=== PATIENT | female | born 1955 | race Caucasian/White ===

== ENCOUNTER → 2020-04-07 08:19 | Outpatient (CLI) | payer OTHER, SELFPAY ==
--- NOTE | 2020-04-07 | IMM_PTH ---
PATIENT: HALEY KEATING LOC: [facility] U#:[id number] AGE/SX: 70/F ROOM: RE04/07/[address]: Dr. Kim Olvera MD : 1955 BED: DIS: SPEC #: [id number] RECD: 04/08/20 13:09 STATUS: MARGARITA REQ #: [id number] AUDRA: 04/07/20 00:[address]: Kim Olvera DEPT: IMMUNOHISTOCHEMISTRY RECD BY: Marianne Suárez ENTERED: 04/08/20 13:10 SP TYPE: IMMUNO OTHR DR: Dr. Dago Driver MD Tissues: Right breast, NOS Procedures: CALPONIN-1 (add) CK5-6 (add) CK8 (add) CANTOR-2 (add) E-CAD (add) HER2 TRACY (add) KI-67 (add) P53 (add) LA (add) P40 (add) ER (initial) PHYSICIAN & INSTITUTION [place] [phone] SPECIMEN INFORMATION: Tissue Source: Right breast, stereotactic core biopsy Clinical Info: Right breast calcifications superior lateral quadrant middle depth Specimen Number: [id number] #1 CPT code: 79700, 08420 x7, 49735 x3 METHODOLOGY: Deparaffinized sections of prefer/formalin-fixed tissue or PAP/DQ stained slides are incubated with monoclonal/polyclonal antibodies/oligonucleotide probes. Localization is made via biotin free immunoperoxidase method. Appropriate controls are performed and reacted as expected. Results on target cell population are indicated in the following table: RESULTS: ANTIBODY / CLONE RESULT Block 1 P53 (DO-7) positive, 2% Ki-67 (30-9) positive, low CK8 (84tasrF37) positive CK5-6 (D5 & 1684) positive Calponin-1 (TZ375I) positive P40 (BC28) positive E-Cad (ECH-6) positive CANTOR-2 (SP21) positive MORPHOMETRIC ANALYSIS ER (clone 6F11) positive, >95%, strong intensity LA (clone 16/1E2) negative, 0% Her-2Neu (clone CB11) negative, 0 The prognostic test for HER2 is performed on formalin-fixed paraffin embedded tissue. A 3+ (positive) staining pattern is defined as intense, homogeneous, complete, circumferential membranous staining in >10% of contiguous tumor cells. A similar weak (2+) staining pattern is interpreted as equivocal. HERIBERTO follow-up testing is recommended for all equivocal cases. Positivity/negativity for ER/LA is reported if > or < 1% of the tumor cells are immuno- reactive, respectively. The ASCO/CAP criteria is used for scoring. Reference: Journal of Clinical Oncology, 2013; 31:7249-3419 & 2010; 16:0039-3512. Duration of fixation: 9.5 Hrs; Sample Adequate: Yes. These assays have not been validated on decalcified tissues. Results should be interpreted with caution given the likelihood of false negativity on decalcified specimens. These tests were developed and their performance characteristics determined by [facility]. They may not have been cleared or approved by the U.S. Food and Drug Administration. The FDA has determined that such clearance or approval is not necessary. The above immunohistochemical/dualISH markers are ordered and reviewed by the Pathologist. 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 Case has been reviewed in consultation with Dr. mUaña who concurs with the above diagnosis. IDC:MCKAY AM:clara 04/09/20
--- NOTE | 2020-04-07 10:10 | BRBX_PTH ---
PATIENT: HALEY KEATING LOC: [facility] U#:[id number] AGE/SX: 70/F ROOM: RE04/07/[address]: Dr. Kim Olvera MD : 1955 BED: DIS: SPEC #: [id number] RECD: 04/07/20 10:51 STATUS: MARGARITA REQ #: [id number] AUDRA: 04/07/20 10:[address]: Kim Olvera DEPT: SURGICAL PATHOLOGY RECD BY: Nohemy Barker ENTERED: 04/07/20 11:09 SP TYPE: BREAST BX OTHR DR: Dr. Dago Driver MD Tissues: Right breast, NOS Procedures: Surgery Specimen Level IV HEADER OPERATION: Right breast stereotactic biopsy PRE-OP DIAGNOSIS: Right breast calcifications superior lateral quadrant middle depth TISSUE SUBMITTED: Right breast core tissue ISCHEMIC TIME: 1 minute FIXATION TIME: 9.5 hours MICROSCOPIC DIAGNOSIS Right breast, superior lateral quadrant, stereotactic needle core biopsy: Ductal carcinoma in situ, nuclear grade 3 with associated microcalcifications, cribriform. Atypical intraductal hyperplasia, multifocal. AM:clara 04/08/20 COMMENT ER/NM/Tph5mjf studies are being performed on sections of tumor and the results from this study will be reported separately ([id number]). Case has been reviewed in consultation with Dr. Umaña who concurs with the above diagnosis. IDC:MCKAY MICROSCOPIC DESCRIPTION Slides are reviewed. GROSS DESCRIPTION Received is one container labeled with the patient's name and not further designated. The specimen consists of multiple elongated fragments of ta-yellow fibroadipose tissue that in aggregate measure 5 x 3 x 0.3 cm. The entire specimen is submitted in two cassettes. / MCKAY:clara 04/07/20 TC:0 CPT: 27185
--- NOTE | 2020-04-07 10:31 | PCM.OPRPT ---
Report of Operation Date of Procedure: 04/07/20 Pre-Operative Diagnosis: abnormal calcifications of right breast mammograms Post-Operative Diagnosis: same Surgery/Procedure Performed:: right breast stereotactic biopsy Description of Surgical Findings:: abnormal calcification in the upper outer quadrant of right breast Type of Anesthesia:: Local - 1% xylocaine Specimen's removed: right breast tissue Estimated Blood Loss (mL): < 1 ml Fluids Replaced: none Description of Procedure: After informed consent was given, the patient was brought into the breast biopsy suite. Appropriate time out protocol was followed. She was then placed in the prone position on the stereotactic biopsy table. The patient?s right breast was then placed in the opening at the head of the table. A methods analyst data processing compression mammogram was then obtained in the CC view. The suspicious radiological lesion was then identified. Stereo pictures of the lesion were then taken for XYZ coordinates. The Mammotome biopsy stylus was then positioned where it would be entering into the patient?s breast. The skin at this site was then cleansed with a surgical skin preparation. The skin and subcutaneous tissues at this site were then infiltrated with 1% xylocaine. A small skin incision was made with an 11 blade scalpel. The biopsy stylus was then positioned into the patient?s breast at the proper coordinates of depth. Using the Mammotome vacuum-assist device, several core samples of breast tissue were obtained. A specimen mammogram was the obtained. I reviewed it. The abnormal calcifications were within the specimen. A hemostatic marker clip was then placed into the biopsy cavity and a methods analyst data processing film revealed that it was properly deployed. The patient was then placed in the supine position and pressure was applied to the breast until no active bleeding was noted. Steristrips were applied to reapproximate the skin. A unilateral mammogram in the CC and MLO view were then taken which revealed that the marker clip was in the same area as the previous suspicious lesion. The patient tolerated the procedure well and was discharged from the breast biopsy suite in good condition. - Complications none noted
== END ==
PROVIDERS: PCP Family Medicine; Referring Provider Surgery; Visit Provider Surgery
DX: R92.1 Mammographic calcification found on diagnostic imaging of breast (principal); F41.9 Anxiety disorder, unspecified; Z80.3 Family history of malignant neoplasm of breast
CPT/HCPCS: 19081; 88305; 88341; 88342; J7050

== ENCOUNTER 2020-05-01 09:51 | Day surgery (SDC) | payer OTHER, SELFPAY ==
[2020-05-01] VITALS (7 sets, daily range): BP systolic 128–154; BP diastolic 73–87; PULSE 69–95; RESP 16; TEMP 36.1–37.2; O2SAT 94–98; BMI 21.7
--- NOTE | 2020-05-01 10:30 | BI_ITS ---
SURGICAL BREAST SPECIMEN RADIOGRAPH CLINICAL: Document presence of tissue clip marker in biopsy specimen. FINDINGS: Specimen shows presence of tissue clip marker. Electronically Signed: Salvador Min, at 14:03 EDT , Service support , BI/Breast Biopsy Specimen
[2020-05-01] MEDS: Lactated Ringers 1,000 ML 100 ML IV ×3 (10:55→16:16)
--- NOTE | 2020-05-01 11:13 | HP.PCM_ITS ---
History and Physical Date of Admission: 05/01/20 HISTORY AND PHYSICAL ? Renetta Resendiz 1955 ? ? REFERRING PHYSICIAN: David Rodriguez, DO ? CHIEF COMPLAINT: No chief complaint on file. ? HPI: The patient is a 64 year old female with newly diagnosed right breast DCIS. She is s/p right breast stereotactic biopsy done on 04/08/2020 MICROSCOPIC DIAGNOSIS Right breast, superior lateral quadrant, stereotactic needle core biopsy: Ductal carcinoma in situ, nuclear grade 3 with as sociated microcalcifications, cribriform. Atypical intraductal hyperplasia, multifocal. RESULTS: P53 (DO-7) positive, 2% Ki-67 (30-9) positive, low CK8 (12nzahO82) positive CK5-6 (D5 & 1684) positive Calponin-1 (VT205B) positive P40 (BC28) positive E-Cad (ECH-6) positive CANTOR-2 (SP21) positive MORPHOMETRIC ANALYSIS ER (clone 6F11) positive, >95%, strong intensity VT (clone 16/1E2) negative, 0% Her-2Neu (clone CB11) negative, 0 ? She states that her mother had breast cancer and sister had breast cancer, no ovarian cancer in family known. She notes slight bruising from the biopsy site. Some soreness in the area. Denies fevers. ? ? PAST MEDICAL HISTORY Diagnosis Date ? NONE ? ? Shingles outbreak 11/2015 ? PAST SURGICAL HISTORY Procedure Laterality Date ? LIGATE FALLOPIAN TUBE ? ? ? NOSE SURGERY HX ? 1986 ? PAST SURGICAL HISTORY OF ? ? ? shave biopsy on left forearm in 06/1997, ? PAST SURGICAL HISTORY OF ? ? ? Moh's on right upper lip in 1996. ? PAST SURGICAL HISTORY OF ? ? ? shave biopsy for bcc on left bridge nose in 2002. ? ? Current Outpatient Medications Medication Sig ? black cohosh root (REMIFEMIN MENOPAUSE ORAL) Take by mouth. ? estradiol (ESTRACE) 0.01 % (0.1 mg/gram) vaginal cream Use 1gram nightly x 2 weeks then use 1/2gram 2-3 times weekly for maintenance (Patient not taking: Reported on 03/31/2020 ? triamcinolone acetonide (NASACORT NASAL) Use in the nose. ? ? ALLERGIES: Bandaids [Other]; Polysporin [Bacitracin-Polymyxin B]; Vicodin [H ydrocodone-Acetaminophen] ? PERSONAL HISTORY: Social History ? Tobacco Use ? Smoking status: Never Smoker ? Smokeless tobacco: Never Used Substance Use Topics ? Alcohol use: Yes ? ? Comment: seldom ? Drug use: No ? FAMILY HISTORY Problem Relation Age of Onset ? Allergies Father ? ? Arthritis Father ? ? Diabetes Father ? ? Heart Father ? ? By-pass ? Lipids Father ? ? Breast Cancer Mother 56 ? Breast Cancer Sister 60 ? Diabetes Sister ? ? Hypertension Sister ? ? Breast Cancer Paternal Grandmother ? ? Asthma Daughter ? ? ? Nursing Notes: Estelita Byrnes LPN REVIEW OF SYSTEMS: ?General:???The patient denies fatigue, denies weight loss, NOTES weight gain, denies feeling hot, and denies feelings of cold. ?Eyes: ?The patient denies glaucoma, denies eye injury/surgery, wears glasse s or contacts. ?Ear/Nose/Throat: ?The patient denies allergies, NOTES hayfever, denies ear infections, and denies bloody noses. ?Cardiovascular: ?The patient denies chest pain, denies heart disease, denies high blood pressure,denies cardiac stent, denies prior heart attack, denies irregular heart beat, denies high cholesterol, ?denies poor circulation, denies heart failure, other cardiac issues, denies claudication, denies cold feet, denies peripheral arterial stent. ?Respiratory: ?The patient denies tuberculosis, denies pneumonia, denies frequent cough, denies pulmonary embolism, denies shortness of breath, and denies coughing up blood. ?Gastrointestinal: ?The patient denies difficulty swallowing, denies acid reflux, denies ulcers, denies vomiting, denies jaundice/hepatitis, denies gallbladder problems, denies black or tarry stools, denies hemorrhoids, denies bleeding from rectum, denies diverticulitis, denies constipation, denies diarrhea, denies loss of stool control, and denies hernias. ?Kidney/Bladder: ?The patient denies kidney stones, denies urine infections, and denies bloody urine. ?Skin: ?The patient NOTES a history of skin cancer, denies bleeding/changing moles, and denies a history of skin rash. ?Neurologic: ?The patient denies a history of epilepsy/convulsions, denies headaches, denies head/spinal injuries, and denies stroke/TIA. ?Psychiatric: ?The patient denies psychiatric medications, denies depression, and denies voices, denies substance abuse. ?Endocrine: ?The patient denies thyroid disorders, denies diabetes, and denies hormonal problems. ?Hematologic: ?The patient denies a history of bruising, denies bleeding, and denies anemia, denies blood clots. ?Infections: ?The patient NOTES a history of measles and mumps, denies rheumatic fever, and denies sexually transmitted diseases. ?Musculoskeletal: ?The patient denies back pain/injury, denies back problems, denies sciatica, NOTES right knee pain, NOTES arthritis, or denies gout. ?Obstetrical: menarche onset at age 14, B3 P3, first at age 21, breast feeding 6 weeks, BCP use initially at age 23, for < 1y, menopause? When was patient's last Mammogram screening? 02/2020 ?Last Colonoscopy: ?None Estelita Byrnes LPN ? ? PHYSICAL EXAMINATION: General: ?The patient is 64 year old female, well nourished, well hydrated in no acute distress. ?The patient is oriented to time, place, and person. VITALS:?Blood pressure 142/68, pulse 100, temperature 36.7 ?C (98.1 ?F), temperature source Temporal, resp. rate 12, height 167.6 cm (5' 6), weight 60.8 kg (134 lb), SpO2 97 %.?Body mass index is 21.63 kg/m?.? Head ??Normocephalic. EOM intact with sclera clear and no icterus noted. Mouth with mucus membranes moist. Neck - supple with no jugular venous distention noted. Trachea is midline. No carotid bruits noted. No thyroid enlargement or thyroid nodules detected. No masses noted. Chest/breast ??no asymmetry of breasts noted, no suspicious skin lesions noted, no nipple discharge and both nipples everted, no breast masses noted Lungs ??clear to auscultation. Normal breath sounds. No rales/rhonchi/wheezing noted. No labored breathing noted, such as retractions. No cough heard. Heart ??normal S1 and S2 auscultated. No rubs/clicks/murmurs noted. Regular rate. Abdomen ??soft and benign. Normal bowel sounds No abdominal bruits noted. Extremities ??no calf tenderness noted. No pitting edema noted. Skin ??normal skin integrity. Lymph ??no cervical adenopathy detected, no supraclavicular adenopathy detected, no axillary adenopathy detected Neurological ??gait normal, no focal deficits noted Psych ??calm and appropriate ?. ? IMPRESSION: newly diagnosed right breast DCIS ? PLAN: I have discussed the above with the patient and her who is present with her. I have offered right breast lumpectomy via wire localization (the other alternative is breast mastectomy of which patient is not interested in). This is to be followed by radiation therapy and hormonal therapy. I have explained the procedure to the patient. I have counseled the patient as to the risks of the procedure, including but not limited to: infection, bleeding, injury to any blood vessels/nerves, scar tissue, cosmetic deformity, further surgery if margins are not clear, wound infections, complications of anesthesia, etc. ? the patient understands. The patient wishes for procedure to be done at [facility]. ? The patient was offered a surgery/procedure. The provider and patient have discussed in detail the risk of exposure to and/or potential harm posed by the COVID-19 virus with having a surgery/procedure at this time versus the risk of? delaying the surgery/procedure. It is not possible to know either the risk of delaying the surgery or procedure or chance of getting an infection with perfect accuracy, but a joint decision was made between the patient and the provider ?to proceed at this time with the scheduled surgery/procedure. She will require COV ID testing prior to procedure. ? The patient wishes to proceed. ? ? I have answered all questions to the patient?s satisfaction and the patient has no further questions. I have personally contacted [facility] surgical department to arrange this procedure to be done on May 01. . Diagnoses: (D05.11) Ductal carcinoma in situ (DCIS) of right breast (primary encounter diagnosis) Return to Clinic: The patient is instructed to follow-up with me after the procedure.
--- NOTE | 2020-05-01 13:00 | BREAST_PTH ---
PATIENT: HALEY KEATING [place] [facility] [place][id number] AGE/SX: 64/F ROOM: RE05/01/[address]: Dr. Kim Olvera MD : 1955 BED: DIS: 05/01/2020 SPEC #: [id number] RECD: 05/01/20 15:44 STATUS: MARGARITA REQ #: [id number] AUDRA: 05/01/20 13:[address]: Kim Olvera DEPT: SURGICAL PATHOLOGY RECD BY: Florencio De La Torre ENTERED: 05/04/20 07:20 SP TYPE: BREAST OTHR DR: Dr. Dago Driver MD Tissues: A - Right breast, NOS B - Right breast, NOS Procedures: Surgery Specimen Level IV Surgery Specimen Level V HEADER OPERATION: Right breast lumpectomy via NL PRE-OP DIAGNOSIS: Right breast DCIS TISSUE SUBMITTED: A - Right breast, short suture - superior border, long suture - lateral, two long sutures - posterior border, B - Scar biopsy right breast MICROSCOPIC DIAGNOSIS A. Right breast, lumpectomy: Ductal carcinoma in situ. See cancer checklist below. B. Right breast scar, biopsy: Skin and underlying soft tissue with cicatrix. No evidence of malignancy. AM:clara 05/06/20 COMMENT DUCTAL CARCINOMA IN SITU SUMMARY: Procedure - lumpectomy Specimen - partial breast Laterality - right breast Size (extent of DCIS): Estimated size (extent) - 7.5 x 2 mm Number of blocks - 3 of 12 block Architectural pattern - cribriform and papillary Nuclear grade - 3/3 Necrosis - focally present Margins - uninvolved by in situ carcinoma. Distance from closest margin - 11 mm from inferior margin Regional lymph nodes - not submitted Microcalcifications - present in carcinoma and non-neoplastic tissue. Additional Pathologic Findings - florid intraductal hyperplasia with multifocal atypical intraductal hyperplasia, adenosis, fibrocystic change, vessel wall microcalcifications & changes of previous biopsy. Ancillary Studies from previous specimen ([id number] / [id number]): ER - positive, >95%, strong intensity WI - negative, 0% Her2 ruth ([facility]) - negative, 0 Pathologic Staging: pTis(DCIS) Nx Mx The above summary is in compliance with [employer] [place] [employer] (CAP) Cancer Protocols Checklist and [place] Joint Committee on Cancer (AJCC), Staging Manual, 8th Ed. Reference is made to the patient's right breast, superior lateral quadrant, needle core biopsy in which ductal carcinoma in situ, nuclear grade 3 was identified ([id number]). Case has been reviewed in consultation with Dr. Umaña who concurs with the above diagnosis. IDC:SJ MICROSCOPIC DESCRIPTION Slides are reviewed. GROSS DESCRIPTION A - Received fresh labeled with the patient's name is a specimen designated right breast. The specimen consists of a right breast containing suture and metallic wire. The specimen consists of an irregular fragment of ta-yellow fibrofatty tissue measuring 5.5 x 3 x 2.6 cm and weighing 23 gm. The specimen is inked as follows: anterior - yellow, posterior - black, superior - blue, inferior - green, medial - red and lateral - orange. The specimen is serially sectioned along its narrow axis. Serial sections reveal a blood-filled biopsy cavity measuring 1 x 0.6 cm. The biopsy cavity is located 0.8 cm from its closest (inferior) margin of excision. No mass lesion is grossly identified. The uninvolved breast parenchyma is yellow with focal fibrous streaks. The specimen is submitted in its entirety in 12 cassettes. Cassettes 25 represent the biopsy cavity with surrounding soft tissue. B - Received in fixative is one container labeled with the patient's name and designated scar biopsy right breast. The specimen consists of one irregular fragment of light ta soft tissue that measures 0.2 x 0.1 x <0.1 cm. The specimen is totally submitted in one cassette. / AM:clara 05/04/20 TC:0 CPT: 83218, 02833
--- NOTE | 2020-05-01 13:02 | PCM.DC.BS ---
Discharge Diet: No Restrictions Discharge Activity: Return to Normal Activity, May not drive while taking narcotic pain medications. Call your doctor if your incision/area has: Continuous Slow Oozing, Foul Smelling Discharge Call your doctor if you observe: Fever of 101 or Higher Additional Instructions: Recommended pain control regimen - May take 600 mg ibuprofen (Motrin) and then in 3-4 hours, may take 650 mg acetaminophen (Tylenol), then in 3-4 hours may take 600 mg ibuprofen, then in 3-4 hours may take 650 mg acetaminophen and so on for 2-3 days May take narcotic pain medication for pain that is not controlled by above and at night for comfort through the night Leave dressings in place May get dressing wet in shower - do not scrub in the area and pat dry Do not soak - no tub baths/swimming Wear supportive bra during the day Ice packs to the area may help with comfort Allergies/Adverse Reactions: Allergies acetaminophen [From Vicodin] Allergy (Verified 05/01/20 10:49) Rash hydrocodone [From Vicodin] Allergy (Verified 05/01/20 10:49) Rash latex Allergy (Verified 05/01/20 10:49) Rash Medications to take at Discharge Mometasone Furoate [Nasonex] 1 spray NASAL DAILY 04/22/20 Multivitamin with Minerals [Multiple Vitamin] 1 ea PO DAILY 04/22/20 Vit C/E/Zn/Coppr/Lutein/Zeaxan [Preservision Areds 2 Softgel] 1 ea PO DAILY 04/22/20 Oxycodone [Oxyir] 5 mg PO Q12H PRN PRN 3 Days #6 tab 05/01/20 The following prescriptions were given: Oxycodone [Oxyir] 5 mg PO Q12H PRN PRN 3 Days #6 tab PRN Reason: Pain Score 6-10/10 Transmission Status: Received by [id number] Primary Care Physician: Dago Driver MD [Primary Care Provider] - Please Follow Up With: Kim Olvera MD - call When: to be seen on 05/11/2020 at 10:10 am for follow up
[2020-05-01] MEDS: Cefazolin 2 GM in 0.9% Normal Saline 100 ML IV (13:20)
[2020-05-01] MEDS: Bupiv/Epi 0.25% 30 ML Vial (13:23)
--- NOTE | 2020-05-01 14:46 | OP.PCM_ITS ---
Report of Operation Date of Procedure: 05/01/20 Pre-Operative Diagnosis: right breast DCIS Post-Operative Diagnosis: same Surgery/Procedure Performed:: right breast lumpectomy via wire localization Description of Surgical Findings:: right breast tissue of upper outer quadrant of breast Type of Anesthesia:: General Anesthesiologist: Jesus Jamison Specimen's removed: right breast tissue, right breast skin scar from biopsy Estimated Blood Loss (mL): < 10 ml Fluids Replaced: 1200 ML RL Description of Procedure: After informed consent was given, the patient was brought into the Breast Stereotactic Radiology suite. Appropriate time out protocol was followed. The patient was then placed in the prone position on the [place] stereotactic table. The patient?s right breast was placed in the opening at the head of the table. A advisory services associate compression mammogram was then obtained in the CC view. The marker clip that was previously placed was identified. Stereo pictures of the lesion were then taken for XYZ coordinates. The Kopans needle was then positioned where it would be entering into the patient?s breast. The skin at this site was then cleansed with a surgical skin preparation. The skin and subcutaneous tissues at this site were then infiltrated with 1% xylocaine. The Kopans needle was then positioned into the patient?s breast at the proper coordinates of depth. A advisory services associate film was obtained which revealed the wire in proper position. The patient was then placed in the supine position and the wire was taped into place. A unilateral mammogram in the CC and MLO view were then taken for use in the OR. The patient tolerated this portion of the procedure well and was brought to the AC awaiting surgery in the OR. The patient was then brought to the Operating Room. Appropriate time out protocol was followed. The patient was then placed on the operating table in the supine position. A wire had already been placed in the stereotactic biopsy room in the radiology department as described above. The right breast with the wire in placed was then prepped with a sterile surgical skin preparation and sterile surgical drapes were placed. The skin and subcutaneous tissues at the site of the breast lesion was then infiltrated with 1% xylocaine with epinephrine. A transverse curvilinear skin incision was then made in the upper outer quadrant of the right breast at the wire entrance site with a 15 blade scalpel and carried down through to the subcutaneous tissues. Hemostasis was controlled with electrocautery. The wire was then palpated out within the breast tissue. The breast tissue surrounding the wire was then carefully palpated out and from the surrounding tissues using electrocautery. Hemostasis was controlled with electrocautery. The breast tissue was then marked at the margins with suture. The breast tissue, was then forwarded to the radiology department. A specimen mammogram was obtained. I reviewed the radiograph, the marker clip was within the specimen and therefore I made the decision that the excision of the breast tissue was adequate - in real time. The breast tissue was then forwarded to pathology for analysis. The pathologist was unavailable. The tissue was placed in formalin for future analysis. The wound cavity was carefully examined. No further suspicious tissue was palpated or visualized. Hemostasis was carefully controlled with electrocautery. The subdermal tissues were then approximated with vicryl suture. The incision was then reapproximated close using running monocryl suture. Cavilon and steristrips were then placed to reinforce the skin closure. Sponge, needle, and instrument count were verified and correct at the time of skin closure. A sterile dressing was then applied. The patient was then brought to the Recovery Room in stable condition. - Complications complications - none noted - Admit VTE Documentation VTE Present on Admission: Yes VTE Mechan Device Prophylaxis: SCD's
== END 2020-05-01 17:45 | disposition home or self-care (01) ==
LOC: SDC 09:51 → AC 09:52
PROVIDERS: Anesthesiology; PCP Family Medicine; Referring Provider Surgery; Visit Provider Surgery
PROC: (CPT 19301; principal; 2020-05-01 12:45)
DX: D05.11 Intraductal carcinoma in situ of right breast (principal); Z11.59 Encounter for screening for other viral diseases; Z80.3 Family history of malignant neoplasm of breast
CPT/HCPCS: 00400; 19301; 19281; 76098; 87635; 88305; 88307; 94799; J7120; J2405; U0003

== ENCOUNTER 2020-11-05 11:53 | Day surgery (SDC) | payer OTHER, SELFPAY ==
[2020-05-01 10:50] VITALS: BMI 21.7
--- NOTE | 2020-11-02 17:42 | PCM.HP.BLA ---
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 Pt had EMB in office which was benign but based on ultrasound images Hysteroscopy, D&C were recommended. She is scheduled for Hysteroscopy D&C, for PMB, Thickened endoemtrium and personal use of tamoxfien on 10/29/20. Procedure discussed along with risks, benefits and complications. Other alternatives discussed for management. Consent form signed? Yes. PAST MEDICAL HISTORY PAST MEDICAL HISTORY Diagnosis Date ? 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 NONE ? Shingles outbreak 11/2015 PAST SURGICAL HISTORY PAST SURGICAL HISTORY Procedure Laterality Date ? BREAST BIOPSY W/STEREOTACTIC GUIDANCE Right 04/07/2020 ? BREAST LUMPECTOMY HX Right 05/01/2020 ? LIGATE FALLOPIAN TUBE ? NOSE SURGERY HX 1986 ? PAST SURGICAL HISTORY OF shave biopsy on left forearm in 06/1997, ? PAST SURGICAL HISTORY OF Moh's on right upper lip in 1996. ? PAST SURGICAL HISTORY OF shave biopsy for bcc on left bridge nose in 2002. CURRENT MEDICATIONS Current Outpatient Medications Medication Sig Dispense Refill ? calcium-vits M4-F-L1-minerals 166.75 mg- 166.75 unit cap Take by mouth. ? cholecalciferol, vitamin D3, (VITAMIN D3 ORAL) Take 25 mcg by mouth once daily. ? Multivitamin capsule Take 1 capsule by mouth once daily. ? loratadine (CLARITIN ORAL) Take by mouth. ? vit A/vit C/vit E/zinc/copper (ICAPS AREDS ORAL) Take by mouth. ? triamcinolone acetonide (NASACORT NASAL) Use in the nose. ? ibuprofen (MOTRIN) 600 mg tablet Take 1 tablet by mouth every 6 hours as needed. 30 tablet 0 ? tamoxifen (NOLVADEX) 20 mg tablet Take 1 tablet (20 mg) by mouth once daily. 30 tablet 5 ? black cohosh root (REMIFEMIN MENOPAUSE ORAL) Take by mouth. ? estradiol (ESTRACE) 0.01 % (0.1 mg/gram) vaginal cream Use 1gram nightly x 2 weeks then use 1/2gram 2-3 times weekly for maintenance (Patient not taking: Reported on 03/31/2020 ) 42 g 0 No current facility-administered medications for this visit. ALLERGIES: Bandaids [Other], Polysporin [Bacitracin-Polymyxin B], and Vicodin [Hydrocodone-Acetaminophen] PERSONAL HISTORY: SOCIAL HISTORY Social History Tobacco Use ? Smoking status: Never Smoker ? Smokeless tobacco: Never Used Substance Use Topics ? Alcohol use: Yes Comment: seldom ? Drug use: No FAMILY HISTORY: FAMILY HISTORYExpand by Default FAMILY HISTORY Problem Relation Age of Onset ? Allergies Father ? Arthritis Father ? Diabetes Father ? Heart Father By-pass ? Lipids Father ? Breast Cancer Mother 56 age 60 ? Breast Cancer Sister 57 ? Diabetes Sister ? Hypertension Sister ? Cancer Paternal Grandmother Breast? age 50s-60s ? Asthma Daughter ? Breast Cancer Maternal Aunt 51 in 60s ? Breast Cancer Maternal Aunt 76 in 90s ? Breast Cancer Maternal Aunt 81 in 90s ? Breast Cancer Maternal cousin 58 REVIEW OF SYMPTOMS: negative except as noted above PHYSICAL EXAMINATION: VITALS: Blood pressure 120/70, height 5' 5.35 (1.66 m), weight 135 lb (61.2 kg). GENERAL: The patient is well nourished, well hydrated in no acute distress. , The patient is oriented to time, place, and person. NECK:full range of motion Neuro: alert and oriented x 3 IMPRESSION: 65yo with PMB, EM thickening, tamoxifen use PLAN: Hysteroscopy, D&C Pt has been counseled on risks/benefits and alternatives of surgery including but not limited to anesthesia, bleeding, infection, uterine perforation with subsequent injury to pelvic structures including bowel, bladder, ureters and vessels. Pt wishes to proceed with surgery at this time. Post op motrin given Pt reports stopped tamoxifen 3 weeks ago I have reviewed and updated past medical and surgical history, medications and allergies Deonna Brewer MD Office Visit on 10/27/2020 Note shared with patient
[2020-11-04 11:00] LABS: Hematocrit 42.1 % (37-47); Hemoglobin 13.4 g/dL (12.0-15.0); Mean Corp Hgb Conc 31.8 g/dL (32-36); Mean Corpuscular Hgb 29.7 pg (27.0-32.0); Mean Corpuscular Volume 93.3 fL (81-99); Mean Platelet Vol. 11.6 fl (6.2-12.0); Platelet Count 197 K/mm3 (150-450); RBC Distribution Width CV 12.6 % (11.6-14.6); Red Blood Count 4.51 M/mm3 (4.2-5.4); White Blood Count 4.2 K/mm3 (4.4-11.0)
--- NOTE | 2020-11-05 | EMB_PTH ---
PATIENT: HALEY KEATING LOC: [facility] [place] U#:[id number] AGE/SX: 65/F ROOM: RE11/05/[address]: Dr. Deonna Mallory, MDDOB: 1955 BED: DIS: 11/05/2020 SPEC #: [id number] RECD: 11/06/20 06:55 STATUS: MARGARITA NISSA #: [id number] AUDRA: 11/05/20 00:[address]: Deonna Mallory DEPT: SURGICAL PATHOLOGY RECD BY: Win Louis ENTERED: 11/06/20 09:16 SP TYPE: ENDOM BX/C UGO DR: Dr. Dago Driver MD Tissues: Endometrium, NOS Procedures: Surgery Specimen Level IV HEADER OPERATION: Hysteroscopy, D & C PRE-OP DIAGNOSIS: PMB, thickened endometrium TISSUE SUBMITTED: Endometrial curettings MICROSCOPIC DIAGNOSIS Endometrium, curettings: Strips of benign superficial glandular tissue. Rare strips of benign superficial squamous mucosa. AM:clara 11/09/2020 MICROSCOPIC DESCRIPTION Slides are reviewed. GROSS DESCRIPTION Received in fixative is one container labeled with the patient's name and designated endometrial curettings. The specimen consists of multiple fragments of hemorrhagic soft tissue that in aggregate measure 2.5 x 1 x 0.1 cm. The specimen is totally submitted in one cassette. / SJ:clara 11/06/20 TC:5 CPT: 99439
[2020-11-05 12:37] VITALS: BP 136/76; PULSE 78; RESP 14; TEMP 36.9; O2SAT 98; BMI 21.6
[2020-11-05] MEDS: Lactated Ringers 1,000 ML 150 ML IV (12:45)
--- NOTE | 2020-11-05 12:54 | DCINST_ITS ---
Discharge Diet: No Restrictions Discharge Activity: Return to Normal Activity, May Shower, May Take a Tub Bath - in 2 weeks. Call your doctor if you observe: Fever of 101 or Higher, Using more than one pad per hour Allergies/Adverse Reactions: Allergies hydrocodone [From Vicodin] Allergy (Verified 11/05/20 12:36) Rash latex Allergy (Verified 11/05/20 12:36) Rash bacitracin [From Polysporin] Adverse Reaction (Verified 11/05/20 12:36) Other inflamation polymyxin B [From Polysporin] Adverse Reaction (Verified 11/05/20 12:36) Other inflamation Medications to take at Discharge Mometasone Furoate [Nasonex] 1 spray NASAL DAILY PRN PRN 04/22/20 Multivitamin with Minerals [Multiple Vitamin] 1 ea PO DAILY 04/22/20 Vit C/E/Zn/Coppr/Lutein/Zeaxan [Preservision Areds 2 Softgel] 1 ea PO DAILY 04/22/20 Calcium Carbonate 650 mg PO DAILY 10/29/20 Cholecalciferol (Vitamin D3) [Vitamin D3] 4,000 unit PO DAILY 10/29/20 Multivit-Min/Ascorbic/Herb 124 [Airborne Effervescent Pwd Pack] 1 ea PO DAILY 10/29/20 Primary Care Physician: Dago Driver MD [Primary Care Provider] - Test Results: Test results from this visit will be discussed in further detail at your follow- up appointment, if applicable. Please Follow Up With: Deonna Mallory MD When: 2 weeks
--- NOTE | 2020-11-05 12:59 | OP.PCM_ITS ---
Report of Operation Date of Procedure: 11/05/20 - start: 131 end time:1317 Pre-Operative Diagnosis: PMB, thickened Endometrium, h/o Tamoxifen use Post-Operative Diagnosis: same Surgery/Procedure Performed:: Hysteroscopy, D&C Description of Surgical Findings:: atrophic appearing endometrium. no masses. Type of Anesthesia:: MAC Special Medications: none Specimen's removed: Endometrial curettings Drains: none Estimated Blood Loss (mL): 5cc Fluids Replaced: 500 Description of Procedure: informed consent was obtained the patient was taken the operating room she was placed in supine position. She was given anesthesia. She was then placed in the [facility] where she was prepped and draped in the normal sterile fashion. At this time the weighted speculum was placed in the posterior fornix of vagina. Single-tooth tenaculum was used to gently grasp the anterior lip the cervix. At this time the uterine cavity was sounded to approximately 7 cm. Gentle dilatation was performed once adequate dilatation of the cervix was achieved the hysteroscope using normal saline as a distention medium was placed. Tubal ostia visualized, lining appears atrophic. This time hysteroscopy was complete. Sharp curettage performed to obtain endometrial curettings . amall amount of tissue expelled. Tissue will be sent to pathology for evaluation. Tenaculum removed. Good hemostasis. Instrument, lap count correct x 2. Vaginal Sweep was negative. Grafts/Implants Used: none - Complications none - Admit VTE Documentation VTE Present on Admission: Yes VTE Mechan Device Prophylaxis: SCD's VTE Pharm Prophylaxis ordered?: No
[2020-11-05 13:27] VITALS: BP 105/82; BP 136/76; PULSE 68; RESP 16; TEMP 36.6; O2SAT 95
[2020-11-05 13:30] VITALS: BP 120/77; BP 136/76; PULSE 69; RESP 16; O2SAT 97
[2020-11-05 13:35] VITALS: BP 127/78; BP 135/72; BP 136/76; PULSE 64; PULSE 72; RESP 16; RESP 18; TEMP 36.3; O2SAT 100; O2SAT 97
[2020-11-05 13:40] VITALS: BP 122/84; BP 136/76; PULSE 62; RESP 16; TEMP 37.2; O2SAT 97
[2020-11-05 14:16] VITALS: BP 136/76
== END 2020-11-05 14:27 | disposition home or self-care (01) ==
LOC: SDC 11:53 → AC 11:53
PROVIDERS: PCP Family Medicine; Referring Provider Obstetrics & Gynecology; Visit Provider Obstetrics & Gynecology
PROC: 0UDB8ZZ Extraction of Endometrium, Via Natural or Artificial Opening Endoscopic (ICD-10-PCS; CPT 58558; principal; 2020-11-05 13:20)
DX: N95.0 Postmenopausal bleeding (principal); R93.89 Abnormal findings on diagnostic imaging of other specified body structures; Z20.828 Contact with and (suspected) exposure to other viral communicable diseases; Z85.3 Personal history of malignant neoplasm of breast; Z79.899 Other long term (current) drug therapy
CPT/HCPCS: 00952; 58558; 36415; 85027; 87426; 88305; C9803; J7120; J2405

== ENCOUNTER 2022-12-22 12:13 | Day surgery (SDC) | payer MEDICARE, SELFPAY ==
--- NOTE | 2022-12-22 | COLBX_PTH ---
PATIENT: HALEY KEATING LOC: [place] U#:[id number] AGE/SX: 67/F ROOM: RE12/22/[address]: Dr. Fredis Jarvis MD : 1955 BED: DIS: 12/22/2022 SPEC #: [id number] RECD: 12/22/22 14:31 STATUS: MARGARITA AZAR #: [id number] AUDRA: 12/22/22 00:[address]: Fredis Jarvis DEPT: SURGICAL PATHOLOGY RECD BY: Win Louis ENTERED: 12/23/22 10:08 SP TYPE: COLON BX OTHR DR: Dr. Sasha Phan MD Tissues: A - Cecum, NOS B - COLON BIOPSY C - Sigmoid colon biopsy D - Rectum, NOS Procedures: Surgery Specimen Level IV HEADER OPERATION: Colonoscopy (MAC) with biopsies PRE-OP DIAGNOSIS: Blood in stool, constipation TISSUE SUBMITTED: A ? Cecal polyp biopsy, B ? Splenic flexure polyp biopsy, C ? Proximal sigmoid polyp biopsy, D ? Left rectal wall mass biopsy MICROSCOPIC DIAGNOSIS A. Cecal polyp, biopsy: Fragments of benign colonic mucosa. See comment. B. Colonic polyp at splenic flexure, biopsy: Tubular adenoma. C. Proximal sigmoid colon polyp, biopsy: Tubular adenoma. D. Left renal wall mass, biopsy: Invasive well differentiated adenocarcinoma. See comment. AM:clara 12/26/2022 COMMENT A. Neither hyperplastic nor adenomatous change is identified. Clinical correlation is suggested. D. Immunohistochemistry ([id number]) supports the above diagnosis. MICROSCOPIC DESCRIPTION Slides are reviewed. GROSS DESCRIPTION A - Received in fixative is one container labeled with the patient's name and designated cecal polyp biopsy. The specimen consists of one irregular fragment of light ta soft tissue that measures 0.5 x 0.5 x 0.1 cm. The specimen is totally submitted in one cassette. B - Received in fixative is one container labeled with the patient's name and designated splenic flexure polyp. The specimen consists of multiple irregular fragments of light ta soft tissue that in aggregate measure 1.5 x 0.3 x 0.1 cm. The specimen is totally submitted in one cassette. C - Received in fixative is one container labeled with the patient's name and designated sigmoid polyp. The specimen consists of one irregular fragment of light ta soft tissue that measures 0.5 x 0.3 x 0.1 cm. The specimen is totally submitted in one cassette. D - Received in fixative is one container labeled with the patient's name and designated rectal wall. The specimen consists of multiple irregular fragments of light ta soft tissue that in aggregate measure 2.5 x 2.0 x 0.2 cm. The specimen is totally submitted in one cassette. / AM:clara 12/23/2022 TC:0 CPT: 83220 x4
--- NOTE | 2022-12-22 | IMM_PTH ---
PATIENT: HALEY KEATING LOC: [place] U#:[id number] AGE/SX: 67/F ROOM: RE12/22/[address]: Dr. Fredis Jarvis MD : 1955 BED: DIS: 12/22/2022 SPEC #: [id number] RECD: 12/26/22 13:37 STATUS: MARGARITA REQ #: [id number] AUDRA: 12/22/22 00:[address]: Fredis Jarvis DEPT: IMMUNOHISTOCHEMISTRY RECD BY: Marianne Suárez ENTERED: 12/26/22 13:38 SP TYPE: IMMUNO OTHR DR: Dr. Sasha Phan MD Tissues: D - Rectum, NOS Procedures: MSH2 (add) MLH-1 (add) MSH6 (add) Anti-PMS2 (add) CANTOR-2 (add) HER2 TRACY (add) P53 (add) KI-67 (initial) PHYSICIAN & INSTITUTION [place] [id number] SPECIMEN INFORMATION: Tissue Source: D ? Left rectal wall mass Clinical Info: Left rectal wall mass Specimen Number: [id number] CPT code: 14253, 39501 x7 METHODOLOGY: Deparaffinized sections of prefer/formalin-fixed tissue or PAP/DQ stained slides are incubated with monoclonal/polyclonal antibodies/oligonucleotide probes. Localization is made via biotin free immunoperoxidase method. Appropriate controls are performed and reacted as expected. Results on target cell population are indicated in the following table: RESULTS: ANTIBODY / CLONE RESULT Block D Her-2neu (CB11) negative CANTOR-2 (SP21) positive MLH-1 (M1) positive MSH2 (25D12) positive MSH6 (44) positive PMS2 (MUH3858) positive Ki-67 (30-9) positive P53 (DO-7) positive (Missense mutation pattern) These tests were developed and their performance characteristics determined by [facility]. They may not have been cleared or approved by the U.S. Food and Drug Administration. The FDA has determined that such clearance or approval is not necessary. The above immunohistochemical/dualISH markers are ordered and reviewed by the Pathologist. INTERPRETATION: D. Left rectal wall mass, biopsy: Invasive adenocarcinoma. Result of Microsatellite Instability Study: Negative (no loss of mismatch protein; no microsatellite instability detected). AM:clara 12/27/2022
--- NOTE | 2022-12-22 | COLBX_PTH ---
PATIENT: HALEY KEATING LOC: [place] U#:[id number] AGE/SX: 67/F ROOM: RE12/22/[address]: Dr. Fredis Jarvis MD : 1955 BED: DIS: 12/22/2022 SPEC #: [id number] RECD: 12/22/22 14:31 STATUS: MARGARITA AZAR #: [id number] AUDRA: 12/22/22 00:[address]: Fredis Jarvis DEPT: SURGICAL PATHOLOGY RECD BY: Win Louis ENTERED: 12/23/22 10:08 SP TYPE: COLON BX OTHR DR: Dr. Sasha Phan MD Tissues: A - Cecum, NOS B - COLON BIOPSY C - Sigmoid colon biopsy D - Rectum, NOS Procedures: Surgery Specimen Level IV HEADER OPERATION: Colonoscopy (MAC) with biopsies PRE-OP DIAGNOSIS: Blood in stool, constipation TISSUE SUBMITTED: A ? Cecal polyp biopsy, B ? Splenic flexure polyp biopsy, C ? Proximal sigmoid polyp biopsy, D ? Left rectal wall mass biopsy MICROSCOPIC DIAGNOSIS A. Cecal polyp, biopsy: Fragments of benign colonic mucosa. See comment. B. Colonic polyp at splenic flexure, biopsy: Tubular adenoma. C. Proximal sigmoid colon polyp, biopsy: Tubular adenoma. D. Left rectal wall mass, biopsy: Invasive well differentiated adenocarcinoma. See comment. AM:clara 12/26/2022 COMMENT A. Neither hyperplastic nor adenomatous change is identified. Clinical correlation is suggested. D. Immunohistochemistry ([id number]) supports the above diagnosis. MICROSCOPIC DESCRIPTION Slides are reviewed. GROSS DESCRIPTION A - Received in fixative is one container labeled with the patient's name and designated cecal polyp biopsy. The specimen consists of one irregular fragment of light ta soft tissue that measures 0.5 x 0.5 x 0.1 cm. The specimen is totally submitted in one cassette. B - Received in fixative is one container labeled with the patient's name and designated splenic flexure polyp. The specimen consists of multiple irregular fragments of light ta soft tissue that in aggregate measure 1.5 x 0.3 x 0.1 cm. The specimen is totally submitted in one cassette. C - Received in fixative is one container labeled with the patient's name and designated sigmoid polyp. The specimen consists of one irregular fragment of light ta soft tissue that measures 0.5 x 0.3 x 0.1 cm. The specimen is totally submitted in one cassette. D - Received in fixative is one container labeled with the patient's name and designated rectal wall. The specimen consists of multiple irregular fragments of light ta soft tissue that in aggregate measure 2.5 x 2.0 x 0.2 cm. The specimen is totally submitted in one cassette. / AM:clara 12/23/2022 TC:0 CPT: 69589 x4
--- NOTE | 2022-12-22 12:26 | PCM.HP.BLA ---
History and Physical Date of Admission: 12/22/22 Visit Reasons:?Hemorrhoid/Blood in stool Chief Complaint: hemorrhoid/blood in stool Is patient in pain?: No Allergies hydrocodone [From Vicodin] Allergy (Verified 12/12/22 13:35) Rashlatex Allergy (Verified 12/12/22 13:35) Rashbacitracin [From Polysporin] Adverse Reaction (Verified 12/12/22 13:35) Otherpolymyxin B [From Polysporin] Adverse Reaction (Verified 12/12/22 13:35) Other Medications mometasone 50 mcg/actuation nasal spray 1 spray NASAL DAILY PRN PRN Allergies 04/22/20 [History Confirmed 12/12/22] multivitamin with minerals 1 ea PO DAILY 04/22/20 [History Confirmed 12/12/22] vit C 250 mg-vit E 90 mg-zinc 40 mg-copper 1 vt-lzxgal-egqqfl capsule 1 ea PO DAILY 04/22/20 [History Confirmed 12/12/22] calcium carbonate 650 mg calcium (1,625 mg) tablet 650 mg PO DAILY supplement 10/29/20 [History Confirmed 12/12/22] cholecalciferol (vitamin D3) 50 mcg (2,000 unit) capsule 4,000 unit PO DAILY supplement 10/29/20 [History Confirmed 12/12/22] aiv-jvt-bxnrmbnc acid 1,000 mg-herbal 350 mg oral efferves powder pack 1 ea PO DAILY supplement 10/29/20 [History Confirmed 12/12/22] magnesium citrate 100 mg tablet 200 mg PO DAILY 12/12/22 [History Confirmed 12/12/22] PFSH Family History?(Updated 12/12/22 @ 13:34 by Georgia Aguilera) Mother Breast cancerSister Breast cancer DiabetesFather Diabetes Heart disease Social History Smoking Status:? Never smoker HPI HPI HPI: 67-year-old female.? She is being referred by Dr. Sasha Pahn for surgical consultation regarding blood in her stool.? A written copy of my surgical consult and recommendations will be returned to him.? She states that for at least 10 months she has noticed some bright red blood sometimes on the stool sometimes on the tissue.? Seems to be more frequent. She does have a functional medicine advisor.? States that she had large cholesterol particles in her evaluation so she was placed on fish oil.? The patient also is having trouble with constipation and so takes magnesium citrate 200 mg daily in addition to her bran buds in the evening.? Constipation has been slightly more severe recently.? She has no family history of colon cancer. She thinks 4 to 5 years ago she had a Cologuard test that was negative.? She thinks about a year ago she had a stool analysis that was negative for blood. She has no abdominal pain.? No unexpected weight loss.? She otherwise enjoys good health. ROS General General: Yes breast cancer; No weight change, appetite, fatigue, colon cancer or weakness HEENT HEENT: No difficulty swallowing, eye injury, eye surgery, swollen glands or hoarseness Endo Endocrine: No thyroid disease, diabetes mellitus, thyroid cancer, Hair loss, heat intolerance or cold intolerance Skin Skin: No rash or changing moles Musc Musculoskeletal: Yes arthritis; No back problems, rheumatoid arthritis, gout or joint pain Cardio Cardiovascular: No murmur, pacemaker, heart disease, atrial fibrillation, high blood pressure, heart attack, heart stent, palpitations, shortness of breat with exertion or chest pain Psych Psychiatric: No depression, anxiety or hearing voices Resp Respiratory: No shortness of breath, No sleep apnea, No cough, No COPD, No asthma, No emphysema and No wheezing Gastro Gastrointestinal: No abdominal pain, No nausea or vomiting, No diarrhea, Yes constipation, Yes blood in stool, Yes acid reflux, Yes hemorrhoids, No ulcers, No gallbladder problem and No black,tarry stools Zoran Hematologic: No blood thinners, No blood disorders, No bleeding, No anemia and No blood clots Neuro Neurologic: No system reviewed and no additional complaints, except as documented, No as per HPI, No abnormal gait, No abnormal hearing, No abnormal movements, No abnormal speech, No behavioral changes, No burning sensations, No confusion, No convulsions, No disequilibrium, No dizziness, No localized weakness, No frequent falls, No headache(s), No lack of coordination, No loss of vision, No memory loss, No numbness, No other visual disturbances, No radicular pain, No restless legs, No sensory deficit, No syncope, No tingling, No tremor(s), No weakness and No other Exam Const General: cooperative, healthy appearing, comfortable and no acute distress [facility] Head: normal to inspection Eyes General: appearance normal, both eyes and all related structures Neck Neck: normal visual inspection Resp Effort & Inspection: normal respiratory effort Auscultation: clear to auscultation bilaterally Cardio Rate: regular rate Rhythm: regular rhythm GI Palpation: soft and no hepatosplenomegaly Auscultation: normal bowel sounds Other: External anal inspection reveals minimal external hemorrhoids.? No evidence of fresh blood.? No obvious anal fissure Musc Cervical Spine: normal cervical lordosis Skin General: no rashes or lesions noted Neuro General: patient alert and patient awake Extrem General: no calf tenderness Psych Appearance: grossly normal Assessment and Plan Assessment and Plan (1) Blood in stool: ?Status:?Acute (2) Constipation: ?Status:?Acute ?Plan: I recommended the patient a colonoscopy with possible biopsy or polypectomy as indicated.? I have asked her to hold her fish oil until we can get that accomplished.? I have discussed technique, benefit, risk and alternatives.? She has had an opportunity to ask and have questions answered. The patient has not yet seen Dr. Sasha Phan is her primary care provider.? I have asked her to please schedule an appointment.? I have asked her to provide copies of her lipid panel so that Dr. Sasha Phan can help advise her on ongoing treatment with the fish oil. Regarding the patient's chronic constipation I offered instructions to her to take a daily fiber supplement like Metamucil or Citrucel or Benefiber or generic.? This would additionally help for perhaps take a couple glasses of extra water.? I did offer some concern about chronic magnesium treatment. She has had an opportunity ask and have questions answered.? We will schedule and expedite her care.? I appreciate the opportunity of assisting with her surgical management. Copy: Dr. Sasha Jarvis M.D., F.A.C.S I have examined the patient and the H&P has been reviewed. There are no clinical changes since date of exam. Fredis Jarvis M.D., F.A.C.S.
[2022-12-22 12:45] VITALS: BP 136/89; PULSE 74; RESP 16; TEMP 36.2; O2SAT 97; BMI 21.3
[2022-12-22] MEDS: Lactated Ringers 1,000 ML 15 ML IV (12:57)
[2022-12-22 14:25] VITALS: BP 113/77; BP 136/89; PULSE 73; RESP 16; TEMP 36.1; O2SAT 97
--- NOTE | 2022-12-22 14:26 | OP.COLON_ITS ---
Patient Name: Barbara Resendiz Procedure Date: 12/22/2022 1:20 PM Date of : 1955 Age: 67 Procedure: Colonoscopy Indications: Rectal bleeding Providers: Fredis Jarvis MD Referring MD: Fredis Jarvis MD Medicines: See the Anesthesia note for documentation of the administered medications Patient Profile: Last Colonoscopy: none. The patient's first colonoscopy is today. Complications: No immediate complications. Procedure: Pre-Anesthesia Assessment: - Prior to the procedure, a History and Physical was performed, and patient medications and allergies were reviewed. The patient's tolerance of previous anesthesia was also reviewed. The risks and benefits of the procedure and the sedation options and risks were discussed with the patient. All questions were answered, and informed consent was obtained. Prior Anticoagulants: The patient has taken no previous anticoagulant or antiplatelet agents. ASA Grade Assessment: II - A patient with mild systemic disease. After reviewing the risks and benefits, the patient was deemed in satisfactory condition to undergo the procedure. After I obtained informed consent, the scope was passed under direct vision. Throughout the procedure, the patient's blood pressure, pulse, and oxygen saturations were monitored continuously. The Colonoscope was introduced through the anus and advanced to the cecum, identified by appendiceal orifice and ileocecal valve. The colonoscope was introduced through the and advanced to. The colonoscopy was technically difficult and complex due to a tortuous colon. Successful completion of the procedure was aided by changing the patient to a supine position, using manual pressure and changing endoscopes. The patient tolerated the procedure well. The quality of the bowel preparation was excellent. Scope In: 1:28:59 PM Scope Withdrawal Time 0 hours 16 minutes 55 seconds Scope Out: 2:16:15 PM Total Procedure Duration Time 0 hours 47 minutes 16 seconds Findings: The digital rectal exam findings include palpable rectal mass. A 3 mm polyp was found in the cecum. The polyp was sessile. The polyp was removed with a cold biopsy forceps. Resection and retrieval were complete. A 5 mm polyp was found in the splenic flexure. The polyp was sessile. The polyp was removed with a cold biopsy forceps. Resection and retrieval were complete. A 4 mm polyp was found in the proximal sigmoid colon. The polyp was sessile. The polyp was removed with a cold biopsy forceps. Resection and retrieval were complete. A fungating, sessile and ulcerated non-obstructing medium-sized mass was found in the distal rectum. Oozing was present. This was biopsied with a cold forceps for histology. The colon (entire examined portion) was significantly tortuous. Impression: - Palpable rectal mass found on digital rectal exam. - One 3 mm polyp in the cecum, removed with a cold biopsy forceps. Resected and retrieved. - One 5 mm polyp at the splenic flexure, removed with a cold biopsy forceps. Resected and retrieved. - One 4 mm polyp in the proximal sigmoid colon, removed with a cold biopsy forceps. Resected and retrieved. 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 Left lateral, approximately 4-5cm from anal verge.Friable, easy bleeding. Biopsied. Recommendation: - Discharge patient to home. - Resume previous diet. - Continue present medications. - Repeat colonoscopy in 1 year for surveillance based on pathology results. - Return to my office in 4 days. - Refer to an oncologist in 1 week. Procedure Code(s): --- Professional --- 32320, Colonoscopy, flexible; with biopsy, single or multiple Diagnosis Code(s): --- Professional --- K62.89, Other specified diseases of anus and rectum D12.0, Benign neoplasm of cecum D12.3, Benign neoplasm of transverse colon (hepatic flexure or splenic flexure) D12.5, Benign neoplasm of sigmoid colon D49.0, Neoplasm of unspecified behavior of digestive system K62.5, Hemorrhage of anus and rectum CPT copyright 2017 [employer]. All rights reserved. The codes documented in this report are preliminary and upon cell tuber machine review may be revised to meet current compliance requirements. Fredis Jarvis MD 12/22/2022 2:26:09 PM This report has been signed electronically. Number of Addenda: 0 Note Initiated On: 12/22/2022 1:20 PM
--- NOTE | 2022-12-22 14:27 | OP.CCLET_ITS ---
12/22/2022 Sasha Phan [facility] [address] [place] [address] Re : Colonoscopy procedure for Barbarasridevi Resendiz Dear Dr. Phan This procedure was performed on November. My impressions and recommendations are as follows: Impressions : - Palpable rectal mass found on digital rectal exam. - One 3 mm polyp in the cecum, removed with a cold biopsy forceps. Resected and retrieved. - One 5 mm polyp at the splenic flexure, removed with a cold biopsy forceps. Resected and retrieved. - One 4 mm polyp in the proximal sigmoid colon, removed with a cold biopsy forceps. Resected and retrieved. 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 Left lateral, approximately 4-5cm from anal verge.Friable, easy bleeding. Biopsied. Recommendations : - Discharge patient to home. - Resume previous diet. - Continue present medications. - Repeat colonoscopy in 1 year for surveillance based on pathology results. - Return to my office in 4 days. - Refer to an oncologist in 1 week. My findings are described in the full procedure note, which is enclosed. If I can be of further assistance, please feel free to contact me at Doctor phone number(s): Work: . Sincerely, Fredis Jarvis MD 12/22/2022 2:26:09 PM This report has been signed electronically.
[2022-12-22 14:30] VITALS: BP 124/76; BP 136/89; PULSE 65; RESP 16; O2SAT 97
[2022-12-22 14:35] VITALS: BP 121/91; BP 136/89; PULSE 67; RESP 16; O2SAT 97
[2022-12-22 14:40] VITALS: BP 131/69; BP 136/89; PULSE 68; RESP 16; TEMP 36.7; O2SAT 99
[2022-12-22 15:06] VITALS: BP 136/89
== END 2022-12-22 15:31 | disposition home or self-care (01) ==
LOC: EN 12:19 → AC 12:19
PROVIDERS: PCP Internal Medicine; Referring Provider Internal Medicine; Visit Provider Surgery
PROC: 0DJD8ZZ Inspection of Lower Intestinal Tract, Via Natural or Artificial Opening Endoscopic (ICD-10-PCS; CPT 45378; principal; 2022-12-22 13:25)
DX: C64.2 Malignant neoplasm of left kidney, except renal pelvis (principal); D12.5 Benign neoplasm of sigmoid colon; D12.3 Benign neoplasm of transverse colon; Q43.8 Other specified congenital malformations of intestine; K62.89 Other specified diseases of anus and rectum
CPT/HCPCS: 45380; 88305; 88341; 88342; J7120; J2405

== ENCOUNTER → 2022-12-23 | Outpatient (CLI) | payer MEDICARE, SELFPAY ==
--- NOTE | 2022-12-23 07:52 | CT_ITS ---
STUDY: CT ABDOMEN AND PELVIS WITH CONTRAST REASON FOR EXAM: Female, 67 years old. Constipation, blood in stool, rectal mass RADIATION DOSAGE (If Supplied By Facility): CTDIvol = ( 17.94 ) mGy, DLP = ( 586.85 ) mGycm TECHNIQUE: Transaxial images were obtained from the dome of the diaphragm to the symphysis pubis with oral contrast. Oral and amp; IV Readi-CAT and amp; 100mL Isovue-300 was administered. Sagittal and coronal images were reconstructed. Individualized dose optimization techniques were used for this CT. COMPARISON: None. FINDINGS: Linear density is seen in the left lower lobe. This abuts the pleural surface laterally. There is a 1.5 cm x 0.9 cm pleural-based nodule in the peripheral aspect of the left lower lobe. The visualized portions of the heart are within normal limits. There is decreased attenuation of the liver consistent with steatosis. There is a 9.5 mm x 6.5 mm cyst in the medial aspect of the left lobe of the liver. There is also evidence of a 8.6 mm x 9.4 mm cyst in the anterior lower aspect of the right lobe of the liver. There is evidence of a Deandra''s lobe of the right lobe of the liver. Normal gallbladder and extrahepatic biliary system. Normal spleen. Normal pancreas. Normal bilateral adrenal glands. Normal right kidney. Normal left kidney. Normal visualized stomach. Normal small intestine. Circumferential wall thickening of the rectum in keeping with the patient''s history of a rectal mass. The appendix is visualized and appears normal. Normal abdominal aorta. Normal inferior vena cava. Normal retroperitoneum. Normal urinary bladder. There is a 3.3 cm x 2.8 cm cyst in the left ovary. Normal abdominal wall. Exaggerated lumbar lordosis. Grade 1 anterolisthesis of L4 on L5 most likely secondary to facet joint osteoarthritis. CT/Abdomen/Pelvis WITH Contrast IMPRESSION: Linear density at the peripheral aspect of the left lower lobe abutting the pleural surface where there is a 1.5 cm x 0.9 cm pleural-based nodule. This may represent scarring although a neoplastic process cannot BE. Correlation with a PET scan is recommended. Fatty infiltration of the liver. Small hepatic cysts. Deandra''s lobe of the liver. 2.8 cm x 3.3 cm cyst in the left ovary Electronically Signed: Salvador Min MD at 8:42 EDT ,
[2022-12-23 08:21] LABS: CREATININE FINGERSTICK < 0.9 mg/dL (0.55-1.02); EGFR FINGERSTICK > 60.0000 mL/min (>60)
== END | disposition home or self-care (01) ==
LOC: CT 07:49
PROVIDERS: PCP Internal Medicine; Referring Provider Surgery; Visit Provider Surgery
DX: K62.89 Other specified diseases of anus and rectum (principal); K59.00 Constipation, unspecified; K92.1 Melena
CPT/HCPCS: 74177; Q9967

== ENCOUNTER → 2023-01-12 | Outpatient (CLI) | payer MEDICARE, SELFPAY ==
--- NOTE | 2023-01-12 13:45 | MRI_ITS ---
STUDY: MR PELVIS WITH T WITHOUT CONTRAST REASON FOR EXAM: Female, 67 years old. STAGING RECTAL CANCER TECHNIQUE: Standardized fat and water weighted pulse sequences were obtained in all 3 orthogonal planes, pre-and post contrast administration. 13 mL clariscan was administered for the contrast portion of the examination. COMPARISON: None. FINDINGS: Normal urinary bladder. Simple, nonenhancing left adnexal cyst measures 2.9 x 3.2 cm. ACR White Paper guidelines (Samson, et. al. JACR 2020;17(2):248-254) suggest no follow-up is necessary. 7 cm above the anus, there is a lobular mass of the mid rectum is correlated to mass evident on prior PET scan. Confined to the muscularis propria WITHOUT extension into the perirectal fat. Small perirectal lymph nodes including 3.4 x 5.3 mm perirectal lymph node on image 8 of series 7 with smooth margins and no significant enhancement (to not meet criteria for morphologic malignant criteria). The mass is at the level of the anterior peritoneal reflection but without evidence of intraperitoneal seeding/thickening. The mass is located at the 10:00 to 12:00 position with cemented circumferential appearance. No mucinous component. There is no pelvic fluid. There is no pelvic mass lesion or lymphadenopathy. Normal visualized pelvic arteries. No bone marrow edema. Normal abdominal wall. MRI/Pelvis W/WO Contrast IMPRESSION: 1. Mid rectal mass/neoplasm, as above (T2, N0). Electronically Signed: Cedrick Delacruz (Brooks), at 18:40 EDT ,
== END | disposition home or self-care (01) ==
LOC: MRI 12:51
PROVIDERS: PCP Internal Medicine; Referring Provider Internal Medicine Hematology & Oncology; Visit Provider Internal Medicine Hematology & Oncology
DX: C20 Malignant neoplasm of rectum (principal)
CPT/HCPCS: 72197; A9575

== ENCOUNTER → 2023-01-25 | Outpatient (CLI) | payer MEDICARE, SELFPAY ==
--- NOTE | 2023-01-25 13:30 | CT_ITS ---
STUDY: CT CHEST T ABDOMEN WITH CONTRAST REASON FOR EXAM: Female, 67 years old. STAGING RECTUM CA, LLL RML NODULES -- IV CONTRAST ONLY RADIATION DOSAGE (If Supplied By Facility): CTDIvol = ( 8.90 ) mGy, DLP = ( 189.36 ) mGycm TECHNIQUE: Transaxial imaging was performed following intravenous administration of IV 100mL Isovue-300. Multiplanar coronal and sagittal images were reformatted. Individualized dose optimization techniques were used for this CT. COMPARISON: Comparison is made with prior CT scan abdomen and pelvis dated December 23, 2022. FINDINGS: CHEST Small benign-appearing bilateral axillary lymph nodes. There is a calcified granuloma measuring 6.6 mm in the anterior and aspect of the right middle lobe as seen on axial image #84. Mild linear scarring in the anterior aspect of the right middle lobe. There is no demonstrated pleural abnormality. Normal heart and pericardium. Normal mediastinum. Normal hilar regions. Normal unenhanced pulmonary arteries. Normal aorta arch and descending thoracic aorta. There are degenerative changes of the thoracic spine. Fatty infiltration of the liver. 9.5 mm x 6.5 mm cyst in the medial aspect of the left liver. CT/Chest WITH Contrast IMPRESSION: Calcified granuloma in the right middle lobe. Electronically Signed: Salvador Min MD at 15:24 EDT ,
== END | disposition home or self-care (01) ==
LOC: CT 13:09
PROVIDERS: PCP Internal Medicine; Referring Provider Internal Medicine Hematology & Oncology; Visit Provider Internal Medicine Hematology & Oncology
DX: C20 Malignant neoplasm of rectum (principal)
CPT/HCPCS: 71260; Q9967

== ENCOUNTER 2023-03-22 07:42 | Day surgery (SDC) | payer MEDICARE, SELFPAY ==
[2023-03-22] VITALS (7 sets, daily range): BP systolic 105–144; BP diastolic 65–87; PULSE 60–70; RESP 16–18; TEMP 36.2–36.6; O2SAT 96–98; BMI 20.2
--- NOTE | 2023-03-22 08:30 | SUR.PREOP ---
CALLED TO PATIENT'S ROOM FOR EXTREME NAUSEA, CLAMMINESS, AND JUST NOT FEELING WELL. BG WAS 114, VITALS 115/76, PULSE 83, RESPS 18, AND TEMP 97.3. DR. ENGLISH MADE AWARE AND ZOFRAN WAS ORDERED. I GAVE THE ZOFRAN AFTER PATIENT DID VOMIT A LITTLE BIT. STATES FEELS BETTER AFTER.
--- NOTE | 2023-03-22 08:34 | HP.PCM_ITS ---
History and Physical Date of Admission: 03/22/23 Visit Reasons: PORT PLACEMENT Chief Complaint: port placement Allergies hydrocodone [From Vicodin] Allergy (Verified 03/14/23 10:29) Rashlatex Allergy (Verified 03/14/23 10:29) Rashbacitracin [From Polysporin] Adverse Reaction (Verified 03/14/23 10:29) Otherpolymyxin B [From Polysporin] Adverse Reaction (Verified 03/14/23 10:29) Other Medications multivitamin with minerals 1 ea PO DAILY 04/22/20 [History Confirmed 03/20/23] vit C 250 mg-vit E 90 mg-zinc 40 mg-copper 1 [id number] capsule (PreserVision AREDS-2) 1 ea PO DAILY 04/22/20 [History Confirmed 03/20/23] Zinc AG 20 mg PO DAILY 01/04/23 [History Confirmed 03/20/23] ascorbate calcium (vitamin C) 500 mg tablet 500 mg PO DAILY 01/04/23 [History Confirmed 03/20/23] cholecalciferol (vitamin D3) 125 mcg (5,000 unit) capsule 125 mcg PO DAILY 01/04/23 [History Confirmed 03/20/23] fluticasone propionate 50 mcg/actuation nasal spray,suspension 2 spray intranasal DAILY 01/04/23 [History Confirmed 03/20/23] mecobalamin (vitamin B12) 500 mcg chewable tablet 500 mcg PO DAILY 01/04/23 [History Confirmed 03/20/23] quercetin 500 mg capsule 500 mg PO DAILY 01/04/23 [History Confirmed 03/20/23] loratadine 10 mg tablet 10 mg PO DAILY PRN 01/16/23 [History Confirmed 03/20/23] PFSH Medical History Arthritis Cancer Gastric reflux History of GI bleed History of stress test Injury of head and neck Non-smoker Post-menopausal Wears contact lenses Wears glasses Surgical History History of dental jain History of hysteroscopy History of lumpectomy Hx of dilation and curettage Hx of rhinoplasty Hx of tubal ligation Hx of umbilical hernia repair Family History Mother Breast cancer, Onset Age: 57Sister Breast cancer Dx in her 60's DiabetesFather Diabetes Heart diseaseAunt Breast cancer x3 maternal aunts Social History adopted: No household members: spouse housing: house number of children: 3 current occupational status: retired current occupational exposures/hazards: No pets and animals: No leisure activities: other history of recent travel: No sexually active: No Smoking Status: Never smoker alcohol intake: never substance use type: does not use diet: other well-balanced diet: daily or most days caffeine: Yes eating out: rarely or never during the past year weight has: decreased > 10 lbs what type of physical activity do you participate in: none facundo/anabaptist: Sabianist seatbelt use: always do you feel safe at home: Yes HPI HPI HPI: 67-year-old female who I first had an opportunity to meet on December 12, 2022 because of blood in her stool. On December 22 I performed a colonoscopy and removed polyps from the cecum and splenic flexure and proximal sigmoid and identified a malignant tumor in the distal rectum. She was seen locally by Dr. Lamin Berger and she was also seen by colorectal specialist Dr. Dago Zhao at [facility]. Additionally she is seen locally by Dr. Alexis Trotter radiation oncology. Clinical stage T3a, N0, M0. She is to undergo total neoadjuvant therapy with induction long course chemoradiation with continuous infusion 5-FU followed by 12 to 16 weeks of FOLFOX and subsequent restaging. Central venous access placement after dental extraction planned. She had the dental extraction performed on March 16, 2023 and she is doing well. No drainage no fever. It was not acutely infected at that time but had intermittently in the past given troubles. She is currently swishing with salt water. She is to have chemotherapy education on March 23 and she is to start her chemotherapy on April 03 ROS General General: No weight change, appetite, fatigue, colon cancer, breast cancer or weakness HEENT HEENT: No difficulty swallowing, eye injury, eye surgery, swollen glands or hoarseness Endo Endocrine: No thyroid disease, diabetes mellitus, thyroid cancer, Hair loss, heat intolerance or cold intolerance Skin Skin: No rash or changing moles Breast Breast: No left breast lump, right breast lump, nipple discharge, breast pain, abnormal mammogram, abnormal US or breast enlargement Musc Musculoskeletal: No back problems, arthritis, rheumatoid arthritis, gout or joint pain Cardio Cardiovascular: No murmur, pacemaker, heart disease, atrial fibrillation, high blood pressure, heart attack, heart stent, palpitations, shortness of breat with exertion or chest pain Psych Psychiatric: No depression, anxiety or hearing voices Resp Respiratory: No shortness of breath, No sleep apnea, No cough, No COPD, No asthma, No emphysema and No wheezing Gastro Gastrointestinal: No abdominal pain, No nausea or vomiting, No diarrhea, No constipation, No blood in stool, No acid reflux, No hemorrhoids, No ulcers, No gallbladder problem and No black,tarry stools Zoran Hematologic: No blood thinners, No blood disorders, No bleeding, No anemia and No blood clots Neuro Neurologic: No system reviewed and no additional complaints, except as docum ented, No as per HPI, No abnormal gait, No abnormal hearing, No abnormal movements, No abnormal speech, No behavioral changes, No burning sensations, No confusion, No convulsions, No disequilibrium, No dizziness, No localized weakness, No frequent falls, No headache(s), No lack of coordination, No loss of vision, No memory loss, No numbness, No other visual disturbances, No radicular pain, No restless legs, No sensory deficit, No syncope, No tingling, No tremor(s), No weakness and No other Exam Const General: cooperative, healthy appearing, comfortable and no acute distress [facility] Head: normal to inspection Eyes General: appearance normal, both eyes and all related structures Neck Neck: normal visual inspection Chest Chest palpation & inspection: normal inspection of the chest Resp Effort & Inspection: normal respiratory effort Auscultation: clear to auscultation bilaterally Cardio Rate: regular rate Rhythm: regular rhythm GI Palpation: soft and no hepatosplenomegaly Musc Cervical Spine: normal cervical lordosis Skin General: no rashes or lesions noted Neuro General: patient alert, patient awake and patient oriented x3 Extrem General: no calf tenderness Psych Appearance: grossly normal Assessment and Plan Assessment and Plan (1) Rectal cancer: Status: Acute (2) Cancer: Status: Acute Comment: BREAST, 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 Landeros for med onc, was placed on Tamoxifen but had vag bleeding, discontinued (no other AI tried) Also had radiation treatment at [facility] Patient reports she had genetic testing done, came back negative Plan: I recommended the patient a right internal jugular port placement. I have explained the technique, benefit, risk, alternatives. She has had an opportunity to ask and have questions answered. We will schedule and expedite placement of the port site she will be ready to initiate her chemotherapy. I appreciate the ongoing option of assisting with her surgical care. Copy: Dr. Lamin Berger and Dr. Bill Trotter and Dr. Dago Zhao in an Dr. Sasha Jarvis M.D., F.A.C.S. I have examined the patient and the H&P has been reviewed. There are no clinical changes since date of exam. Fredis Jarvis M.D., F.A.C.S.
--- NOTE | 2023-03-22 08:35 | DCINST_ITS ---
Discharge Instructions Diet Discharge Diet: No restrictions (Pain medication may cause nausea. You should typically eat light foods as you take your pain medication.) Activity Discharge Activity: Return to Normal Activity and May Shower (Leave the bandage on for 2-3 days. When you remove the bandage, leave the steri-strips intact until they fall off.) Additional Activity Instructions:: May not drive, work with heavy equipment, or sign legal documents for [address]. [address] if you are no longer taking narcotic pain medications. You may drive when you are no longer taking pain medications. Dressing / Incision Additional Dressing/Incision Instructions:: Leave the bandage on for 2-3 days. When you remove the bandage, leave the steri-strips intact until they fall off. Follow Up Care Please Follow Up With: Fredis Jarvis MD When: Call [phone] to make an appointment to be seen in 7 days. Test Results: Test results from this visit will be discussed in further detail at your follow- up appointment, if applicable. Discharge Plan Admission Attending Provider: Fredis Jarvis Primary Care Provider: Sasha Phan Discharge Orders/Prescriptions Prescriptions: No Action ascorbate calcium (vitamin C) 500 mg tablet 500 mg PO DAILY fluticasone propionate 50 mcg/actuation spray,suspension 2 spray intranasal DAILY Rx Instructions: administer into each nostril cholecalciferol (vitamin D3) 125 mcg (5,000 unit) capsule 125 mcg PO DAILY quercetin 500 mg capsule 500 mg PO DAILY mecobalamin (vitamin B12) 500 mcg tablet,chewable 500 mcg PO DAILY Zinc AG 20 mg PO DAILY loratadine 10 mg tablet 10 mg PO DAILY PRN (Reason: ALLERGIES) multivitamin with minerals 1 EACH tablet 1 ea PO DAILY PreserVision AREDS-2 1 EACH capsule 1 ea PO DAILY Referrals / Follow Up: Sasha Phan MD [Primary Care Provider] - Disposition Disposition (needs filled in before D/C Order can be placed): Home, Self Care
[2023-03-22 08:57] LABS: Bedside Glucose 114 mg/dL (74-106)
[2023-03-22] MEDS: Cefazolin 2 GM in 0.9% Normal Saline 100 ML IV (09:11)
[2023-03-22] MEDS: Lidocaine 1% (30 ml sdv) 30 ML Vial (09:32)
[2023-03-22] MEDS: Bupivacaine 0.5% PF 10 ML VIAL (09:32)
--- NOTE | 2023-03-22 09:56 | PCM.OPRPT ---
Report of Operation Date of Procedure: 03/22/23 Pre-Operative Diagnosis: Rectal cancer Post-Operative Diagnosis: Same Surgery/Procedure Performed:: Right internal jugular 6 [place] [employer] placement Reference [id number], lot [id number] 10/01/2001, expiry date 11/22/2024 Description of Surgical Findings:: Timeout and informed consent was obtained. 67-year-old female was taken to the operating placed on the table underwent monitored anesthesia care. Ancef 2 g were given intravenously. The right neck and chest were sterilely prepped and draped. 1% lidocaine mixed 50-50 with 0.5% Marcaine was used as a local anesthetic. Throughout the procedure a total of 20 cc was used. Ultrasound was used to identify the right internal jugular vein. Under ultrasound guidance local was instilled. Micropuncture needle was inserted into the right internal jugular vein followed by Salinger wire advancement under ultrasound guidance. Local was instilled down upon the right chest wall. Midclavicular line second intercostal space a transverse incision was created and subcutaneous pocket was created with electrocautery. The tubing was tunneled from the neck to the chest. Micropuncture sheath dilator placed over the wire and fluoroscopic control. The wire dilator removed an 035 J-wire was advanced that micropuncture sheath was removed then the standard sheath dilator was inserted the dilator wire removed that catheter advanced through the sheath the sheath was split and then the catheter was positioned at the SVC atrial junction using fluoroscopy. The catheter was amputated connected to the port secured with a port attachment device. The port was placed in the pocket with 2-0 silk. Skin edges proximal interrupted 3-0 Vicryl subdermal stitches. The neck was closed interrupted 5-0 Vicryl subdermal stitch. Skin-Prep Steri-Strips Telfa OpSite dressings applied. The port was accessed it aspirated easily it was flushed with saline then 2 cc of heparinized saline. She tolerated the procedure well no apparent complication she was taken to the recovery room in satisfied condition stat portable chest x-ray is pending. Specimens none. Drains none. Blood loss minimal. Fredis Jarvis M.D., F.A.C.S. Surgeon: Fredis Jarvis Type of Anesthesia: Local MAC
--- NOTE | 2023-03-22 10:11 | RAD_ITS ---
STUDY: X-RAY CHEST REASON FOR EXAM: Female, 67 years old. Port placement TECHNIQUE: Single AP portable view of the chest. COMPARISON: None. FINDINGS: A right-sided portacatheter is seen with the tip at the junction of the superior vena cava and right atrium. EKG electrodes are seen. There is hyperinflation of the lungs consistent with chronic obstructive lung disease (COPD). There is no demonstrated pleural abnormality. Normal size heart. Normal mediastinum and tatiana. Normal visualized pulmonary arteries. There is atherosclerotic tortuosity of the aortic arch and descending thoracic aorta. Normal visualized thoracic spine. Normal visualized ribs, clavicles, and shoulders. There is no demonstrated abnormality of the visualized soft tissue structures of the upper abdomen. RAD/Chest 1 View (Portable) IMPRESSION: Hyperinflation. The lungs are clear. Electronically Signed: Salvador Min MD at 10:51 EDT ,
[2023-03-22] MEDS: HYDROcodone Bitartrate/Apap 5/325 Tablet PO (12:07)
--- NOTE | 2023-03-22 12:35 | SUR.PHASEII ---
DR. ENGLISH AWARE THAT NORCO WAS ORDERED AND OVERODE BY DR. PITT AND GIVEN EVEN THOUGH PATIENT STATED RASH OCCURS IN ALLERGIES. PATIENT STATES RASH OCCURRED AFTER DAY 3 OF USE. PATIENT STATES SMALL AMOUNT OF PINPOINT RASH SO SHE STOPPED TAKING IT. THIS NURSE TOLD PATIENT TO TAKE BENEDRYL IF NEEDED IF RASH OCCURS. SHE WAS GIVEN PERCOCET TO TAKE POSTOP AT HOME NOT NORCO.
== END 2023-03-22 12:42 | disposition home or self-care (01) ==
LOC: SDC 07:42 → AC 07:44
PROVIDERS: PCP Internal Medicine; Referring Provider Surgery; Visit Provider Surgery
PROC: (CPT 36561; principal; 2023-03-22 09:35)
DX: Z45.2 Encounter for adjustment and management of vascular access device (principal); C20 Malignant neoplasm of rectum; Z86.010 Personal history of colon polyps; Z79.899 Other long term (current) drug therapy
CPT/HCPCS: 36561; 00532; 71045; 77001; 82962; J7120; J2405

== ENCOUNTER 2023-04-06 21:01 | Emergency (ER) | payer MEDICARE, SELFPAY ==
[2023-04-06 21:02] VITALS: BP 146/93; PULSE 81; RESP 16; TEMP 36.2; O2SAT 96; BMI 20.9
--- NOTE | 2023-04-06 21:31 | EDS_ITS ---
HPI History of Present Illness Chief Complaint: Nausea/Vomiting Informant: patient Narrative Narrative: Patient presents with nausea. Patient was diagnosed with rectal cancer. She had some blood in the stool. Colonoscopy was done biopsies that ended up leading to diagnosis of rectal cancer. She is undergoing radiation. She is also undergoing chemo. She has a continuous infusion for 5 days and she is on day 4. She has been trying to manage nausea since starting this. She had Zofran at home that does not seem to help. She was given Compazine. That does not seem to of help but it seems to make her very nervous and anxious when she takes it. She is not having any pain. She has not actually vomited. If she tries to eat or drink she just gets more nausea and just feels worse. No fevers or chills. She really just wants something to calm down the nausea. [facility] Medical History Arthritis Cancer CINV (chemotherapy-induced nausea and vomiting) Encounter for education Gastric reflux History of GI bleed History of stress test Injury of head and neck Non-smoker Post-menopausal Wears contact lenses Wears glasses Home Medications multivitamin with minerals 1 ea PO DAILY 04/22/20 [History Last Taken Unknown] vit C 250 mg-vit E 90 mg-zinc 40 mg-copper 1 [id number] capsule (PreserVision AREDS-2) 1 ea PO DAILY 04/22/20 [History Last Taken Unknown] Zinc AG 20 mg PO DAILY 01/04/23 [History Last Taken Unknown] ascorbate calcium (vitamin C) 500 mg tablet 500 mg PO DAILY 01/04/23 [History Last Taken Unknown] cholecalciferol (vitamin D3) 125 mcg (5,000 unit) capsule 125 mcg PO DAILY 01/04/23 [History Last Taken Unknown] fluticasone propionate 50 mcg/actuation nasal spray,suspension 2 spray intranasal DAILY 01/04/23 [History Last Taken Unknown] mecobalamin (vitamin B12) 500 mcg chewable tablet 500 mcg PO DAILY 01/04/23 [History Last Taken Unknown] quercetin 500 mg capsule 500 mg PO DAILY 01/04/23 [History Last Taken Unknown] loratadine 10 mg tablet 10 mg PO DAILY PRN ALLERGIES 01/16/23 [History Last Taken Unknown] acetaminophen 325 mg tablet 650 mg PO Q6H PRN fever or pain 03/23/23 [History Last Taken Unknown] ibuprofen 200 mg capsule 200 mg PO Q6H PRN pain 03/23/23 [History Last Taken Unknown] ondansetron 8 mg disintegrating tablet 8 mg PO Q8H PRN nausea and vomiting #30 tabs 03/23/23 [Rx Last Taken Unknown] prochlorperazine maleate 10 mg tablet 10 mg PO Q6H PRN nausea and vomiting #30 tabs 04/06/23 [Rx Last Taken Unknown] promethazine 25 mg tablet 25 mg PO Q6H PRN nausea and vomiting #14 tabs 04/06/23 [Rx Last Taken Unknown] Allergy/AdvReac Type Severity Reaction Status Date / Time hydrocodone [From Vicodin] Allergy Rash Verified 04/06/23 10:46 latex Allergy Rash Verified 04/06/23 10:46 bacitracin [From Polysporin] AdvReac Other Verified 04/06/23 10:46 polymyxin B [From Polysporin] AdvReac Other Verified 04/06/23 10:46 Family History Mother Breast cancer, Onset Age: 57 Sister Breast cancer Dx in her 60's Diabetes Father Diabetes Heart disease Aunt Breast cancer x3 maternal aunts Surgical History History of dental yarsanism History of hysteroscopy History of lumpectomy Hx of dilation and curettage Hx of rhinoplasty Hx of tubal ligation Hx of umbilical hernia repair Social History adopted: No household members: spouse housing: house number of children: 3 current occupational status: retired current occupational exposures/hazards: No pets and animals: No leisure activities: other history of recent travel: No sexually active: No Smoking Status: Never smoker alcohol intake: never substance use type: does not use diet: other well-balanced diet: daily or most days caffeine: Yes eating out: rarely or never during the past year weight has: decreased > 10 lbs what type of physical activity do you participate in: none facundo/christianity: Oriental Orthodox seatbelt use: always do you feel safe at home: Yes ROS ROS ED Constitutional Constitutional ED: Denies chills, fever(s), subjective or sweats Eyes Eyes: Denies change in vision ENT ENT ED: Denies rhinorrhea or sore throat Cardiovascular Cardiovascular: Denies chest pain or palpitations Respiratory/Chest Respiratory/Chest: Denies cough or dyspnea Gastrointestinal Gastrointestinal: Reports nausea; Denies abdominal pain, diarrhea, melena or vomiting Genitourinary Genitourinary ED: Denies dysuria, hematuria or urinary frequency Musculoskeletal Musculoskeletal: Denies myalgias Integumentary Denies rash Neurologic Neurologic: Denies headache(s) Psychiatric Psychiatric: Reports other Details: Mild anxiety after taking Compazine. Allergic/Immunologic Allergic/Immunologic ED: Denies urticaria EXAM Physical Exam Narrative Exam Narrative: CONSTITUTIONAL: Patient is nontoxic in appearance. The patient looks comfortab le. HEENT: No notable trauma. Mucous membranes do look a bit dry. EYES: No conjunctival injection. No proptosis. CARDIOVASCULAR: Regular rate. Regular rhythm. No notable murmur. No JVD. RESPIRATORY: No respiratory distress. Breathing is unlabored. No wheezes. No rhonchi. No rales. No pain with a deep breath. She does have a Mediport with infusion in the right upper chest. The looks normal. Its not red or swollen inflamed or tender. GASTROINTESTINAL: Not distended. Bowel sounds are normal. No tenderness. No guarding. No rebound. No palpable mass. No bruit. Overall very benign abdominal exam. GENITOURINARY: No tenderness over the bladder. No CVA tenderness. MUSCULOSKELETAL: Atraumatic. No peripheral edema. NEUROLOGICAL: Patient is alert and appropriate. No focal deficit noted. SKIN: No noted rashes. No diaphoresis. PSYCHIATRIC: Patient is mildly anxious. This is likely due to the Compazine. Mood is appropriate. Const Vital Signs: 04/06/23 21:02 Temperature 97.2 F L Temperature Source Temporal Pulse Rate 81 Respiratory Rate 16 Blood Pressure 146/93 H Blood Pressure Mean 110 Pulse Ox 96 Oxygen Delivery Method Room Air [facility] Lab Data Labs: Laboratory Results - last 24 hr 04/06/23 21:45 WBC 5.5 RBC 4.26 Hgb 13.0 Hct 39.1 MCV 91.8 MCH 30.5 MCHC 33.2 RDW Std Deviation 41.3 RDW Coeff of Ryan 12.3 Plt Count 199 MPV 10.9 Immature Gran % (Auto) 0.400 Neut % (Auto) 67.5 Lymph % (Auto) 22.5 [place] % (Auto) 7.7 Eos % (Auto) 1.5 Baso % (Auto) 0.4 Absolute Neuts (auto) 3.7 Absolute Lymphs (auto) 1.23 Nucleated RBC % 0 Sodium 139 Potassium 3.7 Chloride 106 Carbon Dioxide 24.0 Anion Gap 9 BUN 10 Creatinine 0.85 Estim Creat Clear Calc 58.58 Est GFR (MDRD) Af Amer 86 Est GFR (MDRD) Non-Af 71 BUN/Creatinine Ratio 11.7 Glucose 119 H Calcium 8.9 Discharge Plan Triage Chief Complaint: Nausea/Vomiting ED Provider: Bryant Britt Dx/Rx/DC Orders Clinical Impression: CINV (chemotherapy-induced nausea and vomiting), Dehydration, mild Instructions: Cancer Tx Control Nausea Vomiting Prescriptions: New promethazine 25 mg tablet 25 mg PO Q6H PRN (Reason: nausea and vomiting) Qty: 14 0RF No Action ascorbate calcium (vitamin C) 500 mg tablet 500 mg PO DAILY fluticasone propionate 50 mcg/actuation spray,suspension 2 spray intranasal DAILY Rx Instructions: administer into each nostril cholecalciferol (vitamin D3) 125 mcg (5,000 unit) capsule 125 mcg PO DAILY quercetin 500 mg capsule 500 mg PO DAILY mecobalamin (vitamin B12) 500 mcg tablet,chewable 500 mcg PO DAILY Zinc AG 20 mg PO DAILY loratadine 10 mg tablet 10 mg PO DAILY PRN (Reason: ALLERGIES) acetaminophen 325 mg tablet 650 mg PO Q6H PRN (Reason: fever or pain) ibuprofen 200 mg capsule 200 mg PO Q6H PRN (Reason: pain) ondansetron 8 mg tablet,disintegrating 8 mg PO Q8H PRN (Reason: nausea and vomiting) Qty: 30 2RF prochlorperazine maleate 10 mg tablet 10 mg PO Q6H PRN (Reason: nausea and vomiting) Qty: 30 2RF multivitamin with minerals 1 EACH tablet 1 ea PO DAILY PreserVision AREDS-2 1 EACH capsule 1 ea PO DAILY Primary Care Provider: Sasha Phan Referrals: Sasha Phan MD [Primary Care Provider] - 3-5 Days Activity Restrictions/Additional Instructions: Follow-up with your oncologist in the next few days or as scheduled. Disposition Disposition: Home, Self Care
[2023-04-06] MEDS: DiphenhydrAMINE 50 MG/ML Syringe 25 MG IV (21:41)
[2023-04-06] MEDS: proMETHazine 25 MG/ML Syringe 12.5 MG IM (21:41)
[2023-04-06] MEDS: 0.9% Normal Saline 1,000 ML 1000 ML IV (21:41)
[2023-04-06] MEDS: Ondansetron 4 MG/2 ML Vial IV (21:41)
[2023-04-06 21:52] LABS: Absolute Lymphocyte Count 1.23 X10^3/uL (0.83-4.51); Absolute Neutrophil Count 3.7 X10^3/uL (2.0-7.7); Basophil# 0.02 X10^3/uL; Basophil% 0.4 % (0-1); Eosinophil# 0.08 X10^3/uL; Eosinophils% 1.5 % (0-5); Hematocrit 39.1 % (37-47); Lymphocyte # 1.23 X10^3/ul (0.83-4.51); Lymphocyte % 22.5 % (19-41); Mean Corp Hgb Conc 33.2 g/dL (32-36); Mean Corpuscular Hgb 30.5 pg (27.0-32.0); Mean Corpuscular Volume 91.8 fL (81-99); Mean Platelet Vol. 10.9 fl (6.2-12.0); Monocyte# 0.42 X10^3/uL; Monocyte% 7.7 % (0-10); NRBC Flagged by Analyzer 0 % (0-5); Neutrophil % 67.5 % (47-70); Platelet Count 199 K/mm3 (150-450); RBC Distribution Width CV 12.3 % (11.6-14.6); RBC Distribution Width SD 41.3 fl (35.1-43.9); Red Blood Count 4.26 M/mm3 (4.2-5.4); White Blood Count 5.5 K/mm3 (4.4-11.0)
[2023-04-06 22:21] LABS: Anion Gap 9 (5-15); BUN 10 mg/dL (7-18); BUN/Creat Ratio 11.7 RATIO (10-20); Calcium,Total 8.9 mg/dL (8.5-10.1); Chloride 106 mmol/L (98-107); Creatinine, Serum 0.85 mg/dL (0.55-1.02); EST Glomerular Filtration Rate 71 mL/min (>60); Est Glom Filt Rate - Afr Amer 86 mL/min (>60); Estimated Creatinine Clearance 58.58 ml/min; Glucose 119 mg/dL (74-106); Potassium 3.7 mmol/L (3.5-5.1); Sodium Level 139 mmol/L (136-145)
== END 2023-04-07 00:35 | disposition home or self-care (01) ==
PROVIDERS: Emergency Provider Emergency Medicine; PCP Internal Medicine; Visit Provider Emergency Medicine
DX: R11.2 Nausea with vomiting, unspecified (principal); C20 Malignant neoplasm of rectum; T45.1X5A Adverse effect of antineoplastic and immunosuppressive drugs, initial encounter; E86.0 Dehydration
CPT/HCPCS: 80048; 85025; 96361; 96372; 96374; 96375; 99283; J7030; A4216; J2405

== ENCOUNTER 2023-05-12 21:22 | Emergency (ER) | payer MEDICARE, SELFPAY ==
[2023-05-12 21:23] VITALS: BP 146/78; PULSE 99; RESP 18; TEMP 36.6; O2SAT 98
--- NOTE | 2023-05-12 21:47 | EDS_ITS ---
HPI History of Present Illness Chief Complaint: Weakness Informant: patient and family Narrative Narrative: 67-year-old female arriving to the emergency department out of concerns for dehydration and nausea. Patient has a history of rectal cancer and just finishe d 28 days of radiation chemotherapy. Patient notes persistent nausea decreased p.o. intake particularly of solid foods. She has had some diarrhea though stool has been small amounts. She notes dark yellow urine. No syncope. She notes dry mouth. She feels foggy. She notes some abdominal cramping/discomfort. [facility] Medical History Arthritis Cancer CINV (chemotherapy-induced nausea and vomiting) Encounter for education Gastric reflux History of GI bleed History of stress test Injury of head and neck Non-smoker Post-menopausal Wears contact lenses Wears glasses Home Medications multivitamin with minerals 1 ea PO DAILY 04/22/20 [History Last Taken Unknown] vit C 250 mg-vit E 90 mg-zinc 40 mg-copper 1 [id number] capsule (PreserVision AREDS-2) 1 ea PO DAILY 04/22/20 [History Last Taken Unknown] Zinc AG 20 mg PO DAILY 01/04/23 [History Last Taken Unknown] ascorbate calcium (vitamin C) 500 mg tablet 500 mg PO DAILY 01/04/23 [History Last Taken Unknown] cholecalciferol (vitamin D3) 125 mcg (5,000 unit) capsule 125 mcg PO DAILY 01/04/23 [History Last Taken Unknown] fluticasone propionate 50 mcg/actuation nasal spray,suspension 2 spray intranasal DAILY 01/04/23 [History Last Taken Unknown] mecobalamin (vitamin B12) 500 mcg chewable tablet 500 mcg PO DAILY 01/04/23 [History Last Taken Unknown] quercetin 500 mg capsule 500 mg PO DAILY 01/04/23 [History Last Taken Unknown] loratadine 10 mg tablet 10 mg PO DAILY PRN ALLERGIES 01/16/23 [History Last Taken Unknown] acetaminophen 325 mg tablet 650 mg PO Q6H PRN fever or pain 03/23/23 [History Last Taken Unknown] ibuprofen 200 mg capsule 200 mg PO Q6H PRN pain 03/23/23 [History Last Taken Unknown] ondansetron 8 mg disintegrating tablet 8 mg PO Q8H PRN nausea and vomiting #30 tabs 03/23/23 [Rx Last Taken Unknown] prochlorperazine maleate 10 mg tablet 10 mg PO Q6H PRN nausea and vomiting #30 tabs 04/06/23 [Rx Last Taken Unknown] famotidine 20 mg tablet (Pepcid) 20 mg PO BID 04/12/23 [History Last Taken Unknown] promethazine 25 mg tablet 25 mg PO Q6H PRN nausea and vomiting #30 tabs 05/01/23 [Rx Last Taken Unknown] Allergy/AdvReac Type Severity Reaction Status Date / Time hydrocodone [From Vicodin] Allergy Rash Verified 05/12/23 21:26 latex Allergy Rash Verified 05/12/23 21:26 bacitracin [From Polysporin] AdvReac Other Verified 05/12/23 21:26 polymyxin B [From Polysporin] AdvReac Other Verified 05/12/23 21:26 Family History Mother Breast cancer, Onset Age: 57 Sister Breast cancer Dx in her 60's Diabetes Father Diabetes Heart disease Aunt Breast cancer x3 maternal aunts Surgical History History of dental jew History of hysteroscopy History of lumpectomy Hx of dilation and curettage Hx of rhinoplasty Hx of tubal ligation Hx of umbilical hernia repair Social History adopted: No household members: spouse housing: house number of children: 3 current occupational status: retired current occupational exposures/hazards: No pets and animals: No leisure activities: other history of recent travel: No sexually active: No Smoking Status: Never smoker alcohol intake: never substance use type: does not use diet: other well-balanced diet: daily or most days caffeine: Yes eating out: rarely or never during the past year weight has: decreased > 10 lbs what type of physical activity do you participate in: none facundo/latter day: Yazidi seatbelt use: always do you feel safe at home: Yes ROS ROS ED Constitutional Constitutional ED: Reports weight loss; Denies chills or fever(s) Eyes Eyes: Denies change in vision or diplopia ENT ENT ED: Denies ear pain, rhinorrhea or sore throat Cardiovascular Cardiovascular: Denies chest pain, orthopnea, palpitations or racing heartbeat Respiratory/Chest Respiratory/Chest: Denies cough, dyspnea or orthopnea Gastrointestinal Gastrointestinal: Reports abdominal pain, diarrhea and nausea; Denies vomiting Genitourinary Genitourinary ED: Denies dysuria, hematuria or urinary frequency Musculoskeletal Musculoskeletal: Denies arthralgias or myalgias Integumentary Denies abscess or rash Neurologic Neurologic: Denies headache(s) or weakness Psychiatric Psychiatric: Denies anxiety, depression, suicidal ideation or suicidal thoughts Endocrine Endocrinology: Denies polydipsia, polyphagia or polyuria Allergic/Immunologic Allergic/Immunologic ED: Denies mouth swelling, tongue swelling or urticaria EXAM Physical Exam Const Vital Signs: 05/12/23 21:23 Temperature 97.8 F Temperature Source Temporal Pulse Rate 99 Respiratory Rate 18 Blood Pressure 146/78 H Blood Pressure Mean 100 Pulse Ox 98 Oxygen Delivery Method Room Air Positive well nourished and well developed General Appearance ED: well developed HEENT Reports normocephalic, head/scalp atraumatic and dry mucous membranes Mouth ED: Yes dry mucous membranes Mouth: dry mucous membranes Eyes PERRL and EOMs intact bilaterally Neck no lymphadenopathy, supple and no JVD Resp normal respiratory effort and clear to auscultation bilaterally Cardio regular rate, regular rhythm and no murmurs Rate: tachycardic GI normal to inspection, nondistended, normoactive bowel sounds and non-tender Palpation: soft Back/Spine no CVA tenderness and normal ROM Extremity normal to inspection General Extremety ED: Negative for edema General Extremity: Negative for edema Neuro oriented x3 and CN's II-XII intact bilaterally Sensorium / Orientation: alert Motor Exam: strength 5/5 throughout Psych mental status grossly normal Mood & Affect: Negative for depressed or tearful Skin no rashes or lesions noted and no wounds Skin Narrative: There is some slight tenting of the forearm skin. MDM MDM MDM Narrative Medical decision making narrative: Patient is slightly tachycardic with dry mucous membranes. We are going to administer 2 L of IV fluids and check electrolytes. We will also administer Zofran for nausea. She had Phenergan approximately 1-09/26 patient will be reassessed and I would anticipate a discharge. Care of the patient will be signed to the oncoming physician Discharge Plan Triage Chief Complaint: Weakness ED Provider: Homero Roberts Dx/Rx/DC Orders Clinical Impression: CINV (chemotherapy-induced nausea and vomiting), Acute dehydration, Rectal cancer Instructions: ED Dehydration (Adult) Prescriptions: No Action ascorbate calcium (vitamin C) 500 mg tablet 500 mg PO DAILY fluticasone propionate 50 mcg/actuation spray,suspension 2 spray intranasal DAILY Rx Instructions: administer into each nostril cholecalciferol (vitamin D3) 125 mcg (5,000 unit) capsule 125 mcg PO DAILY quercetin 500 mg capsule 500 mg PO DAILY mecobalamin (vitamin B12) 500 mcg tablet,chewable 500 mcg PO DAILY Zinc AG 20 mg PO DAILY loratadine 10 mg tablet 10 mg PO DAILY PRN (Reason: ALLERGIES) acetaminophen 325 mg tablet 650 mg PO Q6H PRN (Reason: fever or pain) ibuprofen 200 mg capsule 200 mg PO Q6H PRN (Reason: pain) ondansetron 8 mg tablet,disintegrating 8 mg PO Q8H PRN (Reason: nausea and vomiting) Qty: 30 2RF promethazine 25 mg tablet 25 mg PO Q6H PRN (Reason: nausea and vomiting) Qty: 30 1RF prochlorperazine maleate 10 mg tablet 10 mg PO Q6H PRN (Reason: nausea and vomiting) Qty: 30 2RF famotidine [Pepcid] 20 mg tablet 20 mg PO BID multivitamin with minerals 1 EACH tablet 1 ea PO DAILY PreserVision AREDS-2 1 EACH capsule 1 ea PO DAILY Primary Care Provider: Sasha Phan Referrals: Sasha Phan MD [Primary Care Provider] - As Needed
[2023-05-12] MEDS: 0.9% Normal Saline 1,000 ML 999 ML IV ×2 (22:14→22:58)
[2023-05-12] MEDS: Ondansetron 4 MG/2 ML Vial IV (22:14)
[2023-05-12 22:29] LABS: Absolute Lymphocyte Count 0.24 X10^3/uL (0.83-4.51); Absolute Neutrophil Count 8.4 X10^3/uL (2.0-7.7); Basophil# 0.03 X10^3/uL; Basophil% 0.3 % (0-1); Eosinophil# 0.21 X10^3/uL; Hematocrit 37.7 % (37-47); Hemoglobin 12.1 g/dL (12.0-15.0); Lymphocyte # 0.24 X10^3/ul (0.83-4.51); Lymphocyte % 2.3 % (19-41); Mean Corp Hgb Conc 32.1 g/dL (32-36); Mean Corpuscular Hgb 30.9 pg (27.0-32.0); Mean Corpuscular Volume 96.4 fL (81-99); Mean Platelet Vol. 10.2 fl (6.2-12.0); Monocyte# 1.31 X10^3/uL; Monocyte% 12.8 % (0-10); NRBC Flagged by Analyzer 0 % (0-5); Neutrophil % 81.8 % (47-70); POSITIVE DIFFERENTIAL YES; Platelet Count 284 K/mm3 (150-450); RBC Distribution Width CV 14.6 % (11.6-14.6); RBC Distribution Width SD 48.9 fl (35.1-43.9); Red Blood Count 3.91 M/mm3 (4.2-5.4); White Blood Count 10.3 K/mm3 (4.4-11.0)
[2023-05-12 22:35] LABS: Differential Indicated SCAN CRITERIA MET
[2023-05-12 22:44] LABS: Anion Gap 4 (5-15); BUN 10 mg/dL (7-18); BUN/Creat Ratio 10.9 RATIO (10-20); Calcium,Total 8.8 mg/dL (8.5-10.1); Chloride 101 mmol/L (98-107); Creatinine, Serum 0.92 mg/dL (0.55-1.02); EST Glomerular Filtration Rate 65 mL/min (>60); Est Glom Filt Rate - Afr Amer 79 mL/min (>60); Estimated Creatinine Clearance 51.69 ml/min; Glucose 130 mg/dL (74-106); Potassium 3.8 mmol/L (3.5-5.1); Sodium Level 134 mmol/L (136-145)
[2023-05-12 22:58] LABS: Anisocytosis RARE; Macrocytosis RARE; Platelet Estimate ADEQUATE (ADEQ); Platelet Morphology LARGE; Red Cell Morphology N CHROM NORMAL (NORM C&C)
[2023-05-13 00:11] VITALS: BP 133/69; PULSE 81; RESP 15; O2SAT 96
== END 2023-05-13 00:23 | disposition home or self-care (01) ==
PROVIDERS: Emergency Provider Emergency Medicine; PCP Internal Medicine; Visit Provider Emergency Medicine
DX: E86.0 Dehydration (principal); C20 Malignant neoplasm of rectum; T45.1X5A Adverse effect of antineoplastic and immunosuppressive drugs, initial encounter; R11.2 Nausea with vomiting, unspecified
CPT/HCPCS: 80048; 85025; 96374; 99283; J7030; A4216; J2405

== ENCOUNTER 2023-12-06 14:51 | Outpatient (CLI) | payer MEDICARE, SELFPAY ==
[2023-12-06 15:37] LABS: Creatinine, Serum 0.68 mg/dL (0.55-1.02); EST Glomerular Filtration Rate 92 mL/min (>60); Est Glom Filt Rate - Afr Amer 111 mL/min (>60)
[2023-12-08 04:07] LABS: Carcinoembryonic Antigen 1.8 ng/mL (0.0-4.7)
== END 2023-12-06 14:52 | disposition home or self-care (01) ==
LOC: MEDOUTP 14:51
PROVIDERS: PCP Internal Medicine; Referring Provider Colon & Rectal Surgery; Visit Provider Colon & Rectal Surgery
DX: C20 Malignant neoplasm of rectum (principal); Z45.2 Encounter for adjustment and management of vascular access device
CPT/HCPCS: 36591; 82378; 82565; A4216

== ENCOUNTER → 2024-04-03 | Outpatient (CLI) | payer MEDICARE, SELFPAY ==
[2024-04-03 14:30] LABS: ALB/GLOB Ratio 1.1 RATIO (0.9-2.4); AST(SGOT) 22 U/L (15-37); Alanine Aminotransfer ALT/SGPT 29 U/L (13-56); Albumin, Serum 3.7 g/dL (3.2-5.0); Alkaline Phosphatase 75 U/L (45-117); Anion Gap 6 (5-15); BUN 17 mg/dL (7-18); Calcium,Total 9.3 mg/dL (8.5-10.1); Chloride 106 mmol/L (98-107); Creatinine, Serum 0.85 mg/dL (0.55-1.02); EST Glomerular Filtration Rate 71 mL/min (>60); Est Glom Filt Rate - Afr Amer 85 mL/min (>60); Globulin 3.5 g/dL (2.2-4.2); Glucose 96 mg/dL (74-106); Protein, Total 7.2 g/dL (6.4-8.2); Sodium Level 139 mmol/L (136-145)
[2024-04-03 22:07] LABS: Xtra Tube EP Lab EXTRA TUBE
[2024-04-05 08:13] LABS: Carcinoembryonic Antigen 2.3 ng/mL (0.0-4.7)
== END | disposition home or self-care (01) ==
LOC: PAVLAB 13:51
PROVIDERS: PCP Internal Medicine; Visit Provider Internal Medicine Hematology & Oncology
DX: C20 Malignant neoplasm of rectum (principal); E87.6 Hypokalemia
CPT/HCPCS: 36415; 80053; 82378

== ENCOUNTER 2024-06-07 06:33 | Day surgery (SDC) | payer MEDICARE, SELFPAY ==
[2024-06-07] VITALS (8 sets, daily range): BP systolic 118–133; BP diastolic 68–83; PULSE 16–86; RESP 16; TEMP 36.1–36.7; O2SAT 95–98; BMI 20.5
[2024-06-07] MEDS: Lactated Ringers 1,000 ML 15 ML IV (06:59)
--- NOTE | 2024-06-07 07:05 | PCM.PRE.AN2 ---
ASA Classification* ASA Classification ASA Classification: 2 Assessment & Plan Anesthesia* Anesthesia Assessment Anesthesia Assessment: Discussed sedation and/or anesthesia options, risks, benefits, and alternatives with patient/parents/legal guardian/POA. Questions invited. The patient/parents/legal guardian/POA seems to understand and agrees to proceed with anesthesia plan. Reviewed the physical assessment, medical history, allergy history and patient home medications list prior to surgery/procedure/anesthetic and documented any changes. Performed airway and anesthesia risk assessments. Anesthesia Type Anesthesia Type: MAC Anesthesia Focused Assessment* Temperature: 97.2 F Pulse Rate: 86 Respiratory Rate: 16 Pulse Ox: 98 Airway Assessment Mouth opens: >3 cm Mallampati Score: II Focused Labs Anesthesia Preop lab: CBC WBC 3.3 K/mm3 (4.4-11.0) L 01/17/24 14:15 RBC 3.99 M/mm3 (4.2-5.4) L 01/17/24 14:15 Hgb 12.2 g/dL (12.0-15.0) 01/17/24 14:15 Hct 37.7 % (37-47) 01/17/24 14:15 Plt Count 164 K/mm3 (150-450) 01/17/24 14:15 CHEMISTRY Potassium 4.0 mmol/L (3.5-5.1) 04/03/24 14:00 Sodium 139 mmol/L (136-145) 04/03/24 14:00 Magnesium 2.3 mg/dL (1.6-2.6) 10/25/23 14:00 Phosphorus 4.1 mg/dL (2.5-4.9) 10/25/23 14:00 BUN 17 mg/dL (7-18) 04/03/24 14:00 Creatinine 0.85 mg/dL (0.55-1.02) 04/03/24 14:00 Glucose 96 mg/dL (74-106) 04/03/24 14:00 POC Glucose 114 mg/dL (74-106) H 03/22/23 08:32 COAG Pre-Assessment Diagnosis/Proposed Procedure Planned Operative Procedure(s): CSCOPE Anesthesia History 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 When Was Last Pacemaker Check QUESTION #4 FULL TEXT: You/Your Family Experience fever (hyperthermia) with Anesthesia Last Oral Intake Last Oral intake: Last Oral Intake NPO since 23:00 06/07/24 06:52 Meds taken in AM with sips of No 06/07/24 06:52 water? 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 Female Yes 06/05/24 12:20 HX of Motion Sickness No 06/05/24 12:20 HX of N/V After Surgery Yes 06/05/24 12:20 Non-Smoker Yes 06/05/24 12:20 Duration of Surgery greater No 06/05/24 12:20 than 60 minutes Number of Risk Factors 3 06/05/24 12:20 PONV Score Moderate Risk 06/05/24 12:20 Height & Weight Height & Weight: Anesthesia: Height & Weight Height 5 ft 5 in 06/07/24 06:52 Weight: 55.8 kg 06/07/24 06:52 Body Mass Index (BMI) 20.5 06/07/24 06:52 Respiratory Assessment Respiratory Assessment - stemming machine operator: Respiratory Tract Infection Hx - stemming machine operator Hx Respiratory Tract Infection No 06/05/24 12:20 STOP Sleep Apnea STOP Sleep Apnea - stemming machine operator: STOP Sleep Apnea - stemming machine operator Hx Hypertension No 06/05/24 12:20 Hx Sleep Apnea No 06/05/24 12:20 CPAP BIPAP Do you snore loudly (louder No 06/05/24 12:20 than talking or can be heard Do you often feel tired/ No 06/05/24 12:20 fatigued/ sleepy during daytime? Has anyone observed you stop No 06/05/24 12:20 breathing during sleep? STOP Results Negative 06/05/24 12:20 QUESTION #5 FULL TEXT : Do you snore loudly (louder than talking or can be heard through closed doors)? 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 Specify any problems Hx of Preganancy in last 3 N/A 06/05/24 12:20 Months Nurse Filling Out Transfusion NBUCHER 06/05/24 12:20 & Questions: Date: 06/05/24 06/05/24 12:20 Time: 12:21 06/05/24 12:20 Patient unable to answer at this time (ie. confused, unrespo /Reproduction History /Reproductive History - stemming machine operator: /Reproductive Hx- stemming machine operator Hx Now Gestational Age (in weeks): EDC: Hx Hx Para Hx Section SAB Active Medications Active Medications: Current Medications Generic Name Dose Route Start Last Admin Trade Name Freq PRN Reason Stop Dose Admin Lactated Ringer's 1,000 mls @ 15 mls/hr 06/07/24 06:45 06/07/24 06:59 IV 15 mls/hr .Q48H STACEY Administration PFSH Medical History Neuropathy Encounter for chemotherapy management Drug induced neutropenia Abdominal cramping Anxiety in cancer patient Anxiety Hypokalemia CINV (chemotherapy-induced nausea and vomiting) Encounter for education Rectal cancer Wears contact lenses Wears glasses Post-menopausal Cancer Arthritis Injury of head and neck History of GI bleed Gastric reflux Non-smoker History of stress test Home Medications ?Medication ?Instructions ?Recorded ?Last Taken ?Type multivitamin with minerals 1 ea PO DAILY 04/22/20 Unknown History vit C 250 mg-vit E 90 mg-zinc 40 1 ea PO DAILY 04/22/20 Unknown History mg-copper 1 [id number] capsule (PreserVision AREDS-2) Zinc AG 20 mg PO DAILY 01/04/23 Unknown History cholecalciferol (vitamin D3) 125 125 mcg PO DAILY 01/04/23 Unknown History mcg (5,000 unit) capsule fluticasone propionate 50 2 spray intranasal DAILY 01/04/23 Unknown History mcg/actuation nasal spray,suspension loratadine 10 mg tablet 10 mg PO DAILY PRN ALLERGIES 01/16/23 Unknown History acetaminophen 325 mg tablet 650 mg PO Q6H PRN fever or pain 03/23/23 Unknown History ibuprofen 200 mg capsule 200 mg PO Q6H PRN pain 03/23/23 Unknown History famotidine 20 mg tablet (Pepcid) 20 mg PO PRN 05/08/24 Unknown History Allergy/AdvReac Type Severity Reaction Status Date / Time hydrocodone (From Vicodin) Allergy Rash Verified 06/07/24 06:51 latex Allergy Rash Verified 06/07/24 06:51 prochlorperazine (From AdvReac Intermediate agitation/r Verified 06/07/24 06:51 Compazine) estless bacitracin (From Polysporin) AdvReac Other Verified 06/07/24 06:51 polymyxin B (From Polysporin) AdvReac Other Verified 06/07/24 06:51 Family History Mother Breast cancer, Onset Age: 57 Sister Breast cancer Dx in her 60's Diabetes Father Diabetes Heart disease Aunt Breast cancer x3 maternal aunts Surgical History History of removal of Port-a-Cath Hx of dilation and curettage Hx of umbilical hernia repair History of dental druze Hx of tubal ligation Hx of rhinoplasty History of lumpectomy History of hysteroscopy Social History adopted: No household members: spouse housing: house number of children: 3 current occupational status: retired current occupational exposures/hazards: No pets and animals: No leisure activities: other history of recent travel: No sexually active: No Smoking Status: Never smoker alcohol intake: never substance use type: does not use diet: other well-balanced diet: daily or most days caffeine: Yes eating out: rarely or never during the past year weight has: decreased > 10 lbs what type of physical activity do you participate in: none facundo/lutheran: Roman Catholic seatbelt use: always do you feel safe at home: Yes Review of Systems (Anesthesia) ROS Narrative System reviewed and no additional complaints, except as documented.
--- NOTE | 2024-06-07 07:25 | HP.PCM_ITS ---
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 Required: No Is patient in pain?: No Allergies hydrocodone (From Vicodin) Allergy (Verified 05/08/24 14:53) Rashlatex Allergy (Verified 05/08/24 14:53) Rashprochlorperazine (From Compazine) Adverse Reaction (Intermediate, Verified 05/08/24 14:53) agitation/restlessbacitracin (From Polysporin) Adverse Reaction (Verified 05/08/24 14:53) Otherpolymyxin B (From Polysporin) Adverse Reaction (Verified 05/08/24 14:53) Other Medications ?Medication ?Instructions ?Recorded ?Confirmed ?Type multivitamin with minerals 1 ea PO DAILY 04/22/20 05/08/24 History vit C 250 mg-vit E 90 mg-zinc 40 1 ea PO DAILY 04/22/20 05/08/24 History mg-copper 1 re-lextyi-okadwh capsule (PreserVision AREDS-2) Zinc AG 20 mg PO DAILY 01/04/23 05/08/24 History cholecalciferol (vitamin D3) 125 125 mcg PO DAILY 01/04/23 05/08/24 History mcg (5,000 unit) capsule fluticasone propionate 50 2 spray intranasal DAILY 01/04/23 05/08/24 History mcg/actuation nasal spray,suspension loratadine 10 mg tablet 10 mg PO DAILY PRN ALLERGIES 01/16/23 05/08/24 History acetaminophen 325 mg tablet 650 mg PO Q6H PRN fever or pain 03/23/23 05/08/24 History ibuprofen 200 mg capsule 200 mg PO Q6H PRN pain 03/23/23 05/08/24 History promethazine 25 mg tablet 25 mg PO Q6H PRN nausea and 05/01/23 04/22/24 Rx vomiting #30 tabs famotidine 20 mg tablet (Pepcid) 20 mg PO .prn 05/08/24 05/08/24 History nerve supplement PO 05/08/24 History Have you fallen in the past year?: No PFSH Medical History (Updated 05/08/24 @ 14:56 by Payton Haynes) Neuropathy Rectal cancer Encounter for chemotherapy management Drug induced neutropenia Abdominal cramping Anxiety in cancer patient Anxiety Hypokalemia CINV (chemotherapy-induced nausea and vomiting) Encounter for education Wears contact lenses Wears glasses Post-menopausal Cancer Arthritis Injury of head and neck History of GI bleed Gastric reflux Non-smoker History of stress test Surgical History Hx of dilation and curettage Hx of umbilical hernia repair History of dental temple Hx of tubal ligation Hx of rhinoplasty History of lumpectomy History of hysteroscopy Family History Mother Breast cancer, Onset Age: 57Sister Breast cancer Dx in her 60's DiabetesFather Diabetes Heart diseaseAunt Breast cancer x3 maternal aunts Social History adopted: No household members: spouse housing: house number of children: 3 current occupational status: retired current occupational exposures/hazards: No pets and animals: No leisure activities: other history of recent travel: No sexually active: No Smoking Status: Never smoker alcohol intake: never substance use type: does not use diet: other well-balanced diet: daily or most days caffeine: Yes eating out: rarely or never during the past year weight has: decreased > 10 lbs what type of physical activity do you participate in: none facundo/tenriism: Temple seatbelt use: always do you feel safe at home: Yes HPI HPI Surgical H&P: Yes HPI: Patient is a 68 y/o F I am seeing for personal history of rectal cancer. Patient is due for a colonoscopy 1 year after her diagnosis. Patient's most recent colonoscopy was completed on December 22, [address] Jarvis. A rectal mass was found at that time on the left lateral side about 4 to 5 cm from the anal verge. She also had a cecal, splenic flexure, and sigmoid polyps. Pathology demonstrated the rectal mass was an invasive well-differentiated adenocarcinoma. The patient completed radiation therapy on 04/30/23 and chemotherapy on 08/2023. She was evaluated by Dr. Dago Zhao at [facility]. She states she did not have any surgical intervention on the rectal cancer, only chemo and radiation. She has been following with Dr. Berger. Patient has recently had a follow-up with Dr. Zhao, whom is very pleased with her progress. She recently had a follow-up with Dr. Zhao on 04/09/24. He had completed a flex sigmoidoscopy in the office noting no sign of recurrence of the rectal cancer. He did recommend a formal follow-up colonoscopy. She had an MRI of the rectum w/wo IV contrast at [facility] demonstrating mid rectal fibrosis without residual viable tumor, insufficiency fracture of the left hemisacrum, and persistent posttreatment changes of the upper rectal and distal sigmoid colon. CT scan of the ab/pel w IV contrast was also completed at [facility] on 04/09/24, which demonstrated mild upper rectal and distal sigmoid wall thickening, likely post-treatment related. Patient denies any rectal bleeding, melanotic stools, constipation or diarrhea. She denies any abdominal pain. She denies any side effects from anesthesia. She denies any cardiac concerns or issues. She does not see a electric operator. She has no pulmonary history. Patient voices concern to proceed with a colonoscopy. She notes her last colonoscopy with Dr. Jarvis in November, he found it to be very challenging due to patient having a tortuous colon. She notes having lost 10-12 more pounds since her last colonoscopy secondary to cancer treatment. She voices that she was told due to her being on the thinner side, there was more difficulty with the colonoscopy. She is fearful the discomfort/tenderness in her abdomen will occur again. She is also fearful of perforation. Patient was evaluated by Dr. Jarvsi in January 2024. At that time, patient wanted to hold off on pursuing a colonoscopy. Patient's most recent CEA level was 2.3 on 04/03/24. Patient's CEA level was never elevated during her whole cancer process. ROS General General: No weight change, appetite, fatigue, colon cancer, breast cancer or weakness HEENT HEENT: No difficulty swallowing, eye injury, eye surgery, swollen glands or hoarseness Endo Endocrine: No thyroid disease, diabetes mellitus, thyroid cancer, Hair loss, heat intolerance or cold intolerance Skin Skin: No rash or changing moles Breast Breast: No left breast lump, right breast lump, nipple discharge, breast pain, abnormal mammogram, abnormal US or breast enlargement Musc Musculoskeletal: No back problems, arthritis, rheumatoid arthritis, gout or joint pain Cardio Cardiovascular: No murmur, pacemaker, heart disease, atrial fibrillation, high blood pressure, heart attack, heart stent, palpitations, shortness of breat with exertion or chest pain Psych Psychiatric: No depression, anxiety or hearing voices Resp Respiratory: No shortness of breath, No sleep apnea, No cough, No COPD, No asthma, No emphysema and No wheezing Gastro Gastrointestinal: No abdominal pain, No nausea or vomiting, No diarrhea, No constipation, No blood in stool, No acid reflux, No hemorrhoids, No ulcers, No gallbladder problem and No black,tarry stools Zoran Hematologic: No blood thinners, No blood disorders, No bleeding, No anemia and No blood clots Neuro Neurologic: No system reviewed and no additional complaints, except as documented, No as per HPI, No abnormal gait, No abnormal hearing, No abnormal movements, No abnormal speech, No behavioral changes, No burning sensations, No confusion, No convulsions, No disequilibrium, No dizziness, No localized weakness, No frequent falls, No headache(s), No lack of coordination, No loss of vision, No memory loss, No numbness, No other visual disturbances, No radicular pain, No restless legs, No sensory deficit, No syncope, No tingling, No tremo r(s), No weakness and No other Exam Const General: cooperative, healthy appearing, comfortable and no acute distress [facility] Head: normal to inspection Eyes General: appearance normal, both eyes and all related structures Neck Neck: normal visual inspection Neck mass: No Resp Effort & Inspection: normal respiratory effort Auscultation: clear to auscultation bilaterally Cardio Rate: regular rate Rhythm: regular rhythm Bruits: no carotid bruits GI Inspection: normal to inspection Palpation: soft and nontender Auscultation: normal bowel sounds Musc Cervical Spine: normal cervical lordosis Skin General: no rashes or lesions noted Neuro General: no focal motor deficits and CN's II-XI intact bilaterally Extrem General: normal to inspection Psych Appearance: grossly normal Affect: normal affect Assessment and Plan Assessment and Plan (1) Rectal cancer: Status: Acute (2) Personal history of colonic polyps: Status: Acute Orders: Orders Colonoscopy 05/08/24 Plan Patient is a 68 y/o F with recent history of rectal cancer in November of 2022. She returns for a follow-up colonoscopy as it is time to pursue one. She had a non- operative approach to her rectal cancer. She has completed radiation and chemotherapy. Recent imaging from [facility] note no recurrence of rectal mass. There is notation of thickening of the upper rectal, distal sigmoid on the CT scan and MRI. This may be from radiation therapy, however will obtain biopsies to rule out any ongoing concerns. Dr. Amos will plan to perform a colonoscopy with possible biopsies. Procedure details, risks and benefits have been explained and reviewed with the patient. Plan for a 1 day Miralax prep. She is not on any blood thinners or weight loss medications. She will hold her supplements for 7 days prior to the procedure. Patient and her have had the opportunity to ask and have questions answered. Patient verbally understands and agrees with the plan. Our surgery scheduling coordinator will schedule the patient for additional time to allow for optimal evaluation of the patient's tortuous colon, location of the upper rectum/distal sigmoid thickening with potential biopsies, and site of previous rectal cancer (- Distal rectum. Left lateral, approximately 4-5cm from anal verge.) I have examined the patient and the H&P has been reviewed. There are no clinical changes since date of exam.
--- NOTE | 2024-06-07 07:54 | OP.CCLET_ITS ---
06/07/2024 Sasha Phan [facility] [address] [place] [address] Re : Colonoscopy procedure for Barbara Resendiz Dear Dr. Phan This procedure was performed on Friday, June 07, 2024. My impressions and recommendations are as follows: Impressions : - The entire examined colon is normal on direct and retroflexion views. - No specimens collected. Recommendations : - Discharge patient to home. - Resume previous diet. - Continue present medications. - Repeat colonoscopy in 1 year for surveillance. My findings are described in the full procedure note, which is enclosed. If I can be of further assistance, please feel free to contact me at Doctor phone number(s): , Work: . Sincerely, Kalyan Amos MD 06/07/2024 7:53:33 AM This report has been signed electronically.
--- NOTE | 2024-06-07 07:54 | OP.COLON_ITS ---
Patient Name: Barbara Resendiz Procedure Date: 06/07/2024 7:09 AM Date of : 1955 Age: 69 Procedure: Colonoscopy Indications: High risk colon cancer surveillance: Personal history of colon cancer Providers: Kalyan Amos MD Referring MD: Sasha Phan Medicines: Propofol per Anesthesia Patient Profile: This is a 69 year old female. Refer to note in patient chart for documentation of history and physical. Last Colonoscopy: 1 year ago. Complications: No immediate complications. Procedure: Pre-Anesthesia Assessment: - Prior to the procedure, a History and Physical was performed, and patient medications and allergies were reviewed. The patient's tolerance of previous anesthesia was also reviewed. The risks and benefits of the procedure and the sedation options and risks were discussed with the patient. All questions were answered, and informed consent was obtained. Prior Anticoagulants: The patient has taken no anticoagulant or antiplatelet agents. After reviewing the risks and benefits, the patient was deemed in satisfactory condition to undergo the procedure. After I obtained informed consent, the scope was passed under direct vision. Throughout the procedure, the patient's blood pressure, pulse, and oxygen saturations were monitored continuously. The pediatric colonoscope was introduced through the anus and advanced to the cecum, identified by appendiceal orifice and ileocecal valve. The colonoscopy was performed without difficulty. The patient tolerated the procedure well. The quality of the bowel preparation was good. The ileocecal valve, appendiceal orifice, and rectum were photographed. Scope In: 7:32:54 AM Scope Withdrawal Time 0 hours 6 minutes 7 seconds Scope Out: 7:49:17 AM Total Procedure Duration Time 0 hours 16 minutes 23 seconds Findings: The entire examined colon appeared normal on direct and retroflexion views. Impression: - The entire examined colon is normal on direct and retroflexion views. - No specimens collected. Recommendation: - Discharge patient to home. - Resume previous diet. - Continue present medications. - Repeat colonoscopy in 1 year for surveillance. Procedure Code(s): --- Professional --- 84460, Colonoscopy, flexible; diagnostic, including collection of specimen(s) by brushing or washing, when performed (separate procedure) Diagnosis Code(s): --- Professional --- Z85.038, Personal history of other malignant neoplasm of large intestine CPT copyright 2021 [employer]. All rights reserved. The codes documented in this report are preliminary and upon insurance coder review may be revised to meet current compliance requirements. Kalyan Amos MD 06/07/2024 7:53:33 AM This report has been signed electronically. Number of Addenda: 0 Note Initiated On: 06/07/2024 7:09 AM
--- NOTE | 2024-06-07 07:56 | PCM.POST.ANE ---
Anesthesia: Postop Eval I Current Vital Signs Temperature: 97 F Pulse Rate: 16 Blood Pressure: 118/68 Respiratory Rate: 16 Pulse Ox: 98 Oxygen Delivery Method: Room Air Assessment Airway patent: Yes Spontaneous unlabored respirations: Yes Mental status: Asleep nausea: No Vomiting: No Anesthesia Complication: No Fluid Hydration Crystalloid volume administer (ml): 800 Total IV fluid infused: 800 Progress Note Anesthesia document: Postop Eval 1 completed: Yes
--- NOTE | 2024-06-07 15:45 | PCM.POSTANE2 ---
Anesthesia Postop Eval I Sum Postop Eval Completion status Anesthesia document: Postop Eval 1 completed: Yes Anesthesia Postop Eval I Summary Anesthesia Postop Eval I Summary: Anesthesia Postop Eval I: Assessment Summary Airway patent Yes 06/07/24 07:56 [email or web address] Spontaneous unlabored Yes 06/07/24 07:56 [email or web address] respirations Mental status Asleep 06/07/24 07:56 [email or web address] nausea No 06/07/24 07:56 [email or web address] Vomiting No 06/07/24 07:56 [email or web address] Anesthesia Postop Eval I: Fluid Summary Crystalloid volume administer 800 06/07/24 07:56 [email or web address] (ml) Colloids volume administered ( ml) Blood Product volume administered (ml) Total IV fluid infused 800 06/07/24 07:56 [email or web address] Anesthesia Postop Eval I: Summary Notes Anesthesia Complication No 06/07/24 07:56 [email or web address] Anesthesia Complication Comment: Post-operative progress note Anesthesia: Postop Eval II Evaluation Mental status: Awake Pain Level: 0 nausea: No Vomiting: No
== END 2024-06-07 08:27 | disposition home or self-care (01) ==
LOC: EN 06:34 → AC 06:35
PROVIDERS: PCP Internal Medicine; Referring Provider Internal Medicine; Visit Provider Surgery
PROC: 0DJD8ZZ Inspection of Lower Intestinal Tract, Via Natural or Artificial Opening Endoscopic (ICD-10-PCS; CPT 45378; principal; 2024-06-07 07:25)
DX: Z12.11 Encounter for screening for malignant neoplasm of colon (principal); Z85.048 Personal history of other malignant neoplasm of rectum, rectosigmoid junction, and anus; Z92.3 Personal history of irradiation; Z92.21 Personal history of antineoplastic chemotherapy; Z86.010 Personal history of colon polyps; G62.9 Polyneuropathy, unspecified; K21.9 Gastro-esophageal reflux disease without esophagitis; J30.2 Other seasonal allergic rhinitis; Z88.5 Allergy status to narcotic agent; Z87.19 Personal history of other diseases of the digestive system; Z91.040 Latex allergy status; Z86.000 Personal history of in-situ neoplasm of breast
CPT/HCPCS: G0105; J7120; J2405

== ENCOUNTER → 2024-10-09 | Outpatient (CLI) | payer MEDICARE, SELFPAY ==
--- NOTE | 2024-10-09 12:46 | CT_ITS ---
STUDY: CT CHEST, ABDOMEN T PELVIS WITH CONTRAST REASON FOR EXAM: Female, 69 years old. RECTAL CA FOLLOW UP, RECTAL CA-CHEMO/RADIATION RADIATION DOSAGE (If Supplied By Facility): CTDIvol = ( 8.54 ) mGy, DLP = ( 624.21 ) mGycm TECHNIQUE: Transaxial imaging was performed following intravenous administration of Oral and amp; IV Readi-CAT and amp; 100mL Isovue-300. The protocol utilizes one or more of the following dose reduction techniques: automated exposure control, adjustment of mA and/or kV according to patient size,and/or use of iterative reconstruction technique. COMPARISON: PET/CT exam dated January 10, 2023. FINDINGS: CHEST Stable benign calcified granuloma in the right middle lobe. Stable 4 mm nodule in the lateral and upper aspect of the right middle lobe seen on image 63/130 series 6. This nodule is unchanged since January 10, 2023 indicating it is benign and most likely a postinflammatory fibrotic nodule. No additional or new nodules are present. No lymphadenopathy is present. Redemonstration of mild scattered interstitial fibrotic changes of the lungs. No pulmonary edema or pleural effusion or pneumonic consolidation is present. Mild mosaic attenuation/emphysema noted. Normal heart and pericardium. No demonstrated calcifications of the coronary arteries. Normal mediastinum. Normal hilar regions. Normal unenhanced pulmonary arteries. Normal aorta arch and descending thoracic aorta. There are multi-level degenerative changes of the thoracic spine. There is no demonstrated abnormality of the visualized upper abdomen. ABDOMEN Liver: Stable benign cyst in the anterior subcapsular region of the right lobe of the liver measuring 1.26 cm, unchanged since the January 10, 2023 study indicating it is benign. Stable small benign cyst in the medial aspect of the left lobe of the liver near the undersurface. No new cysts or additional lesions are seen in the liver. No visualized masses. Normal gallbladder and extrahepatic biliary system. Normal spleen. Normal pancreas. Normal bilateral adrenal glands. Normal right kidney. Normal left kidney. The bowel loops are opacified with oral contrast. There is a small hiatal hernia. Normal small intestine. Normal colon. The appendix is visualized and appears normal. Normal abdominal aorta. Normal inferior vena cava. Normal retroperitoneum. Normal abdominal wall. There are diffuse degenerative changes of the visualized lumbar spine. PELVIS Normal urinary bladder. Normal visualized small intestine. Normal visualized colon. Moderate amount of stool seen in the colon. No visualized colonic mass. No bowel dilatation is present. There is no pelvic fluid. There is no pelvic lymphadenopathy or mass lesion. Normal visualized pelvic arteries. Unremarkable uterus and adnexa. Normal abdominal wall. There are diffuse degenerative changes of the visualized lumbar spine. No visualized lytic or blastic lesions of the bony structures. CT/CT Chest, Abd, Pel w/Contrast IMPRESSION: 1. Chest: Stable benign calcified granuloma calcified 4 mm right middle lobe nodules unchanged since 2022 indicating a benign. No new lung nodules are seen. 2. Abdomen and pelvis: No visualized bowel masses or metastatic disease to the organs or omentum 3. No acute process [employer] RECOMMENDATIONS FOR FOLLOW-UP OF SMALL SOLID LUNG NODULES DETECTED INCIDENTALLY ON CT (for PATIENTS ? 35 YEARS OF AGE with no known extra-pulmonary cancer and no clinical evidence of infection). <4mm: Low Risk - No follow up needed. High Risk - CT at 12 months; if stable, no further follow-up Electronically Signed: Justin Smith MD at 15:42 EST Reading Location ID and State: [address] [place] [address] , Service support ,
== END | disposition home or self-care (01) ==
LOC: CT 12:43
PROVIDERS: PCP Internal Medicine; Referring Provider Colon & Rectal Surgery; Visit Provider Colon & Rectal Surgery
DX: C20 Malignant neoplasm of rectum (principal)
CPT/HCPCS: 71260; 74177; Q9967

== ENCOUNTER → 2024-10-10 | Outpatient (CLI) | payer MEDICARE, SELFPAY ==
--- NOTE | 2024-10-10 11:15 | MRI_ITS ---
STUDY: MR PELVIS WITH T WITHOUT CONTRAST REASON FOR EXAM: Female, 69 years old. RECTAL CA TECHNIQUE: Standardized fat and water weighted pulse sequences were obtained in all 3 orthogonal planes, pre-and post contrast administration. 12CC CLARISCAN was administered for the contrast portion of the examination. COMPARISON: CT of the abdomen and pelvis dated October 09, 2024. PET/CT exam dated January 10, 2023 FINDINGS: Bony structures: No lytic or blastic lesions or marrow edema or pathologic fractures. Small bowel: No dilatation or wall thickening or masses. Large bowel/colon: No dilatation or wall thickening or masses. Previously seen large amount of stool is no longer present. The bowel loops are collapsed. Rectum: No demonstrated mass or enhancement or abnormal thickening. Postcontrast images: No abnormal enhancing lesions of the peritoneum, large bowel, small bowel, or bony structures. Reproductive organs: Unremarkable uterus and adnexa. Small left ovarian simple cyst noted which does not requiring additional imaging or follow-up. Inguinal regions: No lymphadenopathy or hernia or fluid collection is present. Normal urinary bladder. There is no pelvic fluid. There is no pelvic mass lesion or lymphadenopathy. There are diffuse degenerative changes of the visualized lumbar spine. Normal abdominal wall. MRI/Pelvis W/WO Contrast IMPRESSION: 1. No visualized bowel masses or abnormal thickening or enhancement 2. No lymphadenopathy or bony lesions. Electronically Signed: Justin Smith MD at 9:46 EST ,
== END | disposition home or self-care (01) ==
LOC: MRI 10:53
PROVIDERS: PCP Internal Medicine; Referring Provider Colon & Rectal Surgery; Visit Provider Colon & Rectal Surgery
DX: C20 Malignant neoplasm of rectum (principal)
CPT/HCPCS: 72197; A9575

== ENCOUNTER → 2025-04-11 | Outpatient (CLI) | payer MEDICARE, SELFPAY ==
--- NOTE | 2025-04-11 11:09 | MRI_ITS ---
EXAM: PELVIS W/WO CONTRAST 04/11/2025 CLINICAL HISTORY: F/U RECTAL CANCER. Rectal cancer (left anterior rectum) diagnosed 2022 status post chemotherapy. T2 N0 per 01/12/25 report TECHNIQUE: PELVIS W/WO CONTRAST Multiplanar and multisequence images were obtained without and with intravenous gadolinium contrast. CONTRAST: Clariscan VOLUME: 12 mL COMPARISON: October 09, 2024, October 10, 2024. April 09, 2024, December 26, 2023 from [facility]. Reports unavailable for review. FINDINGS: Diffusion-weighted imaging was not provided. Morphology: Circumferential. Location: Mid rectum. Size: No discrete mass seen. No extension beyond the muscularis propria. T stage: No greater than T1 or T2. MRF: > 1 mm between the prior lesion and MRF Extramural vascular invasion, EMVI: Absent Daniel staging:N0. No suspicious regional lymph nodes at this time. Pelvic metastatic disease: None seen Miscellaneous: No free fluid. Other organs: Uterus and ovaries are unremarkable. Bladder is unremarkable. Musculoskeletal: Bilateral sacral insufficiency fractures are seen with bone marrow edema. Mild degenerative changes/edema involving the iliac bones associated with the SI joints. MRI/Pelvis W/WO Contrast IMPRESSION: 1. No significant residual or recurrent tumor. Excellent posttreatment respon se. No lymphadenopathy. Continued surveillance suggested. 2. Sacral insufficiency fractures. Bone marrow edema. Reading Location: [id number]
[2025-04-13 06:38] LABS: Carcinoembryonic Antigen 3.3 ng/mL (0.0-4.7)
== END | disposition home or self-care (01) ==
PROVIDERS: PCP Internal Medicine; Referring Provider Internal Medicine Hematology & Oncology; Visit Provider Internal Medicine Hematology & Oncology
DX: C20 Malignant neoplasm of rectum (principal)
CPT/HCPCS: 36415; 72197; 82378; A9575

== ENCOUNTER → 2025-04-16 | Outpatient (CLI) | payer MEDICARE, SELFPAY ==
--- NOTE | 2025-04-16 13:20 | CT_ITS ---
PROCEDURE: CT CHEST AND ABD W/ CONTRAST 04/16/2025 REASON FOR EXAM: F/U RECTAL CANCER TECHNIQUE: Chest and abdomen CT with intravenous contrast. Coronal and Sagittal reconstruction series were provided. One or more dose reduction techniques were used (e.g., Automated exposure control, adjustment of the mA and/or kV according to patient size, use of iterative reconstruction technique. PATIENT PREPARATION: Per protocol ORAL CONTRAST TYPE: None. CONTRAST: Isovue 370 VOLUME: 100mL RADIATION DOSE SUMMARY: DLP: 400 mGycm COMPARISON: CT chest, abdomen and pelvis 10/09/2024, with most remote prior examination dating 01/25/2023. FINDINGS: CT CHEST: Hardware: None. Lymph nodes: No axillary, mediastinal or hilar lymphadenopathy. Heart and Vasculature: The heart is normal in size without pericardial effusion. The great vessels are normal in caliber. No significant coronary artery or thoracic aortic calcifications. Lungs and Airways: The central airways are patent. Increased size of a right upper lobe subpleural solid pulmonary nodule, measuring 0.9 cm (series 2, image 36). This appeared as minimal linearity on the CT chest dated 10/09/2024 (axial image 35), and was not present on most remote prior examination dated 01/25/2023. Unchanged biapical atelectasis/scarring. Additional stable right lung pulmonary nodules (for example along the minor fissure within the right middle lobe series 2, image 70). No additional new or enlarging pulmonary nodules. No pleural effusion or pneumothorax. Bones: Cervical and thoracic spondylosis. CT ABDOMEN: Liver: The liver is normal in size with prominent Deandra's lobe. Bilateral hepatic cysts and additional hypodensities, likely cysts. The major portal veins are patent. No biliary ductal dilation. Gallbladder: No radiopaque stones within the gallbladder. Spleen: Unremarkable. Pancreas: Mildly atrophic and unremarkable. Adrenals: No adrenal mass. Kidneys: No hydronephrosis or nephrolithiasis. Bowel: The visualized bowel loops are normal caliber. No upper abdominal ascites or visualized pneumoperitoneum. Lymph nodes: No abdominal lymphadenopathy. Vasculature: Minimal calcific plaque of the aortoiliac vessels. Bones: Lumbar spondylosis with unchanged grade 1 anterolisthesis of L4 onto L5. CT/CT Chest AND Abd W/ Contrast IMPRESSION: CT chest: 1. Increased size of a right upper lobe pulmonary nodule, indeterminate in etio logy and may represent primary pulmonary neoplasm or metastases. PET-CT may be useful for further evaluation (however this nodul e may be at/slightly below accurate resolution for PET-CT examination). If negative PET-CT, consider short-term CT chest follow-u p to evaluate for stability. 2. Otherwise stable right lung nodules, likely scarring and/or noncalcified gra nulomas. CT abdomen: No evidence of abdominal metastatic disease. Reading Location: [id number]
--- OUTSIDE RECORDS SUMMARY | 2025-04-16 19:51 | XMS RPT_ITS | CCD ---
Author Organization [facility] Care Team Providers Care Digital Imaging Technician Name Role Phone Jeremiah Hensley DO Primary Care Provider Raymond BIRD MD, Daesung Unavailable Dorasta RN, Eva Unavailable Unavailable Dr. Fredis Jarvis Attending Provider Dr. Se Phan Primary Care Provider Referred, Self Referring Provider Unavailable Dr. Se Phan Referring Provider Dr. Fredis Jarvis Other Provider Dr. Lamin Berger Attending Provider Dr. Se Phan Attending Provider Dr. Bill Trotter Attending Provider [phone] Jeremiah Hensley DO Primary Care Provider Raymond BIRD MD, Daesung Unavailable Doup RN, Eva Unavailable Unavailable Lamin Berger Unavailable Dr. Se Phan Primary Care Provider Dr. Se Phan Referring Provider [phone] Se Phan Attending Provider Dr. Bill Trotter Referring Provider [phone] Fredis Jarvis Referring Provider [phone] [place] CONTRACT ADMINISTRATION MANAGER, ANNA Howard Attending Provider [phone] Dr. Se Phan Primary Care Provider Dr. Se Phan Referring Provider [phone] Lamin Berger Attending Provider Dr. Fredis Jarvis Attending Provider Dr. Fredis Jarvis Other Provider [phone] Brown DO, Jeremiah R Primary Care Provider Ashish WEN, Eva Unavailable Unavailable Dr. Se Phan Primary Care Provider Dr. Se Phan Referring Provider [place] CONTRACT ADMINISTRATION MANAGER, CONTRACT ADMINISTRATION MANAGER-C Anita Attending Provider Dr. Lamin Berger Attending Provider Dr. Bill Trotter Attending Provider Raymond BIRD, Werner Unavailable SergoBill anderson DO Unavailable Daniel Hensley DOlas R Primary Care Provider Barrett Bill BAEZ Unavailable Se Phan MD Primary Care Provider DAGO ANDRE Referring Unavailable BROWN, JEREMIAH R Primary Care Unavailable DAGO ANDRE Referring Unavailable JEREMIAH HENSLEY R Primary Care Unavailable SE PHAN Primary Care Unavailable DAGO ANDRE Attending Unavailable SE PHAN Primary Care Unavailable DEONNA RICHARDSON Referring Unavail able SE PHAN Primary Care Unavailable SE PHAN Referring Unavailable ANDREDAGO Manriquez Attending Unavailable ANDREDAGO Manriquez Attending Unavailable BROWN, JEREMIAH R Primary Care Unavailable ANDRE, DAGO R Referring Unavailable BROWN, JEREMIAH R Primary Care Unavailable Dr. Se Phan MD Primary Care Provider Dr. Se Phan MD Referring Provider Dr. Lamin Berger MD Attending Provider Dr. Bill Trotter DO Attending Provider Dr. Lamin Berger MD Referring Provider Se Phan Primary Care Unavailable Lamin Berger Referring Unavailable Isckarus, Mansour Attending Unavailable Emilie, Se Primary Care Unavailable ANDREDAGO Referring Unavailable ANDRE, DAGO Attending Unavailable Emilie, Se Primary Care Unavailable DAGO ANDRE Referring Unavailable ANDREDAGO Manriquez Attending Unavailable Isckarus, Mansour Consulting Unavailable Emilie, Se Primary Care Unavailable Emilie, Se Referring Unavailable Calabretta, Kalyan Attending Unavailable Emilie, Se Primary Care Unavailable Emilie, Se Referring Unavailable Isckarus, Mansour Attending Unavailable Emilie, Se Primary Care Unavailable Emilie, Se Referring Unavailable Calabretta, Kalyan Attending Unavailable Calabretta, Kalyan Consulting Unavailable Emilie, Se Primary Care Unavailable Emilie, Se Referring Unavailable Isckarus, Mansour Attending Unavailable Emilie, Se Primary Care Unavailable Emilie, Se Referring Unavailable SergoSandipe Attending Unavailable Emilie, Se Primary Care Unavailable Isckarus, Mansour Attending Unavailable Emilie, Se Referring Unavailable Emilie, Se Primary Care Unavailable Emilie, Se Referring Unavailable Isckarus, Mansour Attending Unavailable Emilie, Se Primary Care Unavailable Emilie, Se Referring Unavailable Clarissa Vences Attending Unavailable Emilie, Se Primary Care Unavailable Bill Trotter Attending Unavailable Isckarus, Urbanoour Attending Unavailable Isckarus, Mansour Referring Unavailable Emilie, Se Primary Care Unavailable Emilie, Se Primary Care Unavailable Isckarus, Mansour Referring Unavailable Isckarus, Mansour Attending Unavailable Allergies Allergy Classification Reported Allergen(s) Allergy Type Date of Onset Reaction(s) Facility (20 sources) Acetaminophen / HYDROcodone; Translations: [HYDROCODONE-ACETAM INOPHEN] Drug Allergy 03-15-20 [facility] (20 sources) Bacitracin / Polymyxin B; Translations: [BACITRACIN-POLYMYX IN B] Drug Allergy 03-15-20 [facility] (20 sources) bandaids [Other] Propensity to adverse reactions 03-15-20 Intolerance [facility] (8 sources) Bacitracin Drug Allergy 12-23-19 Other [facility] Comment on above: inflamation (8 sources) HYDROcodone Drug Allergy 12-23-19 [facility] (8 sources) Latex Allergy to substance 12-23-19 [facility] (8 sources) Polymyxin B Drug Allergy 12-23-19 23 Other [facility] Comment on above: inflamation (2 sources) Prochlorperazine Drug Allergy 10-25-19 24 agitation/rest less [facility] (1 source) OTHER; Translations: [OTHER] Propensity to adverse reactions (disorder) 03-15-20 [facility] (1 source) Bacitracin Drug Allergy 12-10-19 [facility] (1 source) HYDROcodone Drug Allergy 12-10-19 25 [facility] (1 source) Latex Drug allergy (disorder) 12-10-19 [facility] (1 source) Prochlorperazine Drug Allergy 12-10-19 [facility]ository (1 source) polymyxin B Drug allergy (disorder) 12-10-19 [facility]ository Medications Current Medications Medication Drug Class(es) Dates Sig (Normalized) Sig (Original) acetaminophen 325 mg oral tablet (4 sources) Start: 03-23-2023 take 2 tablets by mouth every six hours as needed for pain Acetaminophen 325 mg tablet Active 650 mg PO EVERY 6 HOURS as needed for fever or pain March 23, 2023 12:00am Start: 03-23-2023 take 650 mg by mouth every six hours Acetaminophen Active 650 MG PO EVERY 6 HOURS March 23, 2023 12:00am Bone Builder Chewable (Metagenics) (20 sources) Start: 05-11-2021 Bone Builder C hewable (Metagenics) Take 3 tablets by mouth once daily. Children age 2 to adults take one to three tablets once daily or as directed by your healthcare practitioner. Chew or crush tablets completely before swallowing. Do not swallow tablets whole. Children age 12 and under should not exceed the recommended serving size. If , nursing or taking antibiotics or cardiovascular medication, consult your healthcare practitioner before use. 05/11/2021 Active Start: 05-11-2021 Bone Builder C hewable (Metagenics) Take 3 tablets by mouth once daily. Children age 2 to adults take one to three tablets once daily or as directed by your healthcare practitioner. Chew or crush tablets completely before swallowing. Do not swallow tablets whole. Children age 12 and under should not exceed the recommended serving size. If , nursing or taking antibiotics or cardiovascular medication, consult your healthcare practitioner before use. 0 05/11/2021 Active Comment on above: Take 3 tablets by mo [facility] once daily. Children age 2 to adults take one to three tablets once daily or as directed by your healthcare practitioner. Chew or crush tablets completely before swallowing. Do not swallow tablets whole. Children age 12 and under should not exceed the recommended serving size. If , nursing or taking antibiotics or cardiovascular medication, consult your healthcare practitioner before use. Buffered Ascorbic Acid capsules (Pure Encapsulations) - Vitamin C (20 sources) Start: 05-11-2021 Buffered Ascorbic Acid capsules (Pure Encapsulations) - Vitamin C 2 capsules twice a day with or between meals 0 05/11/2021 Active Comment on above: 2 capsules twice a d ay with or between meals calcium-vits W6-A-P8-minerals 166.75 mg- 166.75 unit cap (20 sources) calcium-vits Q7-G-X9-minerals 166.75 mg- 166.75 unit cap Take by mouth. Active calcium-vits D3- M-A3-lylffjft 166.75 mg- 166.75 unit cap Take by mouth. 0 Active Comment on above: Take by mouth. cholecalciferol 0.125 mg oral capsule (15 sources) Vitamin D Start: 01-05-20 take 1 capsule by mouth once daily Cholecalciferol (Vitamin D3) 125 mcg (5,000 unit) capsule Active 125 ug PO DAILY January 04, 2023 12:00am Start: 10-29-2020 End: 01-04-2023 take 2 capsules by mouth once daily Cholecalciferol (Vitamin D3) 2,000 UNIT capsule Discontinued 4000 U PO DAILY October 29, 2020 1:00am January 04, 2023 9:57am Start: 10-29-2020 End: 01-04-2023 take 4000 [IU] by mouth once daily Cholecalciferol (Vitamin D3) Discontinued 4000 UNIT PO DAILY October 29, 2020 1:00am January 04, 2023 9:57am cholecalciferol, vitamin D3, (VITAMIN D3 ORAL) (20 sources) take 25 ug by mouth once daily cholecalciferol, vitamin D3, (VITAMIN D3 ORAL) Take 25 mcg by mouth once daily. Active take 25 ug by mouth once daily c holecalciferol, vitamin D3, (VITAMIN D3 ORAL) Take 25 mcg by mouth once daily. 0 Active Comment on above: Take 25 mcg by mouth once daily. enteric contrast (will be provided with radiology test) (7 sources) Start: 07-16-2024 End: 07-17-2024 enteric contrast (will be provided with radiology test) For CT CHESTABD/PEL W IVCON Routine order Administer, As Directed One Time Only, via Oral, Rectal, both Oral and Rectal, Enteric Tube, Stoma or Indwelling Catheter, Enteric Contrast as designated per enteric contrast guidelines 1 Each 07/16/2024 07/17/2024 Active Start: 07-16-2024 End: 07-17-2024 enteric contrast (will be pr ovided with radiology test) MRI RECTUM WO/W. Administer, As Directed One Time Only, via Oral, Rectal, both Oral and Rectal, Enteric Tube, Stoma or Indwelling Catheter, Enteric Contrast as designated per enteric contrast guidelines 1 Each 07/16/2024 07/17/2024 Active Start: 04-04-2024 End: 04-05-2024 enteric contrast (will be pr ovided with radiology test) For CT CHESTABD/PEL W IVCON Routine order Administer, As Directed One Time Only, via Oral, Rectal, both Oral and Rectal, Enteric Tube, Stoma or Indwelling Catheter, Enteric Contrast as designated per enteric contrast guidelines 1 Each 0 04/04/2024 04/05/2024 Active Start: 12-29-2023 End: 12-30-2023 enteric contrast (will be pr ovided with radiology test) MRI RECTUM WO/W. Administer, As Directed One Time Only, via Oral, Rectal, both Oral and Rectal, Enteric Tube, Stoma or Indwelling Catheter, Enteric Contrast as designated per enteric contrast guidelines 1 Each 0 12/29/2023 12/30/2023 Active Start: 09-12-2023 End: 09-13-2023 enteric contrast (will be pr ovided with radiology test) MRI RECTUM WO/W. Administer, As Directed One Time Only, via Oral, Rectal, both Oral and Rectal, Enteric Tube, Stoma or Indwelling Catheter, Enteric Contrast as designated per enteric contrast guidelines 1 Each 0 09/12/2023 09/13/2023 Active Start: 09-12-2023 End: 09-13-2023 enteric contrast (will be pr ovided with radiology test) For CT CHESTABD/PEL W IVCON Routine order Administer, As Directed One Time Only, via Oral, Rectal, both Oral and Rectal, Enteric Tube, Stoma or Indwelling Catheter, Enteric Contrast as designated per enteric contrast guidelines 1 Each 0 09/12/2023 09/13/2023 Active Start: 02-03-2023 End: 02-04-2023 enteric contrast (will be pr ovided with radiology test) MRI RECTUM WO/W. Administer, As Directed One Time Only, via Oral, Rectal, both Oral and Rectal, Enteric Tube, Stoma or Indwelling Catheter, Enteric Contrast as designated per enteric contrast guidelines 1 Each 0 02/03/2023 02/04/2023 Active Comment on above: MRI RECTUM WO/W. Adm inister, As Directed One Time Only, via Oral, Rectal, both Oral and Rectal, Enteric Tube, Stoma or Indwelling Catheter, Enteric Contrast as designated per enteric contrast guidelines For CT CHESTABD/PEL W IVCON Routine order Administer, As Directed One Time Only, via Oral, Rectal, both Oral and Rectal, Enteric Tube, Stoma or Indwelling Catheter, Enteric Contrast as designated per enteric contrast guidelines famotidine 20 mg oral tablet (4 sources) Histamine-2 Receptor Antagonist Start: 04-12-2023 End: 05-08-2024 Famotidine (Pepcid) 20 mg tablet Active 20 mg PO NEEDED May 08, 2024 2:54pm fluticasone propionate 0.05 mg/actuat metered dose nasal spray (7 sources) Corticosteroid Start: 01-04-2023 Fluticasone Propionate 50 mcg/actuation spray,suspension Active 2 NMA INTRANASAL DAILY January 04, 2023 12:00am administer into each nostril Start: 01-04-2023 take 1 spray(s) nasa l route once daily Fluticasone Propionate Active 2 SPRAY INTRANASAL DAILY January 04, 2023 12:00am administer into each nostril G.I. Detox (SuperSonic Imagine) (20 sources) Start: 12-29-2021 G.I. Detox (Postabon) 1-2 capsules with full glass of water 2 times daily between meals 12/29/2021 Active Start: 12-29-2021 G.I. Detox (Postabon) 1-2 capsules with full glass of water 2 times daily between meals 0 12/29/2021 Active Comment on above: 1-2 capsules with fu ll glass of water 2 times daily between meals CARMINE with L-Theanine (Energy Points) (20 sources) Start: 05-11-2021 CARMINE with L-Theanine (Energy Points) Take 4 pumps whenever needed, especially before bed. Take 2 pumps at a time directly by mouth, hold 30 seconds and then swallow 05/11/2021 Active Start: 05-11-2021 CARMINE with L-Th eanine (Energy Points) Take 4 pumps whenever needed, especially before bed. Take 2 pumps at a time directly by mouth, hold 30 seconds and then swallow 0 05/11/2021 Active Comment on above: Take 4 pumps wheneve r needed, especially before bed. Take 2 pumps at a time directly by mouth, hold 30 seconds and then swallow ibuprofen 200 mg oral capsule (5 sources) Nonsteroidal Anti-inflammatory Drug Start: 03-23-2023 take 1 capsule by mouth every six hours as needed for pain Ibuprofen 200 mg capsule Active 200 mg PO EVERY 6 HOURS as needed for pain March 23, 2023 12:00am Start: 10-27-2020 End: 12-29-2021 take 1 tablet by mouth every six hours as needed ibuprofen (MOTRIN) 600 mg tablet Take 1 tablet by mouth every 6 hours as needed. 30 tablet 0 10/27/2020 12/29/2021 Discontinued Comment on above: Take 1 tablet by watson th every 6 hours as needed. iv contrast (will be provided with radiology test) (7 sources) Start: 07-16-2024 End: 07-17-2024 iv contrast (will be provided with radiology test) CT Chest ABD/PEL-Inject, intravenously, once for 1 dose.No IV access, insert saline lock prior to the beginning of sedation, infusion, injection of imaging exam. Discontinue saline lock post exam. If Pt. has a central line or IVAD, may access for administration according to line specific nursing protocol. Once exam is complete flush line and de-access according to line specific nursing protocol in the CT contrast administration guidelines link. 1 Each 07/16/2024 07/17/2024 Active Start: 07-16-2024 End: 07-17-2024 iv contrast (will be provide d with radiology test) MRI Rectum Inject, intravenously, once for 1 dose. No IV access, insert saline lock prior to the beginning of sedation, infusion, injection of imaging exam. Discontinue saline lock post exam. If Pt has a central line or IVAD, may access for administration according to line specific nursing protocol. Once exam is complete flush line and de-access according to line specific nursing protocol in the MR contrast administration guidelines link. 1 Each 07/16/2024 07/17/2024 Active Start: 04-04-2024 End: 04-05-2024 iv contrast (will be provide d with radiology test) CT Chest ABD/PEL-Inject, intravenously, once for 1 dose.No IV access, insert saline lock prior to the beginning of sedation, infusion, injection of imaging exam. Discontinue saline lock post exam. If Pt. has a central line or IVAD, may access for administration according to line specific nursing protocol. Once exam is complete flush line and de-access according to line specific nursing protocol in the CT contrast administration guidelines link. 1 Each 0 04/04/2024 04/05/2024 Active Start: 12-29-2023 End: 12-30-2023 iv contrast (will be provide d with radiology test) MRI Rectum Inject, intravenously, once for 1 dose. No IV access, insert saline lock prior to the beginning of sedation, infusion, injection of imaging exam. Discontinue saline lock post exam. If Pt has a central line or IVAD, may access for administration according to line specific nursing protocol. Once exam is complete flush line and de-access according to line specific nursing protocol in the MR contrast administration guidelines link. 1 Each 0 12/29/2023 12/30/2023 Active Start: 09-12-2023 End: 09-13-2023 iv contrast (will be provide d with radiology test) MRI Rectum Inject, intravenously, once for 1 dose. No IV access, insert saline lock prior to the beginning of sedation, infusion, injection of imaging exam. Discontinue saline lock post exam. If Pt has a central line or IVAD, may access for administration according to line specific nursing protocol. Once exam is complete flush line and de-access according to line specific nursing protocol in the MR contrast administration guidelines link. 1 Each 0 09/12/2023 09/13/2023 Active Start: 09-12-2023 End: 09-13-2023 iv contrast (will be provide d with radiology test) CT Chest ABD/PEL-Inject, intravenously, once for 1 dose.No IV access, insert saline lock prior to the beginning of sedation, infusion, injection of imaging exam. Discontinue saline lock post exam. If Pt. has a central line or IVAD, may access for administration according to line specific nursing protocol. Once exam is complete flush line and de-access according to line specific nursing protocol in the CT contrast administration guidelines link. 1 Each 0 09/12/2023 09/13/2023 Active Start: 02-03-2023 End: 02-04-2023 iv contrast (will be provide d with radiology test) MRI Rectum Inject, intravenously, once for 1 dose. No IV access, insert saline lock prior to the beginning of sedation, infusion, injection of imaging exam. Discontinue saline lock post exam. If Pt has a central line or IVAD, may access for administration according to line specific nursing protocol. Once exam is complete flush line and de-access according to line specific nursing protocol in the MR contrast administration guidelines link. 1 Each 0 02/03/2023 02/04/2023 Active Comment on above: MRI Rectum Inject, i ntravenously, once for 1 dose. No IV access, insert saline lock prior to the beginning of sedation, infusion, injection of imaging exam. Discontinue saline lock post exam. If Pt has a central line or IVAD, may access for administration according to line specific nursing protocol. Once exam is complete flush line and de-access according to line specific nursing protocol in the MR contrast administration guidelines link. CT Chest ABD/PEL-Inj ect, intravenously, once for 1 dose.No IV access, insert saline lock prior to the beginning of sedation, infusion, injection of imaging exam. Discontinue saline lock post exam. If Pt. has a central line or IVAD, may access for administration according to line specific nursing protocol. Once exam is complete flush line and de-access according to line specific nursing protocol in the CT contrast administration guidelines link. loratadine 10 mg oral tablet (20 sources) Start: 3 End: 3 take 1 tablet by mouth once daily as needed Loratadine 10 mg tablet Active 10 mg PO DAILY as needed for ALLERGIES January 16, 2023 1:33pm loratadine (CLAR ITIN ORAL) Take by mouth. Active loratadine (CLAR ITIN ORAL) Take by mouth. 0 Active Comment on above: Take by mouth. Tracy-Sitosterol 2.0 (Metagenics) (20 sources) Start: 12-29-2021 take 1 tablet by mouth at mealtime Tracy-Sitosterol 2.0 (Metagenics) Take 1 tablet by mouth w MEALS. 12/29/2021 Active Start: 12-29-2021 take 1 tablet by watson th at mealtime Tracy-Sitosterol 2.0 (Metagenics) Take 1 tablet by mouth w MEALS. 0 12/29/2021 Active Comment on above: Take 1 tablet by watson th w MEALS. Multivitamin capsule (20 sources) take 1 capsule by mouth once daily Multivitamin capsule Take 1 capsule by mouth once daily. Active take 1 capsule by mouth once elva ly Multivitamin capsule Take 1 capsule by mouth once daily. 0 Active Comment on above: Take 1 capsule by mo uth once daily. Multivitamin With Minerals (7 sources) Start: 04-22-2020 Multivitamin With Minerals Active 1 EACH PO DAILY April 22, 2020 12:00am Multivitamin With Minerals 1 EACH tablet (1 source) Start: 04-22-2020 take 1 tablet by mouth once daily Multivitamin With Minerals 1 EACH tablet Active 1 NMA PO DAILY April 22, 2020 12:00am NAC 600mg 90 ct. (Pure Encapsulations) (20 sources) Start: 08-04-2021 [address] (Pure Encapsulations) Take 1 capsule twice daily, between meals. 08/04/2021 Active Start: 08-04-2021 NAC 600mg 90 c t. (Pure Encapsulations) Take 1 capsule twice daily, between meals. 0 08/04/2021 Active Comment on above: Take 1 capsule twice daily, between meals. O.N.E. Pearsall (Pure Encapsulations) (20 sources) Start: 12-29-2021 take 2 capsules by mouth once daily at mealtime O.N.E. Pearsall (Pure Encapsulations) Take 2 capsules by mouth daily with food. 12/29/2021 Active Start: 12-29-2021 take 2 capsules by m outh once daily at mealtime O.N.E. Pearsall (Pure Encapsulations) Take 2 capsules by mouth daily with food. 0 12/29/2021 Active Comment on above: Take 2 capsules by m outh daily with food. OmegaGenics EPA-DHA 2400 (High Concentrate EPA/DHA liquid) (Metagenics) (20 sources) Start: 05-11-2021 OmegaGenics EPA-DHA 2400 (High Concentrate EPA/DHA liquid) (Metagenics) Take one teaspoon (5 ml) 1 times daily with food 05/11/2021 Active Start: 05-11-2021 OmegaGenics EP A-DHA 2400 (High Concentrate EPA/DHA liquid) (Dizmoics) Take one teaspoon (5 ml) 1 times daily with food 0 05/11/2021 Active Comment on above: Take one teaspoon (5 ml) 1 times daily with food The Whole Probiotic (Zando) (20 sources) Start: 12-29-2021 take 1 capsule by mouth once daily The Whole Probiotic (Biohm) Take 1 capsule by mouth once daily. Treatment 3-6 months 12/29/2021 Active Start: 12-29-2021 take 1 capsule by mo uth once daily The Whole Probiotic (Biohm) Take 1 capsule by mouth once daily. Treatment 3-6 months 0 12/29/2021 Active Comment on above: Take 1 capsule by mo uth once daily. Treatment 3-6 months Triamcinolone (20 sources) Corticosteroid triamcinolone ac etonide (NASACORT NASAL) Use in the nose. Active triamcinolone ac etonide (NASACORT NASAL) Use in the nose. 0 Active Comment on above: Use in the nose. vit A/vit C/vit E/zinc/coppe r (ICAPS AREDS ORAL) (20 sources) vit A/vit C/vit E/zinc/copper (ICAPS AREDS ORAL) Take by mouth. Active vit A/vit C/vit E/zinc/copper (ICAPS AREDS ORAL) Take by mouth. 0 Active Comment on above: Take by mouth. Vit C,F-Ps-Rplgj-Lutein -Zeaxan (Preservision Areds-2) 1 EACH capsule (8 sources) Start: 04-22-2020 take 2 capsules by mouth once daily Vit C,A-Rd-Upizl-Lutein -Zeaxan (Preservision Areds-2) 1 EACH capsule Active 1 NMA PO DAILY April 22, 2020 12:00am Start: 04-22-2020 take 2 capsules by m outh once daily Vit C,J-Rw-Nwxvf-Lutein-Zeaxan (Preservision Areds-2) 1 EACH capsule Active 1 EACH PO DAILY April 22, 2020 12:00am Zinc (20 sources) Start: 01-04-2023 take 20 mg by mouth once daily Zinc AG Active 20 mg PO DAILY January 04, 2023 12:00am Start: 01-04-2023 take 20 mg by mouth once daily Zinc AG Active 20 MG PO DAILY January 04, 2023 12:00am Start: 05-11-2021 take 1 tablet by watson th twice daily Zinc AG 20mg (Metagenics) Take 1 tablet by mouth twice daily. 05/11/2021 Active Start: 05-11-2021 take 1 tablet by watson th twice daily Zinc AG 20mg (Metagenics) Take 1 tablet by mouth twice daily. 0 05/11/2021 Active Comment on above: Take 1 tablet by watson th twice daily. Completed/Discontinued Medications Medication Drug Class(es) Dates Sig (Normalized) Sig (Original) acetaminophen 325 mg / oxyCODONE hydrochloride 5 mg oral tablet (5 sources) Opioid Agonist Start: 03-22-2023 End: 03-23-2023 Oxycodone-Acetamino phen (Percocet) 5-325 mg tablet Discontinued 1 {tbl} PO EVERY 6 HOURS as needed for pain 10 March 22, 2023 March 23, 2023 10:25am calcium ascorbate 500 mg oral tablet (7 sources) Start: 01-04-2023 End: 05-08-2024 take 1 tablet by mouth once daily Ascorbate Calcium (Vitamin C) 500 mg tablet Discontinued 500 mg PO DAILY January 04, 2023 12:00am May 08, 2024 2:53pm calcium carbonate 650 mg oral tablet (8 sources) Start: 10-29-2020 End: 01-04-2023 take 1 tablet by mouth once daily Calcium Carbonate 650 MG tablet Discontinued 650 mg PO DAILY October 29, 2020 1:00am January 04, 2023 9:57am Start: 10-29-2020 End: 01-04-2023 take 650 mg by mouth once daily Calcium Carbonate Discontinued 650 MG PO DAILY October 29, 2020 1:00am January 04, 2023 9:57am Cortisol Cager Operator 90 ct. ([employer]) (1 source) Start: 05-11-2021 End: 12-29-2021 Cortisol Cager Operator 90 ct. ([employer]) Take one tablet at bedtime. 0 05/11/2021 12/29/2021 Discontinued Comment on above: Take one tablet at b edtime. mecobalamin (7 sources) Start: 01-04-2023 End: 05-08-2024 take 1 tablet by mouth once daily Mecobalamin (Vitamin B12) 500 mcg tablet,chewable Discontinued 500 ug PO DAILY January 04, 2023 12:00am May 08, 2024 2:54pm Start: 01-04-2023 take 500 ug by mouth once harjinder y Mecobalamin (Vitamin B12) Active 500 MCG PO DAILY January 04, 2023 12:00am mometasone furoate 0.05 mg/actuat metered dose nasal spray (8 sources) Corticosteroid Start: 04-22-2020 End: 01-04-2023 Mometasone 1 SPRAY spray,non-aerosol Discontinued 1 NMA NASAL DAILY NEEDED as needed for Allergies April 22, 2020 12:00am January 04, 2023 9:57am Start: 04-22-2020 End: 01-04-2023 Mometasone Discontinued 1 SP RAY NASAL DAILY NEEDED April 22, 2020 12:00am January 04, 2023 9:57am Dvsdsdfr-Dgz-Ofycliaa-Herb 1 24 (7 sources) Start: 10-29-2020 End: 01-04-2023 Dsmcclxl-Yof-Bqlssfgx-Herb 1 24 Discontinued 1 EACH PO NEEDED October 29, 2020 1:00am January 04, 2023 9:57am Start: 10-29-2020 Apmtijdv-Trc-E scorbic-Herb 124 Active 1 EACH PO NEEDED October 29, 2020 1:00am Gbcfggxp-Fvk-Xjocqgzu-Herb 124 1 EACH powder effervescent in packet (1 source) Start: 10-29-2020 End: 01-04-2023 Ndqcyekf-Kyb-Mcxyudhj-Herb 124 1 EACH powder effervescent in packet Discontinued 1 NMA PO NEEDED as needed for Cold Symptoms October 29, 2020 1:00am January 04, 2023 9:57am nerve supplement (1 source) Start: 05-08-2024 End: 06-05-2024 nerve supplement Discontinued PO May 08, 2024 12:00am June 05, 2024 12:19pm ondansetron 8 mg disintegrating oral tablet (6 sources) Serotonin-3 Receptor Antagonist Start: 03-23-2023 End: 05-08-2024 take 1 tablet by mouth every eight hours as needed for nausea and vomiting Ondansetron 8 mg tablet,disintegrating Discontinued 8 mg PO Q8H as needed for nausea and vomiting July 26, 2023 9:55am May 08, 2024 2:54pm oxyCODONE hydrochloride 5 mg oral tablet (8 sources) Opioid Agonist Start: 05-01-2020 End: 05-04-2020 take 1 tablet by mouth every twelve hours as needed for pain Oxycodone 5 MG tablet Discontinued 5 mg PO EVERY 12 HOURS NEEDED as needed for Pain Score 6-10/10 6 May 01, 2020 May 03, 2020 12:00am May 04, 2020 12:02am potassium chloride 20 meq extended release oral tablet (2 sources) Start: 05-15-2023 End: 05-08-2024 take 1 tablet by mouth once daily Potassium Chloride 20 mEq tablet extended release Discontinued 20 meq PO DAILY May 15, 2023 12:00am May 08, 2024 2:54pm prochlorperazine 10 mg oral tablet (4 sources) Phenothiazi ne Start: 04-06-2023 End: 05-08-2024 take 1 tablet by mouth every six hours as needed for nausea and vomiting Prochlorperazine Maleate 10 mg tablet Discontinued 10 mg PO EVERY 6 HOURS as needed for nausea and vomiting April 06, 2023 12:00am May 08, 2024 2:54pm promethazine hydrochloride 25 mg oral tablet (7 sources) Phenothiazi ne Start: 04-06-2023 End: 06-05-2024 take 1 tablet by mouth every six hours as needed for nausea and vomiting Promethazine 25 mg tablet Discontinued 25 mg PO EVERY 6 HOURS as needed for nausea and vomiting May 01, 2023 9:45am June 05, 2024 12:20pm quercetin 500 mg oral capsule (7 sources) Start: 01-04-2023 End: 05-08-2024 take 1 capsule by mouth once daily Quercetin 500 mg capsule Discontinued 500 mg PO DAILY January 04, 2023 12:00am May 08, 2024 2:54pm Problems Active Problems Problem Classification Problem Date Documented Date Episodic/Chronic Abdominal pain (2 sources) Finding of sensation of abdomen; Translations: [Unspecified abdominal pain] 06-21-2023 Episodic Administrative/social admission (20 sources) Patient encounter status; Translations: [Dietary counseling and surveillance] Episodic Anxiety disorders (20 sources) Anxiety; Translations: [Anxiety disorder, unspecified] Onset: 1 05-11-2021 Chronic Cancer of breast (20 sources) Intraductal carcinoma in situ of right breast; Translations: [Carcinoma in situ of breast] Onset: 0 05-14-2020 Chronic Cancer of rectum and anus (20 sources) Malignant tumor of rectum; Translations: [Malignant neoplasm of rectum] Onset: 4 12-28-2022 Chronic Diseases of white blood cells (9 sources) Drug-induced neutropenia; Translations: [Other drug-induced agranulocytosis] Onset: 5 06-28-2023 Chronic Disorders of lipid metabolism (3 sources) Mixed hyperlipidemia; Translations: [Mixed hyperlipidemia] Chronic Fluid and electrolyte disorders (9 sources) Mild dehydration; Translations: [Dehydration] 04-06-2023 Episodic Gastrointestinal hemorrhage (13 sources) Hematochezia; Translations: [Melena] 12-12-2022 Episodic Maintenance chemotherapy; radiotherapy (3 sources) Patient encounter status; Translations: [Encounter for antineoplastic chemotherapy] 06-28-2023 Chronic Malignant neoplasm without specification of site (15 sources) Malignant neoplastic disease; Translations: [Malignant (primary) neoplasm, unspecified] 01-04-2023 Chronic Comment on above: BREAST, 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 Evans for med onc, was placed on Tamoxifen but had vag bleeding, discontinued (no other AI tried)Also had radiation treatment at [facility] [place] genetic testing done, came back negativeCURRRENTLY DX WITH RECTAL CANCER AFTER CSCOPE 11/2022 Nausea and vomiting (6 sources) Chemotherapy-induced nausea and vomiting; Translations: [Nausea with vomiting, unspecified] 04-06-2023 Episodic Nutritional deficiencies (1 source) Deficiency of multiple nutrient elements; Translations: [Deficiency of multiple nutrient elements] Episodic Other and unspecified benign neoplasm (1 source) History of polyp of colon; Translations: [History of colonic polyps] 02-05-2024 Episodic Other gastrointestinal disorders (1 source) Abnormal feces; Translations: [Other fecal abnormalities] Episodic Other gastrointestinal disorders (10 sources) Constipation; Translations: [Constipation, unspecified] Episodic Other gastrointestinal disorders (5 sources) Constipation, unspecified; Translations: [Constipation, unspecified] 12-12-2022 Episodic Other nervous system disorders (1 source) Neuropathy; Translations: [Polyneuropathy, unspecified] 05-08-2024 Chronic Other upper respiratory disease (3 sources) Bleeding from nose; Translations: [Epistaxis] 04-19-2023 Episodic Residual codes; unclassified (1 source) Contact with and (suspected) exposure to mold (toxic); Translations: [Contact with and (suspected) exposure to mold] Episodic Past or Other Problems Problem Classification Problem Date Documented Da te Episodic/Chronic Allergic reactions (11 sources) Solar degeneration; Translations: [Other skin changes due to chronic exposure to nonionizing radiation] Onset: 07-07-2009 Resolved: 01-11-2017 01-11-2017 Episodic Neoplasms of unspecified nature or uncertain behavior (11 sources) Neoplasm of uncertain behavior of skin; Translations: [Neoplasm of uncertain behavior of skin] Onset: 07-07-2009 Resolved: 01-11-2017 01-11-2017 Episodic Other and unspecified benign neoplasm (11 sources) Melanocytic nevi of unspecified part of face; Translations: [Benign neoplasm of skin of other and unspecified parts of face] Onset: 10-09-2011 Resolved: 01-11-2017 01-11-2017 Episodic Other bone disease and musculoskeletal deformities (20 sources) Osteopenia; Translations: [Other specified disorders of bone density and structure, unspecified site] Onset: 05-11-2021 05-11-2021 Episodic Other circulatory disease (11 sources) Spider nevus; Translations: [Nevus, non-neoplastic] Onset: 07-07-2009 Resolved: 01-11-2017 01-11-2017 Episodic Other injuries and conditions due to external causes (20 sources) Traumatic injury; Translations: [Injury, unspecified, initial encounter] Onset: 05-11-2021 05-11-2021 Episodic Other injuries and conditions due to external causes (11 sources) Open wound; Translations: [Other injury of unspecified body region, initial encounter] Onset: 10-10-2009 Resolved: 01-11-2017 01-11-2017 Episodic Other screening for suspected conditions (not mental disorders or infectious disease) (2 sources) Encounter for screening mammogram for malignant neoplasm of breast; Translations: [Encounter for screening for malignant neoplasm of colon] Onset: 07-01-2024 Episodic Other skin disorders (11 sources) Inflamed seborrheic keratosis; Translations: [Inflamed seborrheic keratosis] Onset: 07-07-2009 Resolved: 01-11-2017 01-11-2017 Episodic Other skin disorders (11 sources) Seborrheic keratosis; Translations: [Other seborrheic keratosis] Onset: 07-07-2009 Resolved: 01-11-2017 01-11-2017 Episodic Other skin disorders (11 sources) Solar lentigo; Translations: [Other melanin hyperpigmentation] Onset: 07-07-2009 Resolved: 01-11-2017 01-11-2017 Episodic Other skin disorders (11 sources) Actinic keratosis; Translations: [Actinic keratosis] Onset: 10-09-2011 Resolved: 01-11-2017 01-11-2017 Episodic Ovarian cyst (20 sources) Cyst of left ovary; Translations: [Unspecified ovarian cyst, left side] Onset: 01-11-2017 01-11-2017 Episodic Residual codes; unclassified (20 sources) Family history of breast cancer; Translations: [Family history of malignant neoplasm of breast] Onset: 05-14-2020 05-14-2020 Episodic Residual codes; unclassified (20 sources) Difficulty sleeping ; Translations: [Sleep deprivation] Onset: 05-11-2021 05-11-2021 Episodic Viral infection (11 sources) Verruca vulgaris; Translations: [Viral wart, unspecified] Onset: 10-09-2011 Resolved: 01-11-2017 01-11-2017 Episodic Results Test Name Value Interpretation Reference Range Facility Carcinoembryonic Antigenon 0 04-13-2025 CEA 3.3 ng/mL Normal 0.0-4.7 [facility] Comment on above: Result Comment: Nons mokers <3.9 Smokers <5.6 [facility] Electrochemiluminescence Immunoassay (ECLIA) Values obtained with different assay methods or kits cannot be used interchangeably. Results cannot be interpreted as absolute evidence of the presence or absence of malignant disease. Performed at: - [facility] [address], [place], [place] [id number] Business Department Chair: Anshul Perry PhD, Phone: [phone] Performed By: #### L 9316.1579 #### [facility] [address] [place], [address] Oncology Visit Reporton 01-24 Oncology Visit Report [facility] [address] [place] [address] OFFICE VISIT Date of Service: 02/11/25 1336 MR#: [id number] Acct: [id number] Name: BARBARA RESENDIZ Rep #: [id number] : 1955 From: Lamin Berger MD Age/Sex: 69/F Location: [facility] Status: Signed HPI Subjective Date of Service 02/11/25 Chief Complaint Rectum cancer on surveillance History of Present Illness 69-year-old female who presented with rectal bleeding. December 22, 2022 colonoscopy: Rectal mass left lateral at 4 to 5 cm from anal verge friable and bleeding. MICROSCOPIC DIAGNOSIS A. Cecal polyp, biopsy: Fragments of benign colonic mucosa. See comment. B. Colonic polyp at splenic flexure, biopsy: Tubular adenoma. C. Proximal sigmoid colon polyp, biopsy: Tubular adenoma. D. Left rectal wall mass, biopsy: Invasive well differentiated adenocarcinoma. ANTIBODY / CLONE RESULT Block D Her-2neu (CB11) negative CANTOR-2 (SP21) positive MLH-1 (M1) positive MSH2 (25D12) positive MSH6 (44) positive PMS2 ([id number]) positive Ki-67 (30-9) positive P53 (DO-7) positive (Missense mutation pattern) Negative (no loss of mismatch protein; no microsatellite instability detected). December 23, 2022 CT abdomen and pelvis: FINDINGS: Linear density is seen in the left lower lobe. This abuts the pleural surface laterally. There is a 1.5 cm x 0.9 cm pleural-based nodule in the peripheral aspect of the left lower lobe.??? The visualized portions of the heart are within normal limits. There is decreased attenuation of the liver consistent with steatosis. There is a 9.5 mm x 6.5 mm cyst in the medial aspect of the left lobe of the liver. There is also evidence of a 8.6 mm x 9.4 mm cyst in the anterior lower aspect of the right lobe of the liver. There is evidence of a Deandra''s lobe of the right lobe of the liver.??? Normal gallbladder and extrahepatic biliary system.??? Normal spleen.??? Normal pancreas. Normal bilateral adrenal glands. Normal right kidney.??? Normal left kidney. Normal visualized stomach.??? Normal small intestine.??? Circumferential wall thickening of the rectum in keeping with the patient''s history of a rectal mass.??? The appendix is visualized and appears normal. Normal abdominal aorta.??? Normal inferior vena cava.??? Normal retroperitoneum. Normal urinary bladder.??? There is a 3.3 cm x 2.8 cm cyst in the left ovary. Normal abdominal wall.??? Exaggerated lumbar lordosis. Grade 1 anterolisthesis of L4 on L5 most likely secondary to facet joint osteoarthritis. IMPRESSION: Linear density at the peripheral aspect of the left lower lobe abutting the pleural surface where there is a 1.5 cm x 0.9 cm pleural-based nodule. This may represent scarring although a neoplastic process cannot BE. Correlation with a PET scan is recommended. Fatty infiltration of the liver. Small hepatic cysts. Deandra''s lobe of the liver. 2.8 cm x 3.3 cm cyst in the left ovary January 10, 2023 PET/CT initial staging: IMPRESSION: 1. ABNORMAL EXAMINATION INDICATIVE OF MALIGNANT-VIABLE NEOPLASM. 2. Increased radiopharmaceutical concentration defined in the rectum-rectal vault fulfills quantitative criteria for viable malignant transformation. 3. Facilitated uptake noted in the right lower anteromedial lung zone, right middle lobe, does not fulfill quantitative criteria for neoplastic infiltration (Goel et al, Journal of Nuclear Medicine, 32:1, 1991). 4. Anatomic stability may be ensured in the right lower anteromedial lung field metabolic abnormality with repeat CT of the thorax in 3-6 months if clinically indicated. (Amanda, Seminars in Thoracic and Cardiovascular surgery, 14:292, 2002). January 12, 2023 pelvic MRI staging: FINDINGS: Normal urinary bladder. Simple, nonenhancing left adnexal cyst measures 2.9 x 3.2 cm.??? ACR White Paper guidelines (Chapin, et. al. JACR 2020;17(2):248-254) suggest no follow-up is necessary. 7 cm above the anus, there is a lobular mass of the mid rectum is correlated to mass evident on prior PET scan. Confined to the muscularis propria WITHOUT extension into the perirectal fat. Small perirectal lymph nodes including 3.4 x 5.3 mm perirectal lymph node on image 8 of series 7 with smooth margins and no significant enhancement (to not meet criteria for morphologic malignant criteria). The mass is at the level of the anterior peritoneal reflection but without evidence of intraperitoneal seeding/thickening. The mass is located at the 10:00 to 12:00 position with cemented circumferential appearance. No mucinous component. There is no pelvic fluid.??? There is no pelvic mass lesion or lymphadenopathy. Normal visualized pelvic arteries.??? No bone marrow edema.??? Normal abdominal wall. IMPRESSION: 1.??? Mid rectal mass/neoplasm, as above (T2, N0). March 03, 2023 MRI of the (more content not included)... Normal [facility] Carcinoembryonic Antigenon 0 - CEA 2.7 ng/mL Normal 0.0-4.7 [facility] Comment on above: Result Comment: Nons mokers <3.9 Smokers <5.6 [facility] Electrochemiluminescence Immunoassay (ECLIA) Values obtained with different assay methods or kits cannot be used interchangeably. Results cannot be interpreted as absolute evidence of the presence or absence of malignant disease. Performed at: [address] [id number] Business Department Chair: Anshul Perry PhD, Phone: [phone] Performed By: #### L 0366.2584 #### [facility] [address], [address] Absolute lymphocyte countOrd ered By: Anita Virk on 02-04-2025 Lymphocytes Auto (Unsp spec) [#/Vol] 1.23 10*3/uL 0.83-4.51 [facility] Absolute neutrophil countOrd ered By: Anita Virk on 02-04-2025 Neutrophils (Bld) [#/Vol] 1.9 10*3/uL Low 2.0-7.7 [facility] Anion gap in Serum or Plasma Ordered By: Anita Virk on 02-04-2025 Anion gap [Moles/Vol] 10 mmol/L - [facility] Automated lymphocyte count a s percentage of total leukocytesOrdered By: Anita Virk on 02-04-2025 Lymphocytes/100 WBC Auto (Unsp spec) 32.3 % - [facility] BUN/creatinine ratioOrdered By: Anita Moose on 02-04-2025 Urea nitrogen/Creatinine [Mass ratio] 14.8 mg/mg 10- [facility] Basophil percentageOrdered B y: Anita Virk on 02-04-2025 Basophils/100 WBC (Bld) 0.8 % 0- [facility] Bilirubin, totalOrdered By: Anita Virk on 02-04-2025 Bilirubin [Mass/Vol] 0.45 mg/dL 0.00-1.30 [facility] CBC W/Diff, Automatedon 01-23 Absolute Lymph 1.23 X10 3/uL Normal 0.83-4.51 [facility] Comment on above: Order Comment: ADD O N FROM [facility] TODAY, THANKS Performed By: #### L 500.4050, L100.0100 ####[facility] [address] [place], [address] Absolute Neut 1.9 X10 3/uL Low 2.0-7.7 [facility] Comment on above: Order Comment: ADD O N FROM [facility] TODAY, THANKS Performed By: #### L 500.4050, L100.0100 ####[facility] [address] [place], [address] Basophils/100 WBC (Bld) 0.8 % Normal 0-1 [facility] Comment on above: Order Comment: ADD O N FROM [facility] TODAY, THANKS Performed By: #### L 500.4050, L100.0100 ####[facility] [address] [place], [address] Eosinophils/100 WBC (Bld) 3.1 % Normal 0-5 [facility] Comment on above: Order Comment: ADD O N FROM [facility], THANKS Performed By: #### L 500.4050, L100.0100 ####[facility] [address] [place], [address] Erythrocyte distribution width (RBC) [Ratio] 12.8 % Normal 11.6-14.6 [facility] Comment on above: Order Comment: ADD O N FROM [facility], THANKS Performed By: #### L 500.4050, L100.0100 ####[facility] [address] [place], [address] Hematocrit (Bld) [Volume fraction] 44.0 % Normal 37-47 [facility] Comment on above: Order Comment: ADD O N FROM [facility], THANKS Performed By: #### L 500.4050, L100.0100 ####[facility] [address] [place], [address] Hemoglobin (Bld) [Mass/Vol] 14.2 g/dL Normal 12.0-15.0 [facility] Comment on above: Order Comment: ADD O N FROM [facility], THANKS Performed By: #### L 500.4050, L100.0100 ####[facility] [address] [place], [address] IG% 0.300 Normal 0.0-0.9 [facility] Comment on above: Order Comment: ADD O N FROM [facility], THANKS Result Comment: IG% - Immature Granulocytes (promyelocytes, myelocytes and metamyelocytes) > 1% indicates that a LEFT SHIFT is Present. Performed By: #### L 500.4050, L100.0100 ####[facility] [address] [place], [address] Lymphocytes/100 WBC (Bld) 32.3 % Normal 19-41 [facility] Comment on above: Order Comment: ADD O N FROM [facility] TODAY, THANKS Performed By: #### L 500.4050, L100.0100 ####[facility] [address] [place], [address] MCH (RBC) [Entitic mass] 31.0 pg Normal 27.0-32.0 [facility] Comment on above: Order Comment: ADD O N FROM [facility], THANKS Performed By: #### L 500.4050, L100.0100 ####[facility] [address] [place], [address] MCHC (RBC) [Mass/Vol] 32.3 g/dL Normal 32-36 [facility] Comment on above: Order Comment: ADD O N FROM [facility], THANKS Performed By: #### L 500.4050, L100.0100 ####[facility] [address] [place], [address] MCV (RBC) [Entitic vol] 96.1 fL Normal 81-99 [facility] Comment on above: Order Comment: ADD O N FROM [facility], THANKS Performed By: #### L 500.4050, L100.0100 ####[facility] [address] [place], [address] Monocytes/100 WBC (Bld) 12.6 % High 0-10 [facility] Comment on above: Order Comment: ADD O N FROM [facility] TODAY, THANKS Performed By: #### L 500.4050, L100.0100 ####[facility] [address] [place], [address] Neutrophils/100 WBC (Bld) 50.9 % Normal 47-70 [facility] Comment on above: Order Comment: ADD O N FROM [facility], THANKS Performed By: #### L 500.4050, L100.0100 ####[facility] [address] [place], [address] Nucleated RBC (Bld) [#/Vol] 0 10*3/uL Normal 0-5 [facility] Comment on above: Order Comment: ADD O N FROM [facility] TODAY, THANKS Performed By: #### L 500.4050, L100.0100 ####[facility] [address] [place], [address] Platelet mean volume (Bld) [Entitic vol] 11.4 fL Normal 6.2-12.0 [facility] Comment on above: Order Comment: ADD O N FROM [facility] TODAY, THANKS Performed By: #### L 500.4050, L100.0100 ####[facility] [address] [place], [address] Platelets (Bld) [#/Vol] 216 10*3/uL Normal 150-450 [facility] Comment on above: Order Comment: ADD O N FROM [facility] TODAY, THANKS Performed By: #### L 500.4050, L100.0100 ####[facility] [address] [place], [address] RBC (Bld) [#/Vol] 4.58 10*6/uL Normal 4.2-5.4 [facility] Comment on above: Order Comment: ADD O N FROM [facility] TODAY, THANKS Performed By: #### L 500.4050, L100.0100 ####[facility] [address] [place], [address] RDW SD 45.4 fl High 35.1-43.9 [facility] Comment on above: Order Comment: ADD O N FROM [facility] TODAY, THANKS Performed By: #### L 500.4050, L100.0100 ####[facility] [address] [place], [address] WBC (Bld) [#/Vol] 3.8 10*3/uL Low 4.4-11.0 [facility] Comment on above: Order Comment: ADD O N FROM [facility] [facility] TODAY, THANKS Performed By: #### L 500.4050, L100.0100 ####[facility] [address] [place], [address] Carbon dioxide, total [Moles /volume] in Central venous bloodOrdered By: Anita Virk on 02-04-2025 CO2 [Moles/Vol] 25.6 mmol/L 21.0-32.0 [facility] Chloride assayOrdered By: Larry Virk on 02-04-2025 Chloride [Moles/Vol] 105 mmol/L 98-108 [facility] Comprehensive Metabolic Prof ilon 02-04-2025 Albumin [Mass/Vol] 4.3 g/dL Normal 3.4-4.8 [facility] Comment on above: Order Comment: ADD O N FROM [facility] TODAY, THANKS Performed By: #### L 500.4050, L100.0100 ####[facility] [address] [place], [address] Albumin/Globulin [Mass ratio] 1.5 {ratio} Normal 0.9-2.4 [facility] Comment on above: Order Comment: ADD O N FROM [facility] TODAY, THANKS Performed By: #### L 500.4050, L100.0100 ####[facility] [address] [place], [address] ALK PHOS 81 U/L Normal 35-104 [facility] Comment on above: Order Comment: ADD O N FROM [facility] TODAY, THANKS Performed By: #### L 500.4050, L100.0100 ####[facility] [address] [place], [address] ALT [Catalytic activity/Vol] 18 U/L Normal <=34 [facility] Comment on above: Order Comment: ADD O N FROM [facility] TODAY, THANKS Performed By: #### L 500.4050, L100.0100 ####[facility] [address] [place], [address] AST [Catalytic activity/Vol] 22 U/L Normal <=31 [facility] Comment on above: Order Comment: ADD O N FROM [facility] TODAY, THANKS Performed By: #### L 500.4050, L100.0100 ####[facility] [address] [place], [address] Bilirubin [Mass/Vol] 0.45 mg/dL Normal 0.00-1.30 [facility] Comment on above: Order Comment: ADD O N FROM [facility] TODAY, THANKS Performed By: #### L 500.4050, L100.0100 ####[facility] [address] [place], [address] BUN/CRE 14.8 RATIO Normal 10-20 [facility] Comment on above: Order Comment: ADD O N FROM [facility] TODAY, THANKS Performed By: #### L 500.4050, L100.0100 ####[facility] [address] [place] [place], [address] Calcium [Mass/Vol] 9.6 mg/dL Normal 7.6-11.0 [facility] Comment on above: Order Comment: ADD O N FROM [facility] TODAY, THANKS Performed By: #### L 500.4050, L100.0100 ####[facility] [address] [place], [address] Chloride [Moles/Vol] 105 mmol/L Normal 98-108 [facility] Comment on above: Order Comment: ADD O N FROM [facility] TODAY, THANKS Performed By: #### L 500.4050, L100.0100 ####[facility] [address] [place], [address] CO2 [Moles/Vol] 25.6 mmol/L Normal 21.0-32.0 [facility] Comment on above: Order Comment: ADD O N FROM [facility] TODAY, THANKS Performed By: #### L 500.4050, L100.0100 ####[facility] [address] [place], [address] Creatinine [Mass/Vol] 0.83 mg/dL Normal 0.70-1.20 [facility] Comment on above: Order Comment: ADD O N FROM [facility] TODAY, THANKS Performed By: #### L 500.4050, L100.0100 ####[facility] [address] [place], [address] ECRCL 58.37 ml/min Normal 50-250 [facility] Comment on above: Order Comment: ADD O N FROM [facility], THANKS Performed By: #### L 500.4050, L100.0100 ####[facility] [address] [place], [address] GAP 10 Normal 5-15 [facility] Comment on above: Order Comment: ADD O N FROM [facility], THANKS Performed By: #### L 500.4050, L100.0100 ####[facility] [address] [place], [address] GFR/1.73 sq M.predicted among non-blacks MDRD (S/P/Bld) [Vol rate/Area] 77 mL/min/{1.73_m2} Normal >60 [facility] Comment on above: Order Comment: ADD O N FROM [facility], THANKS Result Comment: mL/m in/1.73m2 CKD-EPI Creatinine Equation (2020) Performed By: #### L 500.4050, L100.0100 ####[facility] [address] [place], [address] Globulin (S) [Mass/Vol] 2.9 g/dL Normal 2.2-4.2 [facility] Comment on above: Order Comment: ADD O N FROM [facility], THANKS Performed By: #### L 500.4050, L100.0100 ####[facility] [address] [place], [address] Glucose [Mass/Vol] 74 mg/dL Normal 70-99 [facility] Comment on above: Order Comment: ADD O N FROM [facility] TODAY, THANKS Performed By: #### L 500.4050, L100.0100 ####[facility] [address] [place], [address] Potassium [Moles/Vol] 4.1 mmol/L Normal 3.3-5.1 [facility] Comment on above: Order Comment: ADD O N FROM [facility] TODAY, THANKS Performed By: #### L 500.4050, L100.0100 ####[facility] [address] [place], [address] Sodium [Moles/Vol] 141 mmol/L Normal 133-145 [facility] Comment on above: Order Comment: ADD O N FROM [facility] TODAY, THANKS Performed By: #### L 500.4050, L100.0100 ####[facility] [address] [place], [address] T PROT 7.1 g/dL Normal 5.9-8.4 [facility] Comment on above: Order Comment: ADD O N FROM [facility], THANKS Performed By: #### L 500.4050, L100.0100 ####[facility] [address] [place], [address] Urea nitrogen [Mass/Vol] 12 mg/dL Normal 4-19 [facility] Comment on above: Order Comment: ADD O N FROM [facility] TODAY, THANKS Performed By: #### L 500.4050, L100.0100 ####[facility] [address] [place], [address] Eosinophil percentageOrdered By: Anita Virk on 02-04-2025 Eosinophils/100 WBC (Bld) 3.1 % 0-5 [facility] Erythrocyte distribution wid th ratioOrdered By: Anita Virk on 02-04-2025 Erythrocyte distribution width (RBC) [Ratio] 12.8 % 11.6-14.6 [facility] Erythrocyte distribution wid th standard deviationOrdered By: Anita Virk on 02-04-2025 Erythrocyte distribution width (RBC) [Ratio] 45.4 fl High 35.1-43.9 [facility] Glomerular filtration rate ( GFR) estimation/1.73 sq m using serum, plasma, or whole bOrdered By: Anita Virk on 02-04-2025 GFR/1.73 sq M.predicted among non-blacks MDRD (S/P/Bld) [Vol rate/Area] 77 mL/min/{1.73_m2} >60 [facility] Comment on above: mL/min/1.73m2 CKD-EP I Creatinine Equation (2020) Hematocrit Auto (Bld) [Volum e fraction]Ordered By: Anita Virk on 02-04-2025 Hematocrit (Bld) [Volume fraction] 44.0 % 37-47 [facility] Hemoglobin measurementOrdere d By: Anita Virk on 02-04-2025 Hemoglobin (Bld) [Mass/Vol] 14.2 g/dL 12.0-15.0 [facility] Immature granulocytes/100 WB C Auto (Bld)Ordered By: Anita Virk on 02-04-2025 Immature granulocytes/100 WBC (Bld) 0.300 % 0.0-0.9 [facility] Comment on above: IG% - Immature Granu locytes (promyelocytes, myelocytes and metamyelocytes) > 1% indicates that a LEFT SHIFT is Present. Laboratory - Chemistry and C hemistry - challengeOrdered By: Anita Virk on 02-04-2025 AST [Catalytic activity/Vol] 22 U/L <32 [facility] MCV (mean corpuscular volume ) determinationOrdered By: Anita Virk 02-04-2025 MCV (RBC) [Entitic vol] 96.1 fL 81-99 [facility] Mean corpuscular hemoglobin (MCH) determinationOrdered By: Anita Virk on 02-04-2025 MCH (RBC) [Entitic mass] 31.0 pg 27.0-32.0 [facility] Mean corpuscular hemoglobin concentration (MCHC) determinationOrdered By: Anita Virk 02-04-2025 MCHC (RBC) [Mass/Vol] 32.3 g/dL 32-36 [facility] Mean platelet volume determi nationOrdered By: Anita Virk on 02-04-2025 Platelet mean volume (Bld) [Entitic vol] 11.4 fL 6.2-12.0 [facility] Monocyte percentageOrdered B y: Anita Virk on 02-04-2025 Monocytes/100 WBC (Bld) 12.6 % High 0-10 [facility] Neutrophil percentageOrdered By: Anita Virk on 02-04-2025 Neutrophils/100 WBC (Bld) 50.9 % 47-70 [facility] Nucleated red blood cell per centageOrdered By: Anita Virk on 02-04-2025 Nucleated RBC/100 WBC (Bld) [Ratio] 0 % 0-5 [facility] Platelet countOrdered By: Larry Virk on 02-04-2025 Platelets (Bld) [#/Vol] 216 10*3/uL 150-450 [facility] Potassium measurement (mass/ volume)Ordered By: Anita Virk on 02-04-2025 Potassium (Unsp spec) [Mass/Vol] 4.1 mmol/L 3.3-5.1 [facility] RBC Auto (Bld) [#/Vol]Ordere d By: Anita Virk on 02-04-2025 RBC (Bld) [#/Vol] 4.58 10*6/uL 4.2-5.4 [facility] Serum creatinine measurement (mass/volume)Ordered By: Anita Virk on 02-04-2025 Creatinine [Mass/Vol] 0.83 mg/dL 0.70-1.20 [facility] Serum globulin measurementOr dered By: Anita Virk on 02-04-2025 Globulin (S) [Mass/Vol] 2.9 g/dL 2.2-4.2 [facility] Serum glucose measurement (m ass/volume)Ordered By: Anita Virk on 02-04-2025 Glucose [Mass/Vol] 74 mg/dL 70-99 [facility] Serum or plasma alanine lyles otransferase (ALT) measurementOrdered By: Anita Virk on 02-04-2025 ALT [Catalytic activity/Vol] 18 U/L <35 [facility] Serum or plasma albumin misty urement (mass/volume)Ordered By: Anita Virk on 02-04-2025 Albumin [Mass/Vol] 4.3 g/dL 3.4-4.8 [facility] Serum or plasma albumin/glob ulin mass ratioOrdered By: Anita Virk on 02-04-2025 Albumin/Globulin [Mass ratio] 1.5 {ratio} 0.9-2.4 [facility] Serum or plasma alkaline mihaela sphatase measurementOrdered By: Anita Virk on 02-04-2025 ALP [Catalytic activity/Vol] 81 U/L 35-104 [facility] Serum or plasma calcium misty urement (mass/volume)Ordered By: Anita Virk on 02-04-2025 Calcium [Mass/Vol] 9.6 mg/dL 7.6-11.0 [facility] Serum or plasma carcinoembry onic antigen measurement (mass/volume)Ordered By: Lamin Berger on 02-04-2025 Carcinoembryonic Ag [Mass/Vol] 2.7 ng/mL 0.0-4.7 [facility] Comment on above: Nonsmokers <3.9 Smok ers <5.6[employer] Electrochemiluminescence Immunoassay(ECLIA)Values obtained with different assay methods or kitscannot be used interchangeably. Results cannot beinterpreted as absolute evidence of the presence orabsence of malignant disease.Performed at: [address] [id number] Director: Anshul Perry PhD, Phone: [phone] Serum or plasma urea nitroge n measurement (mass/volume)Ordered By: Anita Virk on 02-04-2025 Urea nitrogen [Mass/Vol] 12 mg/dL 4-19 [facility] Sodium levelOrdered By: Anita Virk on 02-04-2025 Sodium [Moles/Vol] 141 mmol/L 133-145 [facility] Total proteinOrdered By: Amaury Virk on 02-04-2025 Protein [Mass/Vol] 7.1 g/dL 5.9-8.4 [facility] White blood cell (WBC) count Ordered By: Anita Virk on 02-04-2025 WBC (Bld) [#/Vol] 3.8 10*3/uL Low 4.4-11.0 [facility] Office Visit ([facility] ) -- BARBARA RESENDIZ ([id number]) 1955 F Date Time Provider Department 01/07/25 10:00 AM DAGO ANDRE During your visit today, we recorded the following information about you: Weight Height 58.1 kg 1.524 m Dago Andre MD 01/07/2025 9:45 AM Signed [facility] Follow-up January 01, 2025 Chief complaint: Watchful waiting HPI: Alicia Resendiz is a 69-year-old female here today for follow up for diagnosis of rectal cancer. She was last seen by Dr Andre in January of 2023, and after exam, imaging, and TB discussion it was recommended that she proceed with JENNY, and possible Lx LAR if not complete response. 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 Her last chemotherapy treatment was on September 06 2023. Scope w/ Dr Andre on 10.10.2023 showed complete endoscopic response, but MRI showed incomplete response with likely residual tumor - mrTRG grade 3 - see below. Her case was presented to [facility] and it was recommended that she proceed with surveillance at this time with MRI and scope in three months - these were both done in December 2023, case was re-presented to [facility] in December 2023 where it was recommended that she continue with surveillance - she is here today for flex sig and imaging. Imaging on 04/09/24 showed no evidence of metastatic disease, MRI rectum showed mrTRG grade 2, flex sig showed residual scar in rectum with no disease recurrence. Her case was presented to [facility] on 04/12/24 and was recommended to continue with watch and wait. she is here today for flex sig. She had recent imaging in Sep 2024 all clear of any metastatic disease and/or recurrent disease. She needs repeat imaging in February 2025 per protocol. She has a history of hx of breast cancer arthritis, tubal ligation, umbilical hernia repair. Doing well. No new symptoms. Stated that she underwent full c-scope and cea testing recently along with imaging in September. 10.09.2024 MRI pelvis 10.09.2024 CT C/A/P 04.12.2024 MDT Recs Tumor board discussion and recommendation: Continue active surveillance (Watch AND Wait) with following schedule: Exam, LILO, CEA AND Flex Sig: Years 0-2 every 3 months; Years 3-4 every 6 months; Years 5- yearly MRI Pelvis: Years 0-4 every 6 months; Years 5- yearly CT C/A/P with Contrast: Years 0-2 every 6 months; Years 3-10 yearly Colonoscopy: 1 year after treatment then every 3 years Discussion: Called and spoke to the patient and will see me in 3 months and follow from above. Will get the full colonoscopy and she reassured me she would reschedule. Again, explained there is always a chance that residual tumor there but meets our criteria for surveillance. MRI with no sign of recurrence. 04.09.2024 flex sig Findings: The perianal examination was normal. Residual rectal scar No disease recurrance Impression: - No specimens collected. - Residual rectal scar No disease recurrence 04.09.2024 CT C/A/P IMPRESSION: No abdominopelvic metastatic disease. IMPRESSION: 1. No interval change, no convincing findings of metastatic disease in the thorax. 04.09.2024 MRI rectum IMPRESSION: Mid rectal fibrosis without residual viable tumor. Insufficiency fracture of the left hemisacrum. Since 12/26/2023, post treatment primary tumor assessment: Complete/near complete response. mrTRG: Grade 2 - Good response Suspicious Mesorectal lymph nodes: No. Suspicious Extramesorectal lymph nodes: No. 4. MDT Tumor board discussion and recommendation: Continue active surveillance (Watch AND Wait) with following schedule: Exam, LILO, CEA AND Flex Sig: Years 0-2 every 3 months; Years 3-4 every 6 months; Years 5-10 yearly MRI Pelvis: Years 0-4 every 6 months; Years 5-[address] C/A/P with Contrast: Years 0-2 every 6 months; Years 3-10 yearly Colonoscopy: 1 year after treatment then every 3 years Discussion: MRI reviewed and there was no evidence of tumor on diffusion evidence per Dr. Jolley. With that comfortable to continue surveillance. CEA is 1.8 . flex sig Findings: The perianal and digital rectal examinations were normal. A scar was found in the rectum. The scar was unremarkable in appearance. Impression: - Preparation of the colon was fair. - Scar in the rectum. - No specimens collected. 12.26.2023 MRI rectum IMPRESSION: Low/mid rectal fibrosis with decreased, but persistent residual viable tumor. Since 10/10/2023, post treatment primary tumor assessment: Incomplete response (likely residual tumor). mrTRG: Grade 3 - Moderate response Suspicious Mesorectal lymph nodes: No. Suspicious Extramesorectal lymph nodes: No. 1. TB recs Tumor board discussion and recommendation: R (more content not included)... Normal [facility] Flexible Sigmoidoscopyon Flexible sigmoidoscopy A30 Gastrointestinal Endoscopy Patient Name: Barbara Resendiz Procedure Date: 01/07/2025 7:21 AM Date of : 1955 Admit Type: Ambulatory Age: 69 Gender: Female Note Status: Finalized Attending MD: Dago Andre MD, [id number] Procedure: Flexible Sigmoidoscopy Indications: Personal history of malignant rectal neoplasm Providers: Dago Andre MD Patient Profile: This is a 69 year old female. Referring Physician: Medicines: None Complications: No immediate complications. Requesting Provider: Procedure: Pre-Anesthesia Assessment: - Prior to the procedure, a History and Physical was performed, and patient medications and allergies were reviewed. The risks and benefits of the procedure and the sedation options and risks were discussed with the patient. All questions were answered and informed consent was obtained. Patient identification and proposed procedure were verified. ASA Grade Assessment: II - A patient with mild systemic disease. After reviewing the risks and benefits, the patient was deemed in satisfactory condition to undergo the procedure. After obtaining informed consent, the scope was passed under direct vision. The Flexible sigmoidoscope was introduced through the anus and advanced to the sigmoid colon. The flexible sigmoidoscopy was accomplished without difficulty. The patient tolerated the procedure well. The flexible sigmoidoscopy was accomplished without difficulty. The patient tolerated the procedure well. The quality of the bowel preparation was good. Moderate Sedation: no sedation No sedation was administered for this procedure. Findings: healing scar in the first rectal valve, otherwise normal . The perianal and digital rectal examinations were normal. Impression: Healing scar in the first rectal valve, otherwise normal . The perianal and digital rectal examinations were normal. No specimens collected. Estimated Blood Loss: Estimated blood loss: none. Estimated blood loss: none. Recommendation: - Follow up in six months Procedure Code(s): --- Professional --- 40552, Sigmoidoscopy, flexible; diagnostic, including collection of specimen(s) by brushing or washing, when performed (separate procedure) Diagnosis Code(s): --- Professional --- Z85.048, Personal history of other malignant neoplasm of rectum, rectosigmoid junction, and anus CPT copyright 2020 [employer]. All rights reserved. The codes documented in this report are preliminary and upon it application support analyst review may be revised to meet current compliance requirements. Attending Participation: I personally performed the entire procedure. Scope In: Scope Out: MD Dago Mcallister MD 01/07/2025 9:23:52 AM This report has been signed electronically. Number of Addenda: 0 Note Initiated On: 01/07/2025 7:21 AM Normal [facility] Radiation Oncology Visiton 0 12-09-2024 Radiation Oncology Visit [facility] [address] [address] OFFICE VISIT Date of Service: 12/09/24 1303 MR#: [id number] Acct: [id number] Name: BARBARA RESENDIZ Rep #: [id number] : 1955 From: Bill Trotter DO Age/Sex: 69/F Location: [facility] Status: Signed Intake Vital Signs 06/11/24 13:39 11/13/24 14:32 12/09/24 13:06 Height 5 ft 5 in 5 ft 5 in 5 ft 5 in Weight: 134 lb 8 oz BMI 22.4 BP 152/76 H Blood Pressure Location Rt brachial Position Sitting Respiration 18 Pulse 72 Pulse Source Monitor Temp 96.9 F L Temperature Source Temporal Artery Pulse Oximetry (%) 96 Oxygen Delivery Method room air Intake Visit Reasons: 6 MONTH F/U RECTAL Is patient in pain?: No Allergies hydrocodone (From Vicodin) Allergy (Verified 12/09/24 13:06) Rash latex Allergy (Verified 12/09/24 13:06) Rash prochlorperazine (From Compazine) Adverse Reaction (Intermediate, Verified 12/09/24 13:06) agitation/restless bacitracin (From Polysporin) Adverse Reaction (Verified 12/09/24 13:06) Other polymyxin B (From Polysporin) Adverse Reaction (Verified 12/09/24 13:06) Other Have you fallen in the past year?: No PFSH PFSH Medical History (Updated 12/09/24 @ 13:05 by Allison Mohamud) Cataract Neuropathy Encounter for chemotherapy management Drug induced neutropenia Abdominal cramping Anxiety in cancer patient Anxiety Hypokalemia CINV (chemotherapy-induced nausea and vomiting) Encounter for education Rectal cancer Wears contact lenses Wears glasses Post-menopausal Cancer Arthritis Injury of head and neck History of GI bleed Gastric reflux Non-smoker History of stress test Allergy/AdvReac Type Severity Reaction Status Date / Time hydrocodone (From Vicodin) Allergy Rash Verified 12/09/24 13:06 latex Allergy Rash Verified 12/09/24 13:06 prochlorperazine (From AdvReac Intermediate agitation/r Verified 12/09/24 13:06 Compazine) estless bacitracin (From Polysporin) AdvReac Other Verified 12/09/24 13:06 polymyxin B (From Polysporin) AdvReac Other Verified 12/09/24 13:06 Family History Mother Breast cancer, Onset Age: 57 Sister Breast cancer Dx in her 60's Diabetes Father Diabetes Heart disease Aunt Breast cancer x3 maternal aunts Surgical History History of removal of Port-a-Cath Hx of dilation and curettage Hx of umbilical hernia repair History of dental yazidism Hx of tubal ligation Hx of rhinoplasty History of lumpectomy History of hysteroscopy Social History adopted: No household members: spouse housing: house number of children: 3 current occupational status: retired current occupational exposures/hazards: No pets and animals: No leisure activities: other history of recent travel: No sexually active: No Smoking Status: Never smoker alcohol intake: never substance use type: does not use diet: other well-balanced diet: daily or most days caffeine: Yes eating out: rarely or never during the past year weight has: decreased > 10 lbs what type of physical activity do you participate in: none facundo/anabaptism: Caodaism seatbelt use: always do you feel safe at home: Yes Diagnosis: Barbara Resendiz is a 69-year-old female diagnosed with clinical stage IIA (cT3 cN0 M0) 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 From 04/03/2023 ??? 05/10/2023 she completed neoadjuvant chemoradiation. History of Present Illness: 04/07/2020: Patient completed right breast core needle biopsy.??? Pathology demonstrated grade 3 DCIS (ER > 95%, MD 0%, HER2 0+ IHC), cribriform type. 05/01/2020: Patient completed right breast lumpectomy.??? Pathology demonstrated grade 3 ductal carcinoma in situ involving 3/12 blocks estimated size is 7.5 x 2 mm and necrosis is focally presen t. 12/22/2022: Patient completed colonoscopy due to having rectal bleeding.??? The digital rectal exam findings include a palpable rectal mass a 3 mm sessile polyp was found in the cecum and was removed, a 5 mm sessile polyp was found in the splenic flexure and was removed, a 4 mm sessile polyp was found in the proximal sigmoid colon and was removed.??? There is a fungating sessile and ulcerated nonobstructing medium-sized mass found in the distal rectum with oozing present and biopsies were obtained.??? All polyp removals demonstrated no evidence of malignancy.??? The left rectal wall biopsy demonstrated invasive well differentiated adenocarcinoma. 12/23/2022: CT abdo (more content not included)... Normal [facility] SAMMY SCREENING W TOMOon 11-19 SAMMY SCREENING W JUAN CARLOS * * *Final Report* * * DATE OF EXAM: Nov 19 2024 11:34AM [id number] - SAMMY SCREENING W JUAN CARLOS / PROCEDURE REASON: Encounter for screening mammogram for malignant neoplasm of breast * * * * Physician Interpretation * * * * RESULT: [place] [address] [place] [address] #[id number] - SAMMY SCREENING W JUAN CARLOS HISTORY: 69 year-old patient seen for screening and is asymptomatic in both breasts. The patient has the following personal history of breast cancer: breast cancer in the right breast at age 64. COMPARISON STUDIES: The present examination has been compared to prior imaging studies dated 03/19/2020 (mammogram), 03/22/2021 (mammogram), 06/06/2022 (mammogram) and 10/23/2023 (mammogram). MAMMOGRAM TECHNIQUE: The study was acquired using full field digital technology and interpreted from soft copy. Digital Breast Tomosynthesis (DBT) images were obtained and used to assist in the interpretation of this examination. MAMMOGRAM FINDINGS: There are scattered areas of fibroglandular density. No suspicious masses, calcifications or other abnormalities are seen in either breast. There are no significant interval changes. IMPRESSION: There is no mammographic evidence of malignancy in either breast. Routine screening mammogram is recommended. Annual mammogram will be due in 1 year. BI-RADS Category 1: Negative RISK: Due to the reported patient's history, the patient's estimated lifetime risk of developing breast cancer cannot be assessed at this time. We encourage all patients to talk with their providers about their risk assessment, further recommendations for managing breast health, and appropriate supplemental screening options if the patient has dense breast tissue. Interpreting Radiologist: Kiya Hernandez M.D. Electronically signed on: 11/20/2024 Contact Agent: ISSAC Transcribe Date/Time: Nov 19 2024 11:11A Dictated by: KIYA HERNANDEZ MD This examination was interpreted and the report reviewed and electronically signed by: KIYA HERNANDEZ MD on Nov 20 2024 3:43PM EST [id number] Normal [facility] Oncology Visit Reporton 10-26 Oncology Visit Report [facility] [place] [address] OFFICE VISIT Date of Service: 11/13/24 1427 MR#: [id number] Acct: [id number] Name: BARBARA RESENDIZ Rep #: [id number] : 1955 From: Lamin Berger MD Age/Sex: 69/F Location: [facility] Status: Signed HPI Subjective Date of Service 11/13/24 Chief Complaint Rectum cancer on surveillance History of Present Illness 69-year-old female who presented with rectal bleeding. December 22, 2022 colonoscopy: Rectal mass left lateral at 4 to 5 cm from anal verge friable and bleeding. MICROSCOPIC DIAGNOSIS A. Cecal polyp, biopsy: Fragments of benign colonic mucosa. See comment. B. Colonic polyp at splenic flexure, biopsy: Tubular adenoma. C. Proximal sigmoid colon polyp, biopsy: Tubular adenoma. D. Left rectal wall mass, biopsy: Invasive well differentiated adenocarcinoma. ANTIBODY / CLONE RESULT Block D Her-2neu (CB11) negative CANTOR-2 (SP21) positive MLH-1 (M1) positive MSH2 (25D12) positive MSH6 (44) positive PMS2 (DDR8775) positive Ki-67 (30-9) positive P53 (DO-7) positive (Missense mutation pattern) Negative (no loss of mismatch protein; no microsatellite instability detected). December 23, 2022 CT abdomen and pelvis: FINDINGS: Linear density is seen in the left lower lobe. This abuts the pleural surface laterally. There is a 1.5 cm x 0.9 cm pleural-based nodule in the peripheral aspect of the left lower lobe.??? The visualized portions of the heart are within normal limits. There is decreased attenuation of the liver consistent with steatosis. There is a 9.5 mm x 6.5 mm cyst in the medial aspect of the left lobe of the liver. There is also evidence of a 8.6 mm x 9.4 mm cyst in the anterior lower aspect of the right lobe of the liver. There is evidence of a Deandra''s lobe of the right lobe of the liver.??? Normal gallbladder and extrahepatic biliary system.??? Normal spleen.??? Normal pancreas. Normal bilateral adrenal glands. Normal right kidney.??? Normal left kidney. Normal visualized stomach.??? Normal small intestine.??? Circumferential wall thickening of the rectum in keeping with the patient''s history of a rectal mass.??? The appendix is visualized and appears normal. Normal abdominal aorta.??? Normal inferior vena cava.??? Normal retroperitoneum. Normal urinary bladder.??? There is a 3.3 cm x 2.8 cm cyst in the left ovary. Normal abdominal wall.??? Exaggerated lumbar lordosis. Grade 1 anterolisthesis of L4 on L5 most likely secondary to facet joint osteoarthritis. IMPRESSION: Linear density at the peripheral aspect of the left lower lobe abutting the pleural surface where there is a 1.5 cm x 0.9 cm pleural-based nodule. This may represent scarring although a neoplastic process cannot BE. Correlation with a PET scan is recommended. Fatty infiltration of the liver. Small hepatic cysts. Deandra''s lobe of the liver. 2.8 cm x 3.3 cm cyst in the left ovary January 10, 2023 PET/CT initial staging: IMPRESSION: 1. ABNORMAL EXAMINATION INDICATIVE OF MALIGNANT-VIABLE NEOPLASM. 2. Increased radiopharmaceutical concentration defined in the rectum-rectal vault fulfills quantitative criteria for viable malignant transformation. 3. Facilitated uptake noted in the right lower anteromedial lung zone, right middle lobe, does not fulfill quantitative criteria for neoplastic infiltration (Goel et al, Journal of Nuclear Medicine, 32:1, 1991). 4. Anatomic stability may be ensured in the right lower anteromedial lung field metabolic abnormality with repeat CT of the thorax in 3-6 months if clinically indicated. (Amanda, Seminars in Thoracic and Cardiovascular surgery, 14:292, 2002). January 12, 2023 pelvic MRI staging: FINDINGS: Normal urinary bladder. Simple, nonenhancing left adnexal cyst measures 2.9 x 3.2 cm.??? ACR White Paper guidelines (Chapin et. al. JACR 2020;17(2):248-254) suggest no follow-up is necessary. 7 cm above the anus, there is a lobular mass of the mid rectum is correlated to mass evident on prior PET scan. Confined to the muscularis propria WITHOUT extension into the perirectal fat. Small perirectal lymph nodes including 3.4 x 5.3 mm perirectal lymph node on image 8 of series 7 with smooth margins and no significant enhancement (to not meet criteria for morphologic malignant criteria). The mass is at the level of the anterior peritoneal reflection but without evidence of intraperitoneal seeding/thickening. The mass is located at the 10:00 to 12:00 position with cemented circumferential appearance. No mucinous component. There is no pelvic fluid.??? There is no pelvic mass lesion or lymphadenopathy. Normal visualized pelvic arteries.??? No bone marrow edema.??? Normal abdominal wall. IMPRESSION: 1.??? Mid rectal mass/neoplasm, as above (T2, N0). March 03, 2023 MRI of the (more content not included)... Normal [facility] Carcinoembryonic Antigenon 0 11-06-2024 CEA 2.3 ng/mL Normal 0.0-4.7 [facility] Comment on above: Result Comment: Nons mokers <3.9 Smokers <5.6 [employer] Electrochemiluminescence Immunoassay (ECLIA) Values obtained with different assay methods or kits cannot be used interchangeably. Results cannot be interpreted as absolute evidence of the presence or absence of malignant disease. Performed at: [facility] [id number] Business Department Chair: Anshul Perry PhD, Phone: [phone] Performed By: #### L 3100.2300 #### [facility] Laboratory [address] [facility] [place], [address] Pelvis W/WO Contraston 10-10 Pelvis W/WO Contrast [facility] Imaging Services [address] [place] [address] Pelvis W/WO Contrast MR#: [id number] Acct: [id number] Name: BARBARA RESENDIZ Rep #: [id number] : 1955 F 69 From: Justin flowers MD PCP: Dr. Se Phan MD Status: REG CLI Study: Pelvis W/WO Contrast Date of Exam: 10/10/24 Exam# [id number] Ordering Dr: DAGO ANDRE MD ADDENDUM by Dr. Justin Smith MD on 10/17/24 at 1707 ADDENDUM [id number] Prior MRI of the pelvis/rectum dated April 09, 2024 and MRI of the pelvis and rectum dated March 03, 2023 is now available for review and comparison * March 03, 2023 MRI of the pelvis/rectum findings revealed a fungating enhancing mass in the anterior and left side of the rectum with diffuse fluid distention of the rectal lumen * April 09, 2024 MRI of the pelvis/rectum findings the previously seen exophytic/intraluminal portion of the rectal mass is no longer present either due to surgical resection or treatment debulking and resolution of the mass. However circumferential mild mucosal thickening of the rectosigmoid colon was present, referred to as posttreatment change * MRI of the pelvis/rectum dated October 10, 2024 does not show any mass or enhancing lesion within the lumen or wall of the rectosigmoid colon. The colon is collapsed without a visualized focal abnormality or asymmetric wall thickening. No lymphadenopathy is present. Electronically Signed: Justin Smith MD at 17:07 EST , 10/17/241706 Date cc: Dr. Se Phan MD; DAGO ANDRE MD * Signed ADDENDUM by Dr. Justin Smith MD on 10/17/24 at 1707 MRI/Pelvis W/WO Contrast IMPRESSION: undefined 10/17/241713 Date cc: Dr. Se Phan MD; DAGO NADRE MD * Signed [id number] STUDY: MR PELVIS WITH T WITHOUT CONTRAST REASON FOR EXAM: Female, 69 years old. RECTAL CA TECHNIQUE: Standardized fat and water weighted pulse sequences were obtained in all 3 orthogonal planes, pre-and post contrast administration. 12CC CLARISCAN was administered for the contrast portion of the examination. COMPARISON: CT of the abdomen and pelvis dated October 09, 2024. PET/CT exam dated January 10, 2023 FINDINGS: Bony structures: No lytic or blastic lesions or marrow edema or pathologic fractures. Small bowel: No dilatation or wall thickening or masses. Large bowel/colon: No dilatation or wall thickening or masses. Previously seen large amount of stool is no longer present. The bowel loops are collapsed. Rectum: No demonstrated mass or enhancement or abnormal thickening. Postcontrast images: No abnormal enhancing lesions of the peritoneum, large bowel, small bowel, or bony structures. Reproductive organs: Unremarkable uterus and adnexa. Small left ovarian simple cyst noted which does not requiring additional imaging or follow-up. Inguinal regions: No lymphadenopathy or hernia or fluid collection is present. Normal urinary bladder. There is no pelvic fluid. There is no pelvic mass lesion or lymphadenopathy. There are diffuse degenerative changes of the visualized lumbar spine. Normal abdominal wall. MRI/Pelvis W/WO Contrast IMPRESSION: 1. No visualized bowel masses or abnormal thickening or enhancement 2. No lymphadenopathy or bony lesions. Electronically Signed: Justin Smith MD at 9:46 EST , CC: Dr. Se Phan MD; DAGO ANDRE MD Contact Agent: Signed [facility], Pel w/Contras ton 10-09-2024 CT Chest, Abd, Pel w/Contrast [facility] Imaging Services [address] [place] [employer], [place] [address] CT Chest, Abd, Pel w/Contrast MR#: [id number] Acct: [id number] Name: BARBARA RESENDIZ Rep #: [id number] : 1955 F 69 From: Justin flowers MD PCP: Dr. Se Phan MD Status: REG CLI Study: CT Chest, Abd, Pel w/Contrast Date of Exam: Exam# [id number] Ordering Dr: DAGO ANDRE MD [id number] STUDY: CT CHEST, ABDOMEN T PELVIS WITH CONTRAST REASON FOR EXAM: Female, 69 years old. RECTAL CA FOLLOW UP, RECTAL CA-CHEMO/RADIATION RADIATION DOSAGE (If Supplied By Facility): CTDIvol = ( 8.54 ) mGy, DLP = ( 624.21 ) mGycm TECHNIQUE: Transaxial imaging was performed following intravenous administration of Oral and amp; IV Readi-CAT and amp; 100mL Isovue-300. The protocol utilizes one or more of the following dose reduction techniques: automated exposure control, adjustment of mA and/or kV according to patient size,and/or use of iterative reconstruction technique. COMPARISON: PET/CT exam dated January 10, 2023. FINDINGS: CHEST Stable benign calcified granuloma in the right middle lobe. Stable 4 mm nodule in the lateral and upper aspect of the right middle lobe seen on image 63/130 series 6. This nodule is unchanged since January 10, 2023 indicating it is benign and most likely a postinflammatory fibrotic nodule. No additional or new nodules are present. No lymphadenopathy is present. Redemonstration of mild scattered interstitial fibrotic changes of the lungs. No pulmonary edema or pleural effusion or pneumonic consolidation is present. Mild mosaic attenuation/emphysema noted. Normal heart and pericardium. No demonstrated calcifications of the coronary arteries. Normal mediastinum. Normal hilar regions. Normal unenhanced pulmonary arteries. Normal aorta arch and descending thoracic aorta. There are multi-level degenerative changes of the thoracic spine. There is no demonstrated abnormality of the visualized upper abdomen. ABDOMEN Liver: Stable benign cyst in the anterior subcapsular region of the right lobe of the liver measuring 1.26 cm, unchanged since the January 10, 2023 study indicating it is benign. Stable small benign cyst in the medial aspect of the left lobe of the liver near the undersurface. No new cysts or additional lesions are seen in the liver. No visualized masses. Normal gallbladder and extrahepatic biliary system. Normal spleen. Normal pancreas. Normal bilateral adrenal glands. Normal right kidney. Normal left kidney. The bowel loops are opacified with oral contrast. There is a small hiatal hernia. Normal small intestine. Normal colon. The appendix is visualized and appears normal. Normal abdominal aorta. Normal inferior vena cava. Normal retroperitoneum. Normal abdominal wall. There are diffuse degenerative changes of the visualized lumbar spine. PELVIS Normal urinary bladder. Normal visualized small intestine. Normal visualized colon. Moderate amount of stool seen in the colon. No visualized colonic mass. No bowel dilatation is present. There is no pelvic fluid. There is no pelvic lymphadenopathy or mass lesion. Normal visualized pelvic arteries. Unremarkable uterus and adnexa. Normal abdominal wall. There are diffuse degenerative changes of the visualized lumbar spine. No visualized lytic or blastic lesions of the bony structures. CT/CT Chest, Abd, Pel w/Contrast IMPRESSION: 1. Chest: Stable benign calcified granuloma calcified 4 mm right middle lobe nodules unchanged since 2022 indicating a benign. No new lung nodules are seen. 2. Abdomen and pelvis: No visualized bowel masses or metastatic disease to the organs or omentum 3. No acute process [employer] RECOMMENDATIONS FOR FOLLOW-UP OF SMALL SOLID LUNG NODULES DETECTED INCIDENTALLY ON CT (for PATIENTS ? 35 YEARS OF AGE with no known extra-pulmonary cancer and no clinical evidence of infection). <4mm: Low Risk - No follow up needed. High Risk - CT at 12 months; if stable, no further follow-up Electronically Signed: Justin Smith MD at 15:42 EST , CC: Dr. Se Phan MD; DAGO ANDRE MD Contact Agent: Signed Normal [facility] Oncology Visit Reporton 06-26 Oncology Visit Report [facility] [place] [address] OFFICE VISIT Date of Service: 07/22/24 1430 MR#: [id number] Acct: [id number] Name: BARBARA RESENDIZ Rep #: [id number] : 1955 From: Lamin Berger MD Age/Sex: 69/F Location: [facility] Status: Signed HPI Subjective Date of Service 07/22/24 Chief Complaint Rectum cancer on surveillance History of Present Illness 69-year-old female who presented with rectal bleeding. December 22, 2022 colonoscopy: Rectal mass left lateral at 4 to 5 cm from anal verge friable and bleeding. MICROSCOPIC DIAGNOSIS A. Cecal polyp, biopsy: Fragments of benign colonic mucosa. See comment. B. Colonic polyp at splenic flexure, biopsy: Tubular adenoma. C. Proximal sigmoid colon polyp, biopsy: Tubular adenoma. D. Left rectal wall mass, biopsy: Invasive well differentiated adenocarcinoma. ANTIBODY / CLONE RESULT Block D Her-2neu (CB11) negative CANTOR-2 (SP21) positive MLH-1 (M1) positive MSH2 (25D12) positive MSH6 (44) positive PMS2 (XGC3461) positive Ki-67 (30-9) positive P53 (DO-7) positive (Missense mutation pattern) Negative (no loss of mismatch protein; no microsatellite instability detected). December 23, 2022 CT abdomen and pelvis: FINDINGS: Linear density is seen in the left lower lobe. This abuts the pleural surface laterally. There is a 1.5 cm x 0.9 cm pleural-based nodule in the peripheral aspect of the left lower lobe.??? The visualized portions of the heart are within normal limits. There is decreased attenuation of the liver consistent with steatosis. There is a 9.5 mm x 6.5 mm cyst in the medial aspect of the left lobe of the liver. There is also evidence of a 8.6 mm x 9.4 mm cyst in the anterior lower aspect of the right lobe of the liver. There is evidence of a Deandra''s lobe of the right lobe of the liver.??? Normal gallbladder and extrahepatic biliary system.??? Normal spleen.??? Normal pancreas. Normal bilateral adrenal glands. Normal right kidney.??? Normal left kidney. Normal visualized stomach.??? Normal small intestine.??? Circumferential wall thickening of the rectum in keeping with the patient''s history of a rectal mass.??? The appendix is visualized and appears normal. Normal abdominal aorta.??? Normal inferior vena cava.??? Normal retroperitoneum. Normal urinary bladder.??? There is a 3.3 cm x 2.8 cm cyst in the left ovary. Normal abdominal wall.??? Exaggerated lumbar lordosis. Grade 1 anterolisthesis of L4 on L5 most likely secondary to facet joint osteoarthritis. IMPRESSION: Linear density at the peripheral aspect of the left lower lobe abutting the pleural surface where there is a 1.5 cm x 0.9 cm pleural-based nodule. This may represent scarring although a neoplastic process cannot BE. Correlation with a PET scan is recommended. Fatty infiltration of the liver. Small hepatic cysts. Deandra''s lobe of the liver. 2.8 cm x 3.3 cm cyst in the left ovary January 10, 2023 PET/CT initial staging: IMPRESSION: 1. ABNORMAL EXAMINATION INDICATIVE OF MALIGNANT-VIABLE NEOPLASM. 2. Increased radiopharmaceutical concentration defined in the rectum-rectal vault fulfills quantitative criteria for viable malignant transformation. 3. Facilitated uptake noted in the right lower anteromedial lung zone, right middle lobe, does not fulfill quantitative criteria for neoplastic infiltration (Goel et al, Journal of Nuclear Medicine, 32:1, 1991). 4. Anatomic stability may be ensured in the right lower anteromedial lung field metabolic abnormality with repeat CT of the thorax in 3-6 months if clinically indicated. (Amanda, Seminars in Thoracic and Cardiovascular surgery, 14:292, 2002). January 12, 2023 pelvic MRI staging: FINDINGS: Normal urinary bladder. Simple, nonenhancing left adnexal cyst measures 2.9 x 3.2 cm.??? ACR White Paper guidelines (Chapin, et. al. JACR 2020;17(2):248-254) suggest no follow-up is necessary. 7 cm above the anus, there is a lobular mass of the mid rectum is correlated to mass evident on prior PET scan. Confined to the muscularis propria WITHOUT extension into the perirectal fat. Small perirectal lymph nodes including 3.4 x 5.3 mm perirectal lymph node on image 8 of series 7 with smooth margins and no significant enhancement (to not meet criteria for morphologic malignant criteria). The mass is at the level of the anterior peritoneal reflection but without evidence of intraperitoneal seeding/thickening. The mass is located at the 10:00 to 12:00 position with cemented circumferential appearance. No mucinous component. There is no pelvic fluid.??? There is no pelvic mass lesion or lymphadenopathy. Normal visualized pelvic arteries.??? No bone marrow edema.??? Normal abdominal wall. IMPRESSION: 1.??? Mid rectal mass/neoplasm, as above (T2, N0). March 03, 2023 MRI of the (more content not included)... Normal [facility] CNOVon 07-16-2024 CNOV Office Visit ([facility] ) -- BARBARA RESENDIZ ([id number]) 1955 F Date Time Provider Department 07/16/24 10:00 AM DAGO ANDRE During your visit today, we recorded the following information about you: Weight Height 57.2 kg 1.676 m Dago Andre MD 07/16/2024 9:47 AM Signed [facility] Follow-up July 10, 2024 Chief complaint: Rectal cancer watch and wait HPI: Alicia Resendiz is a 69-year-old female here today for follow up for diagnosis of rectal cancer. She was last seen by Dr Andre in January of 2023, and after exam, imaging, and TB discussion it was recommended that she proceed with JENNY, and possible Lx LAR if not complete response. 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 Her last chemotherapy treatment was on September 06 2023. Complete colonoscopy done Jun 07 at [place] - normal. CEA March 26.3. No N/V. Good appetite. No weight loss. Has soft BM, goes multiple times for BM due to feeling of incomplete evacuation. No Blood. No pain with BM. Scope w/ Dr Andre on 10.10.2023 showed complete endoscopic response, but MRI showed incomplete response with likely residual tumor - mrTRG grade 3 - see below. Her case was presented to [facility] and it was recommended that she proceed with surveillance at this time with MRI and scope in three months - these were both done in December 2023, case was re-presented to [facility] in December 2023 where it was recommended that she continue with surveillance - she is here today for flex sig and imaging. Imaging on 04/09 showed no evidence of metastatic disease, MRI rectum showed mrTRG grade 2, flex sig showed residual scar in rectum with no disease recurrence. Her case was presneted to [facility] on 04/12 and was recommended contineu with watch and wait, she is here today for flex sig. She has a history of hx of breast cancer arthritis, tubal ligation, umbilical hernia repair. 04.12.2024 MDT Recs Tumor board discussion and recommendation: Continue active surveillance (Watch AND Wait) with following schedule: Exam, LILO, CEA AND Flex Sig: Years 0-2 every 3 months; Years 3-4 every 6 months; Years 5-10 yearly MRI Pelvis: Years 0-4 every 6 months; Years 5-[address] C/A/P with Contrast: Years 0-2 every 6 months; Years 3-10 yearly Colonoscopy: 1 year after treatment then every 3 years Discussion: Called and spoke to the patient and will see me in 3 months and follow from above. Will get the full colonoscopy and she reassured me she would reschedule. Again, explained there is always a chance that residual tumor there but meets our criteria for surveillance. MRI with no sign of recurrence. 04.09.2024 flex sig Findings: The perianal examination was normal. Residual rectal scar No disease recurrance Impression: - No specimens collected. - Residual rectal scar No disease recurrance 04.09.2024 CT C/A/P IMPRESSION: No abdominopelvic metastatic disease. IMPRESSION: 1. No interval change, no convincing findings of metastatic disease in the thorax. 04.09.2024 MRI rectum IMPRESSION: Mid rectal fibrosis without residual viable tumor. Insufficiency fracture of the left hemisacrum. Since 12/26/2023, post treatment primary tumor assessment: Complete/near complete response. mrTRG: Grade 2 - Good response Suspicious Mesorectal lymph nodes: No. Suspicious Extramesorectal lymph nodes: No. 4. MDT Tumor board discussion and recommendation: Continue active surveillance (Watch AND Wait) with following schedule: Exam, LILO, CEA AND Flex Sig: Years 0-2 every 3 months; Years 3-4 every 6 months; Years 5-10 yearly MRI Pelvis: Years 0-4 every 6 months; Years 5-[address] C/A/P with Contrast: Years 0-2 every 6 months; Years 3-10 yearly Colonoscopy: 1 year after treatment then every 3 years Discussion: MRI reviewed and there was no evidence of tumor on diffusion evidence per Dr. Jolley. With that comfortable to continue surveillance. CEA is 1.8 . flex sig Findings: The perianal and digital rectal examinations were normal. A scar was found in the rectum. The scar was unremarkable in appearance. Impression: - Preparation of the colon was fair. - Scar in the rectum. - No specimens collected. 12.26.2023 MRI rectum IMPRESSION: Low/mid rectal fibrosis with decreased, but persistent residual viable tumor. Since 10/10/2023, post treatment primary tumor assessment: Incomplete response (likely residual tumor). mrTRG: Grade 3 - Moderate response Suspicious Mesorectal lymph nodes: No. Suspicious Extramesorectal lymph nodes: No. 1. recs Tumor board discussion and recommendation: Repeat MRI and flex sig in 3 months. Discordant findings of MRI and flex sig. Discussion (more content not included)... Normal [facility] Flexible Sigmoidoscopyon Flexible sigmoidoscopy A30 Gastrointestinal Endoscopy Patient Name: Barbara Resendiz Procedure Date: 07/16/2024 8:17 AM Date of : 1955 Admit Type: Ambulatory Age: 69 Gender: Female Note Status: Finalized Attending MD: Dago Andre MD, [id number] Procedure: Flexible Sigmoidoscopy Indications: High risk colon cancer surveillance: Personal history of rectal cancer Providers: Dago Andre MD Patient Profile: Refer to note in patient chart for documentation of history and physical. Referring Physician: Medicines: None Complications: No immediate complications. Requesting Provider: Procedure: Pre-Anesthesia Assessment: - Prior to the procedure, a History and Physical was performed, and patient medications and allergies were reviewed. The patient is competent. The risks and benefits of the procedure and the sedation options and risks were discussed with the patient. All questions were answered and informed consent was obtained. Patient identification and proposed procedure were verified by the physician and the nurse in the endoscopy suite. Mental Status Examination: normal. ASA Grade Assessment: II - A patient with mild systemic disease. After reviewing the risks and benefits, the patient was deemed in satisfactory condition to undergo the procedure. The anesthesia plan was to use no sedation or anesthesia. Immediately prior to administration of medications, the patient was re-assessed for adequacy to receive sedatives. The heart rate, respiratory rate, oxygen saturations, blood pressure, adequacy of pulmonary ventilation, and response to care were monitored throughout the procedure. The physical status of the patient was re-assessed after the procedure. After obtaining informed consent, the scope was passed under direct vision. The Endoscope was introduced through the anus and advanced to the sigmoid colon. The flexible sigmoidoscopy was accomplished with ease. Moderate Sedation: No sedation was administered for this procedure. Findings: The perianal and digital rectal examinations were normal. Pertinent negatives include normal sphincter tone. Impression: - No specimens collected. - Normal digital-rectal examination. - Normal rectum, no evidence of disease Estimated Blood Loss: Estimated blood loss: none. Recommendation: - Continue Watch and Wait for rectal cancer Repeat flex sig with rectal exam in 4-6 months Full colonoscopy already done in May 2024 - normal - Discharge patient to home. Procedure Code(s): --- Professional --- 08478, Sigmoidoscopy, flexible; diagnostic, including collection of specimen(s) by brushing or washing, when performed (separate procedure) Diagnosis Code(s): --- Professional --- Z85.048, Personal history of other malignant neoplasm of rectum, rectosigmoid junction, and anus CPT copyright 2020 [employer]. All rights reserved. The codes documented in this report are preliminary and upon it application support analyst review may be revised to meet current compliance requirements. Attending Participation: I personally performed the entire procedure. Scope In: Scope Out: MD Dago Mcallister MD 07/16/2024 9:47:52 AM This report has been signed electronically. Number of Addenda: 0 Note Initiated On: 07/16/2024 8:17 AM Normal [facility] Flexible sigmoidoscopy study on 07-16-2024 A30 Gastrointestinal Endoscopy Patient Name: Barbara Resendiz Procedure Date: 07/16/2024 8:17 AM Date of : 1955 Admit Type: Ambulatory Age: 69 Gender: Female Note Status: Finalized Attending MD: Dago Andre MD, [id number] Procedure: Flexible Sigmoidoscopy Indications: High risk colon cancer surveillance: Personal history of rectal cancer Providers: Dago Andre MD Patient Profile: Refer to note in patient chart for documentation of history and physical. Referring Physician: Medicines: None Complications: No immediate complications. Requesting Provider: Procedure: Pre-Anesthesia Assessment: - Prior to the procedure, a History and Physical was performed, and patient medications and allergies were reviewed. The patient is competent. The risks and benefits of the procedure and the sedation options and risks were discussed with the patient. All questions were answered and informed consent was obtained. Patient identification and proposed procedure were verified by the physician and the nurse in the endoscopy suite. Mental Status Examination: normal. ASA Grade Assessment: II - A patient with mild systemic disease. After reviewing the risks and benefits, the patient was deemed in satisfactory condition to undergo the procedure. The anesthesia plan was to use no sedation or anesthesia. Immediately prior to administration of medications, the patient was re-assessed for adequacy to receive sedatives. The heart rate, respiratory rate, oxygen saturations, blood pressure, adequacy of pulmonary ventilation, and response to care were monitored throughout the procedure. The physical status of the patient was re-assessed after the procedure. After obtaining informed consent, the scope was passed under direct vision. The Endoscope was introduced through the anus and advanced to the sigmoid colon. The flexible sigmoidoscopy was accomplished with ease. Moderate Sedation: No sedation was administered for this procedure. Findings: The perianal and digital rectal examinations were normal. Pertinent negatives include normal sphincter tone. Impression: - No specimens collected. - Normal digital-rectal examination. - Normal rectum, no evidence of disease Estimated Blood Loss: Estimated blood loss: none. Recommendation: - Continue Watch and Wait for rectal cancer Repeat flex sig with rectal exam in 4-6 months Full colonoscopy already done in May 2024 - normal - Discharge patient to home. Procedure Code(s): --- Professional --- 02301, Sigmoidoscopy, flexible; diagnostic, including collection of specimen(s) by brushing or washing, when performed (separate procedure) Diagnosis Code(s): --- Professional --- Z85.048, Personal history of other malignant neoplasm of rectum, rectosigmoid junction, and anus CPT copyright 2020 [employer]. All rights reserved. The codes documented in this report are preliminary and upon it application support analyst review may be revised to meet current compliance requirements. Attending Participation: I personally performed the entire procedure. Scope In: Scope Out: MD Dago Mcallister MD 07/16/2024 9:47:52 AM This report has been signed electronically. Number of Addenda: 0 Note Initiated On: 07/16/2024 8:17 AM PROVATION [facility] Radiology Study observation (narrative) [facility] Carcinoembryonic Antigenon 1 - CEA 2.5 ng/mL Normal 0.0-4.7 [facility] Comment on above: Result Comment: Nons mokers <3.9 Smokers <5.6 [facility] Electrochemiluminescence Immunoassay (ECLIA) Values obtained with different assay methods or kits cannot be used interchangeably. Results cannot be interpreted as absolute evidence of the presence or absence of malignant disease. Performed at: [address] [id number] Business Department Chair: Anshul Perry PhD, Phone: [phone] Performed By: #### L 500.4050, L100.0100, L3100.2300 ####[facility] [address] [facility] [place], [address] CBC W/Diff, Automatedon - Absolute Lymph 0.92 X10 3/uL Normal 0.83-4.51 [facility] Comment on above: Performed By: #### L 500.4050, L100.0100, L3100.2300 ####[facility] [address] [place], [address] Absolute Neut 2.3 X10 3/uL Normal 2.0-7.7 [facility] Comment on above: Performed By: #### L 500.4050, L100.0100, L3100.2300 ####[facility] [address] [place], [address] Basophils/100 WBC (Bld) 0.5 % Normal 0-1 [facility] Comment on above: Performed By: #### L 500.4050, L100.0100, L3100.2300 ####[facility] [address] [place], [address] Eosinophils/100 WBC (Bld) 4.4 % Normal 0-5 [facility] Comment on above: Performed By: #### L 500.4050, L100.0100, L3100.2300 ####[facility] [address] [place], [address] Erythrocyte distribution width (RBC) [Ratio] 12.9 % Normal 11.6-14.6 [facility] Comment on above: Performed By: #### L 500.4050, L100.0100, L3100.2300 ####[facility] [address] [place], [address] Hematocrit (Bld) [Volume fraction] 44.1 % Normal 37-47 [facility] Comment on above: Performed By: #### L 500.4050, L100.0100, L3100.2300 ####[facility] [address] [place], [address] Hemoglobin (Bld) [Mass/Vol] 14.5 g/dL Normal 12.0-15.0 [facility] Comment on above: Performed By: #### L 500.4050, L100.0100, L3100.2300 ####[facility] [address] [place], [address] IG% 0.500 Normal 0.0-0.9 [facility] Comment on above: Result Comment: IG% - Immature Granulocytes (promyelocytes, myelocytes and metamyelocytes) > 1% indicates that a LEFT SHIFT is Present. Performed By: #### L 500.4050, L100.0100, L3100.2300 ####[facility] [address] [place], [address] Lymphocytes/100 WBC (Bld) 23.7 % Normal 19-41 [facility] Comment on above: Performed By: #### L 500.4050, L100.0100, L3100.2300 ####[facility] [address] [place], [address] MCH (RBC) [Entitic mass] 31.3 pg Normal 27.0-32.0 [facility] Comment on above: Performed By: #### L 500.4050, L100.0100, L3100.2300 ####[facility] [address] [place], [address] MCHC (RBC) [Mass/Vol] 32.9 g/dL Normal 32-36 [facility] Comment on above: Performed By: #### L 500.4050, L100.0100, L3100.2300 ####[facility] [address] [place], [address] MCV (RBC) [Entitic vol] 95.2 fL Normal 81-99 [facility] Comment on above: Performed By: #### L 500.4050, L100.0100, L3100.2300 ####[facility] [address] [place], [address] Monocytes/100 WBC (Bld) 11.3 % High 0-10 [facility] Comment on above: Performed By: #### L 500.4050, L100.0100, L3100.2300 ####[facility] [address] [place], [address] Neutrophils/100 WBC (Bld) 59.6 % Normal 47-70 [facility] Comment on above: Performed By: #### L 500.4050, L100.0100, L3100.2300 ####[facility] [address] [place], [address] Nucleated RBC (Bld) [#/Vol] 0 10*3/uL Normal 0-5 [facility] Comment on above: Performed By: #### L 500.4050, L100.0100, L3100.2300 ####[facility] [address] [place], [address] Platelet mean volume (Bld) [Entitic vol] 10.3 fL Normal 6.2-12.0 [facility] Comment on above: Performed By: #### L 500.4050, L100.0100, L3100.2300 ####[facility] [address] [place], [address] Platelets (Bld) [#/Vol] 214 10*3/uL Normal 150-450 [facility] Comment on above: Performed By: #### L 500.4050, L100.0100, L3100.2300 ####[facility] [address] [place], [address] RBC (Bld) [#/Vol] 4.63 10*6/uL Normal 4.2-5.4 [facility] Comment on above: Performed By: #### L 500.4050, L100.0100, L3100.2300 ####[facility] [address] [place], [address] RDW SD 45.0 fl High 35.1-43.9 [facility] Comment on above: Performed By: #### L 500.4050, L100.0100, L3100.2300 ####[facility] [address] [place] [facility] [place], [address] WBC (Bld) [#/Vol] 3.9 10*3/uL Low 4.4-11.0 [facility] Comment on above: Performed By: #### L 500.4050, L100.0100, L3100.2300 ####[facility] [address] [place], [address] Comprehensive Metabolic Prof ilon 07-09-2024 Albumin [Mass/Vol] 3.9 g/dL Normal 3.2-5.0 [facility] Comment on above: Performed By: #### L 500.4050, L100.0100, L3100.2300 ####[facility] [address] [place], [address] Albumin/Globulin [Mass ratio] 1.0 {ratio} Normal 0.9-2.4 [facility] Comment on above: Performed By: #### L 500.4050, L100.0100, L3100.2300 ####[facility] [address] [place], [address] ALK P 98 U/L Normal 45-117 [facility] Comment on above: Performed By: #### L 500.4050, L100.0100, L3100.2300 ####[facility] [address] [place], [address] ALT [Catalytic activity/Vol] 27 U/L Normal 13-56 [facility] Comment on above: Performed By: #### L 500.4050, L100.0100, L3100.2300 ####[facility] [address] [place], [address] AST [Catalytic activity/Vol] 22 U/L Normal 15-37 [facility] Comment on above: Performed By: #### L 500.4050, L100.0100, L3100.2300 ####[facility] [address] [place], [address] Bilirubin [Mass/Vol] 0.50 mg/dL Normal 0.20-1.00 [facility] Comment on above: Result Comment: For patients on eltrombopag therapy, use of Dimension Silex TBIL is not recommended. Performed By: #### L 500.4050, L100.0100, L3100.2300 ####[facility] [address] [place], [address] BUN/CRE 18.0 RATIO Normal 10-20 [facility] Comment on above: Performed By: #### L 500.4050, L100.0100, L3100.2300 ####[facility] [address] [place], [address] CA,Total 9.5 mg/dL Normal 8.5-10.1 [facility] Comment on above: Performed By: #### L 500.4050, L100.0100, L3100.2300 ####[facility] [address] [place], [address] Chloride [Moles/Vol] 104 mmol/L Normal 98-107 [facility] Comment on above: Performed By: #### L 500.4050, L100.0100, L3100.2300 ####[facility] [address] [place], [address] CO2 [Moles/Vol] 30.0 mmol/L Normal 21.0-32.0 [facility] Comment on above: Performed By: #### L 500.4050, L100.0100, L3100.2300 ####[facility] [address] [place], [address] Creatinine [Mass/Vol] 0.83 mg/dL Normal 0.55-1.02 [facility] Comment on above: Result Comment: The validity of the calculated GFR GFRAA in patients over 70 years has not been determined. Clinical correlation is essential. Performed By: #### L 500.4050, L100.0100, L3100.2300 ####[facility] [address] [place], [address] ECRCL 58.37 ml/min Normal [facility] Comment on above: Performed By: #### L 500.4050, L100.0100, L3100.2300 ####[facility] [address] [place], [address] EST GFR - AA 88 mL/min Normal >60 [facility] Comment on above: Result Comment: Afri can [employer] GFR Calc Performed By: #### L 500.4050, L100.0100, L3100.2300 ####[facility] [address] [place], [address] GAP 4 Low 5-15 [facility] Comment on above: Performed By: #### L 500.4050, L100.0100, L3100.2300 ####[facility] [address] [place], [address] GFR/1.73 sq M.predicted among non-blacks MDRD (S/P/Bld) [Vol rate/Area] 72 mL/min/{1.73_m2} Normal >60 [facility] Comment on above: Result Comment: Non- GFR Calc Performed By: #### L 500.4050, L100.0100, L3100.2300 ####[facility] [address] [place], [address] Globulin (S) [Mass/Vol] 3.8 g/dL Normal 2.2-4.2 [facility] Comment on above: Performed By: #### L 500.4050, L100.0100, L3100.2300 ####[facility] [address] [place], [address] Glucose [Mass/Vol] 83 mg/dL Normal 74-106 [facility] Comment on above: Performed By: #### L 500.4050, L100.0100, L3100.2300 ####[facility] [address] [place], [address] Potassium [Moles/Vol] 3.8 mmol/L Normal 3.5-5.1 [facility] Comment on above: Performed By: #### L 500.4050, L100.0100, L3100.2300 ####[facility] [address] [place], [address] Sodium [Moles/Vol] 138 mmol/L Normal 136-145 [facility] Comment on above: Performed By: #### L 500.4050, L100.0100, L3100.2300 ####[facility] [address] [place], [address] T PROT 7.7 g/dL Normal 6.4-8.2 [facility] Comment on above: Performed By: #### L 500.4050, L100.0100, L3100.2300 ####[facility] [address] [place], [address] Urea nitrogen [Mass/Vol] 15 mg/dL Normal 7-18 [facility] Comment on above: Performed By: #### L 500.4050, L100.0100, L3100.2300 ####[facility] [address] [place], [address] Radiation Oncology Visiton 0 06-11-2024 Radiation Oncology Visit [facility] [address] [place] [address] OFFICE VISIT Date of Service: 06/11/24 1333 MR#: [id number] Acct: [id number] Name: BARBARA RESENDIZ Rep #: [id number] : 1955 From: Bill Trotter DO Age/Sex: 69/F Location: [facility] Status: Signed Intake Vital Signs 12/14/23 11:11 06/07/24 06:52 06/11/24 13:39 Height 5 ft 5 in 5 ft 5 in 5 ft 5 in Weight: 126 lb 3 oz BMI 20.9 BP 150/79 H Blood Pressure Location Lt brachial Position Sitting Respiration 16 Pulse 64 Pulse Source Monitor Temp 97.5 F L Temperature Source Temporal Artery Pulse Oximetry (%) 96 Oxygen Delivery Method room air Intake Visit Reasons: 6 MONTH F/U RECTAL Is patient in pain?: Yes (back) Pain scale (1-10): 5 Allergies hydrocodone (From Vicodin) Allergy (Verified 06/11/24 13:38) Rash latex Allergy (Verified 06/11/24 13:38) Rash prochlorperazine (From Compazine) Adverse Reaction (Intermediate, Verified 06/11/24 13:38) agitation/restless bacitracin (From Polysporin) Adverse Reaction (Verified 06/11/24 13:38) Other polymyxin B (From Polysporin) Adverse Reaction (Verified 06/11/24 13:38) Other Medications ???Medication ???Instructions ???Recorded ???Confirmed ???Type multivitamin with minerals 1 ea PO DAILY 04/22/20 06/11/24 History vit C 250 mg-vit E 90 mg-zinc 40 1 ea PO DAILY 04/22/20 06/11/24 History mg-copper 1 rq-nxylmg-xjrxoc capsule (PreserVision AREDS-2) Zinc AG 20 mg PO DAILY 01/04/23 06/11/24 History cholecalciferol (vitamin D3) 125 125 mcg PO DAILY 01/04/23 06/11/24 History mcg (5,000 unit) capsule fluticasone propionate 50 2 spray intranasal DAILY 01/04/23 06/11/24 History mcg/actuation nasal spray,suspension loratadine 10 mg tablet 10 mg PO DAILY PRN ALLERGIES 01/16/23 06/11/24 History acetaminophen 325 mg tablet 650 mg PO Q6H PRN fever or pain 03/23/23 06/11/24 History ibuprofen 200 mg capsule 200 mg PO Q6H PRN pain 03/23/23 06/11/24 History famotidine 20 mg tablet (Pepcid) 20 mg PO PRN 05/08/24 06/11/24 History Have you fallen in the past year?: No PFSH PFSH Medical History Neuropathy Encounter for chemotherapy management Drug induced neutropenia Abdominal cramping Anxiety in cancer patient Anxiety Hypokalemia CINV (chemotherapy-induced nausea and vomiting) Encounter for education Rectal cancer Wears contact lenses Wears glasses Post-menopausal Cancer Arthritis Injury of head and neck History of GI bleed Gastric reflux Non-smoker History of stress test Home Medications ???Medication ???Instructions ???Recorded ???Last Taken ???Type multivitamin with minerals 1 ea PO DAILY 04/22/20 Unknown History vit C 250 mg-vit E 90 mg-zinc 40 1 ea PO DAILY 04/22/20 Unknown History mg-copper 1 lr-qqoloo-dnmukd capsule (PreserVision AREDS-2) Zinc AG 20 mg PO DAILY 01/04/23 Unknown History cholecalciferol (vitamin D3) 125 125 mcg PO DAILY 01/04/23 Unknown History mcg (5,000 unit) capsule fluticasone propionate 50 2 spray intranasal DAILY 01/04/23 Unknown History mcg/actuation nasal spray,suspension loratadine 10 mg tablet 10 mg PO DAILY PRN ALLERGIES 01/16/23 Unknown History acetaminophen 325 mg tablet 650 mg PO Q6H PRN fever or pain 03/23/23 Unknown History ibuprofen 200 mg capsule 200 mg PO Q6H PRN pain 03/23/23 Unknown History famotidine 20 mg tablet (Pepcid) 20 mg PO PRN 05/08/24 Unknown History Allergy/AdvReac Type Severity Reaction Status Date / Time hydrocodone (From Vicodin) Allergy Rash Verified 06/11/24 13:38 latex Allergy Rash Verified 06/11/24 13:38 prochlorperazine (From AdvReac Intermediate agitation/r Verified 06/11/24 13:38 Compazine) estless bacitracin (From Polysporin) AdvReac Other Verified 06/11/24 13:38 polymyxin B (From Polysporin) AdvReac Other Verified 06/11/24 13:38 Family History Mother Breast cancer, Onset Age: 57 Sister Breast cancer Dx in her 60's Diabetes Father Diabetes Heart disease Aunt Breast cancer x3 maternal aunts Surgical History History of removal of Port-a-Cath Hx of dilation and curettage Hx of umbilical hernia repair History of dental yazidism Hx of tubal ligation Hx of rhinoplasty History of lumpectomy History of hysteroscopy Social History adopted: No household members: spouse housing: house number of children: 3 current occupational status: retired current occupational exposures/hazards: No pets and animals: No leisure activities: other history of recent travel: No sexually active: No Smoking Status: Never smoker (more content not included)... Normal [facility] Colonoscopy Reporton 024 Colonoscopy Report [facility] Medical Records Department [address] [place] [address] Colonoscopy Report MR#: [id number] Acct: [id number] Name: BARBARA RESENDIZ Rep #: [id number] : 1955 69 From: Kalyan Amos MD PCP: Dr. Se Phan MD Status:REG [facility] Patient Name: Barbara Resendiz Procedure Date: 06/07/2024 7:09 AM Date of : 1955 Age: 69 Procedure: Colonoscopy Indications: High risk colon cancer surveillance: Personal history of colon cancer Providers: Kalyan Amos MD Referring MD: Se Phan Medicines: Propofol per Anesthesia Patient Profile: This is a 69 year old female. Refer to note in patient chart for documentation of history and physical. Last Colonoscopy: 1 year ago. Complications: No immediate complications. Procedure: Pre-Anesthesia Assessment: - Prior to the procedure, a History and Physical was performed, and patient medications and allergies were reviewed. The patient's tolerance of previous anesthesia was also reviewed. The risks and benefits of the procedure and the sedation options and risks were discussed with the patient. All questions were answered, and informed consent was obtained. Prior Anticoagulants: The patient has taken no anticoagulant or antiplatelet agents. After reviewing the risks and benefits, the patient was deemed in satisfactory condition to undergo the procedure. After I obtained informed consent, the scope was passed under direct vision. Throughout the procedure, the patient's blood pressure, pulse, and oxygen saturations were monitored continuously. The pediatric colonoscope was introduced through the anus and advanced to the cecum, identified by appendiceal orifice and ileocecal valve. The colonoscopy was performed without difficulty. The patient tolerated the procedure well. The quality of the bowel preparation was good. The ileocecal valve, appendiceal orifice, and rectum were photographed. Scope In: 7:32:54 AM Scope Withdrawal Time 0 hours 6 minutes 7 seconds Scope Out: 7:49:17 AM Total Procedure Duration Time 0 hours 16 minutes 23 seconds Findings: The entire examined colon appeared normal on direct and retroflexion views. Impression: - The entire examined colon is normal on direct and retroflexion views. - No specimens collected. Recommendation: - Discharge patient to home. - Resume previous diet. - Continue present medications. - Repeat colonoscopy in 1 year for surveillance. Procedure Code(s): --- Professional --- 98148, Colonoscopy, flexible; diagnostic, including collection of specimen(s) by brushing or washing, when performed (separate procedure) Diagnosis Code(s): --- Professional --- Z85.038, Personal history of other malignant neoplasm of large intestine CPT copyright 2021 [employer]. All rights reserved. The codes documented in this report are preliminary and upon it application support analyst review may be revised to meet current compliance requirements. Kalyan Amos MD 06/07/2024 7:53:33 AM This report has been signed electronically. Number of Addenda: 0 Note Initiated On: 06/07/2024 7:09 AM 06/07/24 0753 Date Kalyan Amos MD Cosigner Signature: Date (if indicated) CC: Dr. Kalyan Amos MD; Dr. Se Phan MD Date Dictated: 06/07/24 0709 Date Transcribed: Contact Agent: SHAN Signed Normal [facility] MR/POSTOP.ANEon 06-07-2024 MR/POSTOP.ANE [facility] Medical Records Department [address] [place] [address] Anesthesia Postop Eval I 06/07/24755 MR#: [id number] Acct: [id number] Name: BARBARA RESENDIZ Rep #: [id number] : 1955 69 From: Neptali Jenkins PCP: Dr. Se Phan MD Status:[facility] Y Race: C Location: [place] [address] Anesthesia: Postop Eval I Current Vital Signs Temperature: 97 F Pulse Rate: 16 Blood Pressure: 118/68 Respiratory Rate: 16 Pulse Ox: 98 Oxygen Delivery Method: Room Air Assessment Airway patent: Yes Spontaneous unlabored respirations: Yes Mental status: Asleep nausea: No Vomiting: No Anesthesia Complication: No Fluid Hydration Crystalloid volume administer (ml): 800 Total IV fluid infused: 800 Progress Note Anesthesia document: Postop Eval 1 completed: Yes 06/07/24755 Date Neptali Tan Signature: Date CC: Signed Normal [facility] MR/[id number] 06-07-2024 MR/POSTOPAN2 [facility] Medical Records Department [address] [place] [address] Anesthesia Postop Eval II 06/07/24 1545 MR#: [id number] Acct: [id number] Name: BARBARA RESENDIZ Rep #: [id number] : 1955 69 From: Blaine Barnes MD PCP: Dr. Se Phan MD Status:[facility] Y Race: C Location: [place] Anesthesia Postop Eval I Sum Postop Eval Completion status Anesthesia document: Postop Eval 1 completed: Yes Anesthesia Postop Eval I Summary Anesthesia Postop Eval I Summary: Anesthesia Postop Eval I: Assessment Summary Airway patent Yes 06/07/24 07:56 [email or web address] Spontaneous unlabored Yes 06/07/24 07:56 [email or web address] respirations Mental status Asleep 06/07/24 07:56 [email or web address] nausea No 06/07/24 07:56 [email or web address] Vomiting No 06/07/24 07:56 [email or web address] Anesthesia Postop Eval I: Fluid Summary Crystalloid volume administer 800 06/07/24 07:56 [email or web address] (ml) Colloids volume administered ( ml) Blood Product volume administered (ml) Total IV fluid infused 800 06/07/24 07:56 [email or web address] Anesthesia Postop Eval I: Summary Notes Anesthesia Complication No 06/07/24 07:56 [email or web address] Anesthesia Complication Comment: Post-operative progress note Anesthesia: Postop Eval II Evaluation Mental status: Awake Pain Level: 0 nausea: No Vomiting: No 06/07/24 1545 Date Blaine Tan Signature: Date CC: Signed Normal [facility] Surgery Visit Reporton 05-08 Surgery Visit Report [facility] [address] [place] [address] [address] [place] [address] OFFICE VISIT Date of Service: 05/08/24 MR#: [id number] Acct: [id number] Name: BARBARA RESENDIZ Rep #: [id number] : 1955 Provider: LATOYA gannon Age/Sex: 68/F Location: [facility] Status: Signed Intake Vital Signs 02/05/24 14:09 04/22/24 15:23 05/08/24 14:53 Height 5 ft 5 in 5 ft 5 in 5 ft 5 in Weight: 126 lb 8 oz 127 lb BMI 21.0 21.1 BP 139/75 H 156/82 H Blood Pressure Location Lt brachial Rt brachial Position Sitting Sitting Respiration 16 18 Pulse 61 Pulse Source Monitor Temp 97.3 F L Pulse Oximetry (%) 99 Oxygen Delivery Method room air Intake Visit Reasons: COLONOSCOPY RECALL Chief Complaint: c-scope Custody Officer Required: No Is patient in pain?: No Allergies hydrocodone (From Vicodin) Allergy (Verified 05/08/24 14:53) Rash latex Allergy (Verified 05/08/24 14:53) Rash prochlorperazine (From Compazine) Adverse Reaction (Intermediate, Verified 05/08/24 14:53) agitation/restless bacitracin (From Polysporin) Adverse Reaction (Verified 05/08/24 14:53) Other polymyxin B (From Polysporin) Adverse Reaction (Verified 05/08/24 14:53) Other Medications ???Medication ???Instructions ???Recorded ???Confirmed ???Type multivitamin with minerals 1 ea PO DAILY 04/22/20 05/08/24 History vit C 250 mg-vit E 90 mg-zinc 40 1 ea PO DAILY 04/22/20 05/08/24 History mg-copper 1 ev-[id number] capsule (PreserVision AREDS-2) Zinc AG 20 mg PO DAILY 01/04/23 05/08/24 History cholecalciferol (vitamin D3) 125 125 mcg PO DAILY 01/04/23 05/08/24 History mcg (5,000 unit) capsule fluticasone propionate 50 2 spray intranasal DAILY 01/04/23 05/08/24 History mcg/actuation nasal spray,suspension loratadine 10 mg tablet 10 mg PO DAILY PRN ALLERGIES 01/16/23 05/08/24 History acetaminophen 325 mg tablet 650 mg PO Q6H PRN fever or pain 03/23/23 05/08/24 History ibuprofen 200 mg capsule 200 mg PO Q6H PRN pain 03/23/23 05/08/24 History promethazine 25 mg tablet 25 mg PO Q6H PRN nausea and 05/01/23 04/22/24 Rx vomiting #30 tabs famotidine 20 mg tablet (Pepcid) 20 mg PO .prn 05/08/24 05/08/24 History nerve supplement PO 05/08/24 History Have you fallen in the past year?: No PFSH Medical History (Updated 05/08/24 @ 14:56 by Payton Haynes) Neuropathy Rectal cancer Encounter for chemotherapy management Drug induced neutropenia Abdominal cramping Anxiety in cancer patient Anxiety Hypokalemia CINV (chemotherapy-induced nausea and vomiting) Encounter for education Wears contact lenses Wears glasses Post-menopausal Cancer Arthritis Injury of head and neck History of GI bleed Gastric reflux Non-smoker History of stress test Surgical History Hx of dilation and curettage Hx of umbilical hernia repair History of dental yazidism Hx of tubal ligation Hx of rhinoplasty History of lumpectomy History of hysteroscopy Family History Mother Breast cancer, Onset Age: 57 Sister Breast cancer Dx in her 60's Diabetes Father Diabetes Heart disease Aunt Breast cancer x3 maternal aunts Social History adopted: No household members: spouse housing: house number of children: 3 current occupational status: retired current occupational exposures/hazards: No pets and animals: No leisure activities: other history of recent travel: No sexually active: No Smoking Status: Never smoker alcohol intake: never substance use type: does not use diet: other well-balanced diet: daily or most days caffeine: Yes eating out: rarely or never during the past year weight has: decreased > 10 lbs what type of physical activity do you participate in: none facundo/anabaptism: Caodaism seatbelt use: always do you feel safe at home: Yes HPI HPI Surgical H P: Yes HPI: Patient is a 68 y/o F I am seeing for personal history of rectal cancer. Patient is due for a colonoscopy 1 year after her diagnosis. Patient's most recent colonoscopy was completed on December 22, [address] Jarvis. A rectal mass was found at that time on the left lateral side about 4 to 5 cm from the anal verge. She also had a cecal, splenic flexure, and sigmoid polyps. Pathology demonstrated the rectal mass was an invasive well-differentiated adenocarcinoma. The patient completed radiation therapy on 04/30/23 and chemotherapy on 08/2023. She was evaluated by Dr. Dago Andre at [facility]. She states she did not have any surgical intervention on the rectal cancer, only chemo and radiation. She has been following with Dr. Berger. Patient has recently had a follow (more content not included)... Normal [facility] Oncology Visit Reporton 03-26 Oncology Visit Report [facility] [place] [address] OFFICE VISIT Date of Service: 04/22/24 1522 MR#: [id number] Acct: [id number] Name: BARBARA RESENDIZ Rep #: [id number] : 1955 From: Lamin Berger MD Age/Sex: 68/F Location: [facility] Status: Signed HPI Subjective Date of Service 04/22/24 Chief Complaint Rectum cancer on surveillance History of Present Illness 68-year-old female who presented with rectal bleeding. December 22, 2022 colonoscopy: Rectal mass left lateral at 4 to 5 cm from anal verge friable and bleeding. MICROSCOPIC DIAGNOSIS A. Cecal polyp, biopsy: Fragments of benign colonic mucosa. See comment. B. Colonic polyp at splenic flexure, biopsy: Tubular adenoma. C. Proximal sigmoid colon polyp, biopsy: Tubular adenoma. D. Left rectal wall mass, biopsy: Invasive well differentiated adenocarcinoma. ANTIBODY / CLONE RESULT Block D Her-2neu (CB11) negative CANTOR-2 (SP21) positive MLH-1 (M1) positive MSH2 (25D12) positive MSH6 (44) positive PMS2 (IET5473) positive Ki-67 (30-9) positive P53 (DO-7) positive (Missense mutation pattern) Negative (no loss of mismatch protein; no microsatellite instability detected). December 23, 2022 CT abdomen and pelvis: FINDINGS: Linear density is seen in the left lower lobe. This abuts the pleural surface laterally. There is a 1.5 cm x 0.9 cm pleural-based nodule in the peripheral aspect of the left lower lobe.??? The visualized portions of the heart are within normal limits. There is decreased attenuation of the liver consistent with steatosis. There is a 9.5 mm x 6.5 mm cyst in the medial aspect of the left lobe of the liver. There is also evidence of a 8.6 mm x 9.4 mm cyst in the anterior lower aspect of the right lobe of the liver. There is evidence of a Deandra''s lobe of the right lobe of the liver.??? Normal gallbladder and extrahepatic biliary system.??? Normal spleen.??? Normal pancreas. Normal bilateral adrenal glands. Normal right kidney.??? Normal left kidney. Normal visualized stomach.??? Normal small intestine.??? Circumferential wall thickening of the rectum in keeping with the patient''s history of a rectal mass.??? The appendix is visualized and appears normal. Normal abdominal aorta.??? Normal inferior vena cava.??? Normal retroperitoneum. Normal urinary bladder.??? There is a 3.3 cm x 2.8 cm cyst in the left ovary. Normal abdominal wall.??? Exaggerated lumbar lordosis. Grade 1 anterolisthesis of L4 on L5 most likely secondary to facet joint osteoarthritis. IMPRESSION: Linear density at the peripheral aspect of the left lower lobe abutting the pleural surface where there is a 1.5 cm x 0.9 cm pleural-based nodule. This may represent scarring although a neoplastic process cannot BE. Correlation with a PET scan is recommended. Fatty infiltration of the liver. Small hepatic cysts. Deandra''s lobe of the liver. 2.8 cm x 3.3 cm cyst in the left ovary January 10, 2023 PET/CT initial staging: IMPRESSION: 1. ABNORMAL EXAMINATION INDICATIVE OF MALIGNANT-VIABLE NEOPLASM. 2. Increased radiopharmaceutical concentration defined in the rectum-rectal vault fulfills quantitative criteria for viable malignant transformation. 3. Facilitated uptake noted in the right lower anteromedial lung zone, right middle lobe, does not fulfill quantitative criteria for neoplastic infiltration (Goel et al, Journal of Nuclear Medicine, 32:1, 1991). 4. Anatomic stability may be ensured in the right lower anteromedial lung field metabolic abnormality with repeat CT of the thorax in 3-6 months if clinically indicated. (Amanda, Seminars in Thoracic and Cardiovascular surgery, 14:292, 2002). January 12, 2023 pelvic MRI staging: FINDINGS: Normal urinary bladder. Simple, nonenhancing left adnexal cyst measures 2.9 x 3.2 cm.??? ACR White Paper guidelines (Chapin, et. al. JACR 2020;17(2):248-254) suggest no follow-up is necessary. 7 cm above the anus, there is a lobular mass of the mid rectum is correlated to mass evident on prior PET scan. Confined to the muscularis propria WITHOUT extension into the perirectal fat. Small perirectal lymph nodes including 3.4 x 5.3 mm perirectal lymph node on image 8 of series 7 with smooth margins and no significant enhancement (to not meet criteria for morphologic malignant criteria). The mass is at the level of the anterior peritoneal reflection but without evidence of intraperitoneal seeding/thickening. The mass is located at the 10:00 to 12:00 position with cemented circumferential appearance. No mucinous component. There is no pelvic fluid.??? There is no pelvic mass lesion or lymphadenopathy. Normal visualized pelvic arteries.??? No bone marrow edema.??? Normal abdominal wall. IMPRESSION: 1.??? Mid rectal mass/neoplasm, as above (T2, N0). March 03, 2023 MRI of the (more content not included)... [facility] Office Visit ([facility] ) -- BARBARA RESENDIZ ([id number]) 1955 F Date Time Provider Department 04/09/24 10:15 AM DAGO ANDRE [facility] During your visit today, we recorded the following information about you: Weight Height 57.1 kg 1.676 m René Herrera MD 04/09/2024 10:29 AM Attested -- Attestation signed by Dago Andre MD at 04/09/2024 10:29 AM [facility] STAFF PHYSICIAN NOTE OF PERSONAL INVOLVEMENT IN CARE I have reviewed the history and physical examination and procedure note obtained and documented by the resident and I personally participated in the kc components. I have discussed the case and management of the patient's care. The following comments revise or confirm relevant kc components of their note. IMPRESSION: This is a 68 year old female who presents with rectal cancer and no sign of recurrence on scope today PLAN: Will get MRI, CT, CEA today and then re-present at MDT. No sign of scope today or recurrence including with retroflexion. Is in need of a colonoscopy and it was on Monday but she rescheduled. Went over the [facility] protocol as above. Will call after MDT. Plan of care discussed with Patient CARE COORDINATION: Went through the risks of need surgery as well that if surgery was performed that may have no residual disease. SIGNATURE: Dago Andre MD DATE of SERVICE: April 09, 2024 TIME of SERVICE: 10:27 AM -- COLORECTAL SURGERY Follow-up April 04, 2024 Chief complaint: Rectal cancer HPI: Alicia Resendiz is a 68-year-old female here today for follow up for diagnosis of rectal cancer. She was last seen by Dr Andre in January of 2023, and after exam, imaging, and TB discussion it was recommended that she proceed with JENNY, and possible Lx LAR if not complete response. 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 Her last chemotherapy treatment was on September 06 Scope w/ Dr Andre on 10.10.2023 showed complete endoscopic response, but MRI showed incomplete response with likely residual tumor - mrTRG grade 3 - see below. Her case was presented to [facility] TB and it was recommended that she proceed with surveillance at this time with MRI and scope in three months - these were both done in December 2023, case was re-presented to [facility]T in December 2023 where it was recommended that she continue with surveillance - she is here today for flex sig and imaging. She has a history of hx of breast cancer arthritis, tubal ligation, umbilical hernia repair. States she feels well, tolerating a diet and having baseline bowel movements. No weight loss. No bloody bowel movements. 12.29.2023 MDT Tumor board discussion and recommendation: Continue active surveillance (Watch AND Wait) with following schedule: Exam, LILO, CEA AND Flex Sig: Years 0-2 every 3 months; Years 3-4 every 6 months; Years 5-10 yearly MRI Pelvis: Years 0-4 every 6 months; Years 5-[address] C/A/P with Contrast: Years 0-2 every 6 months; Years 3-10 yearly Colonoscopy: 1 year after treatment then every 3 years Discussion: MRI reviewed and there was no evidence of tumor on diffusion evidence per Dr. Jolley. With that comfortable to continue surveillance. CEA is 1.8 12.26.2023 flex sig Findings: The perianal and digital rectal examinations were normal. A scar was found in the rectum. The scar was unremarkable in appearance. Impression: - Preparation of the colon was fair. - Scar in the rectum. - No specimens collected. 12.26.2023 MRI rectum IMPRESSION: Low/mid rectal fibrosis with decreased, but persistent residual viable tumor. Since 10/10/2023, post treatment primary tumor assessment: Incomplete response (likely residual tumor). mrTRG: Grade 3 - Moderate response Suspicious Mesorectal lymph nodes: No. Suspicious Extramesorectal lymph nodes: No. 10.13.2023 recs Tumor board discussion and recommendation: Repeat MRI and flex sig in 3 months. Discordant findings of MRI and flex sig. Discussion: Repeat MRI and flex sig in 3 months. Discordant findings of MRI and flex sig. Suspect that will have complete response as on MRI has very good response. 10.10.2023 CT C/A/P No abdominopelvic metastatic disease No interval change, no convincing findings of metastatic disease in the thorax 10.10.2023 MRI rectum IMPRESSION: Decreased size of the low/mid rectal mass with residual viable tumor. Since MRI 03/03/2023, post treatment primary tumor assessment: Incomplete response (likely residual tumor). mrTRG: Grade 3 - Moderate response Suspicious Mesorectal lymph nodes: No. Suspicious Extramesorectal lymph nodes: (more content not included)... Normal [facility] CREATININE, BLOOD (POC)on Creatinine [Mass/Vol] 0.80 mg/dL 0.7 - 1.4 mg/dL [facility] eGFR (POCT) mL/min/1.73 m2 [facility] Location:Radiology [facility], [address] [place] [address], [address] [place] [address] POINT OF CARE [facility] CT ABD/PEL W IVCONon 024 CT ABD/PEL W IVCON * * *Final Report* * * DATE OF EXAM: Apr 09 2024 2:25PM [facility] 0530 - CT ABD/PEL W IVCON / PROCEDURE REASON: Malignant neoplasm of rectum (HCC) * * * * Physician Interpretation * * * * EXAMINATION: CT ABDOMEN AND PELVIS WITH IV CONTRAST CLINICAL HISTORY: Malignant neoplasm of the mid/low rectum. TECHNIQUE: CT of the abdomen and pelvis was performed using standard technique, scanning from just above the dome of the diaphragm to the symphysis pubis. MQ: CTAP_3 Contrast: IV: 100 ml of Omnipaque 350 Oral: 450 ml of Omni 240 10-25ml diluted with water CT Radiation dose: Integrated Dose-length product (DLP) for this visit = 401 mGy*cm. CT Dose Reduction Employed: Automated exposure control(AEC) and iterative recon COMPARISON: MRI 10/10/2023; CT 10/10/2023 RESULT: Liver: Stable bilobar cysts. Additional subcentimeter hypoattenuating lesions, too small to characterize, but likely benign. No new or enlarging hepatic lesion. Biliary: No bile duct dilation. Gallbladder is unremarkable. Spleen: No mass. No splenomegaly. Pancreas: No mass or duct dilation. Adrenals: No mass. Kidneys: No mass, calculus or hydronephrosis. GI tract: No dilation. Small hiatal hernia. Mild upper rectal and distal sigmoid wall thickening, likely post-treatment related. Rectal mass not well visualized on this exam. Normal appendix. Lymph nodes: No abdominal or pelvic lymphadenopathy. Mesentery/Peritoneum: No ascites or mass. Retroperitoneum: No mass. Vasculature: - Abdominal aorta and iliac arteries: Patent. No aneurysm. - Celiac and SMA: Patent without stenosis. - Portal venous system (SMV, splenic vein, portal vein and branches): Patent. - Hepatic veins: Patent. Pelvis: No mass, ascites or fluid collection. Stable 3.3 cm left adnexal cyst. Subcentimeter right upper perirectal calcified focus, presumed calcified epiploic appendage, unchanged. Bones/Soft Tissues: Degenerative changes without destructive lesion. Lower thorax: A chest CT performed will be reported separately. Localizer images: No additional findings. IMPRESSION: No abdominopelvic metastatic disease. Contact Agent[facility] Transcribe Date/Time: Apr 09 2024 2:38P Dictated by : SIRISHA MARINO MD This examination was interpreted and the report reviewed and electronically signed by: GUY DELA CRUZ MD on Apr 09 2024 3:35PM EST [id number] Normal [facility] CT Abdomen and Pelvis W cont rast Brendan 04-09-2024 IMPRESSION: No abdominopelvic metastatic disease. Contact Agent: [facility] Transcribe Date/Time: Apr 09 2024 2:38P Dictated by : SIRISHA MARINO MD This examination was interpreted and the report reviewed and electronically signed by: GUY DELA CRUZ MD on Apr 09 2024 3:35PM [facility] DIVISION OF RADIOLOGY * * *Final Report* * * DATE OF EXAM: Apr 09 2024 2:25PM [facility] [place]30 - CT ABD/PEL W IVCON / PROCEDURE REASON: Malignant neoplasm of rectum (HCC) * * * * Physician Interpretation * * * * EXAMINATION: CT ABDOMEN AND PELVIS WITH IV CONTRAST CLINICAL HISTORY: Malignant neoplasm of the mid/low rectum. TECHNIQUE: CT of the abdomen and pelvis was performed using standard technique, scanning from just above the dome of the diaphragm to the symphysis pubis. MQ: CTAP_3 Contrast: IV: 100 ml of Omnipaque 350 Oral: 450 ml of Omni 240 10-25ml diluted with water CT Radiation dose: Integrated Dose-length product (DLP) for this visit = 401 mGy*cm. CT Dose Reduction Employed: Automated exposure control(AEC) and iterative recon COMPARISON: MRI 10/10/2023; CT 10/10/2023 RESULT: Liver: Stable bilobar cysts. Additional subcentimeter hypoattenuating lesions, too small to characterize, but likely benign. No new or enlarging hepatic lesion. Biliary: No bile duct dilation. Gallbladder is unremarkable. Spleen: No mass. No splenomegaly. Pancreas: No mass or duct dilation. Adrenals: No mass. Kidneys: No mass, calculus or hydronephrosis. GI tract: No dilation. Small hiatal hernia. Mild upper rectal and distal sigmoid wall thickening, likely post-treatment related. Rectal mass not well visualized on this exam. Normal appendix. Lymph nodes: No abdominal or pelvic lymphadenopathy. Mesentery/Peritoneum: No ascites or mass. Retroperitoneum: No mass. Vasculature: - Abdominal aorta and iliac arteries: Patent. No aneurysm. - Celiac and SMA: Patent without stenosis. - Portal venous system (SMV, splenic vein, portal vein and branches): Patent. - Hepatic veins: Patent. Pelvis: No mass, ascites or fluid collection. Stable 3.3 cm left adnexal cyst. Subcentimeter right upper perirectal calcified focus, presumed calcified epiploic appendage, unchanged. Bones/Soft Tissues: Degenerative changes without destructive lesion. Lower thorax: A chest CT performed will be reported separately. Localizer images: No additional findings. DIVISION OF RADIOLOGY Provider, [facility] - 04/09/2024 * * *Final Report* * * DATE OF EXAM: Apr 09 2024 2:25PM [facility] [place]30 - CT ABD/PEL W IVCON / PROCEDURE REASON: Malignant neoplasm of rectum (HCC) * * * * Physician Interpretation * * * * EXAMINATION: CT ABDOMEN AND PELVIS WITH IV CONTRAST CLINICAL HISTORY: Malignant neoplasm of the mid/low rectum. TECHNIQUE: CT of the abdomen and pelvis was performed using standard technique, scanning from just above the dome of the diaphragm to the symphysis pubis. MQ: CTAP_3 Contrast: IV: 100 ml of Omnipaque 350 Oral: 450 ml of Omni 240 10-25ml diluted with water CT Radiation dose: Integrated Dose-length product (DLP) for this visit = 401 mGy*cm. CT Dose Reduction Employed: Automated exposure control(AEC) and iterative recon COMPARISON: MRI 10/10/2023; CT 10/10/2023 RESULT: Liver: Stable bilobar cysts. Additional subcentimeter hypoattenuating lesions, too small to characterize, but likely benign. No new or enlarging hepatic lesion. Biliary: No bile duct dilation. Gallbladder is unremarkable. Spleen: No mass. No splenomegaly. Pancreas: No mass or duct dilation. Adrenals: No mass. Kidneys: No mass, calculus or hydronephrosis. GI tract: No dilation. Small hiatal hernia. Mild upper rectal and distal sigmoid wall thickening, likely post-treatment related. Rectal mass not well visualized on this exam. Normal appendix. Lymph nodes: No abdominal or pelvic lymphadenopathy. Mesentery/Peritoneum: No ascites or mass. Retroperitoneum: No mass. Vasculature: - Abdominal aorta and iliac arteries: Patent. No aneurysm. - Celiac and SMA: Patent without stenosis. - Portal venous system (SMV, splenic vein, portal vein and branches): Patent. - Hepatic veins: Patent. Pelvis: No mass, ascites or fluid collection. Stable 3.3 cm left adnexal cyst. Subcentimeter right upper perirectal calcified focus, presumed calcified epiploic appendage, unchanged. Bones/Soft Tissues: Degenerative changes without destructive lesion. Lower thorax: A chest CT performed will be reported separately. Localizer images: No additional findings. IMPRESSION IMPRESSION: No abdominopelvic metastatic disease. Contact Agent: LETY Transcribe Date/Time: Apr 09 2024 2:38P Dictated by : SIRISHA MARINO MD This examination was interpreted and the report reviewed and electronically signed by: GUY DELA CRUZ MD on Apr 09 2024 3:35PM EST [facility] Radiology Study observation (narrative) [facility] CT Abdomen and Pelvis W cont rast IVOrdered By: [facility] Provider on 04-09-[address] [facility] [address] CHEST W IVCONon CT CHEST W IVCON * * *Final Report* * * DATE OF EXAM: Apr 09 2024 2:25PM [facility] [place] - CT CHEST W IVCON / PROCEDURE REASON: Malignant neoplasm of rectum (HCC) * * * * Physician Interpretation * * * * EXAMINATION: CHEST CT WITH CONTRAST CLINICAL HISTORY: Malignant neoplasm of rectum Technique: Spiral CT acquisition of the chest from the thoracic inlet to the upper abdomen following IV contrast. MQ: CTCW_6 Contrast: 100 mL Omnipaque [address] Radiation dose: Integrated Dose-length product (DLP) for this visit = 401 mGy*cm CT Dose Reduction Employed: Automated exposure control(AEC) and iterative recon Comparison: 10/10/2023, 06/03/2020 RESULT: Limitations: None. Lines, tubes, and devices: None. Lung parenchyma and airways: No consolidation. Stable benign oval-shaped 6 mm nodule along the minor fissure on image 108, likely a fissural lymph node. There is also stable subpleural 5 mm nodule in right upper lobe posteriorly on image 69. Calcified granuloma in right middle lobe. No new suspicious pulmonary nodule. The central airways are patent. Unchanged bilateral apical scarring. Pleural space: No pleural effusion. No pleural thickening. Lower neck, lymph nodes, and mediastinum: The imaged thyroid gland is normal. No lymphadenopathy in the supraclavicular, axillary, mediastinal, or hilar regions. Heart, pericardium, and thoracic vessels: The thoracic aorta and main pulmonary artery are normal in caliber. The cardiac chambers are normal in size. No coronary artery atherosclerotic calcifications are noted, although the study is not optimized for coronary assessment. No pericardial effusion or thickening. Bones and soft tissues: No destructive bone lesion. Chest wall is unremarkable. Upper abdomen: Dictated separately. Localizer images: No additional findings. IMPRESSION: 1. No interval change, no convincing findings of metastatic disease in the thorax. Contact Agent: LETY Transcribe Date/Time: Apr 09 2024 2:33P Dictated by : JUD MEDEL MD This examination was interpreted and the report reviewed and electronically signed by: JUD MEDEL MD on Apr 09 2024 2:38PM EST [id number] Normal [facility] CT Chest W contrast [facility] Radiology Study observation (narrative) [facility] IMPRESSION: 1. No interval change, no convincing findings of metastatic disease in the thorax. Contact Agent: [facility] Transcribe Date/Time: Apr 09 2024 2:33P Dictated by : JUD MEDEL MD This examination was interpreted and the report reviewed and electronically signed by: JUD MEDEL MD on Apr 09 2024 2:38PM EST DIVISION OF RADIOLOGY * * *Final Report* * * DATE OF EXAM: Apr 09 2024 2:25PM [facility] [place] - CT CHEST W IVCON / PROCEDURE REASON: Malignant neoplasm of rectum (HCC) * * * * Physician Interpretation * * * * EXAMINATION: CHEST CT WITH CONTRAST CLINICAL HISTORY: Malignant neoplasm of rectum Technique: Spiral CT acquisition of the chest from the thoracic inlet to the upper abdomen following IV contrast. MQ: CTCW_6 Contrast: 100 mL Omnipaque [address] Radiation dose: Integrated Dose-length product (DLP) for this visit = 401 mGy*cm CT Dose Reduction Employed: Automated exposure control(AEC) and iterative recon Comparison: 10/10/2023, 06/03/2020 RESULT: Limitations: None. Lines, tubes, and devices: None. Lung parenchyma and airways: No consolidation. Stable benign oval-shaped 6 mm nodule along the minor fissure on image 108, likely a fissural lymph node. There is also stable subpleural 5 mm nodule in right upper lobe posteriorly on image 69. Calcified granuloma in right middle lobe. No new suspicious pulmonary nodule. The central airways are patent. Unchanged bilateral apical scarring. Pleural space: No pleural effusion. No pleural thickening. Lower neck, lymph nodes, and mediastinum: The imaged thyroid gland is normal. No lymphadenopathy in the supraclavicular, axillary, mediastinal, or hilar regions. Heart, pericardium, and thoracic vessels: The thoracic aorta and main pulmonary artery are normal in caliber. The cardiac chambers are normal in size. No coronary artery atherosclerotic calcifications are noted, although the study is not optimized for coronary assessment. No pericardial effusion or thickening. Bones and soft tissues: No destructive bone lesion. Chest wall is unremarkable. Upper abdomen: Dictated separately. Localizer images: No additional findings. DIVISION OF RADIOLOGY Provider, [facility] - 04/09/2024 * * *Final Report* * * DATE OF EXAM: Apr 09 2024 2:25PM [facility] [place] - CT CHEST W IVCON / PROCEDURE REASON: Malignant neoplasm of rectum (HCC) * * * * Physician Interpretation * * * * EXAMINATION: CHEST CT WITH CONTRAST CLINICAL HISTORY: Malignant neoplasm of rectum Technique: Spiral CT acquisition of the chest from the thoracic inlet to the upper abdomen following IV contrast. MQ: CTCW_6 Contrast: 100 mL Omnipaque [address] Radiation dose: Integrated Dose-length product (DLP) for this visit = 401 mGy*cm CT Dose Reduction Employed: Automated exposure control(AEC) and iterative recon Comparison: 10/10/2023, 06/03/2020 RESULT: Limitations: None. Lines, tubes, and devices: None. Lung parenchyma and airways: No consolidation. Stable benign oval-shaped 6 mm nodule along the minor fissure on image 108, likely a fissural lymph node. There is also stable subpleural 5 mm nodule in right upper lobe posteriorly on image 69. Calcified granuloma in right middle lobe. No new suspicious pulmonary nodule. The central airways are patent. Unchanged bilateral apical scarring. Pleural space: No pleural effusion. No pleural thickening. Lower neck, lymph nodes, and mediastinum: The imaged thyroid gland is normal. No lymphadenopathy in the supraclavicular, axillary, mediastinal, or hilar regions. Heart, pericardium, and thoracic vessels: The thoracic aorta and main pulmonary artery are normal in caliber. The cardiac chambers are normal in size. No coronary artery atherosclerotic calcifications are noted, although the study is not optimized for coronary assessment. No pericardial effusion or thickening. Bones and soft tissues: No destructive bone lesion. Chest wall is unremarkable. Upper abdomen: Dictated separately. Localizer images: No additional findings. IMPRESSION IMPRESSION: 1. No interval change, no convincing findings of metastatic disease in the thorax. Contact Agent: LETY Transcribe Date/Time: Apr 09 2024 2:33P Dictated by : JUD MEDEL MD This examination was interpreted and the report reviewed and electronically signed by: JUD MEDEL MD on Apr 09 2024 2:38PM EST [facility] CT Chest W contrast IVOrdere d By: [facility] Provider on 04-09-2024 [facility] Flexible Sigmoidoscopyon Flexible sigmoidoscopy [facility] Cancer Gastrointestinal Endoscopy Patient Name: Barbara Resendiz Procedure Date: 04/09/2024 7:34 AM Date of : 1955 Admit Type: Ambulatory Age: 68 Room: Room 210 ([place] [id number]) Gender: Female Note Status: Finalized Attending MD: Dago Andre MD, [id number] Procedure: Flexible Sigmoidoscopy Indications: High risk colon cancer surveillance: Personal history of rectal cancer Providers: Dago Andre MD Patient Profile: Refer to note in patient chart for documentation of history and physical. Referring Physician: Medicines: None Complications: No immediate complications. Requesting Provider: Procedure: Pre-Anesthesia Assessment: - Prior to the procedure, a History and Physical was performed, and patient medications, allergies and sensitivities were reviewed. The patient's tolerance of previous anesthesia was reviewed. - ASA Grade Assessment: II - A patient with mild systemic disease. After obtaining informed consent, the scope was passed under direct vision. The Bronchoscope was introduced through the anus and advanced to the sigmoid colon. I was present and participated during the entire procedure, including non-kc portions, and during the administration and monitoring of Moderate Sedation. The Endoscope was introduced through the anus and advanced to the sigmoid colon. I was present and participated during the entire procedure, including non-kc portions, and during the administration and monitoring of Moderate Sedation. The flexible sigmoidoscopy was accomplished with ease. The patient tolerated the procedure well. Moderate Sedation: No sedation was administered for this procedure. Findings: The perianal examination was normal. Residual rectal scar No disease recurrance Impression: - No specimens collected. - Residual rectal scar No disease recurrance Recommendation: - Discharge patient to home. - Resume previous diet. - Continue present medications. Attending Participation: I personally performed the entire procedure. Scope In: Scope Out: MD Dago Mcallister MD 04/09/2024 10:12:06 AM This report has been signed electronically by Dago Andre MD Number of Addenda: 0 Note Initiated On: 04/09/2024 7:34 AM Estimated Blood Loss: Estimated blood loss: none. Normal [facility] Flexible sigmoidoscopy study on 04-09-2024 [facility] Cancer Gastrointestinal Endoscopy Patient Name: Barbara Resendiz Procedure Date: 04/09/2024 7:34 AM Date of : 1955 Admit Type: Ambulatory Age: 68 Room: Room 210 ([facility]) Gender: Female Note Status: Finalized Attending MD: Dago Andre MD, [id number] Procedure: Flexible Sigmoidoscopy Indications: High risk colon cancer surveillance: Personal history of rectal cancer Providers: Dago Andre MD Patient Profile: Refer to note in patient chart for documentation of history and physical. Referring Physician: Medicines: None Complications: No immediate complications. Requesting Provider: Procedure: Pre-Anesthesia Assessment: - Prior to the procedure, a History and Physical was performed, and patient medications, allergies and sensitivities were reviewed. The patient's tolerance of previous anesthesia was reviewed. - ASA Grade Assessment: II - A patient with mild systemic disease. After obtaining informed consent, the scope was passed under direct vision. The Bronchoscope was introduced through the anus and advanced to the sigmoid colon. I was present and participated during the entire procedure, including non-kc portions, and during the administration and monitoring of Moderate Sedation. The Endoscope was introduced through the anus and advanced to the sigmoid colon. I was present and participated during the entire procedure, including non-kc portions, and during the administration and monitoring of Moderate Sedation. The flexible sigmoidoscopy was accomplished with ease. The patient tolerated the procedure well. Moderate Sedation: No sedation was administered for this procedure. Findings: The perianal examination was normal. Residual rectal scar No disease recurrance Impression: - No specimens collected. - Residual rectal scar No disease recurrance Recommendation: - Discharge patient to home. - Resume previous diet. - Continue present medications. Attending Participation: I personally performed the entire procedure. Scope In: Scope Out: MD Dago Mcallister MD 04/09/2024 10:12:06 AM This report has been signed electronically by Dago Andre MD Number of Addenda: 0 Note Initiated On: 04/09/2024 7:34 AM Estimated Blood Loss: Estimated blood loss: none. 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 Insufficiency fracture of the left hemisacrum. Since 12/26/2023, post treatment primary tumor assessment: Complete/near complete response. mrTRG: Grade 2 - Good response Suspicious Mesorectal lymph nodes: No. Suspicious Extramesorectal lymph nodes: No. Contact Agent: LETY Transcribe Date/Time: Apr 09 2024 1:42P Dictated by : DAMON DELGADO MD This examination was interpreted and the report reviewed and electronically signed by: JAQUELIN EDWARD MD on Apr 09 2024 3:45PM [facility] DIVISION OF RADIOLOGY * * *Final Report* * * DATE OF EXAM: Apr 09 2024 1:35PM [facility] 0754 - MRI RECTUM WO/W IVCON / PROCEDURE REASON: Malignant neoplasm of rectum (HCC) * * * * Physician Interpretation * * * * MRI OF THE PELVIS WITHOUT AND WITH CONTRAST: RECTAL CANCER RESTAGING CLINICAL HISTORY: Rectal Cancer RESTAGING Pretreatment Tumor Staging: T3a N0 Rectal tumor histology: Adenocarcinoma Prior chemotherapy or radiation: Yes , completed radiation therapy 04/30/2023, last chemotherapy August 2023 Other: Flex sigmoidoscopy performed today showed no signs of recurrence. COMPARISON: Rectal MRI dated 12/26/2023, 10/10/2023, and 03/13/2023 TECHNIQUE: Magnet: 3.0T scanner. Multiplanar MRI with multiple sequences before and after contrast. Contrast: IV: 11 ml of Dotarem Rectal: 60 ml of Surgilube RESULT: TREATED PRIMARY TUMOR CHARACTERISTICS (Compare to pre-treatment): DWI (with associated low ADC) ? restricted diffusion and low ADC in tumor or tumor bed: Absent. MRI-T2W: Entirely dark T2 signal/scar. T2 bright mucin (cannot distinguish between cellular and acellular mucin): Absent. Description: Left lateral wall T2 dark scarring (12:18-20). Distance of the inferior margin of treated tumor to the anal verge: 5.4 cm (2:18) Distance of the inferior margin to the top of sphincter complex/anorectal junction: 2.8 cm (2:18) Relationship to anterior peritoneal reflection: Below Craniocaudal length: 1.8 cm (7:14) Pre-treatment craniocaudal length: 3.8 cm Tumor location: Mid rectum (5-10 cm) Maximal wall thickness: 0.3 cm (10:12) Pre-treatment wall thickness: 1.2 cm Invasion of anal sphincter complex: Absent. Anal canal involvement: None. TUMOR DEPOSITS AND EXTRAMURAL VASCULAR INVASION (EMVI): Tumor deposits:(separate from metastatic lymph nodes): No. EMVI: No (none evident pre-treatment). MESORECTAL FASCIA (MRF): Shortest distance of extraluminal part of the tumor to MRF: Tumor does not extend into the mesorectal fat. Tumor extension through the peritonealized portion of the rectum into peritoneal fat: No extension into peritoneal fat. Is there a separate tumor deposit, LN or EMVI threatening (?1mm and ?2 mm) or invading (< 1 mm) the MRF? No. Comments: Not applicable T4 disease interval change: None POST-TREATMENT TUMOR REGRESSION: mrTRG: Grade 2 - Good response LYMPH NODES: Mesorectal/superior rectal lymph nodes and/or tumor deposits: N0 (no visible lymph nodes/deposits or only < 5 mm short axis) Suspicious extra mesorectal lymph nodes: None. OTHER STRUCTURES/ ORGANS INVOLVED: none OTHER FINDINGS: Insufficiency fracture of the left hemisacrum. 2.7 cm left adnexal cyst. Persistent posttreatment changes of the upper rectal and distal sigmoid colon. Redemonstration of 0.7 cm mobile calcification and pelvis (3:29). The study was reviewed with Dr Alcantar, a member of the rectal cancer multidisciplinary tumor board. DIVISION OF RADIOLOGY Provider, [facility] - 04/09/2024 * * *Final Report* * * DATE OF EXAM: Apr 09 2024 1:35PM [facility] 0754 - MRI RECTUM WO/W IVCON / PROCEDURE REASON: Malignant neoplasm of rectum (HCC) * * * * Physician Interpretation * * * * MRI OF THE PELVIS WITHOUT AND WITH CONTRAST: RECTAL CANCER RESTAGING CLINICAL HISTORY: Rectal Cancer RESTAGING Pretreatment Tumor Staging: T3a N0 Rectal tumor histology: Adenocarcinoma Prior chemotherapy or radiation: Yes , completed radiation therapy 04/30/2023, last chemotherapy August 2023 Other: Flex sigmoidoscopy performed today showed no signs of recurrence. COMPARISON: Rectal MRI dated 12/26/2023, 10/10/2023, and 03/13/2023 TECHNIQUE: Magnet: 3.0T scanner. Multiplanar MRI with multiple sequences before and after contrast. Contrast: IV: 11 ml of Dotarem Rectal: 60 ml of Surgilube RESULT: TREATED PRIMARY TUMOR CHARACTERISTICS (Compare to pre-treatment): DWI (with associated low ADC) ? restricted diffusion and low ADC in tumor or tumor bed: Absent. MRI-T2W: Entirely dark T2 signal/scar. T2 bright mucin (cannot distinguish between cellular and acellular mucin): Absent. Description: Left lateral wall T2 dark scarring (12:18-20). Distance of the inferior margin of treated tumor to the anal verge: 5.4 cm (2:18) Distance of the inferior margin to the top of sphincter complex/anorectal junction: 2.8 cm (2:18) Relationship to anterior peritoneal reflection: Below Craniocaudal length: 1.8 cm (7:14) Pre-treatment craniocaudal length: 3.8 cm Tumor location: Mid rectum (5-10 cm) Maximal wall thickness: 0.3 cm (10:12) Pre-treatment wall thickness: 1.2 cm Invasion of anal sphincter complex: Absent. Anal canal involvement: None. TUMOR DEPOSITS AND EXTRAMURAL VASCULAR INVASION (EMVI): Tumor deposits:(separate from metastatic lymph nodes): No. EMVI: No (none evident pre-treatment). MESORECTAL FASCIA (MRF): Shortest distance of extraluminal part of the tumor to MRF: Tumor does not extend into the mesorectal fat. Tumor extension through the peritonealized portion of the rectum into peritoneal fat: No extension into peritoneal fat. Is there a separate tumor deposit, LN or EMVI threatening (?1mm and ?2 mm) or invading (< 1 mm) the MRF? No. Comments: Not applicable T4 disease interval change: None POST-TREATMENT TUMOR REGRESSION: mrTRG: Grade 2 - Good response LYMPH NODES: Mesorectal/superior rectal lymph nodes and/or tumor deposits: N0 (no visible lymph nodes/deposits or only < 5 mm short axis) Suspicious extra mesorectal lymph nodes: None. OTHER STRUCTURES/ ORGANS INVOLVED: none OTHER FINDINGS: Insufficiency fracture of the left hemisacrum. 2.7 cm left adnexal cyst. Persistent posttreatment changes of the upper rectal and distal sigmoid colon. Redemonstration of 0.7 cm mobile calcification and pelvis (3:29). The study was reviewed with Dr Alcantar, a member of the rectal cancer multidisciplinary tumor board. 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 Insufficiency fracture of the left hemisacrum. Since 12/26/2023, post treatment primary tumor assessment: Complete/near complete response. mrTRG: Grade 2 - Good response Suspicious Mesorectal lymph nodes: No. Suspicious Extramesorectal lymph nodes: No. Contact Agent: [employer] Transcribe Date/Time: Apr 09 2024 1:42P Dictated by : DAMON DELGADO MD This examination was interpreted and the report reviewed and electronically signed by: JAQUELIN EDWARD MD on Apr 09 2024 3:45PM EST [facility] Radiology Study observation (narrative) [facility] MR Pelvis WO contrastOrdered By: [facility] Provider on 04-09-2024 [facility] MRI RECTUM WO/W IVCONon - MRI RECTUM WO/W IVCON * * *Final Report* * * DATE OF EXAM: Apr 09 2024 1:35PM [facility] 0754 - MRI RECTUM WO/W IVCON / PROCEDURE REASON: Malignant neoplasm of rectum (HCC) * * * * Physician Interpretation * * * * MRI OF THE PELVIS WITHOUT AND WITH CONTRAST: RECTAL CANCER RESTAGING CLINICAL HISTORY: Rectal Cancer RESTAGING Pretreatment Tumor Staging: T3a N0 Rectal tumor histology: Adenocarcinoma Prior chemotherapy or radiation: Yes , completed radiation therapy 04/30/2023, last chemotherapy August 2023 Other: Flex sigmoidoscopy performed today showed no signs of recurrence. COMPARISON: Rectal MRI dated 12/26/2023, 10/10/2023, and 03/13/2023 TECHNIQUE: Magnet: 3.0T scanner. Multiplanar MRI with multiple sequences before and after contrast. Contrast: IV: 11 ml of Dotarem Rectal: 60 ml of Surgilube RESULT: TREATED PRIMARY TUMOR CHARACTERISTICS (Compare to pre-treatment): DWI (with associated low ADC) ? restricted diffusion and low ADC in tumor or tumor bed: Absent. MRI-T2W: Entirely dark T2 signal/scar. T2 bright mucin (cannot distinguish between cellular and acellular mucin): Absent. Description: Left lateral wall T2 dark scarring (12:18-20). Distance of the inferior margin of treated tumor to the anal verge: 5.4 cm (2:18) Distance of the inferior margin to the top of sphincter complex/anorectal junction: 2.8 cm (2:18) Relationship to anterior peritoneal reflection: Below Craniocaudal length: 1.8 cm (7:14) Pre-treatment craniocaudal length: 3.8 cm Tumor location: Mid rectum (5-10 cm) Maximal wall thickness: 0.3 cm (10:12) Pre-treatment wall thickness: 1.2 cm Invasion of anal sphincter complex: Absent. Anal canal involvement: None. TUMOR DEPOSITS AND EXTRAMURAL VASCULAR INVASION (EMVI): Tumor deposits:(separate from metastatic lymph nodes): No. EMVI: No (none evident pre-treatment). MESORECTAL FASCIA (MRF): Shortest distance of extraluminal part of the tumor to MRF: Tumor does not extend into the mesorectal fat. Tumor extension through the peritonealized portion of the rectum into peritoneal fat: No extension into peritoneal fat. Is there a separate tumor deposit, LN or EMVI threatening (?1mm and ?2 mm) or invading (< 1 mm) the MRF? No. Comments: Not applicable T4 disease interval change: None POST-TREATMENT TUMOR REGRESSION: mrTRG: Grade 2 - Good response LYMPH NODES: Mesorectal/superior rectal lymph nodes and/or tumor deposits: N0 (no visible lymph nodes/deposits or only < 5 mm short axis) Suspicious extra mesorectal lymph nodes: None. OTHER STRUCTURES/ ORGANS INVOLVED: none OTHER FINDINGS: Insufficiency fracture of the left hemisacrum. 2.7 cm left adnexal cyst. Persistent posttreatment changes of the upper rectal and distal sigmoid colon. Redemonstration of 0.7 cm mobile calcification and pelvis (3:29). The study was reviewed with Dr Alcantar, a member of the rectal cancer multidisciplinary tumor board. 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 Insufficiency fracture of the left hemisacrum. Since 12/26/2023, post treatment primary tumor assessment: Complete/near complete response. mrTRG: Grade 2 - Good response Suspicious Mesorectal lymph nodes: No. Suspicious Extramesorectal lymph nodes: No. Contact Agent: LETY Transcribe Date/Time: Apr 09 2024 1:42P Dictated by : DAMON DELGADO MD This examination was interpreted and the report reviewed and electronically signed by: JAQUELIN EDWARD MD on Apr 09 2024 3:45PM EST [id number] Normal [facility] Flexible sigmoidoscopy study on 12-26-2023 [facility] No Panel InformationOrdered By: DAGO ANDRE on 12-06-2023 Estimated GFR (MDRD) Amer 111 mL/min >60 [facility] Comment on above: GFR Calc Estimated GFR (MDRD) Non-Af Amer 92 mL/min >60 [facility] Comment on above: Non- GFR Calc Serum or plasma creatinine m easurement (mass/volume)Ordered By: DAGO ANDRE on 12-06-2023 Creatinine [Mass/Vol] 0.68 mg/dL 0.55-1.02 [facility] Comment on above: The validity of the calculated GFR & GFRAA in patients over 70 years has not been determined. Clinical correlation is essential. Absolute lymphocyte countOrd ered By: Lamin Berger on 10-25-2023 Lymphocytes Auto (Unsp spec) [#/Vol] 0.47 10*3/uL 0.83-4.51 [facility] Automated lymphocyte count a s percentage of total leukocytesOrdered By: Lamin Berger on 10-25-2023 Lymphocytes/100 WBC Auto (Unsp spec) 18.8 % 19-41 [facility] Basophil percentageOrdered B y: Lamin Berger on 10-25-2023 Basophil percentage 4.1 mg/dL 2.5-4.9 [facility] Basophils/100 WBC (Bld) 0.8 % 0-1 [facility] Bilirubin [Mass/Vol] 0.40 mg/dL 0.20-1.00 [facility] Comment on above: For patients on eltr ombopag therapy, use of Dimension Silex TBIL is not recommended. Chloride [Moles/Vol] 112 mmol/L 98-107 [facility] Eosinophils/100 WBC (Bld) 2.0 % 0-5 [facility] Glucose [Mass/Vol] 101 mg/dL 74-106 [facility] Comment on above: Fasting Glucose resu lt from 100 to 125 mg/dL suggests IMPAIRED HOMEOSTASIS per A.D.A. criteria. Hemoglobin (Bld) [Mass/Vol] 10.7 g/dL 12.0-15.0 [facility] Monocytes/100 WBC (Bld) 14.8 % 0-10 [facility] Neutrophils (Bld) [#/Vol] 1.6 10*3/uL 2.0-7.7 [facility] Neutrophils/100 WBC (Bld) 63.2 % 47-70 [facility] Potassium [Moles/Vol] 4.1 mmol/L 3.5-5.1 [facility] Protein [Mass/Vol] 6.9 g/dL 6.4-8.2 [facility] Sodium [Moles/Vol] 142 mmol/L 136-145 [facility] WBC (Bld) [#/Vol] 2.5 10*3/uL 4.4-11.0 [facility] Determination of erythrocyte mean corpuscular volume (MCV)Ordered By: Lamin Berger on 10-25-2023 MCV (RBC) [Entitic vol] 102.4 fL 81-99 [facility] Erythrocyte distribution wid th ratioOrdered By: Lamin Berger on 10-25-2023 Erythrocyte distribution width (RBC) [Ratio] 14.6 % 11.6-14.6 [facility] Erythrocyte distribution wid th standard deviationOrdered By: Lamin Berger on 10-25-2023 Erythrocyte distribution width (RBC) [Entitic vol] 55.1 fL 35.1-43.9 [facility] Hematocrit Auto (Bld) [Volum e fraction]Ordered By: Lamin Berger on 10-25-2023 Hematocrit (Bld) [Volume fraction] 33.6 % 37-47 [facility] Immature granulocytes/100 WB C Auto (Bld)Or[facility] on 10-25-2023 Immature granulocytes/100 WBC (Bld) 0.400 % 0.0-0.9 [facility] Comment on above: IG% - Immature Granu locytes (promyelocytes, myelocytes and metamyelocytes) > 1% indicates that a LEFT SHIFT is Present. Iron measurement (mass/mass) Ordered By: Lamin Berger on 10-25-2023 Iron (Unsp spec) [Mass/Mass] 81 ug/dL 50-170 [facility] Laboratory - Chemistry and C hemistry - challengeOrdered By: [facility] on 10-25-2023 Albumin/Globulin [Mass ratio] 1.0 {ratio} 0.9-2.4 [facility] ALP [Catalytic activity/Vol] 86 U/L 45-117 [facility] ALT [Catalytic activity/Vol] 27 U/L 13-56 [facility] CO2 [Moles/Vol] 26.0 mmol/L 21.0-32.0 [facility] Cobalamin (Vitamin B12) [Mass/Vol] 1359 pg/mL High 211-911 [facility] Ferritin [Mass/Vol] 51 ng/mL 8-252 [facility] Globulin (S) [Mass/Vol] 3.5 g/dL 2.2-4.2 [facility] Magnesium [Mass/Vol] 2.3 mg/dL 1.6-2.6 [facility] Urea nitrogen/Creatinine [Mass ratio] 18.7 mg/mg 10-20 [facility] Laboratory - Hematology and Cell countsOrdered By: Lamin Berger on 10-25-2023 MCH (RBC) [Entitic mass] 32.6 pg 27.0-32.0 [facility] MCHC (RBC) [Mass/Vol] 31.8 g/dL 32-36 [facility] Nucleated RBC/100 WBC (Bld) [Ratio] 0 % 0-5 [facility] Platelets (Bld) [#/Vol] 146 10*3/uL 150-450 [facility] No Panel InformationOrdered By: Lamin Berger on 10-25-2023 Estimated Creatinine Clearance Calc 55.46 ml/min [facility] Estimated GFR (MDRD) Amer 108 mL/min >60 [facility] Comment on above: GFR Calc Estimated GFR (MDRD) Non-Af Amer 89 mL/min >60 [facility] Comment on above: Non- GFR Calc Total Iron Binding Capacity 313 ug/dL 250-450 [facility] Platelet mean volume Ricardo-Ec ker (Bld) [Entitic vol]Ordered By: Lamin Berger on 10-25-2023 Platelet mean volume (Bld) [Entitic vol] 10.0 fL 6.2-12.0 [facility] RBC Auto (Bld) [#/Vol]Ordere d By: Lamin Berger on 10-25-2023 RBC (Bld) [#/Vol] 3.28 10*6/uL 4.2-5.4 [facility] Review by pathologistOrdered By: Lamin Berger on 10-25-2023 Pathologist review Hari (Unsp spec) [Interp] Reviewed [facility] Comment on above: Previous reported re sult: Hayley perez Edited by: RGOSANDRA on 10/27/23:921Pancytopenia.Leukopenia and Neutropenia.Macrocytic anemia.Normocytic anemia.ThrombocytopeniaClinical correlation necessary.Gustavo Umaña M.D. 10/27/23 AMENDED REPORT 10/27/23921 PATH REV previously reported as: Hayley perez Serum or plasma calcium misty urement (mass/volume)Ordered By: Lamin Berger on 10-25-2023 Calcium [Mass/Vol] 9.2 mg/dL 8.5-10.1 [facility] Serum or plasma creatinine m easurement (mass/volume)Ordered By: Lamin Berger on 10-25-2023 Creatinine [Mass/Vol] 0.70 mg/dL 0.55-1.02 [facility] Comment on above: The validity of the calculated GFR & GFRAA in patients over 70 years has not been determined. Clinical correlation is essential. Serum or plasma iron saturat ion measurement (mass fraction)Ordered By: Lamin Berger on 10-25-2023 Iron saturation [Mass fraction] 25.9 % 15.0-55.0 [facility] Serum or plasma urea nitroge n measurement (mass/volume)Ordered By: Lamin Berger on 10-25-2023 Urea nitrogen [Mass/Vol] 13 mg/dL 7-18 [facility] Thin prep Papanicolaou smear with manual screeningOrdered By: Lamin Berger on 10-25-2023 Thin prep Papanicolaou smear with manual screening 3.4 g/dL 3.2-5.0 [facility] Thin prep Papanicolaou smear with manual screening 20 U/L 15-37 [facility] Thin prep Papanicolaou smear with manual screening 4 5-15 [facility] Blood manual differential co mment interpretation (narrative result)Ordered By: Lamin Berger on 09-06-2023 Manual differential comment Hari (Bld) [Interp] SCANNED [facility] Blood platelet adequacy dete ction by light microscopyOrdered By: Lamin Berger on 09-06-2023 Platelets LM Ql (Bld) MKD DEC ADEQ [facility] Blood band neutrophil count as percentage of total leukocytesOrdered By: Lamin Berger on 08-09-2023 Band form neutrophils/100 WBC (Bld) 11 % High 0-5 [facility] Blood lymphocytes/100 leukoc ytesOrdered By: Lamin Berger on 08-09-2023 Lymphocytes/100 WBC (Bld) 18 % Low 19-41 [facility] Blood monocytes/100 leukocyt esOrdered By: Lamin Berger on 08-09-2023 Monocytes/100 WBC (Bld) 3 % 0-10 [facility] Blood segmented neutrophils/ 100 leukocytesOrdered By: Lamin Berger on 08-09-2023 Segmented neutrophils/100 WBC (Bld) 68 % 47-70 [facility] RBC morphologyOrdered By: Arnel anne Ab on 08-09-2023 RBC morphology finding Nom (Bld) NORM C+C NORMAL NORM C&C [facility] Total cell countOrdered By: Lamin Ab on 08-09-2023 Cells counted Molgen (Bld/Tiss) [#] 100 MANUAL DIFF [facility] Absolute lymphocyte countOrd ered By: Homero Roberts on 05-12-2023 Lymphocytes Auto (Unsp spec) [#/Vol] 0.24 10*3/uL 0.83-4.51 [facility] Basophil percentageOrdered B y: Homero Roberts on 05-12-2023 Basophils/100 WBC (Bld) 0.3 % 0-1 [facility] Chloride [Moles/Vol] 101 mmol/L 98-107 [facility] Eosinophils/100 WBC (Bld) 2.0 % 0-5 [facility] Glucose [Mass/Vol] 130 mg/dL 74-106 [facility] Comment on above: Fasting Glucose resu lt greater than or equal to 126 mg/dL suggests DIABETES MELLITUS per A.D.A. criteria. Neutrophils (Bld) [#/Vol] 8.4 10*3/uL 2.0-7.7 [facility] Neutrophils/100 WBC (Bld) 81.8 % 47-70 [facility] Potassium [Moles/Vol] 3.8 mmol/L 3.5-5.1 [facility] Sodium [Moles/Vol] 134 mmol/L 136-145 [facility] WBC (Bld) [#/Vol] 10.3 10*3/uL 4.4-11.0 [facility] Blood erythrocytes count (nu mber/volume)Ordered By: Homero Roberts on 05-12-2023 RBC (Bld) [#/Vol] 3.91 10*6/uL 4.2-5.4 [facility] Blood hemoglobin measurement (mass/volume)Ordered By: Homero Roberts on 05-12-2023 Hemoglobin (Bld) [Mass/Vol] 12.1 g/dL 12.0-15.0 [facility] Blood lymphocytes/100 leukoc ytesOrdered By: Homero Roberts on 05-12-2023 Lymphocytes/100 WBC (Bld) 2.3 % 19-41 [facility] Blood manual differential co mment interpretation (narrative result)Ordered By: Homero Roberts on 05-12-2023 Manual differential comment Hari (Bld) [Interp] SEE COMMENT [facility] Comment on above: LYMPHOPENIA NOTED Blood monocytes/100 leukocyt esOrdered By: Homero Roberts on 05-12-2023 Monocytes/100 WBC (Bld) 12.8 % 0-10 [facility] Blood platelet adequacy dete ction by light microscopyOrdered By: Homero Roberts on 05-12-2023 Platelets LM Ql (Bld) ADEQUATE ADEQ [facility] Blood platelet mean volumeOr dered By: Homero Roberts on 05-12-2023 Platelet mean volume (Bld) [Entitic vol] 10.2 fL 6.2-12.0 [facility] Blood platelet morphology de termination (nominal result)Ordered By: Homero Roberts on 05-12-2023 Platelet morphology finding Nom (Bld) LARGE [facility] Determination of erythrocyte mean corpuscular volume (MCV)Ordered By: Homero Roberts on 05-12-2023 MCV (RBC) [Entitic vol] 96.4 fL 81-99 [facility] Hematocrit Auto (Bld) [Volum e fraction]Ordered By: Homero Roberts on 05-12-2023 Hematocrit (Bld) [Volume fraction] 37.7 % 37-47 [facility] Laboratory - Chemistry and C hemistry - challengeOrdered By: Homero Roberts on 05-12-2023 CO2 [Moles/Vol] 29.0 mmol/L 21.0-32.0 [facility] Urea nitrogen/Creatinine [Mass ratio] 10.9 mg/mg 10-20 [facility] Laboratory - Hematology and Cell countsOrdered By: Homero Roberts on 05-12-2023 Anisocytosis Ql (Bld) RARE [facility] Erythrocyte distribution width (RBC) [Entitic vol] 48.9 fL 35.1-43.9 [facility] Erythrocyte distribution width (RBC) [Ratio] 14.6 % 11.6-14.6 [facility] Immature granulocytes/100 WBC (Bld) 0.800 % 0.0-0.9 [facility] Comment on above: IG% - Immature Granu locytes (promyelocytes, myelocytes and metamyelocytes) > 1% indicates that a LEFT SHIFT is Present. MCH (RBC) [Entitic mass] 30.9 pg 27.0-32.0 [facility] Nucleated RBC/100 WBC (Bld) [Ratio] 0 % 0-5 [facility] MCHC Auto (RBC) [Mass/Vol]Or dered By: Homero Roberts on 05-12-2023 MCHC (RBC) [Mass/Vol] 32.1 g/dL 32-36 [facility] Macrocytes detectionOrdered By: Homero Roberts on 05-12-2023 Macrocytes Ql (Bld) RARE [facility] No Panel InformationOrdered By: Homero Roberts on 05-12-2023 Estimated Creatinine Clearance Calc 51.69 ml/min [facility] Estimated GFR (MDRD) Amer 79 mL/min >60 [facility] Comment on above: GFR Calc Estimated GFR (MDRD) Non-Af Amer 65 mL/min >60 [facility] Comment on above: Non- GFR Calc Platelets bldOrdered By: Rick Roberts on 05-12-2023 Platelets (Bld) [#/Vol] 284 10*3/uL 150-450 [facility] RBC morphologyOrdered By: Noel Roberts on 05-12-2023 RBC morphology finding Nom (Bld) N CHROM NORMAL NORM C&C [facility] Serum or plasma calcium misty urement (mass/volume)Ordered By: Homero Roberts on 05-12-2023 Calcium [Mass/Vol] 8.8 mg/dL 8.5-10.1 [facility] Serum or plasma creatinine m easurement (mass/volume)Ordered By: Homero Roberts on 05-12-2023 Creatinine [Mass/Vol] 0.92 mg/dL 0.55-1.02 [facility] Comment on above: The validity of the calculated GFR & GFRAA in patients over 70 years has not been determined. Clinical correlation is essential. Serum or plasma urea nitroge n measurement (mass/volume)Ordered By: Homero Roberts on 05-12-2023 Urea nitrogen [Mass/Vol] 10 mg/dL 7-18 [facility] Thin prep Papanicolaou smear with manual screeningOrdered By: Homero Roberts on 05-12-2023 Thin prep Papanicolaou smear with manual screening 4 5-15 [facility] Absolute lymphocyte countOrd ered By: Lamin Berger on 05-08-2023 Lymphocytes Auto (Unsp spec) [#/Vol] 0.19 10*3/uL 0.83-4.51 [facility] Basophil percentageOrdered B y: Lamin Berger on 05-08-2023 Basophil percentage 2.8 mg/dL 2.5-4.9 [facility] Basophils/100 WBC (Bld) 0.3 % 0-1 [facility] Bilirubin [Mass/Vol] 0.40 mg/dL 0.20-1.00 [facility] Comment on above: For patients on eltr ombopag therapy, use of Dimension Silex TBIL is not recommended. Chloride [Moles/Vol] 107 mmol/L 98-107 [facility] Eosinophils/100 WBC (Bld) 6.2 % 0-5 [facility] Glucose [Mass/Vol] 108 mg/dL 74-106 [facility] Comment on above: Fasting Glucose resu lt from 100 to 125 mg/dL suggests IMPAIRED HOMEOSTASIS per A.D.A. criteria. Neutrophils (Bld) [#/Vol] 5.3 10*3/uL 2.0-7.7 [facility] Neutrophils/100 WBC (Bld) 77.2 % 47-70 [facility] Potassium [Moles/Vol] 4.1 mmol/L 3.5-5.1 [facility] Protein [Mass/Vol] 6.3 g/dL 6.4-8.2 [facility] Sodium [Moles/Vol] 139 mmol/L 136-145 [facility] WBC (Bld) [#/Vol] 6.8 10*3/uL 4.4-11.0 [facility] Blood erythrocytes count (nu mber/volume)Ordered By: Lamin Berger on 05-08-2023 RBC (Bld) [#/Vol] 3.65 10*6/uL 4.2-5.4 [facility] Blood hemoglobin measurement (mass/volume)Ordered By: Lamin Berger on 05-08-2023 Hemoglobin (Bld) [Mass/Vol] 11.5 g/dL 12.0-15.0 [facility] Blood lymphocytes/100 leukoc ytesOrdered By: Lamin Berger on 05-08-2023 Lymphocytes/100 WBC (Bld) 2.8 % 19-41 [facility] Blood monocytes/100 leukocyt esOrdered By: [facility] on 05-08-2023 Monocytes/100 WBC (Bld) 12.6 % 0-10 [facility] Blood platelet mean volumeOr dered By: Lamin Berger on 05-08-2023 Platelet mean volume (Bld) [Entitic vol] 9.8 fL 6.2-12.0 [facility] Determination of erythrocyte mean corpuscular volume (MCV)Ordered By: [facility] on 05-08-2023 MCV (RBC) [Entitic vol] 95.3 fL 81-99 [facility] Hematocrit Auto (Bld) [Volum e fraction]Ordered By: [facility] on 05-08-2023 Hematocrit (Bld) [Volume fraction] 34.8 % 37-47 [facility] Laboratory - Chemistry and C hemistry - challengeOrdered By: [facility] Ab on 05-08-2023 ALP [Catalytic activity/Vol] 56 U/L 45-117 [facility] ALT [Catalytic activity/Vol] 19 U/L 13-56 [facility] CO2 [Moles/Vol] 29.0 mmol/L 21.0-32.0 [facility] Globulin (S) [Mass/Vol] 3.3 g/dL 2.2-4.2 [facility] Magnesium [Mass/Vol] 2.5 mg/dL 1.6-2.6 [facility] Urea nitrogen/Creatinine [Mass ratio] 11.0 mg/mg 10-20 [facility] Laboratory - Hematology and Cell countsOrdered By: [facility] on 05-08-2023 Erythrocyte distribution width (RBC) [Entitic vol] 46.3 fL 35.1-43.9 [facility] Erythrocyte distribution width (RBC) [Ratio] 14.2 % 11.6-14.6 [facility] Immature granulocytes/100 WBC (Bld) 0.900 % 0.0-0.9 [facility] Comment on above: IG% - Immature Granu locytes (promyelocytes, myelocytes and metamyelocytes) > 1% indicates that a LEFT SHIFT is Present. MCH (RBC) [Entitic mass] 31.5 pg 27.0-32.0 [facility] Nucleated RBC/100 WBC (Bld) [Ratio] 0 % 0-5 [facility] MCHC Auto (RBC) [Mass/Vol]Or dered By: Lamin Berger on 05-08-2023 MCHC (RBC) [Mass/Vol] 33.0 g/dL 32-36 [facility] No Panel InformationOrdered By: Lamin Berger on 05-08-2023 Estimated Creatinine Clearance Calc 53.75 ml/min [facility] Estimated GFR (MDRD) Amer 79 mL/min >60 [facility] Comment on above: GFR Calc Estimated GFR (MDRD) Non-Af Amer 65 mL/min >60 [facility] Comment on above: Non- GFR Calc Platelets bldOrdered By: Marv Berger on 05-08-2023 Platelets (Bld) [#/Vol] 238 10*3/uL 150-450 [facility] Serum or plasma albumin misty urement (mass/volume)Ordered By: Lamin Berger on 05-08-2023 Albumin [Mass/Vol] 3.0 g/dL 3.2-5.0 [facility] Serum or plasma albumin/glob ulin mass ratioOrdered By: Lamin Berger on 05-08-2023 Albumin/Globulin [Mass ratio] 0.9 {ratio} 0.9-2.4 [facility] Serum or plasma calcium misty urement (mass/volume)Ordered By: Lamin Berger on 05-08-2023 Calcium [Mass/Vol] 8.8 mg/dL 8.5-10.1 [facility] Serum or plasma creatinine m easurement (mass/volume)Ordered By: Lamin Berger on 05-08-2023 Creatinine [Mass/Vol] 0.91 mg/dL 0.55-1.02 [facility] Comment on above: The validity of the calculated GFR & GFRAA in patients over 70 years has not been determined. Clinical correlation is essential. Serum or plasma urea nitroge n measurement (mass/volume)Ordered By: Lamin Berger on 05-08-2023 Urea nitrogen [Mass/Vol] 10 mg/dL 7-18 [facility] Thin prep Papanicolaou smear with manual screeningOrdered By: Lamin Berger on 05-08-2023 Thin prep Papanicolaou smear with manual screening 13 U/L 15-37 [facility] Thin prep Papanicolaou smear with manual screening 3 5-15 [facility] Blood manual differential co mment interpretation (narrative result)Ordered By: Lamin Berger on 04-24-2023 Manual differential comment Hari (Bld) [Interp] SCANNED [facility] Review by pathologistOrdered By: Lamin Berger on 04-17-2023 Pathologist review Hari (Unsp spec) [Interp] Reviewed [facility] Comment on above: Previous reported re sult: Hayley perez Edited by: RGOOD on 04/18/23:1011LeukopeniaClinical correlation necessary.Gustavo Umaña M.D. 04/18/23 AMENDED REPORT 04/18/23 1011 PATH REV previously reported as: Hayley perez Absolute lymphocyte countOrd ered By: Bryant Britt on 04-06-2023 Lymphocytes Auto (Unsp spec) [#/Vol] 1.23 10*3/uL 0.83-4.51 [facility] Basophil percentageOrdered B y: Bryant Britt on 04-06-2023 Basophils/100 WBC (Bld) 0.4 % 0-1 [facility] Chloride [Moles/Vol] 106 mmol/L 98-107 [facility] Eosinophils/100 WBC (Bld) 1.5 % 0-5 [facility] Glucose [Mass/Vol] 119 mg/dL 74-106 [facility] Comment on above: Fasting Glucose resu lt from 100 to 125 mg/dL suggests IMPAIRED HOMEOSTASIS per A.D.A. criteria. Neutrophils (Bld) [#/Vol] 3.7 10*3/uL 2.0-7.7 [facility] Neutrophils/100 WBC (Bld) 67.5 % 47-70 [facility] Potassium [Moles/Vol] 3.7 mmol/L 3.5-5.1 [facility] Sodium [Moles/Vol] 139 mmol/L 136-145 [facility] WBC (Bld) [#/Vol] 5.5 10*3/uL 4.4-11.0 [facility] Basophil percentageOrdered B y: Lamin Berger on 04-06-2023 Chloride [Moles/Vol] 105 mmol/L 98-107 [facility] Glucose [Mass/Vol] 112 mg/dL 74-106 [facility] Comment on above: Fasting Glucose resu lt from 100 to 125 mg/dL suggests IMPAIRED HOMEOSTASIS per A.D.A. criteria. Potassium [Moles/Vol] 3.8 mmol/L 3.5-5.1 [facility] Sodium [Moles/Vol] 140 mmol/L 136-145 [facility] Blood erythrocytes count (nu mber/volume)Ordered By: Bryant Britt on 04-06-2023 RBC (Bld) [#/Vol] 4.26 10*6/uL 4.2-5.4 [facility] Blood hemoglobin measurement (mass/volume)Ordered By: Bryant Britt on 04-06-2023 Hemoglobin (Bld) [Mass/Vol] 13.0 g/dL 12.0-15.0 [facility] Blood lymphocytes/100 leukoc ytesOrdered By: Bryant Britt on 04-06-2023 Lymphocytes/100 WBC (Bld) 22.5 % 19-41 [facility] Blood monocytes/100 leukocyt esOrdered By: Bryant Britt on 04-06-2023 Monocytes/100 WBC (Bld) 7.7 % 0-10 [facility] Blood platelet mean volumeOr dered By: Bryant Britt on 04-06-2023 Platelet mean volume (Bld) [Entitic vol] 10.9 fL 6.2-12.0 [facility] Determination of erythrocyte mean corpuscular volume (MCV)Ordered By: Bryant Britt on 04-06-2023 MCV (RBC) [Entitic vol] 91.8 fL 81-99 [facility] Hematocrit Auto (Bld) [Volum e fraction]Ordered By: Bryant Britt on 04-06-2023 Hematocrit (Bld) [Volume fraction] 39.1 % 37-47 [facility] Laboratory - Chemistry and C hemistry - challengeOrdered By: Bryant Britt on 04-06-2023 CO2 [Moles/Vol] 24.0 mmol/L 21.0-32.0 [facility] Urea nitrogen/Creatinine [Mass ratio] 11.7 mg/mg 10-20 [facility] Laboratory - Chemistry and C hemistry - challengeOrdered By: Lamin Berger on 04-06-2023 CO2 [Moles/Vol] 26.0 mmol/L 21.0-32.0 [facility] Magnesium [Mass/Vol] 2.2 mg/dL 1.6-2.6 [facility] Urea nitrogen/Creatinine [Mass ratio] 12.1 mg/mg 10- [facility] Laboratory - Hematology and Cell countsOrdered By: Bryant Britt on 04-06-2023 Erythrocyte distribution width (RBC) [Entitic vol] 41.3 fL 35.1-43.9 [facility] Erythrocyte distribution width (RBC) [Ratio] 12.3 % 11.6-14.6 [facility] Immature granulocytes/100 WBC (Bld) 0.400 % 0.0-0.9 [facility] Comment on above: IG% - Immature Granu locytes (promyelocytes, myelocytes and metamyelocytes) > 1% indicates that a LEFT SHIFT is Present. MCH (RBC) [Entitic mass] 30.5 pg 27.0-32.0 [facility] Nucleated RBC/100 WBC (Bld) [Ratio] 0 % 0-5 [facility] MCHC Auto (RBC) [Mass/Vol]Or dered By: Bryant Britt on 04-06-2023 MCHC (RBC) [Mass/Vol] 33.2 g/dL 32-36 [facility] No Panel InformationOrdered By: Bryant Britt on 04-06-2023 Estimated Creatinine Clearance Calc 58.58 ml/min [facility] Estimated GFR (MDRD) Amer 86 mL/min >60 [facility] Comment on above: GFR Calc Estimated GFR (MDRD) Non-Af Amer 71 mL/min >60 [facility] Comment on above: Non- GFR Calc No Panel InformationOrdered By: Lamin Berger on 04-06-2023 Estimated Creatinine Clearance Calc 55.91 ml/min [facility] Estimated GFR (MDRD) Amer 80 mL/min >60 [facility] Comment on above: GFR Calc Estimated GFR (MDRD) Non-Af Amer 66 mL/min >60 [facility] Comment on above: Non- GFR Calc Platelets bldOrdered By: Rex Britt on 04-06-2023 Platelets (Bld) [#/Vol] 199 10*3/uL 150-450 [facility] Serum or plasma calcium misty urement (mass/volume)Ordered By: Bryant Britt on 04-06-2023 Calcium [Mass/Vol] 8.9 mg/dL 8.5-10.1 [facility] Serum or plasma calcium misty urement (mass/volume)Ordered By: Lamin Berger on 04-06-2023 Calcium [Mass/Vol] 9.0 mg/dL 8.5-10.1 [facility] Serum or plasma creatinine m easurement (mass/volume)Ordered By: Bryant Britt on 04-06-2023 Creatinine [Mass/Vol] 0.85 mg/dL 0.55-1.02 [facility] Comment on above: The validity of the calculated GFR & GFRAA in patients over 70 years has not been determined. Clinical correlation is essential. Serum or plasma creatinine m easurement (mass/volume)Ordered By: Lamin Berger on 04-06-2023 Creatinine [Mass/Vol] 0.91 mg/dL 0.55-1.02 [facility] Comment on above: The validity of the calculated GFR & GFRAA in patients over 70 years has not been determined. Clinical correlation is essential. Serum or plasma urea nitroge n measurement (mass/volume)Ordered By: Bryant Britt on 04-06-2023 Urea nitrogen [Mass/Vol] 10 mg/dL 7-18 [facility] Serum or plasma urea nitroge n measurement (mass/volume)Ordered By: Lamin Berger on 04-06-2023 Urea nitrogen [Mass/Vol] 11 mg/dL 7-18 [facility] Thin prep Papanicolaou smear with manual screeningOrdered By: Bryant Britt on 04-06-2023 Thin prep Papanicolaou smear with manual screening 9 - [facility] Thin prep Papanicolaou smear with manual screeningOrdered By: Lamin Berger on 04-06-2023 Thin prep Papanicolaou smear with manual screening 9 - [facility] Absolute lymphocyte countOrd ered By: Lamin Berger on 04-03-2023 Lymphocytes Auto (Unsp spec) [#/Vol] 1.30 10*3/uL 0.83-4.51 [facility] Basophil percentageOrdered B y: Lamin Berger on 04-03-2023 Basophils/100 WBC (Bld) 0.7 % 0-1 [facility] Bilirubin [Mass/Vol] 0.30 mg/dL 0.20-1.00 [facility] Comment on above: For patients on eltr ombopag therapy, use of Dimension Silex TBIL is not recommended. Eosinophils/100 WBC (Bld) 2.4 % 0-5 [facility] Neutrophils (Bld) [#/Vol] 3.5 10*3/uL 2.0-7.7 [facility] Neutrophils/100 WBC (Bld) 64.7 % 47-70 [facility] Protein [Mass/Vol] 7.3 g/dL 6.4-8.2 [facility] WBC (Bld) [#/Vol] 5.5 10*3/uL 4.4-11.0 [facility] Blood erythrocytes count (nu mber/volume)Ordered By: Lamin Berger on 04-03-2023 RBC (Bld) [#/Vol] 4.42 10*6/uL 4.2-5.4 [facility] Blood hemoglobin measurement (mass/volume)Ordered By: Lamin Berger on 04-03-2023 Hemoglobin (Bld) [Mass/Vol] 13.5 g/dL 12.0-15.0 [facility] Blood lymphocytes/100 leukoc ytesOrdered By: Lamin Berger on 04-03-2023 Lymphocytes/100 WBC (Bld) 23.8 % 19-41 [facility] Blood monocytes/100 leukocyt esOrdered By: Lamin Berger on 04-03-2023 Monocytes/100 WBC (Bld) 8.0 % 0-10 [facility] Blood platelet mean volumeOr dered By: Lamin Berger on 04-03-2023 Platelet mean volume (Bld) [Entitic vol] 11.0 fL 6.2-12.0 [facility] Determination of erythrocyte mean corpuscular volume (MCV)Ordered By: Lamin Berger on 04-03-2023 MCV (RBC) [Entitic vol] 93.0 fL 81-99 [facility] Hematocrit Auto (Bld) [Volum e fraction]Ordered By: Lamin Berger on 04-03-2023 Hematocrit (Bld) [Volume fraction] 41.1 % 37-47 [facility] Laboratory - Chemistry and C hemistry - challengeOrdered By: [facility] on 04-03-2023 ALP [Catalytic activity/Vol] 63 U/L 45-117 [facility] ALT [Catalytic activity/Vol] 17 U/L 13-56 [facility] Globulin (S) [Mass/Vol] 3.8 g/dL 2.2-4.2 [facility] Laboratory - Hematology and Cell countsOrdered By: [facility] on 04-03-2023 Erythrocyte distribution width (RBC) [Entitic vol] 42.2 fL 35.1-43.9 [facility] Erythrocyte distribution width (RBC) [Ratio] 12.3 % 11.6-14.6 [facility] Immature granulocytes/100 WBC (Bld) 0.400 % 0.0-0.9 [facility] Comment on above: IG% - Immature Granu locytes (promyelocytes, myelocytes and metamyelocytes) > 1% indicates that a LEFT SHIFT is Present. MCH (RBC) [Entitic mass] 30.5 pg 27.0-32.0 [facility] Nucleated RBC/100 WBC (Bld) [Ratio] 0 % 0-5 [facility] MCHC Auto (RBC) [Mass/Vol]Or dered By: [facility] on 04-03-2023 MCHC (RBC) [Mass/Vol] 32.8 g/dL 32-36 [facility] Platelets bldOrdered By: Marv gonzalez Ab on 04-03-2023 Platelets (Bld) [#/Vol] 213 10*3/uL 150-450 [facility] Serum or plasma albumin misty urement (mass/volume)Ordered By: Lamin Ab on 04-03-2023 Albumin [Mass/Vol] 3.5 g/dL 3.2-5.0 [facility] Serum or plasma albumin/glob ulin mass ratioOrdered By: Urbanokendall Berger on 04-03-2023 Albumin/Globulin [Mass ratio] 0.9 {ratio} 0.9-2.4 [facility] Thin prep Papanicolaou smear with manual screeningOrdered By: Lamin Ab on 04-03-2023 Thin prep Papanicolaou smear with manual screening 12 U/L 15-37 [facility] Glucose Glucometer (BldC) [M ass/Vol]Ordered By: Fredis Jarvis on 03-22-2023 Glucose [Mass/Vol] 114 mg/dL 74-106 [facility] Comment on above: MANAGEMENT OF PATIEN T CARE PER NURSING PROTOCOL Absolute lymphocyte countOrd ered By: Dr. Jarvis on 01-30-2023 Lymphocytes Auto (Unsp spec) [#/Vol] 1.45 10*3/uL 0.83-4.51 [facility] Basophil percentageOrdered B y: Dr. Jarvis on 01-30-2023 Basophils/100 WBC (Bld) 0.6 % 0-1 [facility] Bilirubin [Mass/Vol] 0.50 mg/dL 0.20-1.00 [facility] Comment on above: For patients on eltr ombopag therapy, use of Dimension Silex TBIL is not recommended. Chloride [Moles/Vol] 105 mmol/L 98-107 [facility] Eosinophils/100 WBC (Bld) 1.3 % 0-5 [facility] Glucose [Mass/Vol] 102 mg/dL 74-106 [facility] Comment on above: Fasting Glucose resu lt from 100 to 125 mg/dL suggests IMPAIRED HOMEOSTASIS per A.D.A. criteria. Neutrophils (Bld) [#/Vol] 3.3 10*3/uL 2.0-7.7 [facility] Neutrophils/100 WBC (Bld) 62.3 % 47-70 [facility] Potassium [Moles/Vol] 4.0 mmol/L 3.5-5.1 [facility] Protein [Mass/Vol] 7.4 g/dL 6.4-8.2 [facility] Sodium [Moles/Vol] 135 mmol/L 136-145 [facility] WBC (Bld) [#/Vol] 5.3 10*3/uL 4.4-11.0 [facility] Blood erythrocytes count (nu mber/volume)Ordered By: Dr. Jarvis on 01-30-2023 RBC (Bld) [#/Vol] 4.68 10*6/uL 4.2-5.4 [facility] Blood hemoglobin measurement (mass/volume)Ordered By: Dr. Jarvis on 01-30-2023 Hemoglobin (Bld) [Mass/Vol] 14.2 g/dL 12.0-15.0 [facility] Blood lymphocytes/100 leukoc ytesOrdered By: Dr. Jarvis on 01-30-2023 Lymphocytes/100 WBC (Bld) 27.6 % 19-41 [facility] Blood monocytes/100 leukocyt esOrdered By: Dr. Jarvis on 01-30-2023 Monocytes/100 WBC (Bld) 8.0 % 0-10 [facility] Blood platelet mean volumeOr dered By: Dr. Jarvis on 01-30-2023 Platelet mean volume (Bld) [Entitic vol] 11.2 fL 6.2-12.0 [facility] Determination of erythrocyte mean corpuscular volume (MCV)Ordered By: Dr. Jarvis on 01-30-2023 MCV (RBC) [Entitic vol] 92.7 fL 81-99 [facility] Hematocrit Auto (Bld) [Volum e fraction]Ordered By: Dr. Jarvis on 01-30-2023 Hematocrit (Bld) [Volume fraction] 43.4 % 37-47 [facility] Laboratory - Chemistry and C hemistry - challengeOrdered By: Dr. Jarvis on 01-30-2023 ALP [Catalytic activity/Vol] 65 U/L 45-117 [facility] ALT [Catalytic activity/Vol] 26 U/L 13-56 [facility] CO2 [Moles/Vol] 27.0 mmol/L 21.0-32.0 [facility] Globulin (S) [Mass/Vol] 3.5 g/dL 2.2-4.2 [facility] Urea nitrogen/Creatinine [Mass ratio] 16.5 mg/mg 10-20 [facility] Laboratory - Hematology and Cell countsOrdered By: Dr. Jarvis on 01-30-2023 Erythrocyte distribution width (RBC) [Entitic vol] 42.9 fL 35.1-43.9 [facility] Erythrocyte distribution width (RBC) [Ratio] 12.6 % 11.6-14.6 [facility] Immature granulocytes/100 WBC (Bld) 0.200 % 0.0-0.9 [facility] Comment on above: IG% - Immature Granu locytes (promyelocytes, myelocytes and metamyelocytes) > 1% indicates that a LEFT SHIFT is Present. MCH (RBC) [Entitic mass] 30.3 pg 27.0-32.0 [facility] Nucleated RBC/100 WBC (Bld) [Ratio] 0 % 0-5 [facility] MCHC Auto (RBC) [Mass/Vol]Or dered By: Dr. Jarvis on 01-30-2023 MCHC (RBC) [Mass/Vol] 32.7 g/dL 32-36 [facility] No Panel InformationOrdered By: Dr. Jarvis on 01-30-2023 Estimated GFR (MDRD) Amer 94 mL/min >60 [facility] Comment on above: GFR Calc Estimated GFR (MDRD) Non-Af Amer 78 mL/min >60 [facility] Comment on above: Non- GFR Calc Platelets bldOrdered By: Dr. Jarvis on 01-30-2023 Platelets (Bld) [#/Vol] 225 10*3/uL 150-450 [facility] Serum or plasma albumin misty urement (mass/volume)Ordered By: Dr. Jarvis on 01-30-2023 Albumin [Mass/Vol] 3.9 g/dL 3.2-5.0 [facility] Serum or plasma albumin/glob ulin mass ratioOrdered By: Dr. Jarvis on 01-30-2023 Albumin/Globulin [Mass ratio] 1.1 {ratio} 0.9-2.4 [facility] Serum or plasma calcium misty urement (mass/volume)Ordered By: Dr. Jarvis on 01-30-2023 Calcium [Mass/Vol] 9.0 mg/dL 8.5-10.1 [facility] Serum or plasma carcinoembry onic antigen measurement (mass/volume)Ordered By: Fredis Jarvis on 01-30-2023 Carcinoembryonic Ag [Mass/Vol] 2.9 ng/mL 0.0-4.7 [facility] Comment on above: Nonsmokers <3.9 Smok ers <5.6[facility] Electrochemiluminescence Immunoassay(ECLIA)Values obtained with different assay methods or kitscannot be used interchangeably. Results cannot beinterpreted as absolute evidence of the presence orabsence of malignant disease.Performed at: [facility] [id number] Director: Anshul Perry PhD, Phone: [phone] Serum or plasma creatinine m easurement (mass/volume)Ordered By: Dr. Jarvis on 01-30-2023 Creatinine [Mass/Vol] 0.79 mg/dL 0.55-1.02 [facility] Comment on above: The validity of the calculated GFR & GFRAA in patients over 70 years has not been determined. Clinical correlation is essential. Serum or plasma urea nitroge n measurement (mass/volume)Ordered By: Dr. Jarvis on 01-30-2023 Urea nitrogen [Mass/Vol] 13 mg/dL 7-18 [facility] Thin prep Papanicolaou smear with manual screeningOrdered By: Dr. Jarvis on 01-30-2023 Thin prep Papanicolaou smear with manual screening 14 U/L 15-37 [facility] Thin prep Papanicolaou smear with manual screening 3 5-15 [facility] Absolute lymphocyte countOrd ered By: Dr. Berger on 01-04-2023 Lymphocytes Auto (Unsp spec) [#/Vol] 1.39 10*3/uL 0.83-4.51 [facility] Basophil percentageOrdered B y: Dr. Berger on 01-04-2023 Basophils/100 WBC (Bld) 0.6 % 0-1 [facility] Bilirubin [Mass/Vol] 0.50 mg/dL 0.20-1.00 [facility] Comment on above: For patients on eltr ombopag therapy, use of Dimension Silex TBIL is not recommended. Chloride [Moles/Vol] 107 mmol/L 98-107 [facility] Eosinophils/100 WBC (Bld) 0.4 % 0-5 [facility] Glucose [Mass/Vol] 104 mg/dL 74-106 [facility] Comment on above: Fasting Glucose resu lt from 100 to 125 mg/dL suggests IMPAIRED HOMEOSTASIS per A.D.A. criteria. Neutrophils (Bld) [#/Vol] 3.5 10*3/uL 2.0-7.7 [facility] Neutrophils/100 WBC (Bld) 64.5 % 47-70 [facility] Potassium [Moles/Vol] 4.1 mmol/L 3.5-5.1 [facility] Protein [Mass/Vol] 7.8 g/dL 6.4-8.2 [facility] Sodium [Moles/Vol] 136 mmol/L 136-145 [facility] WBC (Bld) [#/Vol] 5.4 10*3/uL 4.4-11.0 [facility] Blood erythrocytes count (nu mber/volume)Ordered By: Dr. Berger on 01-04-2023 RBC (Bld) [#/Vol] 4.68 10*6/uL 4.2-5.4 [facility] Blood hemoglobin measurement (mass/volume)Ordered By: Dr. Berger on 01-04-2023 Hemoglobin (Bld) [Mass/Vol] 14.4 g/dL 12.0-15.0 [facility] Blood lymphocytes/100 leukoc ytesOrdered By: Dr. Berger on 01-04-2023 Lymphocytes/100 WBC (Bld) 25.6 % 19-41 [facility] Blood monocytes/100 leukocyt esOrdered By: Dr. Berger on 01-04-2023 Monocytes/100 WBC (Bld) 8.5 % 0-10 [facility] Blood platelet mean volumeOr dered By: Dr. Berger on 01-04-2023 Platelet mean volume (Bld) [Entitic vol] 10.9 fL 6.2-12.0 [facility] Determination of erythrocyte mean corpuscular volume (MCV)Ordered By: Dr. Berger on 01-04-2023 MCV (RBC) [Entitic vol] 93.6 fL 81-99 [facility] Hematocrit Auto (Bld) [Volum e fraction]Ordered By: Dr. Berger on 01-04-2023 Hematocrit (Bld) [Volume fraction] 43.8 % 37-47 [facility] Hemoglobin in reticulocytes (mass per reticulocyte)Ordered By: Dr. Berger on 01-04-2023 Hemoglobin (Reticulocytes) [Entitic mass] 34.9 pg 30-35 [facility] Iron measurement (mass/mass) Ordered By: Dr. Berger on 01-04-2023 Iron (Unsp spec) [Mass/Mass] 96 ug/dL 50-170 [facility] Laboratory - Chemistry and C hemistry - challengeOrdered By: Dr. Berger on 01-04-2023 ALP [Catalytic activity/Vol] 66 U/L 45-117 [facility] ALT [Catalytic activity/Vol] 21 U/L 13-56 [facility] CO2 [Moles/Vol] 27.0 mmol/L 21.0-32.0 [facility] Globulin (S) [Mass/Vol] 3.9 g/dL 2.2-4.2 [facility] Urea nitrogen/Creatinine [Mass ratio] 14.4 mg/mg 10-20 [facility] Laboratory - Hematology and Cell countsOrdered By: Dr. Berger on 01-04-2023 Erythrocyte distribution width (RBC) [Entitic vol] 43.0 fL 35.1-43.9 [facility] Erythrocyte distribution width (RBC) [Ratio] 12.5 % 11.6-14.6 [facility] Immature granulocytes/100 WBC (Bld) 0.400 % 0.0-0.9 [facility] Comment on above: IG% - Immature Granu locytes (promyelocytes, myelocytes and metamyelocytes) > 1% indicates that a LEFT SHIFT is Present. MCH (RBC) [Entitic mass] 30.8 pg 27.0-32.0 [facility] Nucleated RBC/100 WBC (Bld) [Ratio] 0 % 0-5 [facility] MCHC Auto (RBC) [Mass/Vol]Or dered By: Dr. Berger on 01-04-2023 MCHC (RBC) [Mass/Vol] 32.9 g/dL 32-36 [facility] No Panel InformationOrdered By: Dr. Berger on 01-04-2023 Estimated GFR (MDRD) Amer 88 mL/min >60 [facility] Comment on above: GFR Calc Estimated GFR (MDRD) Non-Af Amer 73 mL/min >60 [facility] Comment on above: Non- GFR Calc Immature Reticulocyte Fraction 8.40 % 3.00-15.90 [facility] Reticulocyte Count 0.95 % 0.5-1.5 [facility] Total Iron Binding Capacity 340 ug/dL 250-450 [facility] Platelets bldOrdered By: Dr. Berger on 01-04-2023 Platelets (Bld) [#/Vol] 239 10*3/uL 150-450 [facility] Serum or plasma albumin misty urement (mass/volume)Ordered By: Dr. Berger on 01-04-2023 Albumin [Mass/Vol] 3.9 g/dL 3.2-5.0 [facility] Serum or plasma albumin/glob ulin mass ratioOrdered By: Dr. Berger on 01-04-2023 Albumin/Globulin [Mass ratio] 1.0 {ratio} 0.9-2.4 [facility] Serum or plasma calcium misty urement (mass/volume)Ordered By: Dr. Berger on 01-04-2023 Calcium [Mass/Vol] 9.5 mg/dL 8.5-10.1 [facility] Serum or plasma carcinoembry onic antigen measurement (mass/volume)Ordered By: Dr. Berger on 01-04-2023 Carcinoembryonic Ag [Mass/Vol] 3.1 ng/mL 0.0-4.7 [facility] Comment on above: Nonsmokers <3.9 Smok ers <5.6[facility] Electrochemiluminescence Immunoassay(ECLIA)Values obtained with different assay methods or kitscannot be used interchangeably. Results cannot beinterpreted as absolute evidence of the presence orabsence of malignant disease.Performed at: [facility] [id number] Director: Anshul Perry PhD, Phone: [phone] Serum or plasma creatinine m easurement (mass/volume)Ordered By: Dr. Berger on 01-04-2023 Creatinine [Mass/Vol] 0.83 mg/dL 0.55-1.02 [facility] Comment on above: The validity of the calculated GFR & GFRAA in patients over 70 years has not been determined. Clinical correlation is essential. Serum or plasma ferritin taty surement (mass/volume)Ordered By: Dr. Berger on 01-04-2023 Ferritin [Mass/Vol] 47 ng/mL 8-252 [facility] Serum or plasma iron saturat ion measurement (mass fraction)Ordered By: Dr. Berger on 01-04-2023 Iron saturation [Mass fraction] 28.2 % 15.0-55.0 [facility] Serum or plasma urea nitroge n measurement (mass/volume)Ordered By: Dr. Berger on 01-04-2023 Urea nitrogen [Mass/Vol] 12 mg/dL 7-18 [facility] Thin prep Papanicolaou smear with manual screeningOrdered By: Dr. Berger on 01-04-2023 Thin prep Papanicolaou smear with manual screening 11 U/L 15-37 [facility] Thin prep Papanicolaou smear with manual screening 2 5-15 [facility] Basophil percentageOrdered B y: Dr. Jarvis on 12-23-2022 Basophil percentage < 0.9 mg/dL 0.55-1.02 [facility] No Panel InformationOrdered By: Dr. Jarvis on 12-23-2022 Bedside Estimated GFR (eGFR) > 60.0000 mL/min >60 [facility] SAMMY SCREENING W TOMOon 06-06 [facility] CNOVon 06-16-2020 CNOV Office Visit (GMNHL) -- ALICIA RESENDIZ ([id number]) 1955 F Date Time Provider Department 06/16/20 9:00 [facility] During your visit today, we recorded the following information about you: DANNY Bowles 06/16/2020 9:34 AM Addendum [facility] Consultation Note Genetic Counselor: DANNY Bowles Patient: Alicia Resendiz Patient Name and confirmed at initiation of visit HIGH LEVEL SUMMARY: ? The patient's personal and family history is potentially suggestive of a hereditary cancer syndrome. ? The patient provided informed consent for Breast Cancer Guidelines-Based Panel through [employer]. Results are expected in 3 weeks. IDENTIFICATION AND CHIEF COMPLAINT: Dr. Royce Evans requested a consultation for genetic counseling and risk assessment for Alicia Resendiz, a 65 year old female, for discussion of her personal and family history of breast cancer. She presents to clinic today to discuss the possibility of a genetic predisposition to cancer, and to further clarify her risks, as well as her family members' risks for cancer. HISTORY OF PRESENT ILLNESS: In 2019, at the age of 64, Alicia Resendiz was diagnosed with ductal carcinoma in situ of the Right breast. This was treated with lumpectomy and radiation therapy. PAST MEDICAL HISTORY Diagnosis Date - Ductal carcinoma in situ (DCIS) of right breast 04/2020 - NONE - Shingles outbreak 11/2015 PAST SURGICAL HISTORY Procedure Laterality Date - BREAST BIOPSY W/STEREOTACTIC GUIDANCE Right 04/07/2020 - BREAST LUMPECTOMY HX Right 05/01/2020 - LIGATE FALLOPIAN TUBE - NOSE SURGERY HX 1986 - PAST SURGICAL HISTORY OF shave biopsy on left forearm in 06/1997, - PAST SURGICAL HISTORY OF Moh's on right upper lip in 1996. - PAST SURGICAL HISTORY OF shave biopsy for bcc on left bridge nose in 2002. CANCER SURVEILLANCE HISTORY: Breast Biopsies: No Colonoscopy: Yes / Patient reports normal cologuard within the last 5 years EGD: No GI Polyps: N/A Pelvic Exam: Yes / As recommended Pap Smear: Yes / As recommended Transvaginal Ultrasound: Yes / Patient reports recent ultrasound that showed ovarian cyst Dermatology: Yes / Annually, patient reports history of BCC on forearm, lip, and near eye REPRODUCTIVE HISTORY AND PERSONAL RISK ASSESSMENT FACTORS: Weight: Last 1 Encounter Wt Readings: Date: Wt: 05/14/2020 61.2 kg (135 lb) Height: Last 1 Encounter Ht Readings: Date: Ht: 03/31/2020 167.6 cm (5' 6") Menarche was at age 15 Postmenopausal at age 56 Uterus Intact: Yes Ovaries Intact: Yes , first live at age 21 Breast fed: Yes She has not previously undergone treatment for infertility. She has not used oral contraception pills. She has not used HRT in the past. SOCIAL HISTORY: Social History Tobacco Use - Smoking status: Never Smoker - Smokeless tobacco: Never Used Substance Use Topics - Alcohol use: Yes Comment: seldom - Drug use: No FAMILY HISTORY: We obtained a detailed, 4-generation family history. Significant diagnoses are listed below: FAMILY HISTORY Problem Relation Age of Onset - Allergies Father - Arthritis Father - Diabetes Father - Heart Father By-pass - Lipids Father - Breast Cancer Mother 56 age 60 - Breast Cancer Sister 57 - Diabetes Sister - Hypertension Sister - Cancer Paternal Grandmother Breast? age 50s-60s - Asthma Daughter - Breast Cancer Maternal Aunt 51 in 60s - Breast Cancer Maternal Aunt 76 in 90s - Breast Cancer Maternal Aunt 81 in 90s - Breast Cancer Maternal cousin 58 The patient's maternal ancestors are of Uzbek and Bahamian descent and paternal ancestors are of Bahamian and Nauruan descent. There is no Ashkenazi Lutheran ancestry. There is no known consanguinity. A copy of the patient's pedigree will be available under the scanned documents tab following today's visit. GENETIC COUNSELING RISK ASSESSMENT, DISCUSSION, AND SUGGESTED FOLLOW UP: We reviewed the natural history and genetic etiology of sporadic, familial and hereditary cancer syndromes. The patient's personal and family history is potentially suggestive of: a hereditary cancer syndrome The patient meets NCCN HBOC testing criteria based on her personal history of breast cancer and >2 additional breast cancer diagnoses close relatives. We discussed that identification of a hereditary cancer syndrome may help her care providers tailor her medical management. If a mutation is detected, the National Comprehensive Cancer Network and/or expert opinion recommendations would include increased cancer surveillance and prophylactic surgery options. If a mutation is detected, the patient will be referred back to the referring provider and to any additional appropriate care providers to discuss the relevant options. Inheritance of hereditary cancer syndromes was discussed with the patient. If a mutation is not found in the patient, this will decrease the likelihood of a hereditary cancer syndrome as the explanation for the patient's personal history of breast cancer. However, it cannot completely rule out this possibility. Cancer surveillance options would be discussed for the patient according to the appropriate standard National Comprehensive Cancer Network and [place] Cancer [employer] guidelines, with consideration of their personal and family history risk factors. In this case, the patient will be referred back to their care providers for discussions of management. Based on this assessment of the patient's family and personal history, genetic testing is recommended. The patient was offered Common Hereditary Cancers Panel through [facility] or Breast Cancer Guidelines-Based Panel through [facility]. After considering the risks, benefits, and limitations, the patient chose to pursue and provided informed consent for the following testing: Breast Cancer Guidelines-Based Panel through [facility]. The Breast Cancer Guidelines-Based Panel includes: ZHOU, BRCA1, BRCA2, CDH1, CHEK2, NBN, NF1, PALB2, PTEN, STK11, TP53. We discussed that an NGS panel can rarely result in an unexpected finding in a gene which may or may not be related to the presenting phenotype. Per the patient's request, we will contact her by telephone to discuss these results. A follow up genetic counseling visit will be scheduled if requested. The patient was seen for a total of 25 minutes, greater than 50% of which was spent [id number] counseling. This plan is being carried out per Dr. Elisa Velasquez's recommendations. This note will also be sent to the referring provider via the electronic medical record. Bridgette Aguilar, [facility] CC: Dr. Royce Velasquez Referring Provider: ROYCE EVANS [[id number]] Allergies As of Date: 06/16/2020 Noted Allergy Reaction bandaids [Other] 03/15/2006 5 - Intolerance POLYSPORIN (BACITRACIN-POLYMYXIN *03/15/2006 2 - Rash VICODIN (HYDROCODONE-ACETAMINOPHE* 03/15/2006 2 - Rash Date Reviewed: 06/16/2020 Reviewed by: Tamiko (Rn) BEHZAD Hercules - Fully Assessed Visit Diagnoses:Breast neoplasm, Tis (DCIS), right [D05.11] Family history of malignant neoplasm of female breast [Z80.3] Order(s):CONSULT TO [facility] CANCER GENETIC COUNSELING [[id number]] Order #: [id number]: 1 TUBES-DRAW EXTRA MOLECULAR [SQMXTUBE] Order #: [id number] FUTURE Prescriptions as of 06/16/2020 Sig: ICAPS AREDS ORAL Take by mouth. TAMOXIFEN 20 MG TABLET Take 1 tablet (20 mg) by mout* REMIFEMIN MENOPAUSE ORAL Take by mouth. ESTRADIOL 0.01% (0.1 MG/GRAM)* Use 1gram nightly x 2 weeks t* Patient not taking: Reported on 03/31/2020 NASACORT NASAL Use in the nose. Problem List As Of Date 06/16/2020 Noted Resolved Irritated//Inflamed Seborrheic Keratosis [L82.0]07/07/2009 01/11/2017 Neoplasm of uncertain behavior of skin [D48.5] 07/07/2009 01/11/2017 Other seborrheic keratosis [L82.1] 07/07/2009 01/11/2017 Solar lentigo [L81.4] 07/07/2009 01/11/2017 Actinic Damage//Sun-Damaged Skin [L57.8] 07/07/2009 01/11/2017 FLOOD ANGIOMA//Capillary Angioma [I78.1] 07/07/2009 01/11/2017 Open wound(s) (multiple) of unspecified site(s)*10/10/2009 01/11/2017 Actinic Keratoses (Premalignant AK's) [L57.0] 10/09/2011 01/11/2017 Melanocytic nevus of face [D22.30] 10/09/2011 01/11/2017 Viral warts, unspecified: component of recurren*10/09/2011 01/11/2017 Left ovarian cyst [N83.202] 01/11/2017 More... Breast neoplasm, Tis (DCIS), right [D05.11] 05/14/2020 Family history of malignant neoplasm of female *05/14/2020 Encounter Status:Closed by BRIDGETTE AGUILAR CGC on 06/16/20 [facility] PROGRESSon 06-16-2020 PROGRESS HNO ID: [id number] Author: Bridgette FraustoKlickitat [facility] Health[facility]rb[facility] Aguilar Service: ? Author Type: Genetic Counselor Type: Progress Notes Filed: 06/30/2020 3:04 PM Note Text: [facility] Personal[facility] Genetic [facility] Consultation Note Genetic Counselor: Bridgette Aguilar [facility] Patient: Alicia Resendiz Patient Name and confirmed at initiation of visit HIGH LEVEL SUMMARY: ? The patient's personal and family history is potentially suggestive of a hereditary cancer syndrome. ? The patient provided informed consent for Breast Cancer Guidelines-Based Panel through [facility]. Results are expected in 3 weeks. IDENTIFICATION AND CHIEF COMPLAINT: Dr. Royce Evans requested a consultation for genetic counseling and risk assessment for Alicia Resendiz, a 65 year old female, for discussion of her personal and family history of breast cancer. She presents to clinic today to discuss the possibility of a genetic predisposition to cancer, and to further clarify her risks, as well as her family members' risks for cancer. HISTORY OF PRESENT ILLNESS: In 2019, at the age of 64, Alicia Resendiz was diagnosed with ductal carcinoma in situ of the Right breast. This was treated with lumpectomy and radiation therapy. PAST MEDICAL HISTORY Diagnosis Date - Ductal carcinoma in situ (DCIS) of right breast 04/2020 - NONE - Shingles outbreak 11/2015 PAST SURGICAL HISTORY Procedure Laterality Date - BREAST BIOPSY W/STEREOTACTIC GUIDANCE Right 04/07/2020 - BREAST LUMPECTOMY HX Right 05/01/2020 - LIGATE FALLOPIAN TUBE - NOSE SURGERY HX 1986 - PAST SURGICAL HISTORY OF shave biopsy on left forearm in 06/1997, - PAST SURGICAL HISTORY OF Moh's on right upper lip in 1996. - PAST SURGICAL HISTORY OF shave biopsy for bcc on left bridge nose in 2002. CANCER SURVEILLANCE HISTORY: Breast Biopsies: No Colonoscopy: Yes / Patient reports normal cologuard within the last 5 years EGD: No GI Polyps: N/A Pelvic Exam: Yes / As recommended Pap Smear: Yes / As recommended Transvaginal Ultrasound: Yes / Patient reports recent ultrasound that showed ovarian cyst Dermatology: Yes / Annually, patient reports history of BCC on forearm, lip, and near eye REPRODUCTIVE HISTORY AND PERSONAL RISK ASSESSMENT FACTORS: Weight: Last 1 Encounter Wt Readings: Date: Wt: 05/14/2020 61.2 kg (135 lb) Height: Last 1 Encounter Ht Readings: Date: Ht: 03/31/2020 167.6 cm (5' 6") Menarche was at age 15 Postmenopausal at age 56 Uterus Intact: Yes Ovaries Intact: Yes , first live at age 21 Breast fed: Yes She has not previously undergone treatment for infertility. She has not used oral contraception pills. She has not used HRT in the past. SOCIAL HISTORY: Social History Tobacco Use - Smoking status: Never Smoker - Smokeless tobacco: Never Used Substance Use Topics - Alcohol use: Yes Comment: seldom - Drug use: No FAMILY HISTORY: We obtained a detailed, 4-generation family history. Significant diagnoses are listed below: FAMILY HISTORY Problem Relation Age of Onset - Allergies Father - Arthritis Father - Diabetes Father - Heart Father By-pass - Lipids Father - Breast Cancer Mother 56 age 60 - Breast Cancer Sister 57 - Diabetes Sister - Hypertension Sister - Cancer Paternal Grandmother Breast? age 50s-60s - Asthma Daughter - Breast Cancer Maternal Aunt 51 in 60s - Breast Cancer Maternal Aunt 76 in 90s - Breast Cancer Maternal Aunt 81 in 90s - Breast Cancer Maternal cousin 58 The patient's maternal ancestors are of Uzbek and Bahamian descent and paternal ancestors are of Bahamian and Nauruan descent. There is no Ashkenazi Lutheran ancestry. There is no known consanguinity. A copy of the patient's pedigree will be available under the scanned documents tab following today's visit. GENETIC COUNSELING RISK ASSESSMENT, DISCUSSION, AND SUGGESTED FOLLOW UP: We reviewed the natural history and genetic etiology of sporadic, familial and hereditary cancer syndromes. The patient's personal and family history is potentially suggestive of: a hereditary cancer syndrome The patient meets NCCN HBOC testing criteria based on her personal history of breast cancer and >2 additional breast cancer diagnoses close relatives. We discussed that identification of a hereditary cancer syndrome may help her care providers tailor her medical management. If a mutation is detected, the National Comprehensive Cancer Network and/or expert opinion recommendations would include increased cancer surveillance and prophylactic surgery options. If a mutation is detected, the patient will be referred back to the referring provider and to any additional appropriate care providers to discuss the relevant options. Inheritance of hereditary cancer syndromes was discussed with the patient. If a mutation is not found in the patient, this will decrease the likelihood of a hereditary cancer syndrome as the explanation for the patient's personal history of breast cancer. However, it cannot completely rule out this possibility. Cancer surveillance options would be discussed for the patient according to the appropriate standard National Comprehensive Cancer Network and [place] Cancer [employer] guidelines, with consideration of their personal and family history risk factors. In this case, the patient will be referred back to their care providers for discussions of management. Based on this assessment of the patient's family and personal history, genetic testing is recommended. The patient was offered Common Hereditary Cancers Panel through [facility] or Breast Cancer Guidelines-Based Panel through [facility]. After considering the risks, benefits, and limitations, the patient chose to pursue and provided informed consent for the following testing: Breast Cancer Guidelines-Based Panel through [facility]. The Breast Cancer Guidelines-Based Panel includes: ZHOU, BRCA1, BRCA2, CDH1, CHEK2, NBN, NF1, PALB2, PTEN, STK11, TP53. We discussed that an NGS panel can rarely result in an unexpected finding in a gene which may or may not be related to the presenting phenotype. Per the patient's request, we will contact her by telephone to discuss these results. A follow up genetic counseling visit will be scheduled if requested. The patient was seen for a total of 25 minutes, greater than 50% of which was spent [id number] counseling. This plan is being carried out per Dr. Elisa Velasquez's recommendations. This note will also be sent to the referring provider via the electronic medical record. Bridgette Aguilar [facility] CC: Dr. Royce Velasquez [facility] 06-11-2020 [facility] Telephone ([facility]) -- ALICIA RESENDIZ ([id number]) 1955 F Date Time Provider Department 06/11/20 BRIDGETTE AGUILAR ([facility]) [facility] During your visit today, we recorded the following information about you: Melyssa SumnerMalik 06/11/2020 3:02 PM Signed Patient has some questions before her upcoming appointment. Please call back. Thank you Kimberly Kwon 06/12/2020 9:35 AM Signed Reached out to patient to follow-up on questions she has regarding upcoming genetic counseling appointment with Bridgette Aguilar MS, [facility]. Left requesting patient call back to help address questions. She was given my direct contact number. Kimberly Kwon Genetic Counselor Radiation Safety Officer Kimberly Kwon 06/12/2020 9:47 AM Signed Patient called back to go over questions she had. She wanted to confirm if appointment would take an hour and if there was anything else she needed to bring aside from family history information. I explained that while an hour is allocated for the appointment, typically they last closer to 30 minutes. I also confirmed no family members had genetic testing done and, given that, knowledge of her family history of cancer is sufficient to bring to the appointment. Alicia also wanted to know if blood draw had to be done at that location or if it can be done at [place], which is closer to where she lives. I confirmed [place] is a draw site location she can get it done but that it can also be done that same day while she's at [place]. Alicia was confused because she wondered if insurance authorizations is taken care of before the blood draw order is put in, so I explained how typically the sample is held at the lab while they run a benefits investigation to confirm and communicate any OOP cost but that this will also be explained during the appointment. Alicia brought up that she's trying to coordinate her radiation appointment while she's at [place] that day and was curious how long it may take to get blood drawn. I explained how it would depend on who else would be there but that if it would be easier for her to get it done at [place] at a later point that is also an option. Alicia thanked me for my time answering her questions. She was given my direct contact number and encouraged to reach out if she has any other questions or concerns. Kimberly Kwon Genetic Counselor Radiation Safety Officer Allergies As of Date: 06/11/2020 Noted Allergy Reaction bandaids [Other] 03/15/2006 5 - Intolerance POLYSPORIN (BACITRACIN-POLYMYXIN *03/15/2006 2 - Rash VICODIN (HYDROCODONE-ACETAMINOPHE* 03/15/2006 2 - Rash Date Reviewed: 06/10/2020 Reviewed by: Jaquelin (Rn) BEHZAD Shell - Fully Assessed Reason for Visit: Upcoming Appointment [Other] Prescriptions as of 06/11/2020 Sig: ICAPS AREDS ORAL Take by mouth. TAMOXIFEN 20 MG TABLET Take 1 tablet (20 mg) by mout* REMIFEMIN MENOPAUSE ORAL Take by mouth. ESTRADIOL 0.01% (0.1 MG/GRAM)* Use 1gram nightly x 2 weeks t* Patient not taking: Reported on 03/31/2020 NASACORT NASAL Use in the nose. Problem List As Of Date 06/11/2020 Noted Resolved Irritated//Inflamed Seborrheic Keratosis [L82.0]07/07/2009 01/11/2017 Neoplasm of uncertain behavior of skin [D48.5] 07/07/2009 01/11/2017 Other seborrheic keratosis [L82.1] 07/07/2009 01/11/2017 Solar lentigo [L81.4] 07/07/2009 01/11/2017 Actinic Damage//Sun-Damaged Skin [L57.8] 07/07/2009 01/11/2017 FLOOD ANGIOMA//Capillary Angioma [I78.1] 07/07/2009 01/11/2017 Open wound(s) (multiple) of unspecified site(s)*10/10/2009 01/11/2017 Actinic Keratoses (Premalignant AK's) [L57.0] 10/09/2011 01/11/2017 Melanocytic nevus of face [D22.30] 10/09/2011 01/11/2017 Viral warts, unspecified: component of recurren*10/09/2011 01/11/2017 Left ovarian cyst [N83.202] 01/11/2017 More... Breast neoplasm, Tis (DCIS), right [D05.11] 05/14/2020 Family history of malignant neoplasm of female *05/14/2020 Encounter Status:Closed by KIMBERLY KWON on 06/12/20 [facility] Vital Signs Date Time Vital Sign Value Performing Clinician Faci lity 02-11-2025 13:37-0400 Body height 165.[address] Se Phan MD Work Phone: [facility] 02-11-2025 13:37-0400 Body mass index (BMI) [Ratio] 22.6 kg/m2 Dr. Se Phan MD Work Phone: [facility] 02-11-2025 13:37-0400 Body temperature 98.6 [degF] Dr. Se Phan MD Work Phone: [facility] 02-11-2025 13:37-0400 Body weight 61.[address] Se Phan MD Work Phone: [facility] 02-11-2025 13:37-0400 Diastolic blood pressure 76 mm[Hg] Dr. Se Phan MD Work Phone: [facility] 02-11-2025 13:37-0400 Heart rate 71 /min Dr. Se Phan MD Work Phone: [facility] 02-11-2025 13:37-0400 Respiratory rate 16 /min Dr. Se Phan MD Work Phone: [facility] 02-11-2025 13:37-0400 SaO2% (BldA) [Mass fraction] 95 % Dr. Se Phan MD Work Phone: [facility] 02-11-2025 13:37-0400 Systolic blood pressure 117 mm[Hg] Dr. Se Phan MD Work Phone: [facility] 01-07-2025 09:03-0400 Body height 152.4 cm Dago Andre MD Work Phone: [facility] 01-07-2025 09:03-0400 Body mass index (BMI) [Ratio] 25 kg/m2 Dago Andre MD Work Phone: [facility] 01-07-2025 09:03-0400 Body weight 58.06 kg Dago Andre MD Work Phone: [facility] 12-09-2024 13:06-0400 Body mass index (BMI) [Ratio] 22.4 kg/m2 Dr. Se Phan MD Work Phone: [facility] 12-09-2024 13:06-0400 Body temperature 96.9 [degF] Dr. Se Phan MD Work Phone: [facility] 12-09-2024 13:06-0400 Body weight [address] Se Phan MD Work Phone: [facility] 12-09-2024 13:06-0400 Diastolic blood pressure 76 mm[Hg] Dr. Se Phan MD Work Phone: [facility] 12-09-2024 13:06-0400 Heart rate 72 /min Dr. Se Phan MD Work Phone: [facility] 12-09-2024 13:06-0400 Respiratory rate 18 /min Dr. Se Phan MD Work Phone: [facility] 12-09-2024 13:06-0400 SaO2% (BldA) [Mass fraction] 96 % Dr. Se Phan MD Work Phone: [facility] 12-09-2024 13:06-0400 Systolic blood pressure 152 mm[Hg] Dr. Se Phan MD Work Phone: [facility] 11-13-2024 14:32-0500 Body mass index (BMI) [Ratio] 22 kg/m2 Dr. Se Phan MD Work Phone: [facility] 11-13-2024 14:32-0500 Body temperature 97.6 [degF] Dr. Se Phan MD Work Phone: [facility] 11-13-2024 14:32-0500 Body weight 59.[address] Se Phan MD Work Phone: [facility] 11-13-2024 14:32-0500 Diastolic blood pressure 83 mm[Hg] Dr. Se Phan MD Work Phone: [facility] 11-13-2024 14:32-0500 Heart rate 63 /min Dr. Se Phan MD Work Phone: [facility] 11-13-2024 14:32-0500 Respiratory rate 16 /min Dr. Se Phan MD Work Phone: [facility] 11-13-2024 14:32-0500 SaO2% (BldA) [Mass fraction] 100 % Dr. Se Phan MD Work Phone: [facility] 11-13-2024 14:32-0500 Systolic blood pressure 131 mm[Hg] Dr. Se Phan MD Work Phone: [facility] 07-16-2024 09:26-0400 Body height 167.6 cm Dago Andre MD Work Phone: [facility] 07-16-2024 09:26-0400 Body mass index (BMI) [Ratio] 20.34 kg/m2 Dago Andre MD Work Phone: [facility] 07-16-2024 09:26-0400 Body weight 57.15 kg Dago Andre MD Work Phone: [facility] 04-09-2024 10:00-0400 Body height 167.6 cm Dago Andre MD Work Phone: [facility] 04-09-2024 10:00-0400 Body mass index (BMI) [Ratio] 20.32 kg/m2 Dago Andre MD Work Phone: [facility] 04-09-2024 10:00-0400 Body weight 57.1 kg Dago Andre MD Work Phone: [facility] 10-25-2023 14:29-0500 Body height 165.[address] Se Phan Work Phone: [facility] 10-25-2023 14:27-0500 Body mass index (BMI) [Ratio] 20 kg/m2 Dr. Se Phan Work Phone: [facility] 10-25-2023 14:27-0500 Body temperature 98.2 [degF] Dr. Se Phan Work Phone: [facility] 10-25-2023 14:27-0500 Body weight 54.[address] Se Phan Work Phone: [facility] 10-25-2023 14:27-0500 Diastolic blood pressure 77 mm[Hg] Dr. Se Phan Work Phone: [facility] 10-25-2023 14:27-0500 Heart rate 71 /min Dr. Se Phan Work Phone: [facility] 10-25-2023 14:27-0500 Respiratory rate 18 /min Dr. Se Phan Work Phone: [facility] 10-25-2023 14:27-0500 SaO2% (BldA) [Mass fraction] 100 % Dr. Se Phan Work Phone: [facility] 10-25-2023 14:27-0500 Systolic blood pressure 122 mm[Hg] Dr. Se Phan Work Phone: [facility] 09-12-2023 10:57-0500 Body mass index (BMI) [Ratio] 18.8 kg/m2 Dr. Se Phan Work Phone: [facility] 09-12-2023 10:57-0500 Body temperature 97.4 [degF] Dr. Se Phan Work Phone: [facility] 09-12-2023 10:57-0500 Body weight 51.[address] Se Phan Work Phone: [facility] 09-12-2023 10:57-0500 Diastolic blood pressure 87 mm[Hg] Dr. Se Phan Work Phone: [facility] 09-12-2023 10:57-0500 Heart rate 108 /min Dr. Se Phan Work Phone: [facility] 09-12-2023 10:57-0500 Respiratory rate 18 /min Dr. Se Phan Work Phone: [facility] 09-12-2023 10:57-0500 SaO2% (BldA) [Mass fraction] 95 % Dr. Se Phan Work Phone: [facility] 09-12-2023 10:57-0500 Systolic blood pressure 118 mm[Hg] Dr. Se Phan Work Phone: [facility] 09-06-2023 13:38-0500 Body temperature 97.5 [degF] Dr. Se Phan Work Phone: [facility] 09-06-2023 13:38-0500 Diastolic blood pressure 76 mm[Hg] Dr. Se Phan Work Phone: [facility] 09-06-2023 13:38-0500 Heart rate 87 /min Dr. Se Phan Work Phone: [facility] 09-06-2023 13:38-0500 Respiratory rate 16 /min Dr. Se Phan Work Phone: [facility] 09-06-2023 13:38-0500 SaO2% (BldA) [Mass fraction] 98 % Dr. Se Phan Work Phone: [facility] 09-06-2023 13:38-0500 Systolic blood pressure 127 mm[Hg] Dr. Se Phan Work Phone: [facility] 09-06-2023 09:35-0500 Body mass index (BMI) [Ratio] 19.3 kg/m2 Dr. Se Phan Work Phone: [facility] 09-06-2023 09:35-0500 Body temperature 97.9 [degF] Dr. Se Phan Work Phone: [facility] 09-06-2023 09:35-0500 Body weight 52.[address] Se Phan Work Phone: [facility] 09-06-2023 09:35-0500 Diastolic blood pressure 85 mm[Hg] Dr. Se Phan Work Phone: [facility] 09-06-2023 09:35-0500 Heart rate 89 /min Dr. Se Phan Work Phone: [facility] 09-06-2023 09:35-0500 Respiratory rate 18 /min Dr. Se Phan Work Phone: [facility] 09-06-2023 09:35-0500 SaO2% (BldA) [Mass fraction] 99 % Dr. Se Phan Work Phone: [facility] 09-06-2023 09:35-0500 Systolic blood pressure 138 mm[Hg] Dr. Se Phan Work Phone: [facility] 08-23-2023 09:18-0500 Body mass index (BMI) [Ratio] 19.5 kg/m2 Dr. Se Phan Work Phone: [facility] 08-23-2023 09:18-0500 Body temperature 97.5 [degF] Dr. Se Phan Work Phone: [facility] 08-23-2023 09:18-0500 Body weight 53.[address] Se Phan Work Phone: [facility] 08-23-2023 09:18-0500 Diastolic blood pressure 81 mm[Hg] Dr. Se Phan Work Phone: [facility] 08-23-2023 09:18-0500 Heart rate 78 /min Dr. Se Phan Work Phone: [facility] 08-23-2023 09:18-0500 Respiratory rate 16 /min Dr. Se Phan Work Phone: [facility] 08-23-2023 09:18-0500 SaO2% (BldA) [Mass fraction] 98 % Dr. Se Phan Work Phone: [facility] 08-23-2023 09:18-0500 Systolic blood pressure 124 mm[Hg] Dr. Se Phan Work Phone: [facility] 08-09-2023 08:53-0500 Body mass index (BMI) [Ratio] 19.5 kg/m2 Dr. Se Phan Work Phone: [facility] 08-09-2023 08:53-0500 Body temperature 97.4 [degF] Dr. Se Phan Work Phone: [facility] 08-09-2023 08:53-0500 Body weight 53.[address] Se Phan Work Phone: [facility] 08-09-2023 08:53-0500 Diastolic blood pressure 79 mm[Hg] Dr. Se Phan Work Phone: [facility] 08-09-2023 08:53-0500 Heart rate 80 /min Dr. Se Phan Work Phone: [facility] 08-09-2023 08:53-0500 Respiratory rate 16 /min Dr. Se Phan Work Phone: [facility] 08-09-2023 08:53-0500 SaO2% (BldA) [Mass fraction] 98 % Dr. Se Phan Work Phone: [facility] 08-09-2023 08:53-0500 Systolic blood pressure 123 mm[Hg] Dr. Se Phan Work Phone: [facility] 05-13-2023 00:11-0400 Diastolic blood pressure 69 mm[Hg] Dr. Se Phan Work Phone: [facility] 05-13-2023 00:11-0400 Heart rate 81 /min Dr. Se Phan Work Phone: [facility] 05-13-2023 00:11-0400 Respiratory rate 15 /min Dr. Se Phan Work Phone: [facility] 05-13-2023 00:11-0400 SaO2% (BldA) [Mass fraction] 96 % Dr. Se Phan Work Phone: [facility] 05-13-2023 00:11-0400 Systolic blood pressure 133 mm[Hg] Dr. Se Phan Work Phone: [facility] 05-12-2023 21:23-0400 Body height 165.[address] Se Phan Work Phone: [facility] 05-12-2023 21:23-0400 Body mass index (BMI) [Ratio] 20 kg/m2 Dr. Se Phan Work Phone: [facility] 05-12-2023 21:23-0400 Body temperature 97.8 [degF] Dr. Se Phan Work Phone: [facility] 05-12-2023 21:23-0400 Body weight 54.[address] Se Phan Work Phone: [facility] 05-10-2023 10:06-0400 Body mass index (BMI) [Ratio] 20.7 kg/m2 Dr. Se Phan Work Phone: [facility] 05-10-2023 10:06-0400 Body temperature 97.3 [degF] Dr. Se Phan Work Phone: [facility] 05-10-2023 10:06-0400 Body weight 56.[address] Se Phan Work Phone: [facility] 05-10-2023 10:06-0400 Diastolic blood pressure 78 mm[Hg] Dr. Se Phan Work Phone: [facility] 05-10-2023 10:06-0400 Heart rate 95 /min Dr. Se Phan Work Phone: [facility] 05-10-2023 10:06-0400 Respiratory rate 16 /min Dr. Se Phan Work Phone: [facility] 05-10-2023 10:06-0400 SaO2% (BldA) [Mass fraction] 100 % Dr. Se Phan Work Phone: [facility] 05-10-2023 10:06-0400 Systolic blood pressure 120 mm[Hg] Dr. Se Phan Work Phone: [facility] 05-08-2023 12:33-0400 Diastolic blood pressure 69 mm[Hg] Dr. Se Phan Work Phone: [facility] 05-08-2023 12:33-0400 Heart rate 78 /min Dr. Se Phan Work Phone: [facility] 05-08-2023 12:33-0400 Respiratory rate 16 /min Dr. Se Phan Work Phone: [facility] 05-08-2023 12:33-0400 Systolic blood pressure 112 mm[Hg] Dr. Se Phan Work Phone: [facility] 05-08-2023 10:50-0400 Body mass index (BMI) [Ratio] 20.3 kg/m2 Dr. Se Phan Work Phone: [facility] 05-08-2023 10:50-0400 Body temperature 98.8 [degF] Dr. Se Phan Work Phone: [facility] 05-08-2023 10:50-0400 Body weight 55.[address] Se Phan Work Phone: [facility] 05-08-2023 10:50-0400 Diastolic blood pressure 71 mm[Hg] Dr. Se Phan Work Phone: [facility] 05-08-2023 10:50-0400 Heart rate 81 /min Dr. Se Phan Work Phone: [facility] 05-08-2023 10:50-0400 Respiratory rate 18 /min Dr. Se Phan Work Phone: [facility] 05-08-2023 10:50-0400 SaO2% (BldA) [Mass fraction] 99 % Dr. Se Phan Work Phone: [facility] 05-08-2023 10:50-0400 Systolic blood pressure 109 mm[Hg] Dr. Se Phan Work Phone: [facility] 05-04-2023 10:34-0400 Body mass index (BMI) [Ratio] 20.5 kg/m2 Dr. Se Phan Work Phone: [facility] 05-04-2023 10:34-0400 Body temperature 97.8 [degF] Dr. Se Phan Work Phone: [facility] 05-04-2023 10:34-0400 Body weight 55.[address] Se Phan Work Phone: [facility] 05-04-2023 10:34-0400 Diastolic blood pressure 70 mm[Hg] Dr. Se Phan Work Phone: [facility] 05-04-2023 10:34-0400 Heart rate 76 /min Dr. Se Phan Work Phone: [facility] 05-04-2023 10:34-0400 Respiratory rate 18 /min Dr. Se Phan Work Phone: [facility] 05-04-2023 10:34-0400 SaO2% (BldA) [Mass fraction] 100 % Dr. Se Phan Work Phone: [facility] 05-04-2023 10:34-0400 Systolic blood pressure 112 mm[Hg] Dr. Se Phan Work Phone: [facility] 05-01-2023 09:26-0400 Body mass index (BMI) [Ratio] 20.2 kg/m2 Dr. Se Phan Work Phone: [facility] 05-01-2023 09:26-0400 Body temperature 98.3 [degF] Dr. Se Phan Work Phone: [facility] 05-01-2023 09:26-0400 Body weight 55.[address] Se Phan Work Phone: [facility] 05-01-2023 09:26-0400 Diastolic blood pressure 81 mm[Hg] Dr. Se Phan Work Phone: [facility] 05-01-2023 09:26-0400 Heart rate 93 /min Dr. Se Phan Work Phone: [facility] 05-01-2023 09:26-0400 Respiratory rate 16 /min Dr. Se Phan Work Phone: [facility] 05-01-2023 09:26-0400 SaO2% (BldA) [Mass fraction] 96 % Dr. Se Phan Work Phone: [facility] 05-01-2023 09:26-0400 Systolic blood pressure 119 mm[Hg] Dr. Se Phan Work Phone: [facility] 04-28-2023 11:04-0400 Body temperature 98.3 [degF] Dr. Se Phan Work Phone: [facility] 04-28-2023 11:04-0400 SaO2% (BldA) [Mass fraction] 100 % Dr. Se Phan Work Phone: [facility] 04-26-2023 10:22-0400 Body mass index (BMI) [Ratio] 21.2 kg/m2 Dr. Se Phan Work Phone: [facility] 04-26-2023 10:22-0400 Body temperature 97.1 [degF] Dr. Se Phan Work Phone: [facility] 04-26-2023 10:22-0400 Body weight 57.[address] Se Phan Work Phone: [facility] 04-26-2023 10:22-0400 Diastolic blood pressure 93 mm[Hg] Dr. Se Phan Work Phone: [facility] 04-26-2023 10:22-0400 Heart rate 68 /min Dr. Se Phan Work Phone: [facility] 04-26-2023 10:22-0400 Respiratory rate 18 /min Dr. Se Phan Work Phone: [facility] 04-26-2023 10:22-0400 SaO2% (BldA) [Mass fraction] 98 % Dr. Se Phan Work Phone: [facility] 04-26-2023 10:22-0400 Systolic blood pressure 153 mm[Hg] Dr. Se Phan Work Phone: [facility] 04-24-2023 10:07-0400 Body mass index (BMI) [Ratio] 20.5 kg/m2 Dr. Se Phan Work Phone: [facility] 04-24-2023 10:07-0400 Body temperature 97.9 [degF] Dr. Se Phan Work Phone: [facility] 04-24-2023 10:07-0400 Body weight 56.[address] Se Phan Work Phone: [facility] 04-24-2023 10:07-0400 Diastolic blood pressure 83 mm[Hg] Dr. Se Phan Work Phone: [facility] 04-24-2023 10:07-0400 Heart rate 85 /min Dr. Se Phan Work Phone: [facility] 04-24-2023 10:07-0400 Respiratory rate 18 /min Dr. Se Phan Work Phone: [facility] 04-24-2023 10:07-0400 SaO2% (BldA) [Mass fraction] 97 % Dr. Se Phan Work Phone: [facility] 04-24-2023 10:07-0400 Systolic blood pressure 133 mm[Hg] Dr. Se Phan Work Phone: [facility] 04-17-2023 09:15-0400 Body mass index (BMI) [Ratio] 21.2 kg/m2 Dr. Se Phan Work Phone: [facility] 04-17-2023 09:15-0400 Body temperature 97.4 [degF] Dr. Se Phan Work Phone: [facility] 04-17-2023 09:15-0400 Body temperature 97.7 [degF] Dr. eS Phan Work Phone: [facility] 04-17-2023 09:15-0400 Body weight 58.[address] Se Phan Work Phone: [facility] 04-17-2023 09:15-0400 Body weight 57.[address] Se Phan Work Phone: [facility] 04-17-2023 09:15-0400 Diastolic blood pressure 80 mm[Hg] Dr. Se hPan Work Phone: [facility] 04-17-2023 09:15-0400 Diastolic blood pressure 85 mm[Hg] Dr. Se Phan Work Phone: [facility] 04-17-2023 09:15-0400 Heart rate 74 /min Dr. Se Phan Work Phone: [facility] 04-17-2023 09:15-0400 Heart rate 71 /min Dr. Se Phan Work Phone: [facility] 04-17-2023 09:15-0400 Respiratory rate 16 /min Dr. Se Phan Work Phone: [facility] 04-17-2023 09:15-0400 SaO2% (BldA) [Mass fraction] 98 % Dr. Se Phan Work Phone: [facility] 04-17-2023 09:15-0400 SaO2% (BldA) [Mass fraction] 97 % Dr. Se Phan Work Phone: [facility] 04-17-2023 09:15-0400 Systolic blood pressure 121 mm[Hg] Dr. Se Phan Work Phone: [facility] 04-17-2023 09:15-0400 Systolic blood pressure 131 mm[Hg] Dr. Se Phan Work Phone: [facility] 04-12-2023 10:49-0400 Body mass index (BMI) [Ratio] 21.2 kg/m2 Dr. Se Phan Work Phone: [facility] 04-12-2023 10:49-0400 Body temperature 97.7 [degF] Dr. Se Phan Work Phone: [facility] 04-12-2023 10:49-0400 Body weight 57.[address] Se Phan Work Phone: [facility] 04-12-2023 10:49-0400 Diastolic blood pressure 88 mm[Hg] Dr. Se Phan Work Phone: [facility] 04-12-2023 10:49-0400 Heart rate 72 /min Dr. Se Phan Work Phone: [facility] 04-12-2023 10:49-0400 Respiratory rate 16 /min Dr. Se Phan Work Phone: [facility] 04-12-2023 10:49-0400 SaO2% (BldA) [Mass fraction] 95 % Dr. Se Phan Work Phone: [facility] 04-12-2023 10:49-0400 Systolic blood pressure 129 mm[Hg] Dr. Se Phan Work Phone: [facility] 04-10-2023 09:33-0400 Body mass index (BMI) [Ratio] 20.9 kg/m2 Dr. Se Phan Work Phone: [facility] 04-10-2023 09:33-0400 Body temperature 98.4 [degF] Dr. Se Phan Work Phone: [facility] 04-10-2023 09:33-0400 Body weight 56.[address] Se Phan Work Phone: [facility] 04-10-2023 09:33-0400 Diastolic blood pressure 76 mm[Hg] Dr. Se Phan Work Phone: [facility] 04-10-2023 09:33-0400 Heart rate 85 /min Dr. Se Phan Work Phone: [facility] 04-10-2023 09:33-0400 Respiratory rate 16 /min Dr. Se Phan Work Phone: [facility] 04-10-2023 09:33-0400 SaO2% (BldA) [Mass fraction] 98 % Dr. Se Phan Work Phone: [facility] 04-10-2023 09:33-0400 Systolic blood pressure 104 mm[Hg] Dr. Se Phan Work Phone: [facility] 04-06-2023 21:02-0400 Body height 165.[address] Se Phan Work Phone: [facility] 04-06-2023 21:02-0400 Body mass index (BMI) [Ratio] 20.9 kg/m2 Dr. Se Phan Work Phone: [facility] 04-06-2023 21:02-0400 Body temperature 97.2 [degF] Dr. Se Phan Work Phone: [facility] 04-06-2023 21:02-0400 Body weight 57.[address] Se Phan Work Phone: [facility] 04-06-2023 21:02-0400 Diastolic blood pressure 93 mm[Hg] Dr. Se Phan Work Phone: [facility] 04-06-2023 21:02-0400 Heart rate 81 /min Dr. Se Phan Work Phone: [facility] 04-06-2023 21:02-0400 Respiratory rate 16 /min Dr. Se Phan Work Phone: [facility] 04-06-2023 21:02-0400 SaO2% (BldA) [Mass fraction] 96 % Dr. Se Phan Work Phone: [facility] 04-06-2023 21:02-0400 Systolic blood pressure 146 mm[Hg] Dr. Se Phan Work Phone: [facility] 04-06-2023 10:24-0400 Body mass index (BMI) [Ratio] 20.7 kg/m2 Dr. Se Phan Work Phone: [facility] 04-06-2023 10:24-0400 Body temperature 98 [degF] Dr. Se Phan Work Phone: [facility] 04-06-2023 10:24-0400 Body weight 58.[address] Se Phan Work Phone: [facility] 04-06-2023 10:24-0400 Diastolic blood pressure 84 mm[Hg] Dr. Se Phan Work Phone: [facility] 04-06-2023 10:24-0400 Heart rate 74 /min Dr. Se Phan Work Phone: [facility] 04-06-2023 10:24-0400 Respiratory rate 16 /min Dr. Se Phan Work Phone: [facility] 04-06-2023 10:24-0400 SaO2% (BldA) [Mass fraction] 97 % Dr. Se Phan Work Phone: [facility] 04-06-2023 10:24-0400 Systolic blood pressure 142 mm[Hg] Dr. Se Phan Work Phone: [facility] 04-06-2023 09:32-0400 Body mass index (BMI) [Ratio] 20.7 kg/m2 Dr. Se Phan Work Phone: [facility] 04-06-2023 09:32-0400 Body temperature 98 [degF] Dr. Se Phan Work Phone: [facility] 04-06-2023 09:32-0400 Body weight 58.[address] Se Phan Work Phone: [facility] 04-06-2023 09:32-0400 Diastolic blood pressure 84 mm[Hg] Dr. Se Phan Work Phone: [facility] 04-06-2023 09:32-0400 Heart rate 74 /min Dr. Se Phan Work Phone: [facility] 04-06-2023 09:32-0400 Respiratory rate 16 /min Dr. Se Phan Work Phone: [facility] 04-06-2023 09:32-0400 SaO2% (BldA) [Mass fraction] 97 % Dr. Se Phan Work Phone: [facility] 04-06-2023 09:32-0400 Systolic blood pressure 142 mm[Hg] Dr. Se Phan Work Phone: [facility] 04-05-2023 11:00-0400 Body mass index (BMI) [Ratio] 20.9 kg/m2 Dr. Se Phan Work Phone: [facility] 04-05-2023 11:00-0400 Body temperature 97.2 [degF] Dr. Se Phan Work Phone: [facility] 04-05-2023 11:00-0400 Body weight 59.[address] Se Phan Work Phone: [facility] 04-05-2023 11:00-0400 Diastolic blood pressure 89 mm[Hg] Dr. Se Phan Work Phone: [facility] 04-05-2023 11:00-0400 Heart rate 71 /min Dr. Se Phan Work Phone: [facility] 04-05-2023 11:00-0400 Respiratory rate 16 /min Dr. Se Phan Work Phone: [facility] 04-05-2023 11:00-0400 SaO2% (BldA) [Mass fraction] 96 % Dr. Se Phan Work Phone: [facility] 04-05-2023 11:00-0400 Systolic blood pressure 127 mm[Hg] Dr. Se Phan Work Phone: [facility] 04-03-2023 13:12-0400 Body mass index (BMI) [Ratio] 20.6 kg/m2 Dr. Se Phan Work Phone: [facility] 04-03-2023 13:12-0400 Body temperature 97.3 [degF] Dr. Se Phan Work Phone: [facility] 04-03-2023 13:12-0400 Body weight 58.[address] Se Phan Work Phone: [facility] 04-03-2023 13:12-0400 Diastolic blood pressure 88 mm[Hg] Dr. Se Phan Work Phone: [facility] 04-03-2023 13:12-0400 Heart rate 66 /min Dr. Se Phan Work Phone: [facility] 04-03-2023 13:12-0400 Respiratory rate 16 /min Dr. Se Phan Work Phone: [facility] 04-03-2023 13:12-0400 SaO2% (BldA) [Mass fraction] 98 % Dr. Se Phan Work Phone: [facility] 04-03-2023 13:12-0400 Systolic blood pressure 158 mm[Hg] Dr. Se Phan Work Phone: [facility] 03-23-2023 10:21-0400 Body mass index (BMI) [Ratio] 20.8 kg/m2 Dr. Se Phan Work Phone: [facility] 03-23-2023 10:21-0400 Body temperature 98.3 [degF] Dr. Se Phan Work Phone: [facility] 03-23-2023 10:21-0400 Body weight 58.[address] Se Phan Work Phone: [facility] 03-23-2023 10:21-0400 Diastolic blood pressure 75 mm[Hg] Dr. Se Phan Work Phone: [facility] 03-23-2023 10:21-0400 Heart rate 68 /min Dr. Se Phan Work Phone: [facility] 03-23-2023 10:21-0400 Respiratory rate 16 /min Dr. Se Phan Work Phone: [facility] 03-23-2023 10:21-0400 SaO2% (BldA) [Mass fraction] 98 % Dr. Se Phan Work Phone: [facility] 03-23-2023 10:21-0400 Systolic blood pressure 132 mm[Hg] Dr. Se Phan Work Phone: [facility] 03-22-2023 12:13-0400 Body temperature 97.2 [degF] Dr. Se Phan Work Phone: [facility] 03-22-2023 12:13-0400 Diastolic blood pressure 87 mm[Hg] Dr. Se Phan Work Phone: [facility] 03-22-2023 12:13-0400 Heart rate 64 /min Dr. Se Phan Work Phone: [facility] 03-22-2023 12:13-0400 Respiratory rate 18 /min Dr. Se Phan Work Phone: [facility] 03-22-2023 12:13-0400 SaO2% (BldA) [Mass fraction] 97 % Dr. Se Phan Work Phone: [facility] 03-22-2023 12:13-0400 Systolic blood pressure 144 mm[Hg] Dr. Se Phan Work Phone: [facility] 03-22-2023 08:15-0400 Body height 167.[address] Se Phan Work Phone: [facility] 03-22-2023 08:15-0400 Body mass index (BMI) [Ratio] 20.2 kg/m2 Dr. Se Phan Work Phone: [facility] 03-22-2023 08:15-0400 Body weight [address] Se Phan Work Phone: [facility] 03-20-2023 10:06-0400 Body mass index (BMI) [Ratio] 20.6 kg/m2 Dr. Se Phan Work Phone: [facility] 03-20-2023 10:06-0400 Body weight 58.[address] Se Phan Work Phone: [facility] 03-20-2023 10:06-0400 Diastolic blood pressure 74 mm[Hg] Dr. Se Phan Work Phone: [facility] 03-20-2023 10:06-0400 Heart rate 81 /min Dr. Se Phan Work Phone: [facility] 03-20-2023 10:06-0400 Respiratory rate 16 /min Dr. Se Phan Work Phone: [facility] 03-20-2023 10:06-0400 SaO2% (BldA) [Mass fraction] 97 % Dr. Se Phan Work Phone: [facility] 03-20-2023 10:06-0400 Systolic blood pressure 114 mm[Hg] Dr. Se Phan Work Phone: [facility] 03-14-2023 10:29-0400 Body mass index (BMI) [Ratio] 21 kg/m2 Dr. Se Phan Work Phone: [facility] 03-14-2023 10:29-0400 Body temperature 98.1 [degF] Dr. Se Phan Work Phone: [facility] 03-14-2023 10:29-0400 Body weight 59.[address] Se Phan Work Phone: [facility] 03-14-2023 10:29-0400 Diastolic blood pressure 77 mm[Hg] Dr. Se Phan Work Phone: [facility] 03-14-2023 10:29-0400 Heart rate 68 /min Dr. Se Phan Work Phone: [facility] 03-14-2023 10:29-0400 Respiratory rate 16 /min Dr. Se Phan Work Phone: [facility] 03-14-2023 10:29-0400 SaO2% (BldA) [Mass fraction] 98 % Dr. Se Phan Work Phone: [facility] 03-14-2023 10:29-0400 Systolic blood pressure 125 mm[Hg] Dr. Se Phan Work Phone: [facility] 01-24-2023 13:10-0400 Body height 167.[address] Se Phan Work Phone: [facility] 01-24-2023 13:07-0400 Body mass index (BMI) [Ratio] 21 kg/m2 Dr. Se Phan Work Phone: [facility] 01-24-2023 13:07-0400 Body temperature 97 [degF] Dr. Se Phan Work Phone: [facility] 01-24-2023 13:07-0400 Body weight 59.[address] Se Phan Work Phone: [facility] 01-24-2023 13:07-0400 Diastolic blood pressure 83 mm[Hg] Dr. Se Phan Work Phone: [facility] 01-24-2023 13:07-0400 Heart rate 73 /min Dr. Se Phan Work Phone: [facility] 01-24-2023 13:07-0400 Respiratory rate 18 /min Dr. Se Phan Work Phone: [facility] 01-24-2023 13:07-0400 SaO2% (BldA) [Mass fraction] 94 % Dr. Se Phan Work Phone: [facility] 01-24-2023 13:07-0400 Systolic blood pressure 143 mm[Hg] Dr. Se Phan Work Phone: [facility] 01-17-2023 09:01-0400 Body height 167.[address] Se Phan Work Phone: [facility] 01-17-2023 09:01-0400 Body mass index (BMI) [Ratio] 21 kg/m2 Dr. Se Phan Work Phone: [facility] 01-17-2023 09:01-0400 Body temperature 97.6 [degF] Dr. Se Phan Work Phone: [facility] 01-17-2023 09:01-0400 Body weight 59.[address] Se Phan Work Phone: [facility] 01-17-2023 09:01-0400 Diastolic blood pressure 79 mm[Hg] Dr. Se Phan Work Phone: [facility] 01-17-2023 09:01-0400 Heart rate 78 /min Dr. Se Phan Work Phone: [facility] 01-17-2023 09:01-0400 Respiratory rate 16 /min Dr. Se Phan Work Phone: [facility] 01-17-2023 09:01-0400 SaO2% (BldA) [Mass fraction] 96 % Dr. Se Phan Work Phone: [facility] 01-17-2023 09:01-0400 Systolic blood pressure 116 mm[Hg] Dr. Se Phan Work Phone: [facility] 01-16-2023 13:30-0400 Body temperature 97.7 [degF] Dr. Se Phan Work Phone: [facility] 01-16-2023 13:30-0400 Body weight 59.[address] Se Phan Work Phone: [facility] 01-16-2023 13:30-0400 Diastolic blood pressure 74 mm[Hg] Dr. Se Phan Work Phone: [facility] 01-16-2023 13:30-0400 Heart rate 76 /min Dr. Se Phan Work Phone: [facility] 01-16-2023 13:30-0400 Respiratory rate 16 /min Dr. Se Phan Work Phone: [facility] 01-16-2023 13:30-0400 SaO2% (BldA) [Mass fraction] 96 % Dr. Se Phan Work Phone: [facility] 01-16-2023 13:30-0400 Systolic blood pressure 132 mm[Hg] Dr. Se Phan Work Phone: [facility] 01-04-2023 09:49-0400 Body mass index (BMI) [Ratio] 21.2 kg/m2 Dr. Se Phan Work Phone: [facility] 01-04-2023 09:49-0400 Body temperature 97.2 [degF] Dr. Se Phan Work Phone: [facility] 01-04-2023 09:49-0400 Body weight 59.[address] Se Phan Work Phone: [facility] 01-04-2023 09:49-0400 Diastolic blood pressure 85 mm[Hg] Dr. Se Phan Work Phone: [facility] 01-04-2023 09:49-0400 Heart rate 74 /min Dr. Se Phan Work Phone: [facility] 01-04-2023 09:49-0400 Respiratory rate 16 /min Dr. Se Phan Work Phone: [facility] 01-04-2023 09:49-0400 SaO2% (BldA) [Mass fraction] 97 % Dr. Se Phan Work Phone: [facility] 01-04-2023 09:49-0400 Systolic blood pressure 139 mm[Hg] Dr. Se Phan Work Phone: [facility] 12-22-2022 14:40-0400 Body temperature 98.1 [degF] Dr. Se Phan Work Phone: [facility] 12-22-2022 14:40-0400 Diastolic blood pressure 69 mm[Hg] Dr. Se Phan Work Phone: [facility] 12-22-2022 14:40-0400 Heart rate 68 /min Dr. Se Phan Work Phone: [facility] 12-22-2022 14:40-0400 Respiratory rate 16 /min Dr. Se Phan Work Phone: [facility] 12-22-2022 14:40-0400 SaO2% (BldA) [Mass fraction] 99 % Dr. Se Phan Work Phone: [facility] 12-22-2022 14:40-0400 Systolic blood pressure 131 mm[Hg] Dr. Se Phan Work Phone: [facility] 12-22-2022 12:45-0400 Body height 167.[address] Se Phan Work Phone: [facility] 12-22-2022 12:45-0400 Body mass index (BMI) [Ratio] 21.3 kg/m2 Dr. Se Phan Work Phone: [facility] 12-22-2022 12:45-0400 Body weight [address] Se Phan Work Phone: [facility] 12-12-2022 13:34-0400 Body mass index (BMI) [Ratio] 22 kg/m2 Dr. Se Phan Work Phone: [facility] 12-12-2022 13:34-0400 Body weight 61.[address] Se Phan Work Phone: [facility] 12-12-2022 13:34-0400 Diastolic blood pressure 84 mm[Hg] Dr. Se Phan Work Phone: [facility] 12-12-2022 13:34-0400 Heart rate 70 /min Dr. Se Phan Work Phone: [facility] 12-12-2022 13:34-0400 Respiratory rate 17 /min Dr. Se Phan Work Phone: [facility] 12-12-2022 13:34-0400 SaO2% (BldA) [Mass fraction] 99 % Dr. Se Phan Work Phone: [facility] 12-12-2022 13:34-0400 Systolic blood pressure 146 mm[Hg] Dr. Se Phan Work Phone: [facility] Encounters Encounter Date Encounter Type Care Provider Facility Start: 04-16-2025 ambulatory [facility] :[facility] Start: 04-11-2025 [facility] Facility :[facility] Start: 02-11-2025 End: 02-11-[address] Lamin Berger MD -[facility] Work Phone: Start: 02-11-2025 End: 02-11-[address] Se Phan MD Work Phone: [facility] Work Phone: Start: 02-04-2025 ambulatory Lamin Foreman ty:[facility] Start: 02-04-[address] Darryl Berger MD -[facility] Start: 01-07-2025 End: 01-07-2025 ambulatory [facility] Facility:[facility] Start: 01-07-2025 End: 01-07-2025 Patient encounter procedure Dago Andre MD Work Phone: Colorectal Surgery Comment on above: Rectal cancer (HCC) (Primary Dx) Start: 12-09-2024 End: 12-09-[address] Bill Trotter DO -[facility] Work Phone: Start: 12-09-2024 End: 12-09-2024 [facility] Facility:[facility] Start: 11-19-2024 End: 11-19-2024 [facility] Facility:[facility] Start: 11-19-2024 End: 11-19-2024 Subsequent hospital visit by physician Screen Mammo [facility] Mammogram Comment on above: Encounter for screen ing mammogram for malignant neoplasm of breast [Z12.31] Start: 11-13-2024 End: 11-13-[address] Lamin Berger MD -[facility] Work Phone: Start: 11-13-2024 End: 11-13-2024 ambulatory [facility] Start: 10-10-2024 End: 10-10-2024 ambulatory [facility] Start: 10-09-2024 End: 10-09-2024 ambulatory [facility] Start: 10-03-2024 End: 10-03-2024 ambulatory Deonna Brewer MD Work Phone: OB/Gynecology Comment on above: Yearly Mammogram Start: 07-22-2024 End: 07-22-2024 ambulatory [facility] Start: 07-16-2024 End: 07-16-2024 Patient encounter procedure Dago Andre MD Work Phone: Colorectal Surgery Comment on above: Rectal cancer (HCC) (Primary Dx) Malignant neoplasm o f rectum (HCC) (Primary Dx) Start: 07-16-2024 End: 07-16-2024 ambulatory [facility] Facility:[facility] Start: 06-11-2024 End: 06-11-2024 ambulatory [facility] Start: 06-07-2024 End: 06-07-2024 ambulatory [facility] Start: 05-08-2024 End: 05-08-2024 ambulatory [facility] Start: 04-22-2024 End: 04-22-2024 ambulatory [facility] Start: 04-09-2024 End: 04-09-2024 Patient encounter procedure Dago Andre MD Work Phone: Colorectal Surgery Comment on above: Rectal cancer (HCC) (Primary Dx) Start: 04-09-2024 End: 04-09-2024 ambulatory DAGO ANDRE Facility:[facility] Start: 04-09-2024 End: 04-09-2024 Subsequent hospital visit by physician Ct 2 Main Qb (I-Stat) Radiology Comment on above: Malignant neoplasm o f rectum (HCC) [C20] Start: 04-09-2024 End: 04-09-2024 ambulatory DAGO ANDRE Facility:[facility] Start: 04-09-2024 End: 04-09-2024 Subsequent hospital visit by physician Mri 6 Radio Main Q (I-Stat/1.5t/3t) Work Phone: MRI Q Comment on above: Malignant neoplasm o f rectum (HCC) [C20] Start: 04-09-2024 End: 04-09-2024 ambulatory DAGO ANDRE Facility:[facility] Start: 04-04-2024 Orders Only Dago Andre MD Work Phone: Colorectal Surgery Comment on above: Malignant neoplasm o f rectum (HCC) (Primary Dx) Start: 12-29-2023 Orders Only Dago Andre MD Work Phone: Colorectal Surgery Comment on above: Malignant neoplasm o f rectum (HCC) (Primary Dx) Start: 12-28-2023 Orders Only Dago Andre MD Work Phone: Colorectal Surgery Start: 12-26-2023 End: 12-26-2023 Orders Only Dago Andre MD Work Phone: Colorectal Surgery Comment on above: Rectal cancer (HCC) (Primary Dx) Malignant neoplasm o f rectum (HCC) [C20] Start: 12-06-2023 End: 12-06-[address] Se Phan Work Phone: [facility] Work Phone: Start: 12-06-2023 End: 12-06-[address] Se Phan Work Phone: [facility]-Medical Out Work Phone: Start: 10-25-2023 End: 10-25-[address] Se Phan Work Phone: [facility] Work Phone: Start: 10-25-[address] Se Phan Work Phone: [facility] Start: 09-12-2023 Orders Only Dago Andre MD Work Phone: Colorectal Surgery Comment on above: Malignant neoplasm o f rectum (HCC) (Primary Dx) Start: 09-12-2023 End: 09-12-[address] Se Phan Work Phone: [facility] Work Phone: Start: 09-06-2023 End: 09-06-[address] Se Phan Work Phone: [facility] Work Phone: Start: 08-29-2023 Telephone encounter Deonna Brewer MD Work Phone: OB/Gynecology Comment on above: Orders Start: 08-23-2023 End: 08-23-[address] Se Phan Work Phone: [facility] Work Phone: Start: 08-09-2023 End: 08-09-[address] Se Phan Work Phone: [facility] Work Phone: Start: 05-12-2023 End: 05-13-2023 Emergency department patient visit Dr. Se Phan Work Phone: [facility]-Emergency Department Work Phone: Start: 05-10-[address] Se Phan Work Phone: [facility] Start: 05-10-2023 End: 05-10-[address] Se Phan Work Phone: [facility] Work Phone: Start: 05-08-2023 End: 05-08-[address] Se Phan Work Phone: [facility] Work Phone: Start: 05-04-2023 End: 05-04-[address] Se Phan Work Phone: [facility] Work Phone: Start: 05-01-2023 End: 05-01-[address] Se Phan Work Phone: [facility] Work Phone: Start: 04-26-2023 End: 04-26-[address] Se Phan Work Phone: [facility] Work Phone: Start: 04-24-2023 End: 04-24-[address] Se Phan Work Phone: [facility] Work Phone: Start: 04-19-2023 End: 04-19-[address] Se Phan Work Phone: [facility] Work Phone: Start: 04-17-2023 End: 04-17-[address] Se Phan Work Phone: [facility] Work Phone: Start: 04-12-2023 End: 04-12-[address] Se Phan Work Phone: [facility] Work Phone: Start: 04-10-2023 End: 04-10-[address] Se Phan Work Phone: [facility] Work Phone: Start: 04-06-2023 End: 04-07-2023 Emergency department patient visit Dr. Se Phan Work Phone: [facility]-Emergency Department Work Phone: Start: 04-06-[address] Se Phan Work Phone: [facility]-Radiation Oncology Start: 04-06-2023 End: 04-06-[address] Se Phan Work Phone: [facility] Work Phone: Start: 04-05-2023 End: 04-05-[address] Se Phan Work Phone: [facility] Work Phone: Start: 04-03-2023 End: 04-03-[address] Se Phan Work Phone: [facility] Work Phone: Start: 04-03-2023 Non-patient / Non-visit Dr. Subha Phan Work Phone: [facility] Start: 03-24-2023 Non-patient / Non-visit Dr. Subha Phan Work Phone: [facility] Start: 03-23-2023 Non-patient / Non-visit Dr. Subha Phan Work Phone: [facility] Start: 03-23-2023 End: 03-23-[address] Se Phan Work Phone: [facility] Work Phone: Start: 03-22-2023 Non-patient / Non-visit Dr. Subha Phan Work Phone: [facility] Start: 03-22-2023 End: 03-22-2023 Admission to same day surgery center [facility] Se [facility] Start: 03-22-2023 End: 03-22-[address] Se Phan Work Phone: [facility] Work Phone: Start: 03-20-2023 End: 03-20-[address] Se Phan Work Phone: [facility] Work Phone: Start: 03-14-[address] Se [facility] Start: 03-14-2023 End: 03-14-[address] Se Phan Work Phone: [facility] Work Phone: Start: 03-07-2023 Telephone encounter Dago Maldonado MD Work Phone: Colorectal Surgery Comment on above: Results Start: 02-03-2023 Telephone encounter April Pablo RN C olorectal Surgery Comment on above: Care Coordination Start: 01-30-2023 Non-patient / Non-visit Dr. Subha Phan Work Phone: [facility] Start: 01-30-[address] Se [facility] Start: 01-25-2023 End: 01-25-[address] Se Phan Work Phone: [facility] Work Phone: Start: 01-25-2023 End: 01-25-[address] Se Phan Work Phone: [facility] Start: 01-24-2023 End: 01-24-[address] Se Phan Work Phone: [facility] Start: 01-17-2023 End: 01-17-[address] Se Phan Work Phone: [facility] Start: 01-16-2023 End: 01-16-[address] Se Phan Work Phone: [facility] Start: 01-12-2023 End: 01-12-[address] Se Phan Work Phone: [facility] Work Phone: Start: 01-12-2023 End: 01-12-[address] Se Phan Work Phone: [facility] Start: 01-10-[address] Se Phan Work Phone: [facility] Start: 01-04-2023 End: 01-04-[address] Se Phan Work Phone: [facility] Start: 12-28-2022 End: 12-28-[address] Se Phan Work Phone: [facility] Start: 12-23-2022 End: 12-23-[address] Se Phan Work Phone: [facility] Work Phone: Start: 12-23-2022 End: 12-23-[address] Se Phan Work Phone: [facility] Start: 12-22-2022 Non-patient / Non-visit Dr. Subha Phan Work Phone: [facility] Start: 12-22-2022 End: 12-22-2022 Admission to same day surgery center Dr. Se Phan Work Phone: [facility]-Endoscopy Start: 12-12-2022 End: 12-12-[address] Se Phan Work Phone: [facility] Start: 06-06-2022 Documentation procedure Mammog anthony Coordinator [facility] Start: 06-06-2022 Letter encounter Mammography Coordinator [facility] Department Start: 06-06-2022 End: 06-06-2022 Subsequent hospital visit by physician Screen Mammo [facility] Mammogram Comment on above: Encounter for screen ing mammogram for malignant neoplasm of breast [Z12.31] Start: 05-18-2022 End: 05-18-2022 ambulatory Elizabeth Bahena [employer]IKI [employer]ACTITIONER.ANCILLARY SPECIALIST Work Phone: Functional Medicine Comment on above: 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); Constipation, unspecified constipation type; Mixed hyperlipidemia Start: 05-18-2022 End: 05-18-2022 Telemedicine consultation with patient Elizabeth Bahena REIKI PRACTITIONER.ANCILLARY SPECIALIST Work Phone: [facility] Start: 02-14-2022 Telephone encounter Deonna Brewer MD Work Phone: OB/Gynecology Comment on above: Orders Start: 02-07-2022 End: 02-07-[address] Work Phone: Functional Medicine Comment on above: Mixed hyperlipidemia (Primary Dx); Dietary counseling and surveillance Start: 02-07-2022 End: 02-07-2022 Telemedicine consultation with patient Romy Fritzub RD Work Phone: [facility] Start: 12-29-2021 End: 12-29-2021 ambulatory Elizabeth Bahena REIKI PRACTITIONER.ANCILLARY SPECIALIST Work Phone: Functional Medicine Comment on above: Abnormal stool test (Primary Dx); Constipation, unspecified constipation type; Mixed hyperlipidemia; Mold exposure Start: 12-29-2021 End: 12-29-2021 Telemedicine consultation with patient Elizabeth Bahena REIKI PRACTITIONER.ANCILLARY SPECIALIST Work Phone: [facility] Procedures Date Procedure Procedure Detail Performing Clinician Start: 02-04-[address] eS Phan MD Work Phone: Start: 07-16-2024 Sigmoidoscopy flx dx w/collj spec br/wa if pfrmd [facility] Provider Start: 07-09-2024 Measurement of renal function Dr. Se Phan MD Work Phone: Comment on above: GFR Calc Start: 04-09-2024 Ct abdomen & pelvis w/contrast material Dago Andre MD Work Phone: Start: 04-09-2024 Ct thorax w/contrast material Dago Andre MD Work Phone: Start: 04-09-2024 Creatinine [Mass/vol ume] in Serum or Plasma [facility] Provider Start: 04-09-2024 Mri pelvis w/o & w/c ontrast material Dago Andre MD Work Phone: Start: 04-09-2024 Sigmoidoscopy flx dx w/collj spec br/wa if pfrmd [facility] Provider Start: 12-26-2023 Sigmoidoscopy flx dx w/collj spec br/wa if pfrmd [facility] Provider Start: 10-25-[address] Se Phan MD Work Phone: Start: 03-22-2023 Plain chest X-ray Dr. Rick Phan Work Phone: Start: 03-22-2023 Implantation to cardiovascular system Dr. Se Phan Work Phone: Start: 03-22-2023 Fluoroscopic guidance Rose Phan Work Phone: Start: 01-25-2023 CT of thorax with contrast Dr. Se Phan Work Phone: Start: 01-12-2023 MRI of pelvis with contrast Dr. Se Phan Work Phone: Start: 01-10-2023 Positron emission tomography with computed tomography Dr. Se Phan Work Phone: Start: 12-23-2022 Computed tomography of abdomen and pelvis with contrast Dr. Se Phan Work Phone: Start: 06-06-2022 SAMMY SCREENING W JUAN CARLOS Barargan MD Work Phone: Start: 06-06-2022 Mammography Screen [facility]st r Start: 03-22-2021 Mammography Elizabeth Box Loader per REIKI PRACTITIONER.ANCILLARY SPECIALIST Work Phone: Plan of Treatment Date Care Activity Detail Author Start: 2031 RSV Vaccine (1 - 1-dose 75+ series) RSV Vaccine (1 - 1-dose 75+ series) [facility] Start: 01-07-2030 Screening for malignant neoplasm of colon [facility] Start: 07-16-2029 Screening for malignant neoplasm of colon [facility] Start: 04-09-2029 Screening for malignant neoplasm of colon [facility] Start: 12-25-2028 Screening for malignant neoplasm of colon [facility] Start: 02-01-2028 COLORECTAL CANCER SCREENING COLORECTAL CANCER SCREENING [facility] Start: 02-01-2028 Screening for malignant neoplasm of colon [facility] Start: 02-01-2028 SIGMOIDOSCOPY SIGMOIDOSCOPY [facility] Start: 11-19-2025 Screening for malignant neoplasm of breast Mammogram Screening [facility] Start: 12-31-2024 End: 12-31-2024 Patient encounter procedure 12/31/2024 10:15 AM EDT Office Visit Colorectal Surgery [address] [place] [address] Dago Andre MD [address] [place] [address] flex sig surveillance Colorectal Surgery Comment on above: flex sig surveillance Start: 11-22-2024 DIABETES SCREEN DIABETES SCREEN [facility] Start: 11-22-2024 Diabetes Screening Diabetes Screening [facility] Start: 10-23-2024 Screening for malignant neoplasm of breast Mammogram Screening [facility] Start: 09-25-2024 Advance Directive Discussion Advance Directive Discussion [facility] Start: 07-16-2024 End: 10-15-2024 CREATININE BLD CREATININE BLD Lab Routine Malignant neoplasm of rectum (HCC) Expected: 07/16/2024, Expires: 10/15/2024 [facility] Comment on above: Expected: 07/16/2024, Expires: Start: 05-26-2024 Covid-19 Vaccine () Covid-19 Vaccine () [facility] Start: 05-26-2024 [facility] [facility] Start: 04-09-2024 End: 04-09-2024 Patient encounter procedure Radiology Comment on above: Malignant neoplasm of rectum (HCC) [C20] Start: 04-09-2024 End: 04-09-2024 Patient encounter procedure 04/09/2024 11:50 AM EDT Appointment MRI Q [address] [address] MRI Rectum WO/W IVCON MRI Q Comment on above: MRI Rectum WO/W IVCON Start: 04-09-2024 End: 04-09-2024 Patient encounter procedure 04/09/2024 10:15 AM EDT Office Visit Colorectal Surgery [address] [place] [address] Dago Andre MD [address] [place] [address] FLEX SIG - watch and wait, close follow up per MDT. MRI and CT scans due today. cea ordered Colorectal Surgery Comment on above: FLEX SIG - watch and wait, close follow up per MDT. MRI and CT scans due today. cea ordered Start: 04-04-2024 End: 07-04-2024 Carcinoembryonic Ag [Mass/volume] in Serum or Plasma CARCINOEMBRYONIC ANTIGEN Lab Routine Malignant neoplasm of rectum (HCC) Expected: 04/04/2024, Expires: 07/04/2024 [facility] Comment on above: Expected: 04/04/2024, Expires: Start: 04-04-2024 End: 07-04-2024 CREATININE BLD CREATININE BLD Lab Routine Malignant neoplasm of rectum (HCC) Expected: 04/04/2024, Expires: 07/04/2024 [facility] Comment on above: Expected: 04/04/2024, Expires: Start: 09-25-2023 Advance Directive Discussion Advance Directive Discussion [facility] Start: 09-25-2023 Behavioral Health Screening Behavioral Health Screening [facility] Start: 09-25-2023 Depression Assessment Depression Assessment [facility] Start: 09-12-2023 End: 12-12-2023 Carcinoembryonic Ag [Mass/volume] in Serum or Plasma CEA BLD Lab Routine Malignant neoplasm of rectum (HCC) Expected: 09/12/2023, Expires: 12/12/2023 [facility] Work Phone: Comment on above: Expected: 09/12/2023, Expires: 4 Start: 09-12-2023 End: 12-12-2023 CREATININE BLD CREATININE BLD Lab Routine Malignant neoplasm of rectum (HCC) Expected: 09/12/2023, Expires: 12/12/2023 [facility] Work Phone: Comment on above: Expected: 09/12/2023, Expires: 4 Start: 09-06-2023 Vital signs measurements [facility] Start: 08-23-2023 Venous catheter care management [facility] Start: 08-23-2023 Vital signs measurements [facility] Start: 08-09-2023 Vital signs measurements [facility] Start: 07-26-2023 Vital signs measurements [facility] Start: 07-19-2023 Venous catheter care management [facility] Start: 06-28-2023 Vital signs measurements [facility] Start: 06-14-2023 Vital signs measurements [facility] Start: 06-06-2023 Mammography [facility] Start: 06-06-2023 Screening for malignant neoplasm of breast Mammogram Screening [facility] Start: 05-26-2023 Covid-19 Vaccine ( season) Covid-19 Vaccine () [facility] Start: 05-26-2023 Influenza vaccination [facility] Start: 04-19-2023 Patient referral [facility] Work Phone: Start: 04-07-2023 Venous catheter care management [facility] Start: 04-06-2023 Chemotherapy care management [facility] Start: 03-22-2023 Anesthesia access central venous circulation ANESTH VASCULAR ACCESS [facility] Start: 03-22-2023 Insj tunneled ctr vad w/subq port age 6 yr/> INSERT TUNNELED CV CATH [facility] Start: 03-22-2023 Patient discharge [facility] Start: 01-30-2023 Carcinoembryonic Ag [Mass/volume] in Serum or Plasma [facility] Start: 01-30-2023 [facility] Start: 01-04-2023 Patient referral [facility] Work Phone: Start: 01-02-2023 Patient referral [facility] Work Phone: Start: 12-28-2022 Patient referral [facility] Work Phone: Start: 12-22-2022 Colonoscopy w/biopsy single/multiple COLONOSCOPY AND BIOPSY [facility] Start: 12-22-2022 Patient discharge [facility] Start: 09-25-2022 ADVANCE DIRECTIVE DISCUSSION ADVANCE DIRECTIVE DISCUSSION [facility] Start: 09-25-2022 DEPRESSION ASSESSMENT DEPRESSION ASSESSMENT [facility] Start: 05-26-2022 Influenza vaccination [facility] Start: 05-18-2022 End: 07-18-2022 25-hydroxyvitamin D3 [Mass/volume] in Serum or Plasma VITAMIN D 25 HYDROXY Lab Routine Deficiency of multiple nutrient elements Constipation, unspecified constipation type Mixed hyperlipidemia Expected: 05/18/2022, Expires: 07/18/2022 [facility] Work Phone: Comment on above: Expected: 05/18/2022, Expires: 2 Start: 05-18-2022 End: 07-18-2022 Homocysteine [Moles/volume] in Serum or Plasma HOMOCYSTEINE Lab Routine Deficiency of multiple nutrient elements Constipation, unspecified constipation type Mixed hyperlipidemia Expected: 05/18/2022, Expires: 07/18/2022 [facility] Work Phone: Comment on above: Expected: 05/18/2022, Expires: 2 Start: 05-18-2022 End: 07-18-2022 Insulin [Units/volume] in Serum or Plasma INSULIN ASSAY BLOOD Lab Routine Deficiency of multiple nutrient elements Constipation, unspecified constipation type Mixed hyperlipidemia Expected: 05/18/2022, Expires: 07/18/2022 [facility] Work Phone: Comment on above: Expected: 05/18/2022, Expires: 2 Start: 05-18-2022 End: 07-18-2022 MAGNESIUM RBC MAGNESIUM RBC Lab Routine Deficiency of multiple nutrient elements Constipation, unspecified constipation type Mixed hyperlipidemia Expected: 05/18/2022, Expires: 07/18/2022 [facility] Work Phone: Comment on above: Expected: 05/18/2022, Expires: 2 Start: 05-18-2022 End: 07-18-2022 Methylmalonate [Moles/volume] in Serum or Plasma METHYLMALONIC ACID Lab Routine Deficiency of multiple nutrient elements Constipation, unspecified constipation type Mixed hyperlipidemia Expected: 05/18/2022, Expires: 07/18/2022 [facility] Work Phone: Comment on above: Expected: 05/18/2022, Expires: 2 Start: 05-18-2022 End: 07-18-2022 NMR LIPOPROTEIN PROFILE NMR LIPOPROTEIN PROFILE Lab Routine Deficiency of multiple nutrient elements Constipation, unspecified constipation type Mixed hyperlipidemia Expected: 05/18/2022, Expires: 07/18/2022 [facility] Work Phone: Comment on above: Expected: 05/18/2022, Expires: 2 Start: 05-18-2022 End: 07-18-2022 Thyrotropin [Units/volume] in Serum or Plasma TSH BLD Lab Routine Deficiency of multiple nutrient elements Constipation, unspecified constipation type Mixed hyperlipidemia Expected: 05/18/2022, Expires: 07/18/2022 [facility] Work Phone: Comment on above: Expected: 05/18/2022, Expires: 2 Start: 05-18-2022 End: 07-18-2022 Thyroxine (T4) free [Mass/volume] in Serum or Plasma T4 FREE/FREE THYROX Lab Routine Deficiency of multiple nutrient elements Constipation, unspecified constipation type Mixed hyperlipidemia Expected: 05/18/2022, Expires: 07/18/2022 [facility] Work Phone: Comment on above: Expected: 05/18/2022, Expires: 2 Start: 05-18-2022 End: 07-18-2022 Triiodothyronine (T3) Free [Mass/volume] in Serum or Plasma T3 FREE BLD Lab Routine Deficiency of multiple nutrient elements Constipation, unspecified constipation type Mixed hyperlipidemia Expected: 05/18/2022, Expires: 07/18/2022 [facility] Work Phone: Comment on above: Expected: 05/18/2022, Expires: 2 Start: 05-18-2022 End: 07-18-2022 Zinc [Mass/volume] in Serum or Plasma ZINC BLD Lab Routine Deficiency of multiple nutrient elements Constipation, unspecified constipation type Mixed hyperlipidemia Expected: 05/18/2022, Expires: 07/18/2022 [facility] Work Phone: Comment on above: Expected: 05/18/2022, Expires: 2 Start: 03-22-2022 Mammography MAMMOGRAM [facility] Start: 09-25-2021 ADVANCE DIRECTIVE DISCUSSION ADVANCE DIRECTIVE DISCUSSION [facility] Start: 2021 Pneumococcal Vaccine: 65+ (1 - PCV) Pneumococcal Vaccine: 65+ (1 - PCV) [facility] Start: 2021 Pneumococcal Vaccine: 65+ (1 of 1 - PCV) Pneumococcal Vaccine: 65+ (1 of 1 - PCV) [facility] Start: 2021 PNEUMOCOCCAL: 65+ (1 - PCV) PNEUMOCOCCAL: 65+ (1 - PCV) [facility] Start: 2021 PNEUMOVAX AGE 65 AND OVER WITH 5YR LOOKBACK (#1) PNEUMOVAX AGE 65 AND OVER WITH 5YR LOOKBACK (#1) [facility] Start: 01-12-2018 COLORECTAL CANCER SCREENING COLORECTAL CANCER SCREENING [facility] Start: 01-12-2018 FECAL OCCULT BLOOD FECAL OCCULT BLOOD [facility] Start: 01-12-2018 Screening for malignant neoplasm of colon Fecal Occult Blood [facility] Start: 2016 RSV Vaccine (1 - 1-dose 60+ series) RSV Vaccine (1 - 1-dose 60+ series) [facility] Start: 2006 Pneumococcal Vaccine: 50+ (1 of 1 - PCV) Pneumococcal Vaccine: 50+ (1 of 1 - PCV) [facility] Start: 2006 SHINGRIX VACCINE (1 of 2) SHINGRIX VACCINE (1 of 2) [facility] Start: 2001 COLOGUARD (FIT-DNA) COLOGUARD (FIT-DNA) [facility] Start: 2001 Colonoscopy COLONOSCOPY [facility] Start: [address] COLONOGRAPHY [facility] Start: 2001 Lipid 1996 panel - Serum or Plasma Lipid Screening [facility] Start: 2001 Lipid panel Lipid Screening [facility] Start: 2001 LIPID SCREEN LIPID SCREEN [facility] Start: 2001 Screening for malignant neoplasm of colon [facility] Start: 2001 SIGMOIDOSCOPY SIGMOIDOSCOPY [facility] Start: 1975 Urine microalbumin profile [facility] Start: 1974 Depression Screening Depression Screening [facility] Start: 1974 HEPATITIS C SCREENING HEPATITIS C SCREENING [facility] Start: 1974 Hepatitis C screening Hepatitis C Screening [facility] Start: 1974 HIV SCREENING HIV SCREENING [facility] Start: 1968 Adult depression screening assessment DEPRESSION SCREENING [facility] Start: 1961 COVID-19 VACCINE (#1) COVID-19 VACCINE (#1) [facility] Start: 1961 COVID-19 VACCINE (1) COVID-19 VACCINE (1) [facility] Start: 1956 COVID-19 VACCINE (#1) COVID-19 VACCINE (#1) [facility] Blood chemistry [facility] Carcinoembryonic Ag [Mass/volume] in Serum or Plasma [facility] Carcinoembryonic Ag [Mass/volume] in Serum or Plasma [facility] CBC W Auto Different ial panel - Blood [facility] CBC W Auto Different ial panel - Blood [facility] CBC W Auto Different ial panel - Blood [facility] End: 10-11-2024 Ct abdomen & pelvis w/contrast material CT ABD/PEL W IVCON Radiology Routine Malignant neoplasm of rectum (HCC) 1 Occurrences starting 09/12/2023 until 10/11/2024 [facility] Work Phone: Comment on above: 1 Occurrences starting 09/12/2023 until 10/11/2024 End: 05-04-2025 CT Abdomen and Pelvis W contrast IV CT ABD/PEL W IVCON Radiology Routine Malignant neoplasm of rectum (HCC) 1 Occurrences starting 04/04/2024 until 05/04/2025 [facility] Work Phone: Comment on above: 1 Occurrences starting 04/04/2024 until 05/04/2025 End: 08-15-2025 CT Abdomen and Pelvis W contrast IV CT ABD/PEL W IVCON Radiology Routine Malignant neoplasm of rectum (HCC) 1 Occurrences starting 07/16/2024 until 08/15/2025 [facility] Work Phone: Comment on above: 1 Occurrences starting 07/16/2024 until 08/15/2025 CT Chest and Abdomen W contrast IV [facility] CT Chest W contrast IV [facility] End: 05-04-2025 CT Chest W contrast IV CT CHEST W IVCON Radiology Routine Malignant neoplasm of rectum (HCC) 1 Occurrences starting 04/04/2024 until 05/04/2025 [facility] Comment on above: 1 Occurrences starting 04/04/2024 until 05/04/2025 End: 08-15-2025 CT Chest W contrast IV CT CHEST W IVCON Radiology Routine Malignant neoplasm of rectum (HCC) 1 Occurrences starting 07/16/2024 until 08/15/2025 [facility] Comment on above: 1 Occurrences starting 07/16/2024 until 08/15/2025 End: 10-11-2024 CT CHEST W IVCON CT CHEST W IVCON Radiology Routine Malignant neoplasm of rectum (HCC) 1 Occurrences starting 09/12/2023 until 10/11/2024 [facility] Work Phone: Comment on above: 1 Occurrences starting 09/12/2023 until 10/11/2024 End: 11-02-2025 DBT Breast - bilateral screening SAMMY SCREENING W JUAN CARLOS Radiology Routine Encounter for screening mammogram for malignant neoplasm of breast 1 Occurrences starting 10/03/2024 until 11/02/2025 [facility] Work Phone: Comment on above: 1 Occurrences starting 10/03/2024 until 11/02/2025 DBT Breast - bilater al screening SAMMY SCREENING W JUAN CARLOS Radiology Routine Encounter for screening mammogram for malignant neoplasm of breast 11/19/2024 11:34 AM EST [facility] Work Phone: FM REALTIME FM REALTIME Lab Routine Abnormal stool test Constipation, unspecified constipation type Mixed hyperlipidemia Mold exposure Ordered: 12/29/2021 [facility] Work Phone: Comment on above: Ordered: 12/29/2021 Magnesium [Mass/volu me] in Serum or Plasma [facility] Magnesium [Mass/volu me] in Serum or Plasma [facility] End: 09-27-2024 SAMMY SCREENING W JUAN CARLOS SAMMY SCREENING W JUAN CARLOS Radiology Routine Encounter for screening mammogram for malignant neoplasm of breast 1 Occurrences starting 08/30/2023 until 09/27/2024 [facility] Work Phone: Comment on above: 1 Occurrences starting 08/30/2023 until 09/27/2024 MR Pelvis WO and W contrast IV [facility] MR Pelvis WO contrast MRI RECTUM WO/W IVCON Radiology Routine Malignant neoplasm of rectum (HCC) 12/26/2023 2:43 PM EDT [facility] Work Phone: End: 01-27-2025 MR Pelvis WO contrast MRI RECTUM WO/W IVCON Radiology Routine Malignant neoplasm of rectum (HCC) 1 Occurrences starting 12/29/2023 until 01/27/2025 [facility] Work Phone: Comment on above: 1 Occurrences starting 12/29/2023 until 01/27/2025 End: 08-15-2025 MR Pelvis WO contrast MRI RECTUM WO/W IVCON Radiology Routine Malignant neoplasm of rectum (HCC) 1 Occurrences starting 07/16/2024 until 08/15/2025 [facility] Comment on above: 1 Occurrences starting 07/16/2024 until 08/15/2025 End: 10-11-2024 Mri pelvis w/o & w/contrast material MRI RECTUM WO/W IVCON Radiology Routine Malignant neoplasm of rectum (HCC) 1 Occurrences starting 09/12/2023 until 10/11/2024 [facility] Work Phone: Comment on above: 1 Occurrences starting 09/12/2023 until 10/11/2024 Patient Education [facility] Work Phone: Patient referral [facility] Work Phone: PELVIC US WHI PELVIC US WHI An c Imaging Routine Ovarian cyst, left Ordered: 02/14/2022 [facility] Work Phone: Comment on above: Ordered: 02/14/2022 Positron emission tomography with computed tomography [facility] Radiation oncology A ND/OR radiotherapy [facility] Serum inorganic phos phate measurement [facility] Payers Date Payer Category Payer Self-pay [id number] 2022 Medicare (Managed Care) [facility] MEDIC[facility] HMO [id number] 2022 Unknown [id number] 2021 Private Health Insurance [facility] AARP SUPPLEMENT [id number] 2021-Present [phone] [address] [place] [address] Indemnity [id number] 2021 Private Health Insurance [facility] AARP SUPPLEMENT [id number] 2021-Present [phone] [address] [place] [address] Indemnity [id number] 2021 Medicare MEDICARE MEDICAR E A AND B [id number] 2021-Present [phone] [place] [address] Medicare [id number] 2021 Medicare [id number] Unknown AULTCARE [id number] Unknown COMMERCIAL OTHER [id number] Unknown [id number] Unknown [id number]. 2.462 Unknown [id number]. 2.462 Unknown [id number]. 2.462 Unknown [id number]. 2.462 Unknown [id number]. 2.462 Unknown [id number]. 2.462 Unknown [id number]. 2.462 Unknown [id number]. 2.462 Unknown [id number]. 2.462 Unknown [id number]. 2.462 Unknown [id number]. 2.462 Unknown [id number]. 2.462 Unknown [id number] 2.462 Social History Date Type Detail Facility Start: 10-30-2017 End: 06-05-2024 Tobacco smoking status NHIS Never smoked tobacco [facility] Start: 09-15-2021 End: 07-16-2024 Alcohol intake Current drinker of alcohol (finding) [facility] Start: 1955 Sex Assigned At Female [facility] Start: 10-30-2017 End: 10-10-2023 Tobacco use and exposure Smokeless tobacco non-user [facility] Start: 02-08-2022 End: 06-06-2022 Exposure to SARS-CoV-2 (event) Not sure [facility] Start: 12-28-2022 End: 05-12-2023 Tobacco smoking status NHIS Unknown if ever smoked [facility] Start: 04-22-2020 Non-smoker [facility] Start: 01-31-2023 End: 02-07-2023 History of Social function [facility] Start: 01-31-2023 End: 02-07-2023 Tobacco use panel [facility] National Score (1-10 0), lower number is lower risk 56 [facility] Start: 07-10-2020 Gender identity Identifies as female gender (finding) [facility] Start: 07-10-2020 Sexual orientation Heterosexual (fin henry) [facility] Medical Equipment Procedure Code Equipment Code Equipment Origin al Text Equipment Identifier Dates Insertion, vascular access port ([id number]) Vascular port/catheter [id number] FDA Start: 03-22-2023 Goals Date Patient Goal Desired Activity /State Mental Status Date Assessment Result Facility 05-12-2023 Cognitive function Level Of Cons ciousness Awake;Alert;Appropriate;Follow s Commands [facility] Work Phone: 03-22-2023 Cognitive function Voice/Name [facility] Work Phone: 12-22-2022 Cognitive function Voice/Name [facility] Work Phone: Clinical Notes 10-09-2011 to 02-11-2025 Note Date & Type Note Facility 02-11-2025 Progress note [facility] 02-11-2025 Progress note Note Date/Time February 11, 2025 1:58pm [facility] [place] [address] OFFICE VISIT Date of Service: 02/11/25 1336 MR#: [id number] Acct: [id number] Name: BARBARA RESENDIZ Rep #: [id number] : 1955 From: Lamin maurice MD Age/Sex: 69/F Location: [facility] Status: Signed HPI Subjective Date of Service 02/11/25 Chief Complaint Rectum cancer on surveillance History of Present Illness 69-year-old female who presented with rectal bleeding. December 22, 2022 colonoscopy: Rectal mass left lateral at 4 to 5 cm from anal verge friable and bleeding. MICROSCOPIC DIAGNOSIS A. Cecal polyp, biopsy: Fragments of benign colonic mucosa. See comment. B. Colonic polyp at splenic flexure, biopsy: Tubular adenoma. C. Proximal sigmoid colon polyp, biopsy: Tubular adenoma. D. Left rectal wall mass, biopsy: Invasive well differentiated adenocarcinoma. ANTIBODY / CLONE RESULT Block D Her-2neu (CB11) negative CANTOR-2 (SP21) positive MLH-1 (M1) positive MSH2 (25D12) positive MSH6 (44) positive PMS2 (IFK9831) positive Ki-67 (30-9) positive P53 (DO-7) positive (Missense mutation pattern) Negative (no loss of mismatch protein; no microsatellite instability detected). December 23, 2022 CT abdomen and pelvis: FINDINGS: Linear density is seen in the left lower lobe. This abuts the pleural surface laterally. There is a 1.5 cm x 0.9 cm pleural-based nodule in the peripheral aspect of the left lower lobe.? The visualized portions of the heart are within normal limits. There is decreased attenuation of the liver consistent with steatosis. There is a 9.5 mm x 6.5 mm cyst in the medial aspect of the left lobe of the liver. There is also evidence of a 8.6 mm x 9.4 mm cyst in the anterior lower aspect of the right lobe of the liver. There is evidence of a Deandra''s lobe of the right lobe of the liver.? Normal gallbladder and extrahepatic biliary system.? Normal spleen.? Normal pancreas. Normal bilateral adrenal glands. Normal right kidney.? Normal left kidney. Normal visualized stomach.? Normal small intestine.? Circumferential wall thickening of the rectum in keeping with the patient''s history of a rectal mass.? The appendix is visualized and appears normal. Normal abdominal aorta.? Normal inferior vena cava.? Normal retroperitoneum. Normal urinary bladder.? There is a 3.3 cm x 2.8 cm cyst in the left ovary. Normal abdominal wall.? Exaggerated lumbar lordosis. Grade 1 anterolisthesis of L4 on L5 most likely secondary to facet joint osteoarthritis. IMPRESSION: Linear density at the peripheral aspect of the left lower lobe abutting the pleural surface where there is a 1.5 cm x 0.9 cm pleural-based nodule. This may represent scarring although a neoplastic process cannot BE. Correlation with a PET scan is recommended. Fatty infiltration of the liver. Small hepatic cysts. Deandra''s lobe of the liver. 2.8 cm x 3.3 cm cyst in the left ovary January 10, 2023 PET/CT initial staging: IMPRESSION: 1. ABNORMAL EXAMINATION INDICATIVE OF MALIGNANT-VIABLE NEOPLASM. 2. Increased radiopharmaceutical concentration defined in the rectum-rectal vault fulfills quantitative criteria for viable malignant transformation. 3. Facilitated uptake noted in the right lower anteromedial lung zone, right middle lobe, does not fulfill quantitative criteria for neoplastic infiltration (Goel et al, Journal of Nuclear Medicine, 32:1, 1991). 4. Anatomic stability may be ensured in the right lower anteromedial lung field metabolic abnormality with repeat CT of the thorax in 3-6 months if clinically indicated. (Amanda, Seminars in Thoracic and Cardiovascular surgery, 14:292, 2002). January 12, 2023 pelvic MRI staging: FINDINGS: Normal urinary bladder. Simple, nonenhancing left adnexal cyst measures 2.9 x 3.2 cm.? ACR White Paper guidelines (Chapin et. al. JACR 2020;17(2):248-254) suggest no follow-up is necessary. 7 cm above the anus, there is a lobular mass of the mid rectum is correlated to mass evident on prior PET scan. Confined to the muscularis propria WITHOUT extension into the perirectal fat. Small perirectal lymph nodes including 3.4 x 5.3 mm perirectal lymph node on image 8 of series 7 with smooth margins and no significant enhancement (to not meet criteria for morphologic malignant criteria). The mass is at the level of the anterior peritoneal reflection but without evidence of intraperitoneal seeding/thickening. The mass is located at the 10:00 to 12:00 position with cemented circumferential appearance. No mucinous component. There is no pelvic fluid.? There is no pelvic mass lesion or lymphadenopathy. Normal visualized pelvic arteries.? No bone marrow edema.? Normal abdominal wall. IMPRESSION: 1.? Mid rectal mass/neoplasm, as above (T2, N0). March 03, 2023 MRI of the rectum with and without contrast at [facility]: 3.2 cm mid low rectal mass with suspected focal extension into the left mesorectal fat and no lymphadenopathy, stage T3a N0 with clear MRF (tumor marginover 2 mm from MRF), no sphincter involvement and suspicious extra mesorectal lymph nodes, no M RIMA. September 12, 2023 CT chest abdomen and pelvis ([facility]) no evidence for residual or metastatic disease. September 12, 2023 MRI rectum ([facility]): Decreased size of low/mid rectal mass, no suspicious lymphadenopathy, residual tumor could not be ruled out. October 12, 2022 surgical evaluation at [facility] Dr. Andre: Digital exam and sigmoidoscopy no residual tumor. Rectal cancer tumor board [facility] September 2023 impression near complete response . 2023 imaging was done at [facility], no evidence to suggest recurrence. October 09, 2024 CT chest abdomen and pelvis: IMPRESSION: 1. Chest: Stable benign calcified granuloma calcified 4 mm right middle lobe nodules unchanged since 2022 indicating a benign. No new lung nodules are seen. 2. Abdomen and pelvis: No visualized bowel masses or metastatic disease to the organs or omentum 3. No acute process October 10, 2024 pelvic MRI: IMPRESSION: 1. No visualized bowel masses or abnormal thickening or enhancement 2. No lymphadenopathy or bony lesions. Treatment summary JENNY * Concurrent chemoradiation with continuous infusion 5-FU 04/03/2023 ? 05/10/2023: received chemoradiation consisting of 4500 cGy delivered in 25 fractions to the rectal tumor with wide margin, perirectal and presacral area as well as internal iliac lymph nodes. This is followed by a sequential boost consisting of 540 cGy delivered in 3 fractions to the rectal tumor with wide margin as well as perirectal and presacral area given the total dose of 5040 cGy delivered in 28 fractions with concurrent chemotherapy. She was treated in the prone position with a 3D conformal treatment plan using mixed 10 and 15 MV photons. * mFOLFOX6 May?August, (6 cycles; could not tolerate cycle 7 and 8 due to GI side effects) PFSH Medical History Cataract Neuropathy Encounter for chemotherapy management Drug induced neutropenia Abdominal cramping Anxiety in cancer patient Anxiety Hypokalemia CINV (chemotherapy-induced nausea and vomiting) Encounter for education Rectal cancer Wears contact lenses Wears glasses Post-menopausal Cancer Arthritis Injury of head and neck History of GI bleed Gastric reflux Non-smoker History of stress test Surgical History History of removal of Port-a-Cath Hx of dilation and curettage Hx of umbilical hernia repair History of dental yazidism Hx of tubal ligation Hx of rhinoplasty History of lumpectomy History of hysteroscopy Family History Mother Breast cancer, Onset Age: 57 Sister Breast cancer Dx in her 60's Diabetes Father Diabetes Heart disease Aunt Breast cancer x3 maternal aunts Social History adopted: No household members: spouse housing: house number of children: 3 current occupational status: retired current occupational exposures/hazards: No pets and animals: No leisure activities: other history of recent travel: No sexually active: No Smoking Status: Never smoker alcohol intake: never substance use type: does not use diet: other well-balanced diet: daily or most days caffeine: Yes eating out: rarely or never during the past year weight has: decreased > 10 lbs what type of physical activity do you participate in: none facundo/anabaptism: Caodaism seatbelt use: always do you feel safe at home: Yes ROS Constitutional Constitutional: Reports systems reviewed and no addt'l complaints, except as documented and fatigue; Denies fever(s) or weight loss Eyes Eyes: Reports systems reviewed and no addt'l complaints, except as documented ENT HEENT: Reports systems reviewed and no addt'l complaints, except as documented; Denies mouth lesions Cardiovascular Cardiovascular: Reports systems reviewed and no addt'l complaints, except as documented; Denies chest pain with activity or edema Respiratory/Chest Respiratory/Chest: Reports systems reviewed and no addt'l complaints, except as documented; Denies cough, dyspnea or hemoptysis Gastrointestinal Gastrointestinal: Reports systems reviewed and no addt'l complaints, except as documented; Denies change in bowel habits, constipation or hematochezia Genitourinary Genitourinary: Reports systems reviewed and no addt'l complaints, except as documented; Denies dysuria or hematuria Musculoskeletal Musculoskeletal: Reports systems reviewed and no addt'l complaints, except as documented; Denies back pain Integumentary Integumentary: Reports systems reviewed and no addt'l complaints, except as documented; Denies new lesions Neurologic Neurologic: Reports systems reviewed and no addt'l complaints, except as documented and paresthesias RLE and LLE; Denies focal weakness or frequent falls Psychiatric Psychiatric: Reports systems reviewed and no addt'l complaints, except as documented Endocrine Endocrinology: Reports systems reviewed and no addt'l complaints, except as documented Hematologic/Lymphatic Hematologic/Lymphatic: Reports systems reviewed and no addt'l complaints, exceptas documented; Denies easy bleeding, easy bruising or lymphadenopathy Allergic/Immunologic Allergic/Immunologic: Reports systems reviewed and no addt'l complaints, except as documented Intake Vital Signs 11/13/24 14:32 12/09/24 13:06 02/11/25 13:37 Height 5 ft 5 in 5 ft 5 in 5 ft 5 in Weight: 61.008 kg 61.745 kg BMI 22.4 22.6 BP 152/76 H 117/76 Blood Pressure Location Rt brachial Lt brachial Position Sitting Sitting Respiration 18 16 Pulse 72 71 Pulse Source Monitor Monitor Temp 96.9 F L 98.6 F Temperature Source Temporal Artery Temporal Artery Pulse Oximetry (%) 96 95 Oxygen Delivery Method room air room air Intake Is patient in pain?: No Allergies hydrocodone (From Vicodin) Allergy (Verified 12/09/24 13:06) Rash latex Allergy (Verified 12/09/24 13:06) Rash prochlorperazine (From Compazine) Adverse Reaction (Intermediate, Verified 12/09/24 13:06) agitation/restless bacitracin (From Polysporin) Adverse Reaction (Verified 12/09/24 13:06) Other polymyxin B (From Polysporin) Adverse Reaction (Verified 12/09/24 13:06) Other Have you fallen in the past year?: No Central Venous Access Central Venous Access: No Laboratory Tests 01/04/23 01/30/23 12/06/23 11: 11:00 15:10 Carcinoembryonic Ag 3.1 2.9 1.8 04/03/24 07/09/24 11/05/24 14:00 11:22 09:25 Carcinoembryonic Ag 2.3 2.5 2.3 02/04/25 10:35 Carcinoembryonic Ag 2.7 Exam Physical Exam Narrative ECOG 0 Const alert, oriented x3 and no apparent distress General Appearance: cooperative and comfortable HEENT normocephalic Face and Sinus: normal facial exam Mouth: oral and palatal mucosa normal Eyes General Eye: normal appearance of both eyes Neck no lymphadenopathy and no JVD Lymph Lymphatic: no lymphadenopathy noted Resp clear to auscultation bilaterally Cardio regular rate and regular rhythm GI soft to palpation, non-tender and non-distended; Negative for hepatosplenomegaly Back/Spine no thoracic nor lumbar tenderness Extremity no clubbing, cyanosis or edema Skin no rashes or lesions noted Neuro CN's II-XII intact bilaterally, moves all extremities and no focal motor deficits Coordination / Balance: [id number] test normal Speech: speech normal Gait (Neuro): normal gait Psych mental status grossly normal Coding Level of Care Code Off vis,est,level 4 Exam Problem Focused Diagnoses Rectal cancer C20 Drug induced neutropenia D70.2 Assessment and Plan Assessment and Plan (1) Rectal cancer: Status: Acute (2) Drug induced neutropenia: Status: Acute Plan 69-year-old female with rectal adenocarcinoma, clinical stage (T3a, N0, M0), Microsatellite stable. An indeterminate nodule in the left lower lung lobe was seen on limited view of the lungs on the abdominal CT and a second indeterminate low PET uptake noted inthe right mid/lower lung zone. Received total neoadjuvant therapy March?April the combined modality phase followed by 6 cycles of mFOLFOX (of 8 initially planned due to excessive GI toxicity) May - August 2023. End of treatment imaging in August [address] chest abdomen and pelvis showed no evidence of residual or metastatic disease. She continues to have no evidence of disease recurrence on surveillance. Past medical history notable for right breast DCIS status postlumpectomy, adjuvant radiation therapy in 2019 and a few months of tamoxifen then discontinued due to abnormal uterine bleeding Plan: Based on NCCN guidelines for surveillance following nonoperative management and in consultation with [facility] surgery (Dr. Andre) and multidisciplinary clinic treatment with intent to cure: 1. History and physical every 3 to 6 months for 2 years then every 6 months fora total of 5 years 2. CEA every 3 to 6 months for the first 2 years then every 6 months for a total of 5 years; noted that marker was not elevated prior to initiation of therapy. 3. LILO and direct visualization by proctoscopy or flexible sigmoidoscopy at [facility], Dr. Andre. Last seen December 2024. 4. MRI of the rectum every 6 months for up to [address] chest abdomen every 6 to 12 months for a total of 5 years; last imaging was September 2024 Patient seen with her , impression and plan discussed Lamin Berger MD Translator And Interpreter, [facility] Divisions of Medical Oncology & Hematology Department of Internal Medicine [place] [id number] This note was generated using a voice recognition system software. Although itwas reviewed by the author prior to finalization, it may still contain incorrectwords, spelling, and punctuation that were not noted when reviewing prior to saving. If a clinically significant typo or inaccurately typed phrase is noted, please notify the author. Clinical Quality Measures Falls Risk Screening/Assistive Devices Have you fallen in the past year?: No 02/11/25 2343 <Electronically signed by Lamin ramirez MD> Date _ Lamin Berger MD Cosigner Signature: Date (if applicable) CC: ~ [facility] [employer] Work Phone: [phone] History of Present illness Narrative* Dago Andre MD - 01/07/2025 10:00 AM EDT Images from the original note were not included. COLORECTAL SURGERY Follow-up January 01, 2025 Chief complaint: Watchful waiting HPI: Alicia Resendiz is a 69-year-old female here today for follow up for diagnosis of rectal cancer. Shewas last seen by Dr Andre in January of 2023, and after exam, imaging, and TB discussion it was recommended that she proceed with JENNY, and possible Lx LAR if not complete response. 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 Her last chemotherapy treatment was on September 06 2023. Scope w/ Dr Andre on 10.10.2023 showed complete endoscopic response, but MRI showed incomplete response with likely residual tumor - mrTRG grade 3 - see below. Her case was presented to [facility] and it was recommended that she proceed with surveillance at this time with MRI and scope in three months- these were both done in December 2023, case was re-presented to [facility] in December 2023 where it was recommended that she continue with surveillance - she is here today for flex sig and imaging. Imaging on 04/09/24 showed no evidence of metastatic disease, MRI rectum showed mrTRG grade 2, flex sig showed residual scar in rectum with no disease recurrence. Her case was presented to [facility] on[facility]/12[facility]24 and was recommended to continue with watch and wait. she is here today for flex sig. She had recent imaging in Sep 2024 all clear of any metastatic disease and/or recurrent disease. She needs repeat imaging in February 2025 per protocol. She has a history of hx of breast cancer arthritis, tubal ligation, umbilical hernia repair. Doing well. No new symptoms. Stated that she underwent full c-scope and cea testing recently along with imaging in September. 10.09.2024 MRI pelvis 10.09.2024 CT C/A/P 04.12.2024 MDT Recs Tumor board discussion and recommendation: Continue active surveillance (Watch & Wait) with following schedule: Exam, LILO, CEA & Flex Sig: Years 0-2 every 3 months; Years 3-4 every 6 months; Years 5-10 yearly MRI Pelvis: Years 0-4 every 6 months; Years 5-[address] C/A/P with Contrast: Years 0-2 every 6 months; Years 3-10 yearly Colonoscopy: 1 year after treatment then every 3 years Discussion: Called and spoke to the patient and will see me in 3 months and follow from above. Willget the full colonoscopy and she reassured me she would reschedule. Again, explained there is always a chance that residual tumor there but meets our criteria for surveillance. MRI with no sign of recurrence. 04.09.2024 flex sig Findings: The perianal examination was normal. Residual rectal scar No disease recurrance Impression: - No specimens collected. - Residual rectal scar No disease recurrence 04.09.2024 CT C/A/P IMPRESSION: No abdominopelvic metastatic disease. IMPRESSION: 1. No interval change, no convincing findings of metastatic disease in the thorax. 04.09.2024 MRI rectum IMPRESSION: Mid rectal fibrosis without residual viable tumor. Insufficiency fracture of the left hemisacrum. Since 12/26/2023, post treatment primary tumor assessment: Complete/near complete response. mrTRG: Grade 2 - Good response Suspicious Mesorectal lymph nodes: No. Suspicious Extramesorectal lymph nodes: No. 4. MDT Tumor board discussion and recommendation: Continue active surveillance (Watch & Wait) with following schedule: Exam, LILO, CEA & Flex Sig: Years 0-2 every 3 months; Years 3-4 every 6 months; Years 5-10 yearly MRI Pelvis: Years 0-4 every 6 months; Years 5-[address] C/A/P with Contrast: Years 0-2 every 6 months; Years 3-10 yearly Colonoscopy: 1 year after treatment then every 3 years Discussion: MRI reviewed and there was no evidence of tumor on diffusion evidence per Dr. Jolley. With that comfortable to continue surveillance. CEA is 1.8 12.26.2023 flex sig Findings: The perianal and digital rectal examinations were normal. A scar was found in the rectum. The scar was unremarkable in appearance. Impression: - Preparation of the colon was fair. - Scar in the rectum. - No specimens collected. 12.26.2023 MRI rectum IMPRESSION: Low/mid rectal fibrosis with decreased, but persistent residual viable tumor. Since 10/10/2023, post treatment primary tumor assessment: Incomplete response (likely residual tumor). mrTRG: Grade 3 - Moderate response Suspicious Mesorectal lymph nodes: No. Suspicious Extramesorectal lymph nodes: No. 1 recs Tumor board discussion and recommendation: Repeat MRI and flex sig in 3 months. Discordant findings of MRI and flex sig. Discussion: Repeat MRI and flex sig in 3 months. Discordant findings of MRI and flex sig. Suspect that will have complete response as on MRI has very good response. 10.10.2023 CT C/A/P No abdominopelvic metastatic disease No interval change, no convincing findings of metastatic disease in the thorax 10.10.2023 MRI rectum IMPRESSION: Decreased size of the low/mid rectal mass with residual viable tumor. Since MRI 03/03/2023, post treatment primary tumor assessment: Incomplete response (likely residual tumor). mrTRG: Grade 3 - Moderate response Suspicious Mesorectal lymph nodes: No. Suspicious Extramesorectal lymph nodes: No. 10.10.2023 flex sig Findings: The perianal and digital rectal examinations were normal. A scar was seen in the left posterior position in the distal rectum with telangectasia a possible possible small mucosal irregularity. Impression: A scar was seen in the left posterior position in the distal rectum with telangectasia a possible possible small mucosal irregularity. No specimens collected. 03.10.2023 [facility] Neoadjuvant therapy recommended: Yes Total Neoadjuvant Therapy: Long-course chemoradiation (5 weeks) followed by consolidation chemotherapy (4 months) if responsive to chemoradiotherapy. After completion of JENNY, assessment for complete clinical response and discussion regarding active surveillance versus surgery. Anticipated surgical treatment: Low anterior resection. Anticipated en bloc resection: No Anticipated metastasectomy: No. Clinical Trial Candidate: No. Other Discussion: Repeat MRI with T3aN0. 03.03.2023 MRI rectum IMPRESSION: 3.2 cm mid/low rectal mass with suspected focal extension into the left mesorectal fat. No lymphadenopathy. Stage: T3a N0 MRF: Clear (tumor margin >2 mm from MRF) Sphincter involvement: No. Suspicious extra mesorectal lymph nodes: EMVI: No. 01.31.[address] Andre Findings: The digital rectal exam revealed a 3 cm (diameter) soft rectal mass palpated 5 to 6 cm from the anal verge. The mass was non-circumferential and located predominantly at the left bowel wall and mobile. This also was seen on the endoscopic view at the lower rectal valve, occupy 25% of the circumference. The remaining rectum and colon mucusa are normal. Impression: - Rectal mass 5 to 6 cm from the anal verge. - Soft, and mobile, occupies 25 % of the circumference. 01/10/[address](outside imaging) Impression: ABNORMAL EXAMINATION INDICATIVE OF MALIGNANT- VIABLE NEOPLASM Increased radiopharmaceutical concentration defined in the rectum-rectal vault fulfils quantitativecriteria for viable malignant transformation. Facilitated uptake noted in the right lower anteromedial lung zone, right middle lobe, does not fulfill quantitative criteria for neoplastic infiltration. Anatomic stability may be ensured in the right lower anteromedial lung field metabolic abnormality with repeat CT of the thorax in 3-6 months if clinically indicated 12.23.2022 CT A/P IMPRESSION: No definitive evidence for metastatic disease in the abdomen and pelvis. Physical Exam: Sensitive Exam: yes, Participation of a fellow, resident, medical student, or advanced practice provider student in performing the sensitive examination was discussed with the patient or authorized food products sales representative. The patient or authorized food products sales representative has agreed to proceed with the sensitive examination. There were no vitals taken for this visit. General - awake, alert, no acute distress Abdominal - soft Anorectal: Perianal skin is intact. No erythema, induration or excoriation. No fissure, fistula or external hemorrhoids. Digital Rectal Exam: Anus: open Resting tone: NORMAL Millinery Worker present: Yes, RN Flexible sigmoidoscopy: UNIVERSAL PROTOCOL / SAFETY CHECKLIST Procedure to be Performed: Flexible sigmoidoscopy Sign In: A Moment of CARE was completed. Appropriate PPE (Personal Protective Equipment) worn by all providers involved with the procedure. Special equipment utilized Scope. Procedure: The patient was placed in left lateral position. After digital exam with a lubricated finger, the scope was easily inserted to 20 cm. Findings: The preparation was adequate. There was a scar at the first valve. The remainder of the sigmoid, rectum and anal canal were entirely normal. Assessment Medical Decision Making: Assessment & Diagnosis: Barbara Resendiz is a 69 year old female with a history of rectal cancer s/p JENNY and now on watchand wait. Denies any new symptoms. Flexible sigmoidoscopy within normal limits. No new masses/lesions noted. Stated she underwent full colonoscopy and was normal. Data Reviewed: Tests & Documents Reviewed/ordered: Review of Pathology Review of Labs: CEA I have independently interpreted: CT Abdomen, MRI Pelvis I have discussed Barbara Resendiz's treatment plan and/or results Treatment plan: Continue imaging every 6 months and CEA Colonoscopy in 5 years if normal this past year. Follow up in 6 months Risk of morbidity, mortality and/or complications of treatment plan: Moderate [facility] STAFF PHYSICIAN NOTE OF PERSONAL INVOLVEMENT IN CARE I have reviewed the progress note obtained and documented by the resident and I personally participated in the kc components. I have discussed the case and management of the patient's care. The following comments revise or confirm relevant kc components of their note. IMPRESSION: This is a 69 year old female who presents for rectal cancer surveillance She had scopes done locally and were WNL per her, we will request the reports CEA done locally is 2.3 - uploaded to chart Scope today with NORMA PLAN: Continue with surveillance RTC in 6 months for flex sig - scheduled today Imaging per oncology Plan of care discussed with Provider, RN, Patient CARE COORDINATION: follow up appt scheduled SIGNATURE: Dago Andre MD DATE of SERVICE: January 07, 2025 TIME of SERVICE: 9:43 AM [facility] NoteHNO ID: [id number] Author: DAGO ANDRE MD Service: ? Author Type: Physician Type: Progress Notes Filed: 01/07/2025 09:45 Note Text: COLORECTAL SURGERY Follow-up January 01, 2025 Chief complaint: Watchful waiting HPI: Alicia Resendiz is a 69-year-old female here today for follow up for diagnosis of rectal cancer. She was last seen by Dr Andre in January of 2023, and after exam, imaging, and TB discussion it was recommended that she proceed with JENNY, and possible Lx LAR if not complete response. 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 Her last chemotherapy treatment was on September 06 2023. Scope w/ Dr Andre on 10.10.2023 showed complete endoscopic response, but MRI showed incomplete response with likely residual tumor - mrTRG grade 3 - see below. Her case was presented to [facility] and it was recommended that she proceed with surveillance at this time with MRI and scope in three months - these were both done in December 2023, case was re-presented to [facility] in December 2023 where it was recommended that she continue with surveillance - she is here today for flex sig and imaging. Imaging on 04/09/24 showed no evidence of metastatic disease, MRI rectum showed mrTRG grade 2, flex sig showed residual scar in rectum with no disease recurrence. Her case was presented to [facility] on 04/12/24 and was recommended to continue with watch and wait. she is here today for flex sig. She had recent imaging in Sep 2024 all clear of any metastatic disease and/or recurrent disease. She needs repeat imaging in February 2025 per protocol. She has a history of hx of breast cancer arthritis, tubal ligation, umbilical hernia repair. Doing well. No new symptoms. Stated that she underwent full c-scope and cea testing recently along with imaging in September. 10.09.2024 MRI pelvis 10.09.2024 CT C/A/P 04.12.2024 MDT Recs Tumor board discussion and recommendation: Continue active surveillance (Watch AND Wait) with following schedule: Exam, LILO, CEA AND Flex Sig: Years 0-2 every 3 months; Years 3-4 every 6 months; Years 5-10 yearly MRI Pelvis: Years 0-4 every 6 months; Years 5-[address] C/A/P with Contrast: Years 0-2 every 6 months; Years 3-10 yearly Colonoscopy: 1 year after treatment then every 3 years Discussion: Called and spoke to the patient and will see me in 3 months and follow from above. Will get the full colonoscopy and she reassured me she would reschedule. Again, explained there is always a chance that residual tumor there but meets our criteria for surveillance. MRI with no sign of recurrence. 04.09.2024 flex sig Findings: The perianal examination was normal. Residual rectal scar No disease recurrance Impression: - No specimens collected. - Residual rectal scar No disease recurrence 04.09.2024 CT C/A/P IMPRESSION: No abdominopelvic metastatic disease. IMPRESSION: 1. No interval change, no convincing findings of metastatic disease in the thorax. 04.09.2024 MRI rectum IMPRESSION: Mid rectal fibrosis without residual viable tumor. Insufficiency fracture of the left hemisacrum. Since 12/26/2023, post treatment primary tumor assessment: Complete/near complete response. mrTRG: Grade 2 - Good response Suspicious Mesorectal lymph nodes: No. Suspicious Extramesorectal lymph nodes: No. 4. MDT Tumor board discussion and recommendation: Continue active surveillance (Watch AND Wait) with following schedule: Exam, LILO, CEA AND Flex Sig: Years 0-2 every 3 months; Years 3-4 every 6 months; Years 5-10 yearly MRI Pelvis: Years 0-4 every 6 months; Years 5-[address] C/A/P with Contrast: Years 0-2 every 6 months; Years 3-10 yearly Colonoscopy: 1 year after treatment then every 3 years Discussion: MRI reviewed and there was no evidence of tumor on diffusion evidence per Dr. Jolley. With that comfortable to continue surveillance. CEA is 1.8 12.26.2023 flex sig Findings: The perianal and digital rectal examinations were normal. A scar was found in the rectum. The scar was unremarkable in appearance. Impression: - Preparation of the colon was fair. - Scar in the rectum. - No specimens collected. 12.26.2023 MRI rectum IMPRESSION: Low/mid rectal fibrosis with decreased, but persistent residual viable tumor. Since 10/10/2023, post treatment primary tumor assessment: Incomplete response (likely residual tumor). mrTRG: Grade 3 - Moderate response Suspicious Mesorectal lymph nodes: No. Suspicious Extramesorectal lymph nodes: No. 1. recs Tumor board discussion and recommendation: Repeat MRI and flex sig in 3 months. Discordant findings of MRI and flex sig. Discussion: Repeat MRI and flex sig in 3 months. Discordant findings of MRI and flex sig. Suspect that will have complete response as on MRI has very (more content not included)...[facility]02-25-2025 History of Present illness Narrative* April Jules, RT(R) - 11/19/2024 11:30 AM EST Radiology Service Progress Note PATIENT NAME: Barbara Resendiz DATE OF SERVICE: November 19, 2024 TIME: 11:07 AM PATIENT IDENTITY VERIFICATION COMPLETED USING TWO (2) IDENTIFIERS: Name and Date of confirmedby patient verbally. FALL SCREENING: Has the patient had 2 falls in the last year or 1 fall with injury or currently using an Ambulatory Assistive Device (Walker, Cane, Wheelchair, Crutches, etc.)? No PATIENT GENDER DATA: Assigned female at . status: : No status:NO. PATIENT RELEVANT IMPLANT DATA REVIEWED: Not Applicable PATIENT PRESENTS WITH AN IMPLANTABLE OR ATTACHED BUFFER NICKEL: No RADIOLOGY DEPARTMENT: Mammography PERIPHERAL IV DATA: Not applicable SIGNED BY: RT Shanice(Kristie) November 19, 2024 11:07 AM documented [facility] NoteHNO ID: [id number] Author: APRIL JULES RT(Kristie) Service: ? Author Type: Technologist Type: Progress Notes Filed: 11/19/2024 11:07 Note Text: Radiology Service Progress Note PATIENT NAME: Barbara Resendiz DATE OF SERVICE: November 19, 2024 TIME: 11:07 AM PATIENT IDENTITY VERIFICATION COMPLETED USING TWO (2) IDENTIFIERS: Name and Date of confirmed by patient verbally. FALL SCREENING: Has the patient had 2 falls in the last year or 1 fall with injury or currently using an Ambulatory Assistive Device (Walker, Cane, Wheelchair, Crutches, etc.)? No PATIENT GENDER DATA: Assigned female at . status: : No status: NO. PATIENT RELEVANT IMPLANT DATA REVIEWED: Not Applicable PATIENT PRESENTS WITH AN IMPLANTABLE OR ATTACHED BUFFER NICKEL: No RADIOLOGY DEPARTMENT: Mammography PERIPHERAL IV DATA: Not applicable SIGNED BY: RT Shanice(Kristie) November 19, 2024 11:07 [facility]02-19-2025 Evaluation note* Diagnosis Onset Date Resolution Status Admit Date Drug induced neutropenia acute November 13, 2024 2:25pm Rectal cancer acute November 132024 2:25pm Rectal cancer acute December 09, 2024 12:51pm Drug induced neutropenia acute February 11, 2025 1:27pm Rectal cancer acute February 11, 2 025 1:27pm [facility] Work Phone: 1(180) 182-331501-09-2025 Telephone encounter Note* Telephone Encounter - Deonna Richardson MD - 10/03/2024 12:52 PM EST ordered [facility] Work Phone: 1(350) 862-827801-09-2025 Miscellaneous Notes* Telephone Encounter - Deonna Richardson MD - 10/03/2024 12:52 PM EST ordered documented [facility]10[facility] History of Present illness Narrative* Dago Andre MD - 07/16/2024 10:00 AM EDT COLORECTAL SURGERY Follow-up July 10, 2024 Chief complaint: Rectal cancer watch and wait HPI: Alicia Resendiz is a 69-year-old female here today for follow up for diagnosis of rectal cancer. Shewas last seen by Dr Andre in January of 2023, and after exam, imaging, and TB discussion it was recommended that she proceed with JENNY, and possible Lx LAR if not complete response. 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 Her last chemotherapy treatment was on September 06 2023. Complete colonoscopy done Jun 07 at [place] - normal. CEA March 26.3. No N/V. Good appetite. No weight loss. Has soft BM, goes multiple times for BM due to feeling of incomplete evacuation. No Blood. No pain with BM. Scope w/ Dr Andre on 10.10.2023 showed complete endoscopic response, but MRI showed incomplete response with likely residual tumor - mrTRG grade 3 - see below. Her case was presented to [facility] and it was recommended that she proceed with surveillance at this time with MRI and scope in three months- these were both done in December 2023, case was re-presented to [facility] in December 2023 where it was recommended that she continue with surveillance - she is here today for flex sig and imaging. Imaging on 04/09 showed no evidence of metastatic disease, MRI rectum showed mrTRG grade 2, flex sigshowed residual scar in rectum with no disease recurrence. Her case was presneted to [facility] on 04/12 and was recommended contineu with watch and wait, she is here today for flex sig. She has a history of hx of breast cancer arthritis, tubal ligation, umbilical hernia repair. 04.12.2024 MDT Recs Tumor board discussion and recommendation: Continue active surveillance (Watch & Wait) with following schedule: Exam, LILO, CEA & Flex Sig: Years 0-2 every 3 months; Years 3-4 every 6 months; Years 5-10 yearly MRI Pelvis: Years 0-4 every 6 months; Years 5-[address] C/A/P with Contrast: Years 0-2 every 6 months; Years 3-10 yearly Colonoscopy: 1 year after treatment then every 3 years Discussion: Called and spoke to the patient and will see me in 3 months and follow from above. Willget the full colonoscopy and she reassured me she would reschedule. Again, explained there is always a chance that residual tumor there but meets our criteria for surveillance. MRI with no sign of recurrence. 04.09.2024 flex sig Findings: The perianal examination was normal. Residual rectal scar No disease recurrance Impression: - No specimens collected. - Residual rectal scar No disease recurrance 04.09.2024 CT C/A/P IMPRESSION: No abdominopelvic metastatic disease. IMPRESSION: 1. No interval change, no convincing findings of metastatic disease in the thorax. 04.09.2024 MRI rectum IMPRESSION: Mid rectal fibrosis without residual viable tumor. Insufficiency fracture of the left hemisacrum. Since 12/26/2023, post treatment primary tumor assessment: Complete/near complete response. mrTRG: Grade 2 - Good response Suspicious Mesorectal lymph nodes: No. Suspicious Extramesorectal lymph nodes: No. 4. MDT Tumor board discussion and recommendation: Continue active surveillance (Watch & Wait) with following schedule: Exam, LILO, CEA & Flex Sig: Years 0-2 every 3 months; Years 3-4 every 6 months; Years 5-10 yearly MRI Pelvis: Years 0-4 every 6 months; Years 5-[address] C/A/P with Contrast: Years 0-2 every 6 months; Years 3-10 yearly Colonoscopy: 1 year after treatment then every 3 years Discussion: MRI reviewed and there was no evidence of tumor on diffusion evidence per Dr. Jolley. With that comfortable to continue surveillance. CEA is 1.8 12.26.2023 flex sig Findings: The perianal and digital rectal examinations were normal. A scar was found in the rectum. The scar was unremarkable in appearance. Impression: - Preparation of the colon was fair. - Scar in the rectum. - No specimens collected. 12.26.2023 MRI rectum IMPRESSION: Low/mid rectal fibrosis with decreased, but persistent residual viable tumor. Since 10/10/2023, post treatment primary tumor assessment: Incomplete response (likely residual tumor). mrTRG: Grade 3 - Moderate response Suspicious Mesorectal lymph nodes: No. Suspicious Extramesorectal lymph nodes: No. 1 recs Tumor board discussion and recommendation: Repeat MRI and flex sig in 3 months. Discordant findings of MRI and flex sig. Discussion: Repeat MRI and flex sig in 3 months. Discordant findings of MRI and flex sig. Suspect that will have complete response as on MRI has very good response. 10.10.2023 CT C/A/P No abdominopelvic metastatic disease No interval change, no convincing findings of metastatic disease in the thorax 10.10.2023 MRI rectum IMPRESSION: Decreased size of the low/mid rectal mass with residual viable tumor. Since MRI 03/03/2023, post treatment primary tumor assessment: Incomplete response (likely residual tumor). mrTRG: Grade 3 - Moderate response Suspicious Mesorectal lymph nodes: No. Suspicious Extramesorectal lymph nodes: No. 1 flex sig Findings: The perianal and digital rectal examinations were normal. A scar was seen in the left posterior position in the distal rectum with telangectasia a possible possible small mucosal irregularity. Impression: A scar was seen in the left posterior position in the distal rectum with telangectasia a possible possible small mucosal irregularity. No specimens collected. 03.10.2023 TB recs Neoadjuvant therapy recommended: Yes Total Neoadjuvant Therapy: Long-course chemoradiation (5 weeks) followed by consolidation chemotherapy (4 months) if responsive to chemoradiotherapy. After completion of JENNY, assessment for complete clinical response and discussion regarding active surveillance versus surgery. Anticipated surgical treatment: Low anterior resection. Anticipated en bloc resection: No Anticipated metastasectomy: No. Clinical Trial Candidate: No. Other Discussion: Repeat MRI with T3aN0. 03.03.2023 MRI rectum IMPRESSION: 3.2 cm mid/low rectal mass with suspected focal extension into the left mesorectal fat. No lymphadenopathy. Stage: T3a N0 MRF: Clear (tumor margin >2 mm from MRF) Sphincter involvement: No. Suspicious extra mesorectal lymph nodes: EMVI: No. 01.31.[address] Andre Findings: The digital rectal exam revealed a 3 cm (diameter) soft rectal mass palpated 5 to 6 cm from the anal verge. The mass was non-circumferential and located predominantly at the left bowel wall and mobile. This also was seen on the endoscopic view at the lower rectal valve, occupy 25% of the circumference. The remaining rectum and colon mucusa are normal. Impression: - Rectal mass 5 to 6 cm from the anal verge. - Soft, and mobile, occupies 25 % of the circumference. 01/10/[address](outside imaging) Impression: ABNORMAL EXAMINATION INDICATIVE OF MALIGNANT- VIABLE NEOPLASM Increased radiopharmaceutical concentration defined in the rectum-rectal vault fulfils quantitativecriteria for viable malignant transformation. Facilitated uptake noted in the right lower anteromedial lung zone, right middle lobe, does not fulfill quantitative criteria for neoplastic infiltration. Anatomic stability may be ensured in the right lower anteromedial lung field metabolic abnormality with repeat CT of the thorax in 3-6 months if clinically indicated 12.23.2022 CT A/P IMPRESSION: No definitive evidence for metastatic disease in the abdomen and pelvis. Physical Exam: Sensitive Exam: yes, The sensitive examination was discussed with the Patient or Patient's Authorized Area Representative. As applicable, any other physician, advance practice provider, medical student, or other health professional student that will be observing or involved in the sensitive examination for educational or training purposes was discussed with the Patient or Authorized Area Representative. The Patient or Authorized Area Representative has agreed to proceed with the sensitive examination. (Sensitive examination includes inspection and/or palpation of the breasts, pelvis, prostate and anorectal regions) There were no vitals taken for this visit. General - awake, alert, no acute distress Abdominal - soft, not tender, not distended Anorectal: Perianal skin is intact. No erythema, induration or excoriation. No fissure, fistula or external hemorrhoids. Digital Rectal Exam: Anus: closed Resting tone: NORMAL Squeeze tone: NORMAL Millinery Worker present: Yes, Lennox Richey Flexible sigmoidoscopy: Procedure: The patient was placed in left lateral position. After digital exam with a lubricated finger, the scope was easily inserted to 20 cm. Findings: There was no evidence of disease recurrence. Retroflexed view normal. Assessment Medical Decision Making: Assessment & Diagnosis: Barbara Resendiz is a 69 year old female undergoing watch and wait surveillance for rectal cancer Data Reviewed: Tests & Documents Reviewed/ordered: Review of Pathology Review of Imaging: CT Abdomen, CT Pelvis, Colonoscopy done in [place], May 2024 Review of Procedures / Tests: Colonoscopy I have independently interpreted: CT Abdomen, CT Pelvis, MRI Pelvis I have discussed Barbara Resendiz's treatment plan and/or results with patient and partner. Treatment plan: Follow up in Clinic with repeat rectal exam and Flexible sigmoidoscopy in 4-6m CEA and imaging to be arranged at local hospital or here according to availability. MRI / CT in . [facility] STAFF PHYSICIAN NOTE OF PERSONAL INVOLVEMENT IN CARE I have reviewed the progress note and procedure note obtained and documented by the fellow and I personally participated in the kc components. I have discussed the case and management of the patient's care. The following comments revise or confirm relevant kc components of their note. IMPRESSION: This is a 69 year old female who presents with rectal cancer s/p JENNY and cCR and now onW&W. Doing well. Scope done a bit ago (see above) with no sign of recurrence. Flex sig today with no sign of recurrence. Seeing oncologist and due for scans as above. PLAN: Continue active surveillance (Watch & Wait) with following schedule: Exam, LILO, CEA & Flex Sig: Years 0-2 every 3 months; Years 3-4 every 6 months; Years 5-10 yearly MRI Pelvis: Years 0-4 every 6 months; Years 5-[address] C/A/P with Contrast: Years 0-2 every 6 months; Years 3-10 yearly Colonoscopy: 1 year after treatment then every 3 years Plan of care discussed with Patient and Family/Significant Other: CARE COORDINATION: NA SIGNATURE: Dago Andre MD DATE of SERVICE: July 16, 2024 TIME of SERVICE: 9:45 AM Risk of morbidity, mortality and/or complications of treatment plan: moderate documented in [facility]24 NoteHNO ID: [id number] Author: DAGO ANDRE MD Service: ? Author Type: Physician Type: Progress Notes Filed: 07/16/2024 09:47 Note Text: COLORECTAL SURGERY Follow-up July 10, 2024 Chief complaint: Rectal cancer watch and wait HPI: Alicia Resendiz is a 69-year-old female here today for follow up for diagnosis of rectal cancer. She was last seen by Dr Andre in January of 2023, and after exam, imaging, and TB discussion it was recommended that she proceed with JENNY, and possible Lx LAR if not complete response. 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 Her last chemotherapy treatment was on September 06 2023. Complete colonoscopy done Jun 07 at [place] - normal. CEA March 26.3. No N/V. Good appetite. No weight loss. Has soft BM, goes multiple times for BM due to feeling of incomplete evacuation. No Blood. No pain with BM. Scope w/ Dr Andre on 10.10.2023 showed complete endoscopic response, but MRI showed incomplete response with likely residual tumor - mrTRG grade 3 - see below. Her case was presented to [facility] and it was recommended that she proceed with surveillance at this time with MRI and scope in three months - these were both done in December 2023, case was re-presented to [facility] in December 2023 where it was recommended that she continue with surveillance - she is here today for flex sig and imaging. Imaging on 04/09 showed no evidence of metastatic disease, MRI rectum showed mrTRG grade 2, flex sig showed residual scar in rectum with no disease recurrence. Her case was presneted to [facility] on 04/12 and was recommended contineu with watch and wait, she is here today for flex sig. She has a history of hx of breast cancer arthritis, tubal ligation, umbilical hernia repair. 04.12.2024 MDT Recs Tumor board discussion and recommendation: Continue active surveillance (Watch AND Wait) with following schedule: Exam, LILO, CEA AND Flex Sig: Years 0-2 every 3 months; Years 3-4 every 6 months; Years 5-10 yearly MRI Pelvis: Years 0-4 every 6 months; Years 5-[address] C/A/P with Contrast: Years 0-2 every 6 months; Years 3-10 yearly Colonoscopy: 1 year after treatment then every 3 years Discussion: Called and spoke to the patient and will see me in 3 months and follow from above. Will get the full colonoscopy and she reassured me she would reschedule. Again, explained there is always a chance that residual tumor there but meets our criteria for surveillance. MRI with no sign of recurrence. 04.09.2024 flex sig Findings: The perianal examination was normal. Residual rectal scar No disease recurrance Impression: - No specimens collected. - Residual rectal scar No disease recurrance 04.09.2024 CT C/A/P IMPRESSION: No abdominopelvic metastatic disease. IMPRESSION: 1. No interval change, no convincing findings of metastatic disease in the thorax. 04.09.2024 MRI rectum IMPRESSION: Mid rectal fibrosis without residual viable tumor. Insufficiency fracture of the left hemisacrum. Since 12/26/2023, post treatment primary tumor assessment: Complete/near complete response. mrTRG: Grade 2 - Good response Suspicious Mesorectal lymph nodes: No. Suspicious Extramesorectal lymph nodes: No. 4. MDT Tumor board discussion and recommendation: Continue active surveillance (Watch AND Wait) with following schedule: Exam, LILO, CEA AND Flex Sig: Years 0-2 every 3 months; Years 3-4 every 6 months; Years 5-10 yearly MRI Pelvis: Years 0-4 every 6 months; Years 5-[address] C/A/P with Contrast: Years 0-2 every 6 months; Years 3-10 yearly Colonoscopy: 1 year after treatment then every 3 years Discussion: MRI reviewed and there was no evidence of tumor on diffusion evidence per Dr. Jolley. With that comfortable to continue surveillance. CEA is 1.8 12.26.2023 flex sig Findings: The perianal and digital rectal examinations were normal. A scar was found in the rectum. The scar was unremarkable in appearance. Impression: - Preparation of the colon was fair. - Scar in the rectum. - No specimens collected. 12.26.2023 MRI rectum IMPRESSION: Low/mid rectal fibrosis with decreased, but persistent residual viable tumor. Since 10/10/2023, post treatment primary tumor assessment: Incomplete response (likely residual tumor). mrTRG: Grade 3 - Moderate response Suspicious Mesorectal lymph nodes: No. Suspicious Extramesorectal lymph nodes: No. 10.13.2023 TB recs Tumor board discussion and recommendation: Repeat MRI and flex sig in 3 months. Discordant findings of MRI and flex sig. Discussion: Repeat MRI and flex sig in 3 months. Discordant findings of MRI and flex sig. Suspect that will have complete response as on MRI has very good response. 10.10.2023 CT C/A/P No abdominopelvic metastatic disease No interval rios (more content not included)...[facility] 06-07-2024 [facility] Medical Records Department [address] [place] [address] History Physical Exam 06/07/24724 MR#: [id number] Acct: [id number] Name: BARBARA RESENDIZ Rep #: [id number] : [id number] 69 From: Kalyan Amos MD PCP: Dr. Se Phan MD Status:[facility] Location: [place] [address] 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: c-scope Custody Officer Required: No Is patient in pain?: No Allergies hydrocodone (From Vicodin) Allergy (Verified 05/08/24 14:53) Rashlatex Allergy (Verified 05/08/24 14:53) Rashprochlorperazine (From Compazine) Adverse Reaction (Intermediate, Verified 05/08/24 14:53) agitation/restlessbacitracin (From Polysporin) Adverse Reaction (Verified 05/08/24 14:53) Otherpolymyxin B (From Polysporin) Adverse Reaction (Verified 05/08/24 14:53) Other Medications ???Medication ???Instructions ???Recorded ???Confirmed ???Type multivitamin with minerals 1 ea PO DAILY 04/22/20 05/08/24 History vit C 250 mg-vit E 90 mg-zinc 40 1 ea PO DAILY 04/22/20 05/08/24 History mg-copper 1 [id number]-lupjxw-lroykx capsule (PreserVision AREDS-2) Zinc AG 20 mg PO DAILY 01/04/23 05/08/24 History cholecalciferol (vitamin D3) 125 125 mcg PO DAILY 01/04/23 05/08/24 History mcg (5,000 unit) capsule fluticasone propionate 50 2 spray intranasal DAILY 01/04/23 05/08/24 History mcg/actuation nasal spray,suspension loratadine 10 mg tablet 10 mg PO DAILY PRN ALLERGIES 01/16/23 05/08/24 History acetaminophen 325 mg tablet 650 mg PO Q6H PRN fever or pain 03/23/23 05/08/24 History ibuprofen 200 mg capsule 200 mg PO Q6H PRN pain 03/23/23 05/08/24 History promethazine 25 mg tablet 25 mg PO Q6H PRN nausea and 05/01/23 04/22/24 Rx vomiting #30 tabs famotidine 20 mg tablet (Pepcid) 20 mg PO .prn 05/08/24 05/08/24 History nerve supplement PO 05/08/24 History Have you fallen in the past year?: No PFSH Medical History (Updated 05/08/24 @ 14:56 by Payton Haynes) Neuropathy Rectal cancer Encounter for chemotherapy management Drug induced neutropenia Abdominal cramping Anxiety in cancer patient Anxiety Hypokalemia CINV (chemotherapy-induced nausea and vomiting) Encounter for education Wears contact lenses Wears glasses Post-menopausal Cancer Arthritis Injury of head and neck History of GI bleed Gastric reflux Non-smoker History of stress test Surgical History Hx of dilation and curettage Hx of umbilical hernia repair History of dental yazidism Hx of tubal ligation Hx of rhinoplasty History of lumpectomy History of hysteroscopy Family History Mother Breast cancer, Onset Age: 57Sister Breast cancer Dx in her 60's DiabetesFather Diabetes Heart diseaseAunt Breast cancer x3 maternal aunts Social History adopted: No household members: spouse housing: house number of children: 3 current occupational status: retired current occupational exposures/hazards: No pets and animals: No leisure activities: other history of recent travel: No sexually active: No Smoking Status: Never smoker alcohol intake: never substance use type: does not use diet: other well-balanced diet: daily or most days caffeine: Yes eating out: rarely or never during the past year weight has: decreased > 10 lbs what type of physical activity do you participate in: none facundo/anabaptism: Caodaism seatbelt use: always do you feel safe at home: Yes HPI HPI Surgical H P: Yes HPI: Patient is a 68 y/o F I am seeing for personal history of rectal cancer. Patient is due for a colonoscopy 1 year after her diagnosis. Patient's most recent colonoscopy was completed on December 22, [address] Jarvis. A rectal mass was found at that time on the left lateral side about 4 to 5 cm from the anal verge. She also had a cecal, splenic flexure, and sigmoid polyps. Pathology demonstrated the rectal mass was an invasive well-differentiated adenocarcinoma. The patient completed radiation therapy on 04/30/23 and chemotherapy on 08/2023. She was evaluated by Dr. Dago Andre at [facility]. She states she did not have any surgical intervention on the rectal cancer, only chemo and radiation. She has been following with Dr. Berger. Patient has recently had a f (more content not included)...[facility]07-19-2024 NoteHNO ID: [id number] Author: DAGO ANDRE MD Service: ? Author Type: Physician Type: Progress Notes Filed: 04/12/2024 12:45 Note Text: Rectal Cancer Tumor Board Non-Operative / Active Surveillance Discussion Note Date of conference: 04/12/2024 Date of diagnosis: 12/23/2023 Pre-treatment clinical stage: [id number]. 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 mrTR Suspicious for tumor regrowth: No Tumor deposits: No Mucinous: No Most recent CT Chest/Abdomen/Pelvis: Date: 04/09/2024 Metastases: No evidence of metastases Other Imaging Reviewed: NA Metastatic disease present:No Overall clinical assessment: No evidence of tumor regrowth or metastasis. Tumor board discussion and recommendation: Continue active surveillance (Watch AND Wait) with following schedule: Exam, LILO, CEA AND Flex Sig: Years 0-2 every 3 months; Years 3-4 every 6 months; Years 5-10 yearly MRI Pelvis: Years 0-4 every 6 months; Years 5-[address] C/A/P with Contrast: Years 0-2 every 6 months; Years 3-10 yearly Colonoscopy: 1 year after treatment then every 3 years Discussion: Called and spoke to the patient and will see me in 3 months and follow from above. Will get the full colonoscopy and she reassured me she would reschedule. Again, explained there is always a chance that residual tumor there but meets our criteria for surveillance. MRI with no sign of recurrence. Clinical Trial Candidate: No Disciplines present: Colorectal Surgery, Medical Oncology, Radiation Oncology, Radiology and Anatomic Pathology This is the summary of the general discussion provided at tumor board conference. The final recommendations will be made by the primary health care team and the patient after discussing the benefits, risks and alternatives to the various treatment options.[facility]07-16-2024 History of Present illness Narrative* Chriss Mota, RT(R) - 04/09/2024 2:30 PM EDT Radiology Service Progress Note PATIENT NAME: Barbara Resendiz DATE OF SERVICE: April 09, 2024 TIME: 2:21 PM PATIENT IDENTITY VERIFICATION COMPLETED USING TWO (2) IDENTIFIERS: Name and Date of confirmedby patient verbally and Name and Date of confirmed by identification band. FALL SCREENING: Has the patient had 2 falls in the last year or 1 fall with injury or currently using an Ambulatory Assistive Device (Walker, Cane, Wheelchair, Crutches, etc.)? No PATIENT GENDER DATA: Female. status: : No status: NO. PATIENT RELEVANT IMPLANT DATA REVIEWED: Yes PATIENT PRESENTS WITH AN IMPLANTABLE OR ATTACHED BUFFER NICKEL: No RADIOLOGY DEPARTMENT: CT; Exam(s) Completed: Chest Abdomen Pelvis PERIPHERAL IV DATA: Site assessment: Clean,Dry and Intact, Site disposition Discontinued SIGNED BY: RT Jimmy(Kristie) April 09, 2024 2:21 PM documented in this encounter[facility]24 NoteHNO ID: [id number] Author: CHRISS MOTA RT(Kristie) Service: Radiology Author Type: Technologist Type: Progress Notes Filed: 04/09/2024 14:24 Note Text: Radiology Service Progress Note PATIENT NAME: Barbara Resendiz DATE OF SERVICE: April 09, 2024 TIME: 2:21 PM PATIENT IDENTITY VERIFICATION COMPLETED USING TWO (2) IDENTIFIERS: Name and Date of confirmed by patient verbally and Name and Date of confirmed by identification band. FALL SCREENING: Has the patient had 2 falls in the last year or 1 fall with injury or currently using an Ambulatory Assistive Device (Walker, Cane, Wheelchair, Crutches, etc.)? No PATIENT GENDER DATA: Female. status: : No status: NO. PATIENT RELEVANT IMPLANT DATA REVIEWED: Yes PATIENT PRESENTS WITH AN IMPLANTABLE OR ATTACHED BUFFER NICKEL: No RADIOLOGY DEPARTMENT: CT; Exam(s) Completed: Chest Abdomen Pelvis PERIPHERAL IV DATA: Site assessment: Clean,Dry and Intact, Site disposition Discontinued SIGNED BY: RT Jimmy(R) April 09, 2024 2:21 [facility]07-16-2024 NoteHNO ID: [id number] Author: SARAH OLIVARES RN Service: Nursing Author Type: Registered Nurse Type: Progress Notes Filed: 04/09/2024 13:53 Note Text: Radiology Service Progress Note DATE OF SERVICE: April 09, 2024 TIME: 1:42 PM PATIENT WEIGHT: 125LBS PATIENT IDENTITY VERIFICATION COMPLETED USING TWO (2) STANDARD IDENTIFIERS: Name and Date of confirmed by patient verbally and Name and Date of confirmed by identification band. FALL SCREENING: Has the patient had 2 falls in the last year or 1 fall with injury or currently using an Ambulatory Assistive Device (Walker, Cane, Wheelchair, Crutches, etc.)? No PATIENT GENDER DATA: Female. status: : No status: NO. ALLERGIES: Reviewed and unchanged CONTRAST ALLERGY: No EXAM: CT -CONTRAST INDUCED NEPHROPATHY RISK FACTORS: Patient age > 60 years CREATININE: Creatinine Date Value Ref Range Status 05/11/2021 0.70 0.58 - 0.96 mg/dL Final 08/14/2020 0.80 0.58 - 0.96 mg/dL Final Creatinine (POCT) Date Value Ref Range Status 10/10/2023 0.60 (A) 0.7 - 1.4 mg/dL Final eGFR (POCT) Date Value Ref Range Status 10/10/2023 >60 mL/min/1.73 m2 Final eGFR- Date Value Ref Range Status 05/11/2021 >60 Final P.O.C.T. RESULTS: POC done: Yes, See Lab Tab April 09, 2024 - gfr 81 TREATMENT: No Hydration needed. IV SITE: Ambulatory: A peripheral IV was started in the Right antecubital site with a Angio cath: 20 gauge. IV placed in MRI, blood return present, flushed with normal saline without complication. IV SITE APPEARANCE: Clean,Dry and Intact SIGNATURE: Sarah Olivares RN PATIENT NAME: Barbara Resendiz DATE: April 09, 2024 TIME: 1:42 [facility]07-16-2024 History of Present illness Narrative* Sarah Olivares RN - 04/09/2024 1:42 PM EDT Radiology Service Progress Note DATE OF SERVICE: April 09, 2024 TIME: 1:42 PM PATIENT WEIGHT: 125LBS PATIENT IDENTITY VERIFICATION COMPLETED USING TWO (2) STANDARD IDENTIFIERS: Name and Date of confirmed by patient verbally and Name and Date of confirmed by identification band. FALL SCREENING: Has the patient had 2 falls in the last year or 1 fall with injury or currently using an Ambulatory Assistive Device (Walker, Cane, Wheelchair, Crutches, etc.)? No PATIENT GENDER DATA: Female. status: : No status: NO. ALLERGIES: Reviewed and unchanged CONTRAST ALLERGY: No EXAM: CT -CONTRAST INDUCED NEPHROPATHY RISK FACTORS: Patient age > 60 years CREATININE: Creatinine Date Value Ref Range Status 05/11/2021 0.70 0.58 - 0.96 mg/dL Final 08/14/2020 0.80 0.58 - 0.96 mg/dL Final Creatinine (POCT) Date Value Ref Range Status 10/10/2023 0.60 (A) 0.7 - 1.4 mg/dL Final eGFR (POCT) Date Value Ref Range Status 10/10/2023 >60 mL/min/1.73 m2 Final eGFR- Date Value Ref Range Status 05/11/2021 >60 Final P.O.C.T. RESULTS: POC done: Yes, See Lab Tab April 09, 2024 - gfr 81 TREATMENT: No Hydration needed. IV SITE: Ambulatory: A peripheral IV was started in the Right antecubital site with a Angio cath: 20 gauge. IV placed in MRI, blood return present, flushed with normal saline without complication. IV SITE APPEARANCE: Clean,Dry and Intact SIGNATURE: Sarah Olivares RN PATIENT NAME: Barbara Resendiz DATE: April 09, 2024 TIME: 1:42 PM documented in this encounterMer[facility] History of Present illness Narrative* Johnny Li RN - 04/09/2024 11:50 AM EDT Radiology Service Progress Note DATE OF SERVICE: April 09, 2024 TIME: 12:04 PM PATIENT WEIGHT: 125 LBS PATIENT IDENTITY VERIFICATION COMPLETED USING TWO (2) STANDARD IDENTIFIERS: Name and Date of confirmed by patient verbally and Name and Date of confirmed by identification band. FALL SCREENING: Has the patient had 2 falls in the last year or 1 fall with injury or currently using an Ambulatory Assistive Device (Walker, Cane, Wheelchair, Crutches, etc.)? No PATIENT GENDER DATA: Female. status: : No status: NO. ALLERGIES: Reviewed and unchanged CONTRAST ALLERGY: No EXAM: MRI - CONTRAST TYPE: GROUP II IV SITE: Ambulatory: A peripheral IV was started in the Right antecubital site with a Angio cath: 20 gauge. IV SITE APPEARANCE: Clean,Dry and Intact SIGNATURE: Johnny Li RN PATIENT NAME: Barbara Resendiz DATE: April 09, 2024 TIME: 12:04 PM * Tomás Donohue RT(R) - 04/09/2024 11:50 AM EDT Radiology Service Progress Note PATIENT NAME: Barbara Resendiz DATE OF SERVICE: April 09, 2024 TIME: 1:08 PM PATIENT IDENTITY VERIFICATION COMPLETED USING TWO (2) IDENTIFIERS: Name and Date of confirmedby patient verbally and Name and Date of confirmed by identification band. FALL SCREENING: Has the patient had 2 falls in the last year or 1 fall with injury or currently using an Ambulatory Assistive Device (Walker, Cane, Wheelchair, Crutches, etc.)? No PATIENT GENDER DATA: Female. status: : No status: NO. PATIENT RELEVANT IMPLANT DATA REVIEWED: Yes PATIENT PRESENTS WITH AN IMPLANTABLE OR ATTACHED BUFFER NICKEL: No RADIOLOGY DEPARTMENT: MR; Exam(s) Completed: Body: Rectal PERIPHERAL IV DATA: Site assessment: Clean,Dry and Intact, Site disposition Discontinued SIGNED BY: RT Sami(R) April 09, 2024 1:08 PM documented in this encounterMer[facility]24 NoteHNO ID: [id number] Author: JOHNNY LI RN Service: Nursing Author Type: Registered Nurse Type: Progress Notes Filed: 04/09/2024 12:12 Note Text: Radiology Service Progress Note DATE OF SERVICE: April 09, 2024 TIME: 12:04 PM PATIENT WEIGHT: 125 LBS PATIENT IDENTITY VERIFICATION COMPLETED USING TWO (2) STANDARD IDENTIFIERS: Name and Date of confirmed by patient verbally and Name and Date of confirmed by identification band. FALL SCREENING: Has the patient had 2 falls in the last year or 1 fall with injury or currently using an Ambulatory Assistive Device (Walker, Cane, Wheelchair, Crutches, etc.)? No PATIENT GENDER DATA: Female. status: : No status: NO. ALLERGIES: Reviewed and unchanged CONTRAST ALLERGY: No EXAM: MRI - CONTRAST TYPE: GROUP II IV SITE: Ambulatory: A peripheral IV was started in the Right antecubital site with a Angio cath: 20 gauge. IV SITE APPEARANCE: Clean,Dry and Intact SIGNATURE: Johnny Li RN PATIENT NAME: Barbara Resendiz DATE: April 09, 2024 TIME: 12:04 [facility]07-16-2024 NoteHNO ID: [id number] Author: TOMÁS DONOHUE RT(R) Service: Radiology Author Type: Technologist Type: Progress Notes Filed: 04/09/2024 13:09 Note Text: Radiology Service Progress Note PATIENT NAME: Barbara Resendiz DATE OF SERVICE: April 09, 2024 TIME: 1:08 PM PATIENT IDENTITY VERIFICATION COMPLETED USING TWO (2) IDENTIFIERS: Name and Date of confirmed by patient verbally and Name and Date of confirmed by identification band. FALL SCREENING: Has the patient had 2 falls in the last year or 1 fall with injury or currently using an Ambulatory Assistive Device (Walker, Cane, Wheelchair, Crutches, etc.)? No PATIENT GENDER DATA: Female. status: : No status: NO. PATIENT RELEVANT IMPLANT DATA REVIEWED: Yes PATIENT PRESENTS WITH AN IMPLANTABLE OR ATTACHED BUFFER NICKEL: No RADIOLOGY DEPARTMENT: MR; Exam(s) Completed: Body: Rectal PERIPHERAL IV DATA: Site assessment: Clean,Dry and Intact, Site disposition Discontinued SIGNED BY: RT Sami(R) April 09, 2024 1:08 [facility]07-16-2024 History of Present illness Narrative* René Herrera MD - 04/09/2024 10:15 AM EDT COLORECTAL SURGERY Follow-up April 04, 2024 Chief complaint: Rectal cancer HPI: Alicia Resendiz is a 68-year-old female here today for follow up for diagnosis of rectal cancer. Shewas last seen by Dr Andre in January of 2023, and after exam, imaging, and TB discussion it was recommended that she proceed with JENNY, and possible Lx LAR if not complete response. 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 Her last chemotherapy treatment was on September 06 Scope w/ Dr Andre on 10.10.2023 showed complete endoscopic response, but MRI showed incomplete response with likely residual tumor - mrTRG grade 3 - see below. Her case was presented to [facility] and it was recommended that she proceed with surveillance at this time with MRI and scope in three months- these were both done in December 2023, case was re-presented to [facility] in December 2023 where it was recommended that she continue with surveillance - she is here today for flex sig and imaging. She has a history of hx of breast cancer arthritis, tubal ligation, umbilical hernia repair. States she feels well, tolerating a diet and having baseline bowel movements. No weight loss. No bloody bowel movements. 12.29.2023 MDT Tumor board discussion and recommendation: Continue active surveillance (Watch & Wait) with following schedule: Exam, LILO, CEA & Flex Sig: Years 0-2 every 3 months; Years 3-4 every 6 months; Years 5- yearly MRI Pelvis: Years 0-4 every 6 months; Years 5-[address] C/A/P with Contrast: Years 0-2 every 6 months; Years 3-10 yearly Colonoscopy: 1 year after treatment then every 3 years Discussion: MRI reviewed and there was no evidence of tumor on diffusion evidence per Dr. Jolley. With that comfortable to continue surveillance. CEA is 1.8 4. flex sig Findings: The perianal and digital rectal examinations were normal. A scar was found in the rectum. The scar was unremarkable in appearance. Impression: - Preparation of the colon was fair. - Scar in the rectum. - No specimens collected. 12.26.2023 MRI rectum IMPRESSION: Low/mid rectal fibrosis with decreased, but persistent residual viable tumor. Since 10/10/2023, post treatment primary tumor assessment: Incomplete response (likely residual tumor). mrTRG: Grade 3 - Moderate response Suspicious Mesorectal lymph nodes: No. Suspicious Extramesorectal lymph nodes: No. 10.13.2023 TB recs Tumor board discussion and recommendation: Repeat MRI and flex sig in 3 months. Discordant findings of MRI and flex sig. Discussion: Repeat MRI and flex sig in 3 months. Discordant findings of MRI and flex sig. Suspect that will have complete response as on MRI has very good response. 10.10.2023 CT C/A/P No abdominopelvic metastatic disease No interval change, no convincing findings of metastatic disease in the thorax 10.10.2023 MRI rectum IMPRESSION: Decreased size of the low/mid rectal mass with residual viable tumor. Since MRI 03/03/2023, post treatment primary tumor assessment: Incomplete response (likely residual tumor). mrTRG: Grade 3 - Moderate response Suspicious Mesorectal lymph nodes: No. Suspicious Extramesorectal lymph nodes: No. 10.10.2023 flex sig Findings: The perianal and digital rectal examinations were normal. A scar was seen in the left posterior position in the distal rectum with telangectasia a possible possible small mucosal irregularity. Impression: A scar was seen in the left posterior position in the distal rectum with telangectasia a possible possible small mucosal irregularity. No specimens collected. 03.10.2023 [facility] Neoadjuvant therapy recommended: Yes Total Neoadjuvant Therapy: Long-course chemoradiation (5 weeks) followed by consolidation chemotherapy (4 months) if responsive to chemoradiotherapy. After completion of JENNY, assessment for complete clinical response and discussion regarding active surveillance versus surgery. Anticipated surgical treatment: Low anterior resection. Anticipated en bloc resection: No Anticipated metastasectomy: No. Clinical Trial Candidate: No. Other Discussion: Repeat MRI with T3aN0. 03.03.2023 MRI rectum IMPRESSION: 3.2 cm mid/low rectal mass with suspected focal extension into the left mesorectal fat. No lymphadenopathy. Stage: T3a N0 MRF: Clear (tumor margin >2 mm from MRF) Sphincter involvement: No. Suspicious extra mesorectal lymph nodes: EMVI: No. [address] Andre Findings: The digital rectal exam revealed a 3 cm (diameter) soft rectal mass palpated 5 to 6 cm from the anal verge. The mass was non-circumferential and located predominantly at the left bowel wall and mobile. This also was seen on the endoscopic view at the lower rectal valve, occupy 25% of the circumference. The remaining rectum and colon mucusa are normal. Impression: - Rectal mass 5 to 6 cm from the anal verge. - Soft, and mobile, occupies 25 % of the circumference. 01/10/[address](outside imaging) Impression: ABNORMAL EXAMINATION INDICATIVE OF MALIGNANT- VIABLE NEOPLASM Increased radiopharmaceutical concentration defined in the rectum-rectal vault fulfils quantitativecriteria for viable malignant transformation. Facilitated uptake noted in the right lower anteromedial lung zone, right middle lobe, does not fulfill quantitative criteria for neoplastic infiltration. Anatomic stability may be ensured in the right lower anteromedial lung field metabolic abnormality with repeat CT of the thorax in 3-6 months if clinically indicated 12.23.2022 CT A/P IMPRESSION: No definitive evidence for metastatic disease in the abdomen and pelvis. Physical Exam: There were no vitals taken for this visit. General - awake, alert, no acute distress Anorectal: Perianal skin is intact. No erythema, induration or excoriation. No fissure, fistula or external hemorrhoids. Flexible sigmoidoscopy: Procedure: The patient was placed in left lateral position. After digital exam with a lubricated finger, the scope was easily inserted to 20 cm. Findings: The preparation was good. There was residual rectal scar with no signs of disease recurrence. Assessment Medical Decision Making: Assessment & Diagnosis: Barbara Resendiz is a 68 year old female with rectal cancer s/p JENNY currently enrolled in watch and wait. Data Reviewed: Tests & Documents Reviewed/ordered: Review of Imaging: CT Abdomen, CT Pelvis, MRI Pelvis Review of Procedures / Tests: Flexible Sigmoidoscopy I have independently interpreted: CT Abdomen, CT Pelvis I have discussed Barbara Resendiz's treatment plan and/or results with patient and her spouse. Treatment plan: - Repeat CT C/A/P - Repeat MRI - Due for Colonoscopy Risk of morbidity, mortality and/or complications of treatment plan: low Associated attestation - Dago Andre MD - 04/09/2024 10:29 AM EDT [facility] STAFF PHYSICIAN NOTE OF PERSONAL INVOLVEMENT IN CARE I have reviewed the history and physical examination and procedure note obtained and documented by the resident and I personally participated in the kc components. I have discussed the case and management of the patient's care. The following comments revise or confirm relevant kc components of their note. IMPRESSION: This is a 68 year old female who presents with rectal cancer and no sign of recurrence on scope today PLAN: Will get MRI, CT, CEA today and then re-present at MDT. No sign of scope today or recurrence including with retroflexion. Is in need of a colonoscopy and it was on Monday but she rescheduled. Went over the [employer] protocol as above. Will call after MDT. Plan of care discussed with Patient CARE COORDINATION: Went through the risks of need surgery as well that if surgery was performed that may have no residual disease. SIGNATURE: Dago Andre MD DATE of SERVICE: April 09, 2024 TIME of SERVICE: 10:27 AM documented in this encounterMer[facility]07-[facility]24 NoteHNO ID: [id number] Author: DAGO ANDRE MD Service: ? Author Type: Resident Type: Progress Notes Filed: 04/09/2024 10:29 Note Text: Attestation signed by Dago Andre MD at 04/09/2024 10:29 AM [facility] STAFF PHYSICIAN NOTE OF PERSONAL INVOLVEMENT IN CARE I have reviewed the history and physical examination and procedure note obtained and documented by the resident and I personally participated in the kc components. I have discussed the case and management of the patient's care. The following comments revise or confirm relevant kc components of their note. IMPRESSION: This is a 68 year old female who presents with rectal cancer and no sign of recurrence on scope today PLAN: Will get MRI, CT, CEA today and then re-present at MDT. No sign of scope today or recurrence including with retroflexion. Is in need of a colonoscopy and it was on Monday but she rescheduled. Went over the [facility] protocol as above. Will call after MDT. Plan of care discussed with Patient CARE COORDINATION: Went through the risks of need surgery as well that if surgery was performed that may have no residual disease. SIGNATURE: Dago Andre MD DATE of SERVICE: April 09, 2024 TIME of SERVICE: 10:27 AM COLORECTAL SURGERY Follow-up April 04, 2024 Chief complaint: Rectal cancer HPI: Alicia Resendiz is a 68-year-old female here today for follow up for diagnosis of rectal cancer. She was last seen by Dr Andre in January of 2023, and after exam, imaging, and TB discussion it was recommended that she proceed with JENNY, and possible Lx LAR if not complete response. 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 Her last chemotherapy treatment was on September 06 Scope w/ Dr Andre on 10.10.2023 showed complete endoscopic response, but MRI showed incomplete response with likely residual tumor - mrTRG grade 3 - see below. Her case was presented to [facility] and it was recommended that she proceed with surveillance at this time with MRI and scope in three months - these were both done in December 2023, [facility] where it was recommended that she continue with surveillance - she is here today for flex sig and imaging. She has a history of hx of breast cancer arthritis, tubal ligation, umbilical hernia repair. States she feels well, tolerating a diet and having baseline bowel movements. No weight loss. No bloody bowel movements. 12.29.2023 MDT Tumor board discussion and recommendation: Continue active surveillance (Watch AND Wait) with following schedule: Exam, LILO, CEA AND Flex Sig: Years 0-2 every 3 months; Years 3-4 every 6 months; Years 5-10 yearly MRI Pelvis: Years 0-4 every 6 months; Years 5-[address] C/A/P with Contrast: Years 0-2 every 6 months; Years 3-10 yearly Colonoscopy: 1 year after treatment then every 3 years Discussion: MRI reviewed and there was no evidence of tumor on diffusion evidence per Dr. Jolley. With that comfortable to continue surveillance. CEA is 1.8 12.26.2023 flex sig Findings: The perianal and digital rectal examinations were normal. A scar was found in the rectum. The scar was unremarkable in appearance. Impression: - Preparation of the colon was fair. - Scar in the rectum. - No specimens collected. 12.26.2023 MRI rectum IMPRESSION: Low/mid rectal fibrosis with decreased, but persistent residual viable tumor. Since 10/10/2023, post treatment primary tumor assessment: Incomplete response (likely residual tumor). mrTRG: Grade 3 - Moderate response Suspicious Mesorectal lymph nodes: No. Suspicious Extramesorectal lymph nodes: No. 1 recs Tumor board discussion and recommendation: Repeat MRI and flex sig in 3 months. Discordant findings of MRI and flex sig. Discussion: Repeat MRI and flex sig in 3 months. Discordant findings of MRI and flex sig. Suspect that will have complete response as on MRI has very good response. 10.10.2023 CT C/A/P No abdominopelvic metastatic disease No interval change, no convincing findings of metastatic disease in the thorax 10.10.2023 MRI rectum IMPRESSION: Decreased size of the low/mid rectal mass with residual viable tumor. Since MRI 03/03/2023, post treatment primary tumor assessment: Incomplete response (likely residual tumor). mrTRG: Grade 3 - Moderate response Suspicious Mesorectal lymph nodes: No. Suspicious Extramesorectal lymph nodes: No. 10.10.2023 flex sig Findings: The perianal and digital rectal examinations were normal. A scar was seen in the left posterior position in the distal rectum with telangectasia a possible possible small mucosal irregularity. Im (more content not included)...[facility]04-02-2024 History of Present illness Narrative* Keyla, Gabriela Ely RN - 12/26/2023 1:10 PM EDT Radiology Service Progress Note DATE OF SERVICE: December 26, 2023 TIME: 1:12 PM PATIENT WEIGHT: 116LBS PATIENT IDENTITY VERIFICATION COMPLETED USING TWO (2) STANDARD IDENTIFIERS: Name and Date of confirmed by patient verbally. FALL SCREENING: Has the patient had 2 falls in the last year or 1 fall with injury or currently using an Ambulatory Assistive Device (Walker, Cane, Wheelchair, Crutches, etc.)? No PATIENT GENDER DATA: Female. status: : No status: NO. ALLERGIES: Reviewed and unchanged CONTRAST ALLERGY: No EXAM: MRI - CONTRAST TYPE: GROUP II IV SITE: Ambulatory: A peripheral IV was started in the Right antecubital site with a Angio cath: 22 gauge. and A Saline lock was inserted per protocol IV SITE APPEARANCE: Clean,Dry and Intact SIGNATURE: Gabriela Ramires RN PATIENT NAME: Barbara Resendiz DATE: December 26, 2023 TIME: 1:12 PM * Rylee Fuller RT(R) - 12/26/2023 1:10 PM EDT Radiology Service Progress Note PATIENT NAME: Barbara Resendiz DATE OF SERVICE: December 26, 2023 TIME: 2:18 PM PATIENT IDENTITY VERIFICATION COMPLETED USING TWO (2) IDENTIFIERS: Name and Date of confirmedby patient verbally and Name and Date of confirmed by identification band. FALL SCREENING: Has the patient had 2 falls in the last year or 1 fall with injury or currently using an Ambulatory Assistive Device (Walker, Cane, Wheelchair, Crutches, etc.)? No PATIENT GENDER DATA: Female. status: : No status: NO. PATIENT RELEVANT IMPLANT DATA REVIEWED: Yes PATIENT PRESENTS WITH AN IMPLANTABLE OR ATTACHED BUFFER NICKEL: No RADIOLOGY DEPARTMENT: MR; Exam(s) Completed: Body: Rectal PERIPHERAL IV DATA: Site assessment: Clean,Dry and Intact, Site disposition Discontinued SIGNED BY: RT Harry(MR) December 26, 2023 2:18 PM documented in [facility] encounter[facility] History of Present illness Narrative* Dago Andre MD - 12/26/2023 10:15 AM EDT COLORECTAL SURGERY Follow-up December 20, 2023 Chief complaint: RECTAL CANCER HPI: Alicia Resendiz is a 68-year-old female here today for follow up for diagnosis of rectal cancer. Shewas last seen by Dr Andre in January of 2023, and after exam, imaging, and TB discussion it was recommended that she proceed with JENNY, and possible Lx LAR if not complete response. 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 Her last chemotherapy treatment was on September 06 . Scope w/ Dr Andre on 10.10.2023 showed complete endoscopic response, but MRI showed incomplete response with likely residual tumor - mrTRG grade 3 - see below. Her case was presented to [facility] and it was recommended that she proceed with surveillance at this time with MRI and scope in three months, which is why she is here today. She has a history of hx of breast cancer arthritis, tubal ligation, umbilical hernia repair 10.13.2023 TB recs Tumor board discussion and recommendation: Repeat MRI and flex sig in 3 months. Discordant findings of MRI and flex sig. Discussion: Repeat MRI and flex sig in 3 months. Discordant findings of MRI and flex sig. Suspect that will have complete response as on MRI has very good response. 10.10.2023 CT C/A/P No abdominopelvic metastatic disease No interval change, no convincing findings of metastatic disease in the thorax 10.10.2023 MRI rectum IMPRESSION: Decreased size of the low/mid rectal mass with residual viable tumor. Since MRI 03/03/2023, post treatment primary tumor assessment: Incomplete response (likely residual tumor). mrTRG: Grade 3 - Moderate response Suspicious Mesorectal lymph nodes: No. Suspicious Extramesorectal lymph nodes: No. 10.10.2023 flex sig Findings: The perianal and digital rectal examinations were normal. A scar was seen in the left posterior position in the distal rectum with telangectasia a possible possible small mucosal irregularity. Impression: A scar was seen in the left posterior position in the distal rectum with telangectasia a possible possible small mucosal irregularity. No specimens collected. 03.10.2023 TB recs Neoadjuvant therapy recommended: Yes Total Neoadjuvant Therapy: Long-course chemoradiation (5 weeks) followed by consolidation chemotherapy (4 months) if responsive to chemoradiotherapy. After completion of JENNY, assessment for complete clinical response and discussion regarding active surveillance versus surgery. Anticipated surgical treatment: Low anterior resection. Anticipated en bloc resection: No Anticipated metastasectomy: No. Clinical Trial Candidate: No. Other Discussion: Repeat MRI with T3aN0. 03.03.2023 MRI rectum IMPRESSION: 3.2 cm mid/low rectal mass with suspected focal extension into the left mesorectal fat. No lymphadenopathy. Stage: T3a N0 MRF: Clear (tumor margin >2 mm from MRF) Sphincter involvement: No. Suspicious extra mesorectal lymph nodes: EMVI: No. 01.31.[address] Andre Findings: The digital rectal exam revealed a 3 cm (diameter) soft rectal mass palpated 5 to 6 cm from the anal verge. The mass was non-circumferential and located predominantly at the left bowel wall and mobile. This also was seen on the endoscopic view at the lower rectal valve, occupy 25% of the circumference. The remaining rectum and colon mucusa are normal. Impression: - Rectal mass 5 to 6 cm from the anal verge. - Soft, and mobile, occupies 25 % of the circumference. 01/10/[address](outside imaging) Impression: ABNORMAL EXAMINATION INDICATIVE OF MALIGNANT- VIABLE NEOPLASM Increased radiopharmaceutical concentration defined in the rectum-rectal vault fulfils quantitativecriteria for viable malignant transformation. Facilitated uptake noted in the right lower anteromedial lung zone, right middle lobe, does not fulfill quantitative criteria for neoplastic infiltration. Anatomic stability may be ensured in the right lower anteromedial lung field metabolic abnormality with repeat CT of the thorax in 3-6 months if clinically indicated 12.23.2022 CT A/P IMPRESSION: No definitive evidence for metastatic disease in the abdomen and pelvis. Physical Exam: There were no vitals taken for this visit. General - awake, alert, no acute distress Abdominal - os Soft, NTTP, non distended, no guarding, -ve peritoneal signs. Anorectal: Perianal skin is intact. No erythema, induration or excoriation. No fissure, fistula or external hemorrhoids. 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 After digital exam with a lubricated finger, the scope was easily inserted to 10 cm. Findings: The preparation was fairThere was a scar below the first valve 4cm from the anal verge. Retroflexion was normal The remainder of the sigmoid, rectum and anal canal were entirely normal. Biopsies were not taken. Assessment Medical Decision Making: Assessment & Diagnosis: Barbara Resendiz is a 68 year old female with clinical complete response of low rectal cancer - pending the MRI Data Reviewed: Tests & Documents Reviewed/ordered: Review of Pathology Review of Imaging: CT Abdomen, MRI Pelvis, CT Chest Review of Procedures / Tests: Flexible Sigmoidoscopy I have independently interpreted: CT Abdomen, MRI Pelvis, CT Chest I have discussed Barbara Resendiz's treatment plan and/or results with her and her her family. Treatment plan: An extensive discussion was had with the patient and family regarding the treatment of rectal cancer as a multidisciplinary approach using radiation, chemotherapy, and/or surgery. In a subset of cases, there will be a clinical response to chemoradiation such that there is no grossly remaining detectable tumor by physical exam, imaging, and endoscopy. In those select circumstances, deferral of surgery is a treatment option, allowing for rectal preservation and avoidance of an ileostomy or colostomy. In these cases, approximately 80% of patients will have a sustained clinical response and not require surgery. The patient understands that if we proceeded with this option, there will be an active surveillance protocol to help detect any signs of recurrence. Any evidence or suspicion of recurrent disease will require additional treatments including likely surgery. We also discussed that if there is local recurrence, approximately 15% of these cases may not be cured by surgery. The patient u nderstands and wishes to proceed with this plan. This multidisciplinary plan will be discussed at the Rectal Cancer Multidisciplinary Conference. We just need to wait on her MRI results and then will proceed with our non- operative protocol. She is due to get a colonoscopy and prefers to do that locally. Dago Andre MD, FACS, FASCRS grappler Crew Member, [place] [address] Risk of morbidity, mortality and/or complications of treatment plan: moderate documented in this encounterMer[facility]12-[facility] Miscellaneous Notes* Telephone Encounter - Deonna Richardson MD - 08/30/2023 7:55 AM EST ordered * Telephone Encounter - Bridgette Ward RN - 08/29/2023 11:31 AM EST Patient has annual on 10/09/23. Needs Mamm with JUAN CARLOS. Order pending. Please forward to PSS to assistwith scheduling once signed. Bridgette Ward RN documented in this encounterMer[facility]08-19-2023 Discharge summary Author Homero Roberts [facility] May 12, 2023 10:03pm Note Date/Time May 12, 2023 9: 53pm [facility] Medical Records Department [address] [place] [address] Emergency Department Summary 05/12/23 MR#: [id number] Acct: [id number] Name: BARBARA RESENDIZ Rep #:[id number] : 1955 67 From: Homero James PCP: Dr. Se Phan MD Status:REG ER Location: ED HPI History of Present Illness Chief Complaint: Weakness Informant: patient and family Narrative Narrative: 67-year-old female arriving to the emergency department out of concerns for dehydration and nausea. Patient has a history of rectal cancer and just finished 28 days of radiation chemotherapy. Patient notes persistent nausea decreased p.o. intake particularly of solid foods. She has had some diarrhea though stool has been small amounts. She notes dark yellow urine. No syncope. She notes dry mouth. She feels foggy. She notes some abdominal cramping/discomfort. [facility] Medical History Arthritis Cancer CINV (chemotherapy-induced nausea and vomiting) Encounter for education Gastric reflux History of GI bleed History of stress test Injury of head and neck Non-smoker Post-menopausal Wears contact lenses Wears glasses Home Medications multivitamin with minerals 1 ea PO DAILY 04/22/20 [History Last Taken Unknown] vit C 250 mg-vit E 90 mg-zinc 40 mg-copper 1 pm-[id number]-mrqnrz capsule (PreserVision AREDS-2) 1 ea PO DAILY 04/22/20 [History Last Taken Unknown] Zinc AG 20 mg PO DAILY 01/04/23 [History Last Taken Unknown] ascorbate calcium (vitamin C) 500 mg tablet 500 mg PO DAILY 01/04/23 [History Last Taken Unknown] cholecalciferol (vitamin D3) 125 mcg (5,000 unit) capsule 125 mcg PO DAILY 01/04/23 [History Last Taken Unknown] fluticasone propionate 50 mcg/actuation nasal spray,suspension 2 spray intranasal DAILY 01/04/23 [History Last Taken Unknown] mecobalamin (vitamin B12) 500 mcg chewable tablet 500 mcg PO DAILY 01/04/23 [History Last Taken Unknown] quercetin 500 mg capsule 500 mg PO DAILY 01/04/23 [History Last Taken Unknown] loratadine 10 mg tablet 10 mg PO DAILY PRN ALLERGIES 01/16/23 [History Last Taken Unknown] acetaminophen 325 mg tablet 650 mg PO Q6H PRN fever or pain 03/23/23 [History Last Taken Unknown] ibuprofen 200 mg capsule 200 mg PO Q6H PRN pain 03/23/23 [History Last Taken Unknown] ondansetron 8 mg disintegrating tablet 8 mg PO Q8H PRN nausea and vomiting #30 tabs 03/23/23 [Rx Last Taken Unknown] prochlorperazine maleate 10 mg tablet 10 mg PO Q6H PRN nausea and vomiting #30 tabs 04/06/23 [Rx Last Taken Unknown] famotidine 20 mg tablet (Pepcid) 20 mg PO BID 04/12/23 [History Last Taken Unknown] promethazine 25 mg tablet 25 mg PO Q6H PRN nausea and vomiting #30 tabs 05/01/23[Rx Last Taken Unknown] Allergy/AdvReac Type Severity Reaction Status Date / Time hydrocodone [From Vicodin] Allergy Rash Verified 05/12/23 21:26 latex Allergy Rash Verified 05/12/23 21:26 bacitracin [From Polysporin] AdvReac Other Verified 05/12/23 21:26 polymyxin B [From Polysporin] AdvReac Other Verified 05/12/23 21:26 Family History Mother Breast cancer, Onset Age: 57 Sister Breast cancer Dx in her 60's Diabetes Father Diabetes Heart disease Aunt Breast cancer x3 maternal aunts Surgical History History of dental yazidism History of hysteroscopy History of lumpectomy Hx of dilation and curettage Hx of rhinoplasty Hx of tubal ligation Hx of umbilical hernia repair Social History adopted: No household members: spouse housing: house number of children: 3 current occupational status: retired current occupational exposures/hazards: No pets and animals: No leisure activities: other history of recent travel: No sexually active: No Smoking Status: Never smoker alcohol intake: never substance use type: does not use diet: other well-balanced diet: daily or most days caffeine: Yes eating out: rarely or never during the past year weight has: decreased > 10 lbs what type of physical activity do you participate in: none facundo/anabaptism: Caodaism seatbelt use: always do you feel safe at home: Yes ROS ROS ED Constitutional Constitutional ED: Reports weight loss; Denies chills or fever(s) Eyes Eyes: Denies change in vision or diplopia ENT ENT ED: Denies ear pain, rhinorrhea or sore throat Cardiovascular Cardiovascular: Denies chest pain, orthopnea, palpitations or racing heartbeat Respiratory/Chest Respiratory/Chest: Denies cough, dyspnea or orthopnea Gastrointestinal Gastrointestinal: Reports abdominal pain, diarrhea and nausea; Denies vomiting Genitourinary Genitourinary ED: Denies dysuria, hematuria or urinary frequency Musculoskeletal Musculoskeletal: Denies arthralgias or myalgias Integumentary Denies abscess or rash Neurologic Neurologic: Denies headache(s) or weakness Psychiatric Psychiatric: Denies anxiety, depression, suicidal ideation or suicidal thoughts Endocrine Endocrinology: Denies polydipsia, polyphagia or polyuria Allergic/Immunologic Allergic/Immunologic ED: Denies mouth swelling, tongue swelling or urticaria EXAM Physical Exam Const Vital Signs: 05/12/23 21:23 Temperature 97.8 F Temperature Source Temporal Pulse Rate 99 Respiratory Rate 18 Blood Pressure 146/78 H Blood Pressure Mean 100 Pulse Ox 98 Oxygen Delivery Method Room Air Positive well nourished and well developed General Appearance ED: well developed HEENT Reports normocephalic, head/scalp atraumatic and dry mucous membranes Mouth ED: Yes dry mucous membranes Mouth: dry mucous membranes Eyes PERRL and EOMs intact bilaterally Neck no lymphadenopathy, supple and no JVD Resp normal respiratory effort and clear to auscultation bilaterally Cardio regular rate, regular rhythm and no murmurs Rate: tachycardic GI normal to inspection, nondistended, normoactive bowel sounds and non-tender Palpation: soft Back/Spine no CVA tenderness and normal ROM Extremity normal to inspection General Extremety ED: Negative for edema General Extremity: Negative for edema Neuro oriented x3 and CN's II-XII intact bilaterally Sensorium / Orientation: alert Motor Exam: strength 5/5 throughout Psych mental status grossly normal Mood & Affect: Negative for depressed or tearful Skin no rashes or lesions noted and no wounds Skin Narrative: There is some slight tenting of the forearm skin. MDM MDM MDM Narrative Medical decision making narrative: Patient is slightly tachycardic with dry mucous membranes. We are going to administer 2 L of IV fluids and check electrolytes. We will also administer Zofran for nausea. She had Phenergan approximately 1-/2 patient will be reassessed and I would anticipate a discharge. Care of the patient will be signed to the oncoming physician Discharge Plan Triage Chief Complaint: Weakness ED Provider: Homero Roberts Dx/Rx/DC Orders Clinical Impression: CINV (chemotherapy-induced nausea and vomiting), Acute dehydration, Rectal cancer Instructions: ED Dehydration (Adult) Prescriptions: No Action ascorbate calcium (vitamin C) 500 mg tablet 500 mg PO DAILY fluticasone propionate 50 mcg/actuation spray,suspension 2 spray intranasal DAILY Rx Instructions: administer into each nostril cholecalciferol (vitamin D3) 125 mcg (5,000 unit) capsule 125 mcg PO DAILY quercetin 500 mg capsule 500 mg PO DAILY mecobalamin (vitamin B12) 500 mcg tablet,chewable 500 mcg PO DAILY Zinc AG 20 mg PO DAILY loratadine 10 mg tablet 10 mg PO DAILY PRN (Reason: ALLERGIES) acetaminophen 325 mg tablet 650 mg PO Q6H PRN (Reason: fever or pain) ibuprofen 200 mg capsule 200 mg PO Q6H PRN (Reason: pain) ondansetron 8 mg tablet,disintegrating 8 mg PO Q8H PRN (Reason: nausea and vomiting) Qty: 30 2RF promethazine 25 mg tablet 25 mg PO Q6H PRN (Reason: nausea and vomiting) Qty: 30 1RF prochlorperazine maleate 10 mg tablet 10 mg PO Q6H PRN (Reason: nausea and vomiting) Qty: 30 2RF famotidine [Pepcid] 20 mg tablet 20 mg PO BID multivitamin with minerals 1 EACH tablet 1 ea PO DAILY PreserVision AREDS-2 1 EACH capsule 1 ea PO DAILY Primary Care Provider: Se Phan Referrals: Se Phan MD [Primary Care Provider] - As Needed What to do if you have Problems For any increased pain, shortness of breath, bleeding, nausea or vomiting, chestpain, or any unexpected problems, contact your Primary Care Provider. Call [facility] ([phone]) or report to the closest Emergency Room. Call 911 if necessary. 05/12/232202 <Electronically signed by Homero Roberts DO> Cosigner Signature (if applicable): CC: Dr. eS Phan MD ~ Signed [facility] Work Phone: [phone] Discharge summary Author Bryant Britt [facility] April 06, 2023 11:41pm Note Date/Time April 06, 2023 9:36 pm [facility] Medical Records Department [address] [place] [address] Emergency Department Summary 04/06/23 MR#: [id number] Acct: [id number] Name: BARBARA RESENDIZ Rep #:[id number] : 1955 67 From: Bryant Britt MD PCP: Dr. Se Phan MD Status:REG ER Location: ED ADDENDUM by Dr. Bryant Britt MD on 04/06/23 at 2341 Patient CBC shows no acute process. Patient's electrolytes showed glucose minimally elevated at 119 but no other acute process. Patient was given IV fluids here. She was also given Benadryl to help reaction she had to home Compazine. We gave her Zofran and Phenergan. She states she isfeeling much better now. She is not nauseated. She has urinated and gone to the bathroom. She would like to go home. I told her we will try Phenergan. Occasionally this can cause similar reaction to the Compazine. She should not take the 2 together. If she does not get that anxiety feeling and she can take Benadryl at home. This can also have some benefit for nausea. She has Zofran at home already. We also explained the Phenergan will make her sleepy. But this may be beneficial at night. If she develops fevers pain recurrent vomitingor worsening redevelopment of the nausea they should return. I do not think sheneeds admission at this point. 04/06/23 [id number]<Electronically signed by Bryant Britt MD> Cosigner Signature (if applicable): cc: Dr. Se Phan MD ~* Signed HPI History of Present Illness Chief Complaint: Nausea/Vomiting Informant: patient Narrative Narrative: Patient presents with nausea. Patient was diagnosed with rectal cancer. She had some blood in the stool. Colonoscopy was done biopsies that ended up leading to diagnosis of rectal cancer. She is undergoing radiation. She is also undergoing chemo. She has a continuous infusion for 5 days and she is on day 4. She has been trying to manage nausea since starting this. She had Zofran at home that does not seem tohelp. She was given Compazine. That does not seem to of help but it seems to make her very nervous and anxious when she takes it. She is not having any pain. She has not actually vomited. If she tries to eat or drink she just getsmore nausea and just feels worse. No fevers or chills. She really just wants something to calm down the nausea. [facility] Medical History Arthritis Cancer CINV (chemotherapy-induced nausea and vomiting) Encounter for education Gastric reflux History of GI bleed History of stress test Injury of head and neck Non-smoker Post-menopausal Wears contact lenses Wears glasses Home Medications multivitamin with minerals 1 ea PO DAILY 04/22/20 [History Last Taken Unknown] vit C 250 mg-vit E 90 mg-zinc 40 mg-copper 1 id-pssroj-uenoyj capsule (PreserVision AREDS-2) 1 ea PO DAILY 04/22/20 [History Last Taken Unknown] Zinc AG 20 mg PO DAILY 01/04/23 [History Last Taken Unknown] ascorbate calcium (vitamin C) 500 mg tablet 500 mg PO DAILY 01/04/23 [History Last Taken Unknown] cholecalciferol (vitamin D3) 125 mcg (5,000 unit) capsule 125 mcg PO DAILY 01/04/23 [History Last Taken Unknown] fluticasone propionate 50 mcg/actuation nasal spray,suspension 2 spray intranasal DAILY 01/04/23 [History Last Taken Unknown] mecobalamin (vitamin B12) 500 mcg chewable tablet 500 mcg PO DAILY 01/04/23 [History Last Taken Unknown] quercetin 500 mg capsule 500 mg PO DAILY 01/04/23 [History Last Taken Unknown] loratadine 10 mg tablet 10 mg PO DAILY PRN ALLERGIES 01/16/23 [History Last Taken Unknown] acetaminophen 325 mg tablet 650 mg PO Q6H PRN fever or pain 03/23/23 [History Last Taken Unknown] ibuprofen 200 mg capsule 200 mg PO Q6H PRN pain 03/23/23 [History Last Taken Unknown] ondansetron 8 mg disintegrating tablet 8 mg PO Q8H PRN nausea and vomiting #30 tabs 03/23/23 [Rx Last Taken Unknown] prochlorperazine maleate 10 mg tablet 10 mg PO Q6H PRN nausea and vomiting #30 tabs 04/06/23 [Rx Last Taken Unknown] promethazine 25 mg tablet 25 mg PO Q6H PRN nausea and vomiting #14 tabs 04/06/23[Rx Last Taken Unknown] Allergy/AdvReac Type Severity Reaction Status Date / Time hydrocodone [From Vicodin] Allergy Rash Verified 04/06/23 10:46 latex Allergy Rash Verified 04/06/23 10:46 bacitracin [From Polysporin] AdvReac Other Verified 04/06/23 10:46 polymyxin B [From Polysporin] AdvReac Other Verified 04/06/23 10:46 Family History Mother Breast cancer, Onset Age: 57 Sister Breast cancer Dx in her 60's Diabetes Father Diabetes Heart disease Aunt Breast cancer x3 maternal aunts Surgical History History of dental yazidism History of hysteroscopy History of lumpectomy Hx of dilation and curettage Hx of rhinoplasty Hx of tubal ligation Hx of umbilical hernia repair Social History adopted: No household members: spouse housing: house number of children: 3 current occupational status: retired current occupational exposures/hazards: No pets and animals: No leisure activities: other history of recent travel: No sexually active: No Smoking Status: Never smoker alcohol intake: never substance use type: does not use diet: other well-balanced diet: daily or most days caffeine: Yes eating out: rarely or never during the past year weight has: decreased > 10 lbs what type of physical activity do you participate in: none facundo/anabaptism: Caodaism seatbelt use: always do you feel safe at home: Yes ROS ROS ED Constitutional Constitutional ED: Denies chills, fever(s), subjective or sweats Eyes Eyes: Denies change in vision ENT ENT ED: Denies rhinorrhea or sore throat Cardiovascular Cardiovascular: Denies chest pain or palpitations Respiratory/Chest Respiratory/Chest: Denies cough or dyspnea Gastrointestinal Gastrointestinal: Reports nausea; Denies abdominal pain, diarrhea, melena or vomiting Genitourinary Genitourinary ED: Denies dysuria, hematuria or urinary frequency Musculoskeletal Musculoskeletal: Denies myalgias Integumentary Denies rash Neurologic Neurologic: Denies headache(s) Psychiatric Psychiatric: Reports other Details: Mild anxiety after taking Compazine. Allergic/Immunologic Allergic/Immunologic ED: Denies urticaria EXAM Physical Exam Narrative Exam Narrative: CONSTITUTIONAL: Patient is nontoxic in appearance. The patient looks comfortable. HEENT: No notable trauma. Mucous membranes do look a bit dry. EYES: No conjunctival injection. No proptosis. CARDIOVASCULAR: Regular rate. Regular rhythm. No notable murmur. No JVD. RESPIRATORY: No respiratory distress. Breathing is unlabored. No wheezes. No rhonchi. No rales. No pain with a deep breath. She does have a Mediport with infusion in the right upper chest. The looks normal. Its not red or swollen inflamed or tender. GASTROINTESTINAL: Not distended. Bowel sounds are normal. No tenderness. No guarding. No rebound. No palpable mass. No bruit. Overall very benign abdominalexam. GENITOURINARY: No tenderness over the bladder. No CVA tenderness. MUSCULOSKELETAL: Atraumatic. No peripheral edema. NEUROLOGICAL: Patient is alert and appropriate. No focal deficit noted. SKIN: No noted rashes. No diaphoresis. PSYCHIATRIC: Patient is mildly anxious. This is likely due to the Compazine. Mood is appropriate. Const Vital Signs: 04/06/23 21:02 Temperature 97.2 F L Temperature Source Temporal Pulse Rate 81 Respiratory Rate 16 Blood Pressure 146/93 H Blood Pressure Mean 110 Pulse Ox 96 Oxygen Delivery Method Room Air [facility] Lab Data Labs: Laboratory Results - last 24 hr 04/06/23 21:45 WBC 5.5 RBC 4.26 Hgb 13.0 Hct 39.1 MCV 91.8 MCH 30.5 MCHC 33.2 RDW Std Deviation 41.3 RDW Coeff of Ryan 12.3 Plt Count 199 MPV 10.9 Immature Gran % (Auto) 0.400 Neut % (Auto) 67.5 Lymph % (Auto) 22.5 Lajas % (Auto) 7.7 Eos % (Auto) 1.5 Baso % (Auto) 0.4 Absolute Neuts (auto) 3.7 Absolute Lymphs (auto) 1.23 Nucleated RBC % 0 Sodium 139 Potassium 3.7 Chloride 106 Carbon Dioxide 24.0 Anion Gap 9 BUN 10 Creatinine 0.85 Estim Creat Clear Calc 58.58 Est GFR (MDRD) Af Amer 86 Est GFR (MDRD) Non-Af 71 BUN/Creatinine Ratio 11.7 Glucose 119 H Calcium 8.9 Discharge Plan Triage Chief Complaint: Nausea/Vomiting ED Provider: Bryant Britt Dx/Rx/DC Orders Clinical Impression: CINV (chemotherapy-induced nausea and vomiting), Dehydration, mild Instructions: Cancer Tx Control Nausea Vomiting Prescriptions: New promethazine 25 mg tablet 25 mg PO Q6H PRN (Reason: nausea and vomiting) Qty: 14 0RF No Action ascorbate calcium (vitamin C) 500 mg tablet 500 mg PO DAILY fluticasone propionate 50 mcg/actuation spray,suspension 2 spray intranasal DAILY Rx Instructions: administer into each nostril cholecalciferol (vitamin D3) 125 mcg (5,000 unit) capsule 125 mcg PO DAILY quercetin 500 mg capsule 500 mg PO DAILY mecobalamin (vitamin B12) 500 mcg tablet,chewable 500 mcg PO DAILY Zinc AG 20 mg PO DAILY loratadine 10 mg tablet 10 mg PO DAILY PRN (Reason: ALLERGIES) acetaminophen 325 mg tablet 650 mg PO Q6H PRN (Reason: fever or pain) ibuprofen 200 mg capsule 200 mg PO Q6H PRN (Reason: pain) ondansetron 8 mg tablet,disintegrating 8 mg PO Q8H PRN (Reason: nausea and vomiting) Qty: 30 2RF prochlorperazine maleate 10 mg tablet 10 mg PO Q6H PRN (Reason: nausea and vomiting) Qty: 30 2RF multivitamin with minerals 1 EACH tablet 1 ea PO DAILY PreserVision AREDS-2 1 EACH capsule 1 ea PO DAILY Primary Care Provider: Se Phan Referrals: Se Phan MD [Primary Care Provider] - 3-5 Days Activity Restrictions/Additional Instructions: Follow-up with your oncologist in the next few days or as scheduled. Disposition Disposition: Home, Self Care What to do if you have Problems For any increased pain, shortness of breath, bleeding, nausea or vomiting, chestpain, or any unexpected problems, contact your Primary Care Provider. Call [facility] ([phone]) or report to the closest Emergency Room. Call 911 if necessary. 04/06/23 2340 <Electronically signed by Bryant Britt MD> Cosigner Signature (if applicable): CC: Dr. Se Phan MD ~ Signed [facility] Work Phone: 1(577) 468-855906-28-2023 Discharge summary Author Fredis Jarvis [facility] March 22, 2023 10:14am Note Date/Time March 22, 2023 8:35 am [facility] System Medical Records Department [address] [place] [address] Instructions for Home/Discharge Instructions 03/22/23 0835 MR#: [id number] Acct: [id number] Name: BARBARA RESENDIZ Rep #:[id number] : 1955 67 From: Fredis Jarvis MD PCP: Dr. Se Phan MD Status:[facility] Discharge Instructions Diet Discharge Diet: No restrictions (Pain medication may cause nausea. You should typically eat light foods as you take your pain medication.) Activity Discharge Activity: Return to Normal Activity and May Shower (Leave the bandage on for 2-3 days. When you remove the bandage, leave the steri-strips intact until they fall off.) Additional Activity Instructions:: May not drive, work with heavy equipment, or sign legal documents for [address]. [address] if you are no longer taking narcotic pain medications. You may drive when you are no longer taking pain medications. Dressing / Incision Additional Dressing/Incision Instructions:: Leave the bandage on for 2-3 days. When you remove the bandage, leave the steri-strips intact until they fall off. Follow Up Care Please Follow Up With: Fredis Jarvis MD When: Call [phone] to make an appointment to be seen in 7 days. Test Results: Test results from this visit will be discussed in further detail at your follow- up appointment, if applicable. Discharge Plan Admission Attending Provider: Fredis Jarvis Primary Care Provider: Se Phan Discharge Orders/Prescriptions Prescriptions: No Action ascorbate calcium (vitamin C) 500 mg tablet 500 mg PO DAILY fluticasone propionate 50 mcg/actuation spray,suspension 2 spray intranasal DAILY Rx Instructions: administer into each nostril cholecalciferol (vitamin D3) 125 mcg (5,000 unit) capsule 125 mcg PO DAILY quercetin 500 mg capsule 500 mg PO DAILY mecobalamin (vitamin B12) 500 mcg tablet,chewable 500 mcg PO DAILY Zinc AG 20 mg PO DAILY loratadine 10 mg tablet 10 mg PO DAILY PRN (Reason: ALLERGIES) multivitamin with minerals 1 EACH tablet 1 ea PO DAILY PreserVision AREDS-2 1 EACH capsule 1 ea PO DAILY Referrals / Follow Up: Se Phan MD [Primary Care Provider] - Disposition Disposition (needs filled in before D/C Order can be placed): Home, Self Care 03/22/23 1014<Electronically signed by Fredis Jarvis MD>Fredis Jarvis MD CC: Dr. Se Phan MD ~ Signed [facility] Work Phone: [phone]) 570-279706-28-2023 History and physical note Author Fredis Jarvis [facility] March 22, 2023 8:35am Note Date/Time March 22, 2023 8:35 am [facility] Medical Records Department [address] [place] [address] History & Physical Exam 03/22/23 0834 MR#: [id number] Acct: [id number] Name: BARBARA RESENDIZ Rep #:[id number] : 1955 67 From: Fredis Jarvis MD PCP: Dr. Se Phan MD Status:[facility] Location: [place] [address] History and Physical Date of Admission: 03/22/23 Visit Reasons: PORT PLACEMENT Chief Complaint: port placement Allergies hydrocodone [From Vicodin] Allergy (Verified 03/14/23 10:29) Rashlatex Allergy (Verified 03/14/23 10:29) Rashbacitracin [From Polysporin] Adverse Reaction (Verified 03/14/23 10:29) Otherpolymyxin B [From Polysporin] Adverse Reaction (Verified 03/14/23 10:29) Other Medications multivitamin with minerals 1 ea PO DAILY 04/22/20 [History Confirmed 03/20/23] vit C 250 mg-vit E 90 mg-zinc 40 mg-copper 1 sp-[id number]-[id number] capsule (PreserVision AREDS-2) 1 ea PO DAILY 04/22/20 [History Confirmed 03/20/23] Zinc AG 20 mg PO DAILY 01/04/23 [History Confirmed 03/20/23] ascorbate calcium (vitamin C) 500 mg tablet 500 mg PO DAILY 01/04/23 [History Confirmed 03/20/23] cholecalciferol (vitamin D3) 125 mcg (5,000 unit) capsule 125 mcg PO DAILY 01/04/23 [History Confirmed 03/20/23] fluticasone propionate 50 mcg/actuation nasal spray,suspension 2 spray intranasal DAILY 01/04/23 [History Confirmed 03/20/23] mecobalamin (vitamin B12) 500 mcg chewable tablet 500 mcg PO DAILY 01/04/23 [History Confirmed 03/20/23] quercetin 500 mg capsule 500 mg PO DAILY 01/04/23 [History Confirmed 06/26/23] loratadine 10 mg tablet 10 mg PO DAILY PRN 01/16/23 [History Confirmed 03/20/23] PFSH Medical History Arthritis Cancer Gastric reflux History of GI bleed History of stress test Injury of head and neck Non-smoker Post-menopausal Wears contact lenses Wears glasses Surgical History History of dental yazidism History of hysteroscopy History of lumpectomy Hx of dilation and curettage Hx of rhinoplasty Hx of tubal ligation Hx of umbilical hernia repair Family History Mother Breast cancer, Onset Age: 57Sister Breast cancer Dx in her 60's DiabetesFather Diabetes Heart diseaseAunt Breast cancer x3 maternal aunts Social History adopted: No household members: spouse housing: house number of children: 3 current occupational status: retired current occupational exposures/hazards: No pets and animals: No leisure activities: other history of recent travel: No sexually active: No Smoking Status: Never smoker alcohol intake: never substance use type: does not use diet: other well-balanced diet: daily or most days caffeine: Yes eating out: rarely or never during the past year weight has: decreased > 10 lbs what type of physical activity do you participate in: none facundo/anabaptism: Caodaism seatbelt use: always do you feel safe at home: Yes HPI HPI HPI: 67-year-old female who I first had an opportunity to meet on December 12, 2022 because of blood in her stool. On December 22 I performed a colonoscopy and removed polyps from the cecum and splenic flexure and proximal sigmoid and identified a malignant tumor in the distal rectum. She was seen locally by Dr. Lamin Berger and she was also seen by colorectal specialist Dr. Dago Parish [facility]. Additionally she is seen locally by Dr. Alexis Trotter radiation oncology. Clinical stage T3a, N0, M0. She is to undergo total neoadjuvant therapy with induction long course chemoradiation with continuous infusion5-FU followed by 12 to 16 weeks of FOLFOX and subsequent restaging. Central venous access placement after dental extraction planned. She had the dental extraction performed on March 16, 2023 and she is doing well. No drainage no fever. It was not acutely infected at that time but had intermittently in the past given troubles. She is currently swishing with salt water. She is to have chemotherapy education on March 23 and she is to start her chemotherapy on April 03 ROS General General: No weight change, appetite, fatigue, colon cancer, breast cancer or weakness HEENT HEENT: No difficulty swallowing, eye injury, eye surgery, swollen glands or hoarseness Endo Endocrine: No thyroid disease, diabetes mellitus, thyroid cancer, Hair loss, heat intolerance or cold intolerance Skin Skin: No rash or changing moles Breast Breast: No left breast lump, right breast lump, nipple discharge, breast pain, abnormal mammogram, abnormal US or breast enlargement Musc Musculoskeletal: No back problems, arthritis, rheumatoid arthritis, gout or joint pain Cardio Cardiovascular: No murmur, pacemaker, heart disease, atrial fibrillation, high blood pressure, heart attack, heart stent, palpitations, shortness of breat withexertion or chest pain Psych Psychiatric: No depression, anxiety or hearing voices Resp Respiratory: No shortness of breath, No sleep apnea, No cough, No COPD, No asthma, No emphysema and No wheezing Gastro Gastrointestinal: No abdominal pain, No nausea or vomiting, No diarrhea, No constipation, No blood in stool, No acid reflux, No hemorrhoids, No ulcers, No gallbladder problem and No black,tarry stools Zoran Hematologic: No blood thinners, No blood disorders, No bleeding, No anemia and No blood clots Neuro Neurologic: No system reviewed and no additional complaints, except as documented, No as per HPI, No abnormal gait, No abnormal hearing, No abnormal movements, No abnormal speech, No behavioral changes, No burning sensations, No confusion, No convulsions, No disequilibrium, No dizziness, No localized weakness, No frequent falls, No headache(s), No lack of coordination, No loss ofvision, No memory loss, No numbness, No other visual disturbances, No radicular pain, No restless legs, No sensory deficit, No syncope, No tingling, No tremor(s), No weakness and No other Exam Const General: cooperative, healthy appearing, comfortable and no acute distress HENVT Head: normal to inspection Eyes General: appearance normal, both eyes and all related structures Neck Neck: normal visual inspection Chest Chest palpation & inspection: normal inspection of the chest Resp Effort & Inspection: normal respiratory effort Auscultation: clear to auscultation bilaterally Cardio Rate: regular rate Rhythm: regular rhythm GI Palpation: soft and no hepatosplenomegaly Musc Cervical Spine: normal cervical lordosis Skin General: no rashes or lesions noted Neuro General: patient alert, patient awake and patient oriented x3 Extrem General: no calf tenderness Psych Appearance: grossly normal Assessment and Plan Assessment and Plan (1) Rectal cancer: Status: Acute (2) Cancer: Status: Acute Comment: BREAST, 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 Evans for [facility], was placed on Tamoxifen but had vag bleeding, discontinued (no other AI tried) Also had radiation treatment at [facility] Patient reports she had genetic testing done, came back negative Plan: I recommended the patient a right internal jugular port placement. I have explained the technique, benefit, risk, alternatives. She has had an opportunity to ask and have questions answered. We will schedule and expedite placement of the port site she will be ready to initiate her chemotherapy. I appreciate the ongoing option of assisting with her surgical care. Copy: Dr. Lamin Berger and Dr. Bill Trotetr and Dr. Dago Andre in an Dr. Se Jarvis M.D., F.A.C.S. I have examined the patient and the H&P has been reviewed. There are no clinicalchanges since date of exam. Fredis Jarvis M.D., F.A.C.S. 03/22/23 0835 <Electronically signed by Fredis Jarvis MD> Cosigner Signature (if applicable): CC: Dr. Se Phan MD; Dr. Fredis Jarvis MD~ Signed [facility] Work Phone: 1(550) 355-264806-28-2023 Procedure [facility] 03-07-2023 Miscellaneous Notes* Telephone Encounter - Dago Andre MD - 03/07/2023 3:50 PM EDT Called with the MRI and T3N0. She is seeing her oncologist. WIll present at MDT but likely will be chemoradiation. Dago Andre MD, FACS, FASCRS grappler Crew Member, [place] [address] documented in this encounterMer[facility]05-12-[facility]23 Miscellaneous Notes* Telephone Encounter - April Pablo RN - 02/03/2023 1:18 PM EDT SPECIALTY CARE COORDINATION FOLLOW-UP NOTE Spoke to patient. Informed her that Dr. Bojorquez would like her to get a repeat MRI. She said she had been researching the surgery and has read a lot about LARS and she does not want to live with thatas it will severely affect her quality of life. She is also not ready to have surgery and have to commit to a ostomy. She is stating she does not wish to get an MRI and she wants to discuss her options with her oncologist next week. I informed her that Dr. Bojorquez will be calling her later today todiscuss MDT recommendation in greater detail. I provided patient with radiology phone number for scheduling if she decides to proceed with MRI. Patient again states she will hold off on MRI and wait to hear from Dr. Reno Pablo RN February 03, 2023 documented in this encounterMercy [facility]09-12-2022 Miscellaneous Notes* Letter - Mammography Coordinator - 06/06/2022 1:49 PM EDT June 06, 2022 PID: [id number] Alicia Resendiz [address] [place] [address] Dear Ms. Resendiz, We are pleased to inform you that the results of your recent breast imaging exam on 06/06/2022 are normal. Early detection of cancer is very important. We also understand recommendations regarding breast cancer screening are controversial. Please discuss with your primary care provider which strategy is best for you and whether a mammogram is right for you. Your imaging studies and report will be kept on file at [facility] as part of your permanent medical record and are available for your continuing care. Thank you for allowing us to help in meeting your health care needs. Sincerely, Dr. Babb Interpreting Radiologist [facility] (Normal over 40) documented in this encounterMercy Health [facility]09-12-2022 History of Present illness Narrative* RT Noe(R) - 06/06/2022 12:50 PM EDT Radiology Service Progress Note PATIENT NAME: Alicia Resendiz DATE OF SERVICE: June 06, 2022 TIME: 12:55 PM PATIENT IDENTITY VERIFICATION COMPLETED USING TWO (2) IDENTIFIERS: Name and Date of confirmedby patient verbally. FALL SCREENING: Has the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 [facility]* Diagnosis Rectal cancer (HCC)- Primary Malignant neoplasm of rectum [facility]* Diagnosis Malignant neoplasm of rectum (HCC)- Primary Malignant neoplasm of rectum [facility]* Diagnosis Encounter for screening mammogram for malignant neoplasm of breast- Primary Other screening mammogram [facility] Diagnosis Encounter for screening mammogram for malignant neoplasm of breast Other screening mammogram documented in this encounter [facility] note* Diagnosis Rectal cancer (HCC)- Primary Malignant neoplasm of rectum [facility] Hematology & Oncology Location: None Selected * Radiation Oncology Location: None Selected [facility] Work Phone: Hospital Discharge instructions Additional Instructions Follow-up with your oncologist in the next few days or as scheduled.[facility] Work Phone: Reason for referral (narrative)* Diagnostic Procedure Only (Routine) - Authorized Specialty Diagnoses / Procedures Referred By Gabriel jiang Referred To Contact [facility] Diagnoses Ovarian cyst, left Procedures PELVIC US WHI US PELVIC NONOBSTETRIC REAL-TIME IMAGE COMPLETE Deonna Richardson MD [address] [place] [address] [facility] [address] [place] [address] Referral ID Status Reason Start Date Expiration Date Visits Requested Visits Authorized [id number] Authorized Auto-Generat ed Referral 02/14/2022 02/14/2023 1 1 [facility] for referral (narrative)* Diagnostic Procedure Only (Routine) - Closed Specialty Diagnoses / Procedures Referred By Gabriel jiang Referred To Contact [facility] Diagnoses Encounter for screening mammogram for malignant neoplasm of breast Procedures SAMMY SCREENING W JUAN CARLOS SCREENING BREAST DGTL JUAN CARLOS UNI/BILAT ADD ON SCREENING MAMMOGRAPHY BI 2-VIEW BREAST INC CAD Deonna Richardson MD [address] [place] [address] [facility] [address] [place] [address] Referral ID Status Reason Start Date Expiration Date V isits Requested Visits Authorized [id number] Closed Auto-Generate d Referral 09/15/2021 10/15/2022 1 1 [facility] for referral (narrative)* Diagnostic Procedure Only (Routine) - Authorized Specialty Diagnoses / Procedures Referred By Gabriel jiang Referred To Contact [facility] Diagnoses Encounter for screening mammogram for malignant neoplasm of breast Procedures SAMMY SCREENING W JUAN CARLOS SCREENING DIGITAL BREAST TOMOSYNTHESIS BI SCREENING MAMMOGRAPHY BI 2-VIEW BREAST INC CAD Deonna Richardson MD [address] [place] [address] [facility] [address] [place] [phone] Referral ID Status Reason Start Date Expiration Date Visits Requested Visits Authorized [id number] Authorized Auto-Generat ed Referral 08/30/2023 09/27/2024 1 1 [facility] for referral (narrative)* Diagnostic Procedure Only (Routine) - New Request Specialty Diagnoses / Procedures Referred By Gabriel jiang Referred To Contact [facility] Diagnoses Encounter for screening mammogram for malignant neoplasm of breast Procedures SAMMY SCREENING W JUAN CARLOS SCREENING DIGITAL BREAST TOMOSYNTHESIS BI SCREENING MAMMOGRAPHY BI 2-VIEW BREAST INC CAD Deonna Richardson MD [address] [place] [address] Br Imaging [address] [employer] [place] [place] [address] Referral ID Status Reason Start Date Expiration Date Visits Requested Visits Authorized [id number] New Request Auto-Generat ed Referral 10/03/2024 11/02/2025 1 1 [facility] for referral (narrative)No reason for referral information [facility] Work Phone: reason for visit Narrative* Diagnostic Procedure Only (Routine) - Closed Specialty Diagnoses / Procedures Referred By Gabriel jiang Referred To Contact BR IMAGING Diagnoses Encounter for screening mammogram for malignant neoplasm of breast Procedures SAMMY SCREENING W JUAN CARLOS SCREENING BREAST DGTL JUAN CARLOS UNI/BILAT ADD ON SCREENING MAMMOGRAPHY BI 2-VIEW BREAST INC CAD Deonna Richardson MD [address] [place] [address] Br Imaging [address] [place] [address] Referral ID Status Reason Start Date Expiration Date V isits Requested Visits Authorized [id number] Closed Auto-Generate d Referral 09/15/2021 10/15/2022 1 1 [facility] Diagnostic Procedure Only (Routine) - Closed Specialty Diagnoses / Procedures Referred By Contac t Referred To Contact BR IMAGING Diagnoses Encounter for screening mammogram for malignant neoplasm of breast Procedures SAMMY SCREENING W JUAN CARLOS SCREENING DIGITAL BREAST TOMOSYNTHESIS BI SCREENING MAMMOGRAPHY BI 2-VIEW BREAST INC CAD Deonna Richardson MD [address] [place] [address] Phone: tel: fax: [facility] [address] [place] [address] Referral ID Status Reason Start Date Expiration Date V isits Requested Visits Authorized [id number] Closed Auto-Generate d Referral 10/03/2024 11/02/2025 1 1 [facility] Summary Purpose Family History No Family History Records Found Relationship Condition Age at Onset Recorded Date/T merari mother Malignant neoplasm of breast Unknown sister Malignant neoplasm of breast Unknown Diabetes mellitus Unknown father Diabetes mellitus Unknown Cardiac disease Unknown Relationship Condition Age at Onset Recorded Date/T merari mother Malignant neoplasm of breast 57 sister Malignant neoplasm of breast Unknown Diabetes mellitus Unknown father Diabetes mellitus Unknown Cardiac disease Unknown aunt Malignant neoplasm of breast Unknown Advance Directives No Advanced Directives Records Found Advance Directive Response Recorded Date/ Time Living Will No December 20, 2022 8:33am Power of Field Support Engineer No December 20 8:33am Advance Directive Response Recorded Date/ Time Living Will No March 20, 2023 3:01pm Power of Field Support Engineer No March 20 3:01pm Advance Directive Response Recorded Date/ Time Name of Medical Power of Field Support Engineer KYE Flowers April 06, 2023 9:17pm Advance Directives No April 06 9:09am Living Will No April 06, 2023 9:17pm Power of Field Support Engineer Yes April 06 9:17pm Advance Directive Response Recorded Date/ Time Name of Medical Power of Field Support Engineer KYE Flowers April 06, 2023 9:17pm Name of Medical Power of Field Support Engineer . May 12, 2023 10:30pm Advance Directives No May 10, 2023 10:35am Living Will No May 12 10:30pm Power of Field Support Engineer Yes May 12 10:30pm Advance Directive Response Recorded Date/ Time Advance Directives No August 11:07am Living Will No September 06 023 11:07am Power of Field Support Engineer Yes September 12, 2023 12:43pm Advance Directive Response Recorded Date/ Time Living Will No June 05, 2024 12:20pm Do you have a Healthcare Power of Field Support Engineer? Yes June 05, 2024 12:20pm Living Will No September 06 11:07am Do you have a Healthcare Power of Field Support Engineer? No September 06, 2023 11:07am Advance Directives No August 11:07am Chief Complaint and Reason for Visit Chief Complaint Hemorrhoid/Blood in stool CONSTIPATION, BLOOD IN STOOL, RECTAL MASS f/u c-scope/CT scan Reason for Visit Blood in stool Constipation Rectal cancer Chief Complaint Hemorrhoid/Blood in stool CONSTIPATION, BLOOD IN STOOL, RECTAL MASS f/u c-scope/CT scan NEW PT - RECTAL CA MALIGNANT NEOPLASM OF RECTUM STAGING RECATAL CANCER ESTABLISH CARE, WELLNESS REVIEW SCANS Reason for Visit Blood in stool Constipation Rectal cancer Rectal cancer Cancer Encounter to establish care Rectal cancer Rectal cancer Chief Complaint Hemorrhoid/Blood in stool CONSTIPATION, BLOOD IN STOOL, RECTAL MASS f/u c-scope/CT scan NEW PT - RECTAL CA STAGING RECATAL CANCER ESTABLISH CARE, WELLNESS REVIEW SCANS CONSULT - RECTAL RECTAL CA STAGING, LLL & RML NODULES *IV ONLY* MALIGNANT NEOPLASM OF RECTUM Reason for Visit Blood in stool Constipation Rectal cancer Rectal cancer Cancer Encounter to establish care Rectal cancer Rectal cancer Rectal cancer Chief Complaint Hemorrhoid/Blood in stool CONSTIPATION, BLOOD IN STOOL, RECTAL MASS f/u c-scope/CT scan NEW PT - RECTAL CA STAGING RECATAL CANCER ESTABLISH CARE, WELLNESS REVIEW SCANS CONSULT - RECTAL RECTAL CA STAGING, LLL & RML NODULES *IV ONLY* 2MO REVIEW MRI([facility]) MALIGNANT NEOPLASM OF RECTUM PORT PLACEMENT RT INSERTION PORT RT INSERTION PORT Reason for Visit Blood in stool Constipation Rectal cancer Rectal cancer Cancer Encounter to establish care Rectal cancer Rectal cancer Rectal cancer Rectal cancer Cancer Rectal cancer Rectal cancer Chief Complaint Hemorrhoid/Blood in stool CONSTIPATION, BLOOD IN STOOL, RECTAL MASS f/u c-scope/CT scan NEW PT - RECTAL CA STAGING RECATAL CANCER ESTABLISH CARE, WELLNESS REVIEW SCANS CONSULT - RECTAL RECTAL CA STAGING, LLL & RML NODULES *IV ONLY* 2MO REVIEW MRI([facility]) PORT PLACEMENT RT INSERTION PORT RT INSERTION PORT CHEMO ED 1.5 [facility] LABS [facility] OTV NAUSEA - LABS MALIGNANT NEOPLASM OF RECTUM N/V Reason for Visit Blood in stool Constipation Rectal cancer Rectal cancer Cancer Encounter to establish care Rectal cancer Rectal cancer Rectal cancer Rectal cancer Cancer Rectal cancer Rectal cancer Encounter for education Rectal cancer Rectal cancer Rectal cancer CINV (chemotherapy-induced nausea and vomiting) Rectal cancer Chief Complaint ESTABLISH CARE, WELL NESS REVIEW SCANS CONSULT - RECTAL RECTAL CA STAGING, LLL & RML NODULES *IV ONLY* 2MO REVIEW MRI([facility]) PORT PLACEMENT RT INSERTION PORT RT INSERTION PORT CHEMO ED 1.5 [facility]K [facility]S NEW START OTV NAUSEA - LABS N/V 1WK LABS 5FU OTV 1WK LABS 5FU OTV 1WK LABS 5FU OTV 1WK LABS 5FU OTV 1WK - LABS - 5FU OTV MALIGNANT NEOPLASM OF RECTUM WEAKNESS Reason for Visit Cancer Encounter to establish care Rectal cancer Rectal cancer Rectal cancer Rectal cancer Cancer Rectal cancer Rectal cancer Encounter for education Rectal cancer Rectal cancer Rectal cancer CINV (chemotherapy-induced nausea and vomiting) Rectal cancer Rectal cancer Rectal cancer Rectal cancer Rectal cancer Rectal cancer Rectal cancer Rectal cancer Rectal cancer Rectal cancer Chief Complaint 2 WKS - LABS - FOLFO X 2 WKS - LABS - FOLFOX 2 WKS - LABS - FOLFOX 3 MONTH RECTAL F/U fluphila F/U FROM [facility]S/DAGO Reason for Visit Drug induced neutrop enia Encounter for chemotherapy management Rectal cancer Drug induced neutropenia Rectal cancer Drug induced neutropenia Rectal cancer Rectal cancer Drug induced neutropenia Rectal cancer Chief Complaint Admit Date 3 MO - LABS 1 WK PRIOR - REVIEW DR. SABINO ESPINO November 13, 2024 2:25pm 6 MONTH F/U RECTAL December 09, 2024 12: 51pm fluphila February 04, 2025 11:00 am 3 MO - LABS 1 WK PRIOR February 11, 2025 1: 27pm Reason for Visit Admit Date Drug induced neutropenia November 13, 2024 2:25pm Rectal cancer November 13, 2024 2:25pm Rectal cancer December 09, 2024 12: 51pm Drug induced neutropenia February 11, 2025 1:27pm Rectal cancer February 11, 2025 1:27p m Reason for Referral Specialty Diagnoses / Procedures Referred By Contac t Referred To Contact CT IMAGING Diagnoses Malignant neoplasm of rectum (HCC) Procedures CT CHEST W IVCON DIAGNOSTIC COMPUTED TOMOGRAPHY THORAX W/CONTRAST Dago Andre MD [id number] Imaging [facility]95 Referral ID Status Reason Start Date Expiration Date Visits Requested Visits Authorized [id number] Pending Review Auto-Generat ed Referral 3 10/11/2024 1 1 Specialty Diagnoses / Procedures Referred By Contac t Referred To Contact CT IMAGING Diagnoses Malignant neoplasm of rectum (HCC) Procedures CT ABD/PEL W IVCON CT ABD & PELVIS W/CONTRAST Dago Andre MD [address] [place] [id number] Imaging [facility]95 Referral ID Status Reason Start Date Expiration Date Visits Requested Visits Authorized [id number] Pending Review Auto-Generat ed Referral 3 10/11/2024 1 1 Specialty Diagnoses / Procedures Referred By Contac t Referred To Contact MR IMAGING Diagnoses Malignant neoplasm of rectum (HCC) Procedures MRI RECTUM WO/W IVCON MRI PELVIS W/O & W/CONTRAST MATERIAL Dago Andre MD [address] [place] [id number] Mr Imaging [facility]95 Referral ID Status Reason Start Date Expiration Date Visits Requested Visits Authorized [id number] Pending Review Auto-Generat ed Referral 3 10/11/2024 1 1 Referral ID Status Reason Start Date Expiration Date Visits Requested Visits Authorized [id number] Authorized Auto-Generat ed Referral 04/04/2024 05/04/2025 1 1 Referral ID Status Reason Start Date Expiration Date Visits Requested Visits Authorized [id number] Authorized Auto-Generat ed Referral 04/04/2024 05/04/2025 1 1 Referral ID Status Reason Start Date Expiration Date V isits Requested Visits Authorized [id number] Closed Auto-Generate d Referral 04/04/2024 05/04/2025 1 1 Referral ID Status Reason Start Date Expiration Date V isits Requested Visits Authorized [id number] Closed Auto-Generate d Referral 04/04/2024 05/04/2025 1 1 Referral ID Status Reason Start Date Expiration Date V isits Requested Visits Authorized [id number] Closed Auto-Generate d Referral 12/29/2023 01/27/2025 1 1 Referral ID Status Reason Start Date Expiration Date Visits Requested Visits Authorized [id number] Authorized Auto-Generat ed Referral 12/29/2023 01/27/2025 1 1 Referral ID Status Reason Start Date Expiration Date Visits Requested Visits Authorized [id number] New Request Auto-Generat ed Referral 08/15/2025 1 1 Referral ID Status Reason Start Date Expiration Date Visits Requested Visits Authorized [id number] New Request Auto-Generat ed Referral 4 08/15/2025 1 1 Referral ID Status Reason Start Date Expiration Date Visits Requested Visits Authorized [id number] New Request Auto-Generat ed Referral 4 08/15/2025 1 1 Additional Source Comments INFORMATION SOURCE (unrecogn ized section and content) DATE CREATED AUTHOR 07/01/2020 [facility] DATE CREATED AUTHOR AUTHOR'S ORGANIZ ATION 01/08/2025 [facility] DATE CREATED AUTHOR AUTHOR'S ORGANIZ ATION 04/14/2025 [facility] Source Comments (unrecognize d section and content) In the event this informatio n is protected by the Federal Confidentiality of Alcohol and Drug Abuse Patient Records regulations: The Federal rules restrict any use of the information to criminally investigate or prosecute any alcohol or drug abuse patient.[facility] the event this information is protected by the Federal Confidentiality of Alcohol and Drug Abuse Patient Records regulations: The Federal rules restrict any use of the information to criminally investigate or prosecute any alcohol or drug abuse patient.[facility] Hospital[facility] the event this information is protected by the Federal Confidentiality of Alcohol and Drug Abuse Patient Records regulations: The Federal rules restrict any use of the information to criminally investigate or prosecute any alcohol or drug abuse patient.[facility] Hospital[facility] the event this information is protected by the Federal Confidentiality of Alcohol and Drug Abuse Patient Records regulations: The Federal rules restrict any use of the information to criminally investigate or prosecute any alcohol or drug abuse patient.[facility] Hospital[facility] the event this information is protected by the Federal Confidentiality of Alcohol and Drug Abuse Patient Records regulations: The Federal rules restrict any use of the information to criminally investigate or prosecute any alcohol or drug abuse patient.[facility] Hospital[facility] the event this information is protected by the Federal Confidentiality of Alcohol and Drug Abuse Patient Records regulations: The Federal rules restrict any use of the information to criminally investigate or prosecute any alcohol or drug abuse patient.[facility] Hospital[facility] the event this information is protected by the Federal Confidentiality of Alcohol and Drug Abuse Patient Records regulations: The Federal rules restrict any use of the information to criminally investigate or prosecute any alcohol or drug abuse patient.[facility] Hospital[facility] the event this information is protected by the Federal Confidentiality of Alcohol and Drug Abuse Patient Records regulations: The Federal rules restrict any use of the information to criminally investigate or prosecute any alcohol or drug abuse patient.[facility] Hospital[facility] the event this information is protected by the Federal Confidentiality of Alcohol and Drug Abuse Patient Records regulations: The Federal rules restrict any use of the information to criminally investigate or prosecute any alcohol or drug abuse patient.[facility] HospitalIn the event this information is protected by the Federal Confidentiality of Alcohol and Drug Abuse Patient Records regulations: The Federal rules restrict any use of the information to criminally investigate or prosecute any alcohol or drug abuse patient.[facility] HospitalIn the event this information is protected by the Federal Confidentiality of Alcohol and Drug Abuse Patient Records regulations: The Federal rules restrict any use of the information to criminally investigate or prosecute any alcohol or drug abuse patient.[facility] HospitalIn the event this information is protected by the Federal Confidentiality of Alcohol and Drug Abuse Patient Records regulations: The Federal rules restrict any use of the information to criminally investigate or prosecute any alcohol or drug abuse patient.[facility] HospitalIn the event this information is protected by the Federal Confidentiality of Alcohol and Drug Abuse Patient Records regulations: The Federal rules restrict any use of the information to criminally investigate or prosecute any alcohol or drug abuse patient.[facility] Hospital[facility] the event this information is protected by the Federal Confidentiality of Alcohol and Drug Abuse Patient Records regulations: The Federal rules restrict any use of the information to criminally investigate or prosecute any alcohol or drug abuse patient.[facility] HospitalIn the event this information is protected by the Federal Confidentiality of Alcohol and Drug Abuse Patient Records regulations: The Federal rules restrict any use of the information to criminally investigate or prosecute any alcohol or drug abuse patient.[facility] HospitalIn the event this information is protected by the Federal Confidentiality of Alcohol and Drug Abuse Patient Records regulations: The Federal rules restrict any use of the information to criminally investigate or prosecute any alcohol or drug abuse patient.[facility] HospitalIn the event this information is protected by the Federal Confidentiality of Alcohol and Drug Abuse Patient Records regulations: The Federal rules restrict any use of the information to criminally investigate or prosecute any alcohol or drug abuse patient.[facility] HospitalIn the event this information is protected by the Federal Confidentiality of Alcohol and Drug Abuse Patient Records regulations: The Federal rules restrict any use of the information to criminally investigate or prosecute any alcohol or drug abuse patient.[facility] HospitalIn the event this information is protected by the Federal Confidentiality of Alcohol and Drug Abuse Patient Records regulations: The Federal rules restrict any use of the information to criminally investigate or prosecute any alcohol or drug abuse patient.[facility] HospitalIn the event this information is protected by the Federal Confidentiality of Alcohol and Drug Abuse Patient Records regulations: The Federal rules restrict any use of the information to criminally investigate or prosecute any alcohol or drug abuse patient.[facility] HospitalIn the event this information is protected by the Federal Confidentiality of Alcohol and Drug Abuse Patient Records regulations: The Federal rules restrict any use of the information to criminally investigate or prosecute any alcohol or drug abuse patient.[facility] HospitalIn the event this information is protected by the Federal Confidentiality of Alcohol and Drug Abuse Patient Records regulations: The Federal rules restrict any use of the information to criminally investigate or prosecute any alcohol or drug abuse patient.[facility] HospitalIn the event this information is protected by the Federal Confidentiality of Alcohol and Drug Abuse Patient Records regulations: The Federal rules restrict any use of the information to criminally investigate or prosecute any alcohol or drug abuse patient.[facility] HospitalIn the event this information is protected by the Federal Confidentiality of Alcohol and Drug Abuse Patient Records regulations: The Federal rules restrict any use of the information to criminally investigate or prosecute any alcohol or drug abuse patient.[facility] HospitalIn the event this information is protected by the Federal Confidentiality of Alcohol and Drug Abuse Patient Records regulations: The Federal rules restrict any use of the information to criminally investigate or prosecute any alcohol or drug abuse patient.[facility] HospitalIn the event this information is protected by the Federal Confidentiality of Alcohol and Drug Abuse Patient Records regulations: The Federal rules restrict any use of the information to criminally investigate or prosecute any alcohol or drug abuse patient.[facility] Reason for Visit (unrecogniz ed section and content) Reason Comments Radiology CT Specialty Diagnoses / Procedures Referred By Contac t Referred To Contact CT IMAGING Diagnoses Malignant neoplasm of rectum (HCC) Procedures CT ABD/PEL W IVCON CT ABD & PELVIS W/CONTRAST Dago Andre MD [address] [place] [address] Ct Imaging [place] [address] Referral ID Status Reason Start Date Expiration Date V isits Requested Visits Authorized [id number] Closed Auto-Generate d Referral 04/04/2024 05/04/2025 1 1 Reason Comments Established Patient Reason Comments Orders Reason Comments Care Coordination Reason Comments Results Reason Comments Radiology MRI Specialty Diagnoses / Procedures Referred By Contac t Referred To Contact MR IMAGING Diagnoses Malignant neoplasm of rectum (HCC) Procedures MRI RECTUM WO/W IVCON MRI PELVIS W/O & W/CONTRAST MATERIAL Dago Andre MD [address] [id number] Mr Imaging [place] [address] Referral ID Status Reason Start Date Expiration Date V isits Requested Visits Authorized [id number] Closed Auto-Generate d Referral 10/13/2023 11/11/2024 1 1 Reason Comments Rectal Cancer Reason Comments Radiology MRI Specialty Diagnoses / Procedures Referred By Gabriel jiang Referred To Contact MR IMAGING Diagnoses Malignant neoplasm of rectum (HCC) Procedures MRI RECTUM WO/W IVCON MRI PELVIS W/O & W/CONTRAST MATERIAL Dago Andre MD [address] [place] [address] [place] [address] Referral ID Status Reason Start Date Expiration Date V isits Requested Visits Authorized [id number] Closed Auto-Generate d Referral 12/29/2023 01/27/2025 1 1 Reason Comments Established Patient flex Care Teams (unrecognized sec tion and content) Digital Imaging Technician Relationship Specialty Start Date End Date Jeremiah Hensley DO [address] [place] [address] PCP - General 06/10/03 Werner Andrade MD, [address] [facility] [place] [address] Physician Radiation Oncology 05/12/20 Eva Hinojosa RN Specialty Performance Improvement Analyst Oncology 05/27/20 Digital Imaging Technician Relationship Specialty Start Date End Date Jeremiah Hensley DO [address] [place] [address] PCP - General 06/10/03 Werner Andrade MD, [address] [place] [address] Physician Radiation Oncology 05/12/20 Eva Hinojosa RN Specialty Performance Improvement Analyst Oncology 05/27/20 Digital Imaging Technician Relationship Specialty Start Date End Date Jeremiah Hensley DO [address] [place] [address] PCP - General 06/10/03 Werner Andrade MD, [address] [facility] [place] [address] Physician Radiation Oncology 05/12/20 Eva Hinojosa RN Specialty Performance Improvement Analyst Oncology 05/27/20 Digital Imaging Technician Relationship Specialty Start Date End Date Jeremiah Hensley, DO [address] [place] [address] PCP - General 06/10/03 Werner Andrade MD, [address] [facility] [place] [address] Physician Radiation Oncology 05/12/20 Eva Hinojosa RN Specialty Performance Improvement Analyst Oncology 05/27/20 Digital Imaging Technician Relationship Specialty Start Date End Date Jeremiah Hensley, DO [address] [place] [address] PCP - General 06/10/03 Werner Andrade MD, [address] [facility] [place] [address] Physician Radiation Oncology 05/12/20 Eva Hinojosa RN Specialty Performance Improvement Analyst Oncology 05/27/20 Digital Imaging Technician Relationship Specialty Start Date End Date Jeremiah Hensley, DO [address] [place] [address] PCP - General 06/10/03 Werner Andrade MD, [address] [facility] [address] Physician Radiation Oncology 05/12/20 Eva Hinojosa RN Specialty Performance Improvement Analyst Oncology 05/27/20 Team Status: Active Member Role Status Dates Dr. Jeremiah Hensley DO Family Provider Active Dr. Se Phan MD Primary Care Provider Active Team Status: Inactive Member Role Status Dates Dr. Fredis Jarvis MD Attending Provider Active Dr. Se Phan MD Primary Care Provider Active Self Referred Referring Provider Active Team Status: Active Member Role Status Dates Dr. Se Phan MD Primary Care Provider, Referri ng Provider Active Dr. Fredis Jarvis MD Attending Provider, Other Prov ider Active Team Status: Inactive Member Role Status Dates Dr. Se Phan MD Primary Care Provider, Referri ng Provider Active Dr. Fredis Jarvis MD Attending Provider Active Team Status: Inactive Member Role Status Dates Dr. Se Phan MD Primary Care Provider Active Dr. Fredis Jarvis MD Attending Provider, Referring Provider Active Team Status: Inactive Member Role Status Dates Dr. Se Phan MD Primary Care Provider, Attendi ng Provider Active Team Status: Inactive Member Role Status Dates Dr. Se Phan MD Primary Care Provider, Referri ng Provider Active Dr. Lamin Berger MD Attending Provider Active Team Status: Active Member Role Status Dates Dr. Se Phan MD Primary Care Provider Active Dr. Lamin Berger MD Attending Provider, Referrin g Provider Active Team Status: Inactive Member Role Status Dates Dr. Se Phna MD Primary Care Provider Active Dr. Lamin Berger MD Attending Provider, Referrin g Provider Active Team Status: Inactive Member Role Status Dates Dr. Se Phan MD Primary Care Provider, Referri ng Provider Active Dr. Bill Trotter DO Attending Provider Active Digital Imaging Technician Relationship Specialty Start Date End Date Jeremiah Hensley DO [address] [place] [address] PCP - General 06/10/03 Werner Andrade MD, [address] [place] [address] Physician Radiation Oncology 05/12/20 Eva Hinojosa RN Specialty Performance Improvement Analyst Oncology 05/27/20 Lamin Berger [address] [place] [address] Hematology/Oncology 02/01/23 Digital Imaging Technician Relationship Specialty Start Date End Date Jeremiah Hensley DO [address] [place] [address] PCP - General 06/10/03 Werner Andrade MD, [address] [place] [address] Physician Radiation Oncology 05/12/20 Eva Hinojosa, RN Specialty Performance Improvement Analyst Oncology 05/27/20 Lamin Berger [address] [place] [employer], [place] [address] Hematology/Oncology 02/01/23 Team Status: Active Member Role Status Dates Dr. Se Phan MD Primary Care Provider Active Dr. Bill Trotter DO Attending Provider, Referring P rovider Active Team Status: Active Member Role Status Dates Dr. Se Phan MD Primary Care Provider Active Dr. Fredis Jarvis MD Attending Provid er, Referring Provider, Other Provider Active Team Status: Active Member Role Status Dates Dr. Se Phan MD Primary Care Provider Active Dr. Lamin Berger MD Attending Provider, Referrin g Provider Active Dr. Bill Trotter DO Active Team Status: Inactive Member Role Status Dates Dr. Se Phan MD Primary Care Provider, Referri ng Provider Active Anita Virk CONTRACT ADMINISTRATION MANAGER, CONTRACT ADMINISTRATION MANAGER-C Attending Provider Active Team Status: Inactive Member Role Status Dates Dr. Se Phan MD Primary Care Provider Active Dr. Bryant Britt MD Emergency Provider Active Team Status: Inactive Member Role Status Dates Dr. Se Phan MD Primary Care Provider Active Dr. Bill Trotter DO Attending Provider, Referring P rovider Active Team Status: Inactive Member Role Status Dates Dr. Se Phan MD Primary Care Provider Active Dr. Bryant Britt MD Attending Provider, Emergency Provider Active Team Status: Inactive Member Role Status Dates Dr. Se Phan MD Primary Care Provider Active Dr. Homero Roberts DO Emergency Provider Active Digital Imaging Technician Relationship Specialty Start Date End Date Jeremiah Hensley DO [address] [place] [employer], [place] [id number] PCP - General 06/10/03 Werner Andrade MD, MD [address] [place] [employer], [place] [id number] Physician Radiation Oncology 05/12/20 Doup, Eva, RN Specialty Performance Improvement Analyst Oncology 05/27/20 Ab Urbanokendall [address] [place] [address] Hematology/Oncology 02/01/23 Digital Imaging Technician Relationship Specialty Start Date End Date Jeremiah Hensley DO [address] [place] [address] PCP - General 06/10/03 Werner Andrade MD, [address] [facility] [place] [address] Physician Radiation Oncology 05/12/20 Eva Hinojosa RN Specialty Performance Improvement Analyst Oncology 05/27/20 Shante Lamin [address] [place] [address] Hematology/Oncology 02/01/23 Team Status: Inactive Member Role Status Dates Dr. Se Phan MD Primary Care Provider Active DAGO ANDRE MD Attending Provider, Referring Provid er Active Digital Imaging Technician Relationship Specialty Start Date End Date Jeremiah Hensley DO [address] [place] [address] PCP - General 06/10/03 Werner Andrade MD [address] [facility] [place] [address] Physician Radiation Oncology 05/12/20 Eva Hinojosa, RN Specialty Performance Improvement Analyst Oncology 05/27/20 Lamin Berger [address] [place] [address] Hematology/Oncology 02/01/23 Bill Trotter DO [address] [place] [address] [place] [address] Radiation Oncology 10/04/23 Digital Imaging Technician Relationship Specialty Start Date End Date Jeremiah Hensley DO [address] [place] [address] PCP - General 06/10/03 Werner Andrade MD [address] [facility] [place] [address] Physician Radiation Oncology 05/12/20 Eva Hinojosa RN Specialty Performance Improvement Analyst Oncology 05/27/20 Lamin Berger [address] [place] [address] Hematology/Oncology 02/01/23 Bill Trotter DO [address] [facility] [address] [address] Radiation Oncology 10/04/23 Digital Imaging Technician Relationship Specialty Start Date End Date Jeremiah Hensley DO [address] [place] [address] PCP - General 06/10/03 Werner Andrade MD [address] [facility] [place] [address] Physician Radiation Oncology 05/12/20 Eva Hinojosa RN Specialty Performance Improvement Analyst Oncology 05/27/20 Lamin Berger [address] [place] [address] Hematology/Oncology 02/01/23 Bill Trotter DO [address] [facility] [place] [address] [place] [address] Radiation Oncology 10/04/23 Digital Imaging Technician Relationship Specialty Start Date End Date Jeremiah Hensley DO [address] [place] [address] PCP - General 06/10/03 Werner Andrade MD [address] [place] [address] Physician Radiation Oncology 05/12/20 Eva Hinojosa RN Specialty Performance Improvement Analyst Oncology 05/27/20 Lamin Berger [address] [place] [address] Hematology/Oncology 02/01/23 Bill Trotter DO [address] [facility] [address] [address] Radiation Oncology 10/04/23 Digital Imaging Technician Relationship Specialty Start Date End Date Jeremiah Hensley DO [address] [place] [address] PCP - General 06/10/03 Werner Andrade MD [address] [place] [address] Physician Radiation Oncology 05/12/20 Eva Hinojosa RN Specialty Performance Improvement Analyst Oncology 05/27/20 Lamin Berger [address] [place] [address] Hematology/Oncology 02/01/23 Bill Trotter DO [address] [facility] [place] [address] [place] [address] Radiation Oncology 10/04/23 Digital Imaging Technician Relationship Specialty Start Date End Date Jeremiah Hensley DO [address] [place] [address] PCP - General 06/10/03 Werner Andrade MD [address] [place] [address] Physician Radiation Oncology 05/12/20 Eva Hinojosa RN Specialty Performance Improvement Analyst Oncology 05/27/20 Lamin Berger [address] [place] [address] Hematology/Oncology 02/01/23 Bill Trotter DO [address] [facility] [address] [address] Radiation Oncology 10/04/23 Digital Imaging Technician Relationship Specialty Start Date End Date Jeremiah Hensley DO [address] [place] [address] PCP - General 06/10/03 Werner Andrade MD [address] [place] [address] Physician Radiation Oncology 05/12/20 Eva Hinojosa RN Specialty Performance Improvement Analyst Oncology 05/27/20 Lamin Berger [address] [place] [address] Hematology/Oncology 02/01/23 Bill Trotter DO [address] [facility] [place] [address] [place] [address] Radiation Oncology 10/04/23 Digital Imaging Technician Relationship Specialty Start Date End Date Jeremiah Hensley DO [address] [place] [address] PCP - General 06/10/03 Werner Andrade MD [address] [place] [address] Physician Radiation Oncology 05/12/20 Eva Hinojosa RN Specialty Performance Improvement Analyst Oncology 05/27/20 Lamin Berger [address] [place] [address] Hematology/Oncology 02/01/23 Bill Trotter DO [address] [facility] [address] [address] Radiation Oncology 10/04/23 Digital Imaging Technician Relationship Specialty Start Date End Date Jeremiah Hensley DO [address] [place] [address] PCP - General 06/10/03 Werner Andrade MD [address] [place] [address] Physician Radiation Oncology 05/12/20 Eva Hinojosa RN Specialty Performance Improvement Analyst Oncology 05/27/20 Lamin Berger [address] [place] [address] Hematology/Oncology 02/01/23 Bill Trotter DO [address] [facility] [place] [address] [place] [address] Radiation Oncology 10/04/23 Digital Imaging Technician Relationship Specialty Start Date End Date Jeremiah Hensley DO [address] [place] [address] PCP - General 06/10/03 Werner Andrade MD [address] [place] [address] Physician Radiation Oncology 05/12/20 Eva Hinojosa RN Specialty Performance Improvement Analyst Oncology 05/27/20 Lamin Berger [address] [place] [address] Hematology/Oncology 02/01/23 Bill Trotter DO [address] [facility] [place] [address] [place] [address] Radiation Oncology 10/04/23 Digital Imaging Technician Relationship Specialty Start Date End Date Jeremiah Hensley DO [address] [place] [address] PCP - General 06/10/03 Werner Andrade MD [address] [place] [address] Physician Radiation Oncology 05/12/20 Eva Hinojosa RN Specialty Performance Improvement Analyst Oncology 05/27/20 Lamin Berger [address] [place] [address] Hematology/Oncology 02/01/23 Bill Trotter DO [address] [facility] [place] [address] [place] [address] Radiation Oncology 10/04/23 Digital Imaging Technician Relationship Specialty Start Date End Date Se Phan MD [address] [place] [address] PCP - General Internal Medicine 05/10/24 Werner Andrade MD [address] [place] [place] [address] Physician Radiation Oncology 05/12/20 Eva Hinojosa RN Specialty Performance Improvement Analyst Oncology 05/27/20 Lamin Berger [address] [place] [address] Hematology/Oncology 02/01/23 Bill Trotter DO [address] [place] [address] Radiation Oncology 10/04/23 Digital Imaging Technician Relationship Specialty Start Date End Date Se Phan MD [address] [place] [address] PCP - General Internal Medicine 05/10/24 Werner Andrade MD [address] [place] [place] [address] Physician Radiation Oncology 05/12/20 Eva Hinojosa RN Specialty Performance Improvement Analyst Oncology 05/27/20 Lamin Berger [address] [place] [address] Hematology/Oncology 02/01/23 Bill Trotter DO [address] [facility] [address] [place] [address] Radiation Oncology 10/04/23 Digital Imaging Technician Relationship Specialty Start Date End Date Se Phan MD [address] [facility] [address] [place] [address] PCP - General Internal Medicine 05/10/24 Werner Andrade MD [address] [place] [place] [address] Physician Radiation Oncology 05/12/20 Eva Hinojosa, RN Specialty Performance Improvement Analyst Oncology 05/27/20 Lamin Berger [address] [place] [address] Hematology/Oncology 02/01/23 Bill Trotter DO [address] [facility] 1 [place] [address] Radiation Oncology 10/04/23 Digital Imaging Technician Relationship Specialty Start Date End Date Se Phan MD [address] [facility] [address] [place] [address] PCP - General Internal Medicine 05/10/24 Werner Andrade MD [address] [place] [facility] [place] [address] Physician Radiation Oncology 05/12/20 Eva Hinojosa, RN Specialty Performance Improvement Analyst Oncology 05/27/20 Lamin Berger [address] [place] [address] Hematology/Oncology 02/01/23 Bill Trotter DO [address] [facility] [place] [address] [place] [address] Radiation Oncology 10/04/23 Digital Imaging Technician Relationship Specialty Start Date End Date Se Phan MD [address] [place], [place] [address] PCP - General Internal Medicine 05/10/24 Werner Andrade MD [address] [facility], [place] [address] Physician Radiation Oncology 05/12/20 Eva Hinojosa RN Specialty Performance Improvement Analyst Oncology 05/27/20 Lamin Berger [address] [place] [employer], [place] [address] Hematology/Oncology 02/01/23 Bill Trotter DO [address] [facility] [place] [address] [place] [phone] Radiation Oncology 10/04/23 Team Status: Active Member Role Status Dates Dr. Se Phan MD Primary Care Provider Active Team Status: Inactive Member Role Status Dates Dr. Se Phan MD Primary Care Provider Active Start: November 13, 2024 End: November 13, 2024 Dr. Se Phan MD Referring Provider Active Start: November 13, 2024 End: November 13, 2024 Dr. Lamin Berger MD Attending Provider Active Start: November 13, 2024 End: November 13, 2024 Team Status: Inactive Member Role Status Dates Dr. Se Phan MD Primary Care Provider Active Start: December 09, 2024 End: December 09, 2024 Dr. Se Phan MD Referring Provider Active Start: December 09, 2024 End: December 09, 2024 Dr. Bill Trotter DO Attending Provider Active Start: December 09, 2024 End: December 09, 2024 Team Status: Active Member Role Status Dates Dr. Se Phan MD Primary Care Provider Active Start: February 04, 2025 Dr. Lamin Berger MD Attending Provider Active Start: February 04, 2025 Dr. Lamin Berger MD Referring Provider Active Start: February 04, 2025 Team Status: Inactive Member Role Status Dates Dr. Se Phan MD Primary Care Provider Active Start: February 11, 2025 End: February 11, 2025 Dr. Se Phan MD Referring Provider Active Start: February 11, 2025 End: February 11, 2025 Dr. Lamin Berger MD Attending Provider Active Start: February 11, 2025 End: February 11, 2025 Goals (unrecognized section and content) Goals may be documented in a n alternate sectionGoals may be documented in an alternate section FOR RECORDS PERTAINING TO PATIENTS WHO ARE OR HAVE BEEN ENROLLED IN A CHEMICAL DEPENDENCY/SUBSTANCEABUSE PROGRAM, SOME INFORMATION MAY BE OMITTED. This clinical summary was aggregated from multiple sources. Caution should be exercised in using it in the provision of clinical care. This summary normalizes information from multiple sources, and as a consequence, information in this document may materially change the coding, format and clinical context of patient data. In addition, data may be omitted in some cases. CLINICAL DECISIONS SHOULD BE BASED ON THE PRIMARY CLINICAL RECORDS. [facility]. provides no warranty or guarantee of the accuracy or completeness of information in this document.
== END | disposition home or self-care (01) ==
LOC: CT 12:44
PROVIDERS: PCP Internal Medicine; Referring Provider Internal Medicine Hematology & Oncology; Visit Provider Internal Medicine Hematology & Oncology
DX: C20 Malignant neoplasm of rectum (principal)
CPT/HCPCS: 71260; 74160; Q9967

== ENCOUNTER → 2025-07-22 | Outpatient (CLI) | payer MEDICARE, SELFPAY ==
--- NOTE | 2025-07-22 12:46 | CT_ITS ---
PROCEDURE: CT/Chest WITH Contrast
== END | disposition home or self-care (01) ==
LOC: CT 12:45
PROVIDERS: PCP Internal Medicine; Referring Provider Internal Medicine Hematology & Oncology; Visit Provider Internal Medicine Hematology & Oncology
DX: C20 Malignant neoplasm of rectum (principal); R91.8 Other nonspecific abnormal finding of lung field
CPT/HCPCS: 71260; Q9967